=== PATIENT | female | born 1950 | race Caucasian/White ===

== ENCOUNTER → 2018-07-05 | Outpatient (CLI) | payer MEDICARE, OTHER, SELFPAY ==
[2018-07-05 12:51] LABS: ALB/GLOB Ratio 1.5 RATIO (0.9-2.4); AST(SGOT) 29 U/L (15-37); Alanine Aminotransfer ALT/SGPT 60 U/L (13-56); Albumin, Serum 4.1 g/dL (3.2-5.0); Alkaline Phosphatase 104 U/L (45-117); Anion Gap 5 (5-15); BUN 9 mg/dL (7-18); BUN/Creat Ratio 10.8 RATIO (10-20); Chloride 108 mmol/L (98-107); Cholesterol 215 mg/dL (200); Creatinine, Serum 0.83 mg/dL (0.55-1.02); EST Glomerular Filtration Rate 72 mL/min (>60); Est Glom Filt Rate - Afr Amer 87 mL/min (>60); Globulin 2.8 g/dL (2.2-4.2); Glucose 96 mg/dL (74-106); High Density Lipoprotein 73 mg/dL; Iron 98 ug/dL (50-170); Potassium 3.7 mmol/L (3.5-5.1); Protein, Total 6.9 g/dL (6.4-8.2); Sodium Level 139 mmol/L (136-145); T4 Free Direct 0.87 ng/dL (0.76-1.46); Thyroid Stim Hormone (TSH) 1.61 uIU/mL (0.358-3.74); Triglycerides 52 mg/dL; Very Low Density Lipoprotein 10 mg/dL (5-40)
[2018-07-05 12:54] LABS: Absolute Lymphocyte Count 1.02 X10^3/ul (0.83-4.51); Absolute Neutrophil Count 0.9 X10^3/uL (2.0-7.7); Basophil# 0.01 X10^3/uL; Basophil% 0.5 % (0-1); Eosinophil# 0.08 X10^3/uL; Eosinophils% 3.6 % (0-5); Hematocrit 40.2 % (37-47); Hemoglobin 13.5 g/dl (12.0-15.0); Lymphocyte # 1.02 X10^3/ul (4.0); Lymphocyte % 45.9 % (19-41); Mean Corp Hgb Conc 33.6 g/gl (32-36); Mean Corpuscular Hgb 30.3 pg (27.0-32.0); Mean Corpuscular Volume 90.3 fL (81-99); Mean Platelet Vol. 9.5 fl (6.2-12.0); Monocyte# 0.19 X10^3/uL; Monocyte% 8.6 % (0-10); Neutrophil # 0.92 X10^3/uL (2.7-7.7); Neutrophil % 41.4 % (47-70); Platelet Count 189 K/mm3 (150-450); RBC Distribution Width CV 13.1 % (11.6-14.6); RBC Distribution Width SD 43.1 fl (35.1-43.9); Red Blood Count 4.45 M/mm3 (4.2-5.4); White Blood Count 2.2 K/mm3 (4.4-11.0)
[2018-07-05 12:57] LABS: Vitamin B12 310 pg/mL (211-911)
[2018-07-05 13:04] LABS: Differential Indicated SCAN CRITERIA MET; POSITIVE COUNT NO; POSITIVE DIFFERENTIAL YES; POSITIVE MORPHOLOGY NO
[2018-07-05 13:20] LABS: Differential Comment SCANNED
== END | disposition home or self-care (01) ==
PROVIDERS: Family Provider Family Medicine; PCP Family Medicine; Visit Provider Family Medicine
DX: Z00.01 Encounter for general adult medical examination with abnormal findings (principal); R53.83 Other fatigue; I10 Essential (primary) hypertension; E55.9 Vitamin D deficiency, unspecified; D50.9 Iron deficiency anemia, unspecified
CPT/HCPCS: 36415; 80053; 80061; 82306; 82607; 83540; 84439; 84443; 84480; 85025

== ENCOUNTER 2019-04-20 10:22 | Emergency (ER) | payer MEDICARE, OTHER, SELFPAY ==
[2019-04-20 10:24] VITALS: BP 125/74; PULSE 64; RESP 16; TEMP 36.2; O2SAT 96; BMI 26.2
--- NOTE | 2019-04-20 10:33 | CT_ITS ---
STUDY: CT ABDOMEN AND PELVIS WITHOUT CONTRAST REASON FOR EXAM: Female, 68 years old. Left flank pain x 2 days, nausea/vomiting, hx stones, lymphoma, hysterectomy. RADIATION DOSAGE (If Supplied By Facility): CTDIvol = ( 6.73 ) mGy, DLP = ( 327.64 ) mGycm TECHNIQUE: Transaxial images were obtained from the dome of the diaphragm to the symphysis pubis without oral contrast, and without intravenous contrast. Sagittal and coronal images were reconstructed. Individualized dose optimization techniques were used for this CT. COMPARISON: None. FINDINGS: The visualized lung bases are unremarkable. The visualized portions of the heart are within normal limits. Normal liver. Normal gallbladder and extrahepatic biliary system. Normal spleen. Normal pancreas. Normal bilateral adrenal glands. Normal right kidney. There are multiple calcifications of the left kidney measuring up to 5 mm There is a small hiatal hernia. Normal small intestine. Normal colon. There is non-visualization of the appendix. There is diffuse atherosclerotic calcification of the abdominal aorta, without a demonstrated aneurysm. Normal inferior vena cava. Normal retroperitoneum. Normal urinary bladder. Normal abdominal wall. There is scoliosis and degenerative changes of the visualized lumbar spine. CT/Abdomen/Pelvis without Cont IMPRESSION: Small left renal calculi. Electronically Signed: Adri Reed MD at 11:31 EST Tel , Service support ,
--- NOTE | 2019-04-20 10:34 | ED.DCSUM_ITS ---
History of Present Illness Informant: Patient, Significant Other - Abdominal Pain/Flank Pain Onset: Yesterday Context: Sudden Onset Timing: Intermittent Quality: Sharp, Stabbing Location: Left Flank Current Severity: Severe Maximum Severity: Severe Worsened by: Nothing Relieved by: Remaining Still - Nausea/Vomiting/Emesis GI Symptom: Nausea, Vomiting Onset: Today Quality: Nonbilious Severity: Mild Episodes: 1 - Diarrhea/Melena/Hematochezia GI Symptom: Negative for: Diarrhea, Melena, Hematochezia Associated Symptoms: Negative for: Dysuria, Frequency, Hematuria, Urgency Narrative: 68-year-old female history of lymphoma currently in remission and a history of kidney stones presents to the emergency department with left-sided flank pain. She has had progressively worsening sharp and stabbing left-sided flank pain over the last 2 days. It significantly worsened over the last several hours. She has had one episode of nonbloody emesis this morning. Nothing really makes the pain better or worse. She attempted to take an oxycodone but vomited this up. She denies any difficulty urinating, hematuria, dysuria, urinary frequency or urgency. She has not had a fever. She has not had chest pain or shortness of breath. The pain does not radiate into her legs. She does have a history of kidney stones. She has had lithotripsy in the past. Most recently about a year ago. Rest review of systems negative Prior similar symptoms: Yes Recent Illness/Hospitalization: No <Tong Haq - Last Filed: 04/20/19 14:02> <Jaren Carty - Last Filed: 04/20/19 17:13> Chief Complaint: Flank Pain Past Medical History Prior records reviewed: Yes Past Medical History: - - Lymphoma currently in remission Surgical History: - - Lithotripsy Lives: With Family Smoking Status: Never smoker Alcohol: Occasional Drugs: None - Family History Maternal Family History: Reports: No pertinent history <Tong Haq - Last Filed: 04/20/19 14:02> <Jaren Carty - Last Filed: 04/20/19 17:13> - Allergies and Home Meds Allergies/Adverse Reactions: Allergies cefaclor [From Ceclor] Allergy (Verified 04/20/19 10:24) Hives Cephalosporins Allergy (Verified 04/20/19 10:45) Hives erythromycin base Allergy (Verified 04/20/19 10:45) Hives levofloxacin [From Levaquin] Allergy (Verified 04/20/19 10:24) Other lorazepam [From Ativan] Adverse Reaction (Verified 04/20/19 10:45) Other Sulfa (Sulfonamide Antibiotics) Adverse Reaction (Verified 04/20/19 10:24) Nausea PAIN MEDS Adverse Reaction (Uncoded 04/20/19 10:24) Nausea Primary Care Physician: Nicolasa Harkins DO [Primary Care Provider] - Review of Systems All systems negative except as indicated General: Denies: Chills, Fever, Malaise Eyes: Denies: Visual changes - bilaterally, Blurred Vision - bilaterally, Dip lopia ENT: Denies: Rhinorrhea, Sore throat Cardiovascular: Denies: Chest pain, Palpitations, Heart racing Respiratory: Denies: Dyspnea, Cough, Sputum Gastrointestinal: Reports: Abdominal pain, Nausea, Vomiting. Denies: Diarrhea, Constipation, Melena, Hematochezia Genitourinary: Denies: Dysuria, Hematuria, Frequency Musculoskeletal: Denies: Myalgias, Arthralgias, Neck pain, Back pain, Swelling, Extremity Pain Skin: Denies: Rash, Abscess, Abrasions, Wounds Neurological: Denies: Headache, Weakness Psych: Denies: Depression, Anxiety <Tong Haq - Last Filed: 04/20/19 14:02> Physical Exam Vital Signs/Narrative: Vital Signs Temp Pulse Resp BP Pulse Ox 04/20/19 10:24 97.2 F L 64 16 125/74 H 96 Inital Vital Signs reviewed: Yes General: Well nourished, Well developed, No Acute Distress Head: Normocephalic, Atraumatic Eyes: Perrl, EOMI ENT: Moist mucous membranes Neck: Supple, Nontender Cardiovascular: Regular rate, Regular rhythm, No murmurs Respiratory: No distress, CTA bilaterally, Chest nontender Abdomen: Soft, Nontender, Nondistended, Normal bowel sounds, No masses Back: Nontender, Normal Inspection Extremities: Nontender, No edema Skin: Normal color, No rash Neurological: Alert, Oriented x3 Psychological: Normal affect, Normal Mood <Tong Haq - Last Filed: 04/20/19 14:02> Vital Signs/Narrative: Vital Signs Pulse Resp BP Pulse Ox 04/20/19 13:18 60 16 136/77 H 100 <Jaren Carty - Last Filed: 04/20/19 17:13> Diagnostic/Tx/Re-eval CT: Abdomen and Pelvis - Medical Decision Making Patient was treated with IV fluids, morphine and Zofran. CBC BMP both are unremarkable. CT scan abdomen and pelvis without contrast shows stones in both kidneys but no ureteral stone or any other acute abnormality. Repeat exam patient was continuing to have pain. She was given a dose of T oradol. She was given IV fluids as she was having difficulty obtaining a urine sample. We did obtain a urine sample which was unremarkable. She had improved pain with the Toradol. Repeat abdominal exam is soft and nontender and the patient is tolerating by mouth. She will be discharged home. She is oxycodone to use at home for pain as well as ibuprofen and she will follow-up with her primary care <Tong Haq - Last Filed: 04/20/19 14:02> - Medical Decision Making I supervised the PA and have performed my own pertinent history and physical. Results and treatment plan were discussed. HPI: Patient complains of left flank pain that began 2 days ago. Is gotten much worse over the past 2 hours. States this is similar to when she had kidney stones in the past. She reports pain is 10 on 10 severity. Is increased with movement. She tried to take Percocet for this, but vomited out. Nothing takes the pain better. There is no radiation to her legs. No problems with her bowels or her bladder. No groin numbness. PE: Abdomen: Soft, nontender, nondistended. Normal bowel sounds. Back: No vertebral tenderness. She does have moderate tenderness palpation in the paraspinous musculature in the lumbar region on the left. No true CVA tenderness. Negative straight leg raise bilaterally. 5 out of 5 dorsiflexion, plantarflexion, extension looses longus bilaterally. Normal sensation light touch throughout. Normal gait. Emergency Department course: Patient was given morphine and zofran with minimal relief. She was given toradol and is resting more comfortably. I discussed with the patient that at this time we don't have an explanation for her pain. The CT didn't show a ureteral stone and she doesn't have hematuria. Treatment Plan: The patient would like to go home. She'll be discharged with zofran and percocet. Instructed to follow up with her PCP in 2 days if not impoving. Return to the ED for any worsening symptoms. This note was generated with [facility] [employer] dictation software. It may contain incorrect words, spelling, and punctuation that were not noted in review of the chart prior to signing. <Jaren Carty - Last Filed: 04/20/19 17:13> ED Disposition <Tong Haq - Last Filed: 04/20/19 14:02> <Jaren Carty - Last Filed: 04/20/19 17:13> - Plan for ED Patient: Disposition: Home or Assisted Living Diagnosis: Left flank pain, History of kidney stones, History of lymphoma Instructions: FLANK PAIN, Uncertain Cause Prescriptions: Ondansetron [Zofran Odt] 4 mg PO Q8H PRN PRN #10 tab PRN Reason: Nausea Prescription Printed Referrals: Nicloasa Harikns DO [Primary Care Provider] -
[2019-04-20] MEDS: Ondansetron 4 MG/2 ML Vial IV ×2 (10:38→14:04)
[2019-04-20] MEDS: Morphine 4 MG/ML Syringe IV (10:39)
[2019-04-20] MEDS: 0.9% Normal Saline 1,000 ML 250 ML IV (10:53)
[2019-04-20 11:02] LABS: Absolute Lymphocyte Count 0.96 X10^3/uL (0.83-4.51); Absolute Neutrophil Count 3.1 X10^3/uL (2.0-7.7); Basophil# 0.01 X10^3/uL; Basophil% 0.2 % (0-1); Eosinophil# 0.05 X10^3/uL; Eosinophils% 1.1 % (0-5); Hematocrit 41.8 % (37-47); Hemoglobin 13.6 g/dL (12.0-15.0); Lymphocyte # 0.96 X10^3/ul (4.0); Lymphocyte % 21.4 % (19-41); Mean Corp Hgb Conc 32.5 g/dL (32-36); Mean Corpuscular Hgb 29.9 pg (27.0-32.0); Mean Corpuscular Volume 91.9 fL (81-99); Mean Platelet Vol. 9.5 fl (6.2-12.0); Monocyte# 0.31 X10^3/uL; Monocyte% 6.9 % (0-10); NRBC Flagged by Analyzer 0 % (0-5); Neutrophil # 3.14 X10^3/uL (2.7-7.7); Platelet Count 173 K/mm3 (150-450); RBC Distribution Width CV 12.7 % (11.6-14.6); RBC Distribution Width SD 42.3 fl (35.1-43.9); Red Blood Count 4.55 M/mm3 (4.2-5.4); White Blood Count 4.5 K/mm3 (4.4-11.0)
[2019-04-20 11:25] LABS: Anion Gap 4 (5-15); BUN 10 mg/dL (7-18); BUN/Creat Ratio 14.8 RATIO (10-20); Calcium,Total 8.7 mg/dL (8.5-10.1); Chloride 109 mmol/L (98-107); Creatinine, Serum 0.68 mg/dL (0.55-1.02); EST Glomerular Filtration Rate 91 mL/min (>60); Est Glom Filt Rate - Afr Amer 111 mL/min (>60); Glucose 138 mg/dL (74-106); Potassium 3.8 mmol/L (3.5-5.1); Sodium Level 140 mmol/L (136-145)
[2019-04-20] MEDS: Ketorolac 15 MG/ML Vial IV ×2 (11:57→14:03)
[2019-04-20 12:49] LABS: Bacteria 0 SEEN /hpf (None Seen); Mucous, Urine 0 SEEN /hpf (<or=2+); Red Blood Cells-Urine 0 SEEN /hpf (0-5); White Blood Cells 0 SEEN /hpf (0-5)
[2019-04-20 13:00] LABS: Color, Urine Yellow (Yellow); Glucose, Dipstick Normal (Normal); Ketone-Dipstick 50 mg/dl (Negative); Leukocyte Esterase-Dipstick 25 /ul (Negative); Nitrite-Dipstick Negative (Negative); Occult Blood-Urine Negative /ul (Negative); Protein-Dipstick Negative (Negative); Urine Bilirubin Dipstick Negative (Negative); Urine Clarity Clear (Clear); Urine Urobilinogen Normal (Normal)
[2019-04-20 13:18] VITALS: BP 136/77; PULSE 60; RESP 16; O2SAT 100
[2019-04-20 13:44] LABS: Squamous Epithelial Cells - UA 0-5 SEEN /hpf (5-10)
[2019-04-20] MEDS: Ondansetron ODT 4 MG Tablet PO (14:35)
== END 2019-04-20 15:22 | disposition home or self-care (01) ==
PROVIDERS: Emergency Provider Physician Assistant Medical; PCP Family Medicine
DX: R10.9 Unspecified abdominal pain (principal); Z87.442 Personal history of urinary calculi; Z85.72 Personal history of non-Hodgkin lymphomas; N20.0 Calculus of kidney
CPT/HCPCS: 74176; 80048; 81001; 85025; 96361; 96374; 96375; 96376; 99284; J7030; A4216; J2405

== ENCOUNTER → 2022-06-03 | Outpatient (CLI) | payer MEDICARE, OTHER, SELFPAY ==
--- NOTE | 2022-06-03 08:00 | RAD_ITS ---
STUDY: X-RAY - ESOPHAGUS (BARIUM SWALLOW) WITH FLUOROSCOPY REASON FOR EXAM: Female, 71 years old. DYSPHAGIA TECHNIQUE: 22 view(s) of the esophagus were obtained following swallowing of barium. FLUOROSCOPY TIME (if supplied): (35 seconds) minutes/seconds. COMPARISON: None. FINDINGS: There is no demonstrated esophageal foreign body. There is no demonstrated stricture or mucosal abnormality. Small hiatal hernia without gastroesophageal reflux. There is narrowing of the distal esophagus at the level of the gastroesophageal junction. The opening measures 22 mm. The patient ingested a 12 mm tablet of barium without any difficulty. There is atherosclerotic tortuosity of the aortic arch and descending thoracic aorta. Normal visualized pulmonary parenchyma. Normal visualized osseous structures of the thorax. RAD/Esophagus Single Contrast IMPRESSION: Small sliding hiatal hernia with gastric esophageal reflux. Narrowing at the gastric esophageal reflux measuring 22 mm. The patient ingested a 12 mm tablet of barium without any difficulty. Electronically Signed: Yonathan Verma MD at 14:07 EDT ,
== END | disposition home or self-care (01) ==
LOC: RAD 07:54
PROVIDERS: PCP Family Medicine; Referring Provider Internal Medicine Gastroenterology; Visit Provider Internal Medicine Gastroenterology
DX: R13.10 Dysphagia, unspecified (principal)
CPT/HCPCS: 74220

== ENCOUNTER → 2022-07-12 | Outpatient (CLI) | payer MEDICARE, OTHER, SELFPAY ==
[2022-07-12 09:58] LABS: Absolute Lymphocyte Count 1.21 X10^3/uL (0.83-4.51); Basophil# 0.01 X10^3/uL; Basophil% 0.3 % (0-1); Eosinophils% 2.8 % (0-5); Lymphocyte # 1.21 X10^3/ul (0.83-4.51); Lymphocyte % 33.9 % (19-41); Mean Corp Hgb Conc 32.5 g/dL (32-36); Mean Corpuscular Volume 92.2 fL (81-99); Mean Platelet Vol. 9.7 fl (6.2-12.0); Monocyte# 0.26 X10^3/uL; Monocyte% 7.3 % (0-10); NRBC Flagged by Analyzer 0 % (0-5); Neutrophil # 1.97 X10^3/uL (2.7-7.7); Neutrophil % 55.1 % (47-70); Platelet Count 201 K/mm3 (150-450); RBC Distribution Width CV 12.6 % (11.6-14.6); RBC Distribution Width SD 42.5 fl (35.1-43.9); Red Blood Count 4.34 M/mm3 (4.2-5.4); White Blood Count 3.6 K/mm3 (4.4-11.0)
[2022-07-12 10:33] LABS: ALB/GLOB Ratio 1.3 RATIO (0.9-2.4); AST(SGOT) 21 U/L (15-37); Alanine Aminotransfer ALT/SGPT 31 U/L (13-56); Albumin, Serum 3.6 g/dL (3.2-5.0); Alkaline Phosphatase 183 U/L (45-117); Anion Gap 7 (5-15); BUN 14 mg/dL (7-18); BUN/Creat Ratio 20.6 RATIO (10-20); Calcium,Total 8.9 mg/dL (8.5-10.1); Chloride 109 mmol/L (98-107); Cholesterol 188 mg/dL (200); Creatinine, Serum 0.68 mg/dL (0.55-1.02); EST Glomerular Filtration Rate 90 mL/min (>60); Est Glom Filt Rate - Afr Amer 109 mL/min (>60); Globulin 2.8 g/dL (2.2-4.2); Glucose 93 mg/dL (74-106); High Density Lipoprotein 53 mg/dL; Potassium 3.7 mmol/L (3.5-5.1); Protein, Total 6.4 g/dL (6.4-8.2); Sodium Level 143 mmol/L (136-145); Triglycerides 87 mg/dL; Very Low Density Lipoprotein 17 mg/dL (5-40)
[2022-07-12 10:45] LABS: Vitamin B12 1255 pg/mL (211-911); Vitamin D,25 Hydroxy 106.3 ng/mL
== END | disposition home or self-care (01) ==
LOC: LAB 09:09
PROVIDERS: PCP Family Medicine; Referring Provider Family Medicine; Visit Provider Family Medicine
DX: D50.9 Iron deficiency anemia, unspecified (principal); E55.9 Vitamin D deficiency, unspecified; E53.8 Deficiency of other specified B group vitamins; E78.5 Hyperlipidemia, unspecified; Z51.81 Encounter for therapeutic drug level monitoring
CPT/HCPCS: 36415; 80053; 80061; 82306; 82607; 85025

== ENCOUNTER → 2022-07-13 | Outpatient (CLI) | payer MEDICARE, OTHER, SELFPAY ==
--- NOTE | 2022-07-13 09:30 | BI_ITS ---
MAMMOGRAPHY - BILATERAL SCREENING REASON FOR EXAM: Female, 72 years old. Routine annual screening examination. PERTINENT HISTORY: Non-contributory. TECHNIQUE: Digital bilateral breast manas (3D mammographic acquisition) in the CC and MLO projections. 2-D mediolateral oblique (MLO) and craniocaudad (CC) views of both breasts were obtained. CAD: Full Field Digital Mammography with Computer Added Detection was performed. COMPARISON: Comparison is made with prior outside examination dated July 17, 2015. FINDINGS: Breast Composition: The breasts are heterogeneously dense, which may obscure small masses. There are no dominant masses or suspicious calcifications. Stable small benign appearing bilateral axillary lymph nodes. No other significant abnormalities are identified. There has been no significant change since the prior study. BI/SCRN MAMM (CAD)W/MANAS BILAT IMPRESSION: Stable bilateral screening mammogram. Yearly follow-up mammogram recommended. (A) ASSESSMENT CATEGORY: BIRADS Category 2: Benign. A letter regarding these results will be sent to the patient by the facility within 30 days. Approximately 10% of breast cancers are not detected by mammography. A normal mammogram should not delay biopsy of a clinically suspicious abnormality. [id number] Electronically Signed: Yonathan Verma MD at 10:37 EDT ,
--- NOTE | 2022-07-13 09:36 | BD_ITS ---
STUDY: DUAL ENERGY X-RAY ABSORPTIOMETRY / DXA REASON FOR EXAM: Female, 72 years old. M810 TECHNIQUE: Bone Mineral Density (BMD) measurements of lumbar spine and bilateral hips were obtained. COMPARISON: None. FINDINGS: Lumbar Spine (L1-L4): g/cm2 (0.768) / T-score (-3.0) / Z-score (-0.5) Findings are suggestive of osteoporosis with a high fracture risk. Left Femur Total: g/cm2 (0.697) / T-score (-2.0) / Z-score (-0.3) Left Femoral Neck: g/cm2 (0.611) / T-score (-2.1) / Z-score (-0.1) Right Femur Total: g/cm2 (0.712) / T-score (-1.9) / Z-score (-0.2) Right Femoral Neck: g/cm2 (0.599) / T-score (-2.3) / Z-score (-0.2) BD/Dexa Bone Density Study IMPRESSION: The patient is considered osteoporotic as outlined below according to World Brian Organization (WHO) criteria with a high fracture risk. Reference Information: The T-score is the number of standard deviations above or below the standard which is normal for young adults at their peak bone mineral density. The World Health Organization (WHO) interprets the T-scores as follows: Above -1 Normal bone density Between -1 and -2.5 Osteopenia Equal to / or below -2.5 Osteoporosis As a practical clinical guideline, osteopenia may be graded as follows: Mild -1 through -1.5 Moderate -1.6 through -2.0 Severe -2.1 through -2.4 The Z-score is the number of standard deviations above or below age-matched controls. A Z-score of less than -1.5 would be considered abnormal. References: 1. NIH Osteoporosis and Related Bone Diseases www osteo.org 2. International Society for Clinical Densitometry www iscd.org 3. National Osteoporosis Foundation www nof.org Electronically Signed: Yonathan Verma MD at 9:38 EDT ,
== END | disposition home or self-care (01) ==
LOC: OPBD 09:28
PROVIDERS: PCP Family Medicine; Referring Provider Family Medicine; Visit Provider Family Medicine
DX: Z12.31 Encounter for screening mammogram for malignant neoplasm of breast (principal); M81.0 Age-related osteoporosis without current pathological fracture
CPT/HCPCS: 77063; 77067; 77080

== ENCOUNTER 2022-10-13 08:00 | Outpatient (RCR) | payer MEDICARE, OTHER, SELFPAY ==
--- NOTE | 2022-09-30 09:23 | HP.PTEVAL ---
Patient's Visit Information Visit Information Visit Information: GUILLE LOU is a 72 year old F referred to Physical Therapy by DARRIUS Taylor with a diagnosis of RADICULOPATHY ,CERVICAL REGION , PAIN RIGHT SHOULDER ,OTHER CERVICAL DISC. Date of Evaluation: 09/30/22 Physical Therapist: Zeke Ramirez, PT, Cert MDT, OCS Visit Plan Frequency: 2x /Week Duration: 4 Weeks Plan: PRECAUTION: OSTEOPOROSIS PT INTERVETIONS CERVOCAL ROM ,POSTURAL STRENGTHNEING AND MANUAL THERAPY STM/GENTLE CERVICAL TRACTION Subjective Subjective: This 72 y/o female presents to physical therapy with cervical radiculopathy. Patient has cervical pain right radiculopathy for several years. Patient has osteoporosis as well but not medicated. Patient had x-rays cervical DDD . Location C7 shoulder radiates bicep to forearm . Patient aggravating sitting ,standing ,rotation to right. Alleviating better with movement. Pain affects sleeping . Patient denies paresthesia/tingling. Patient h/o CA 5 years lymphoma. C/O NAGY ,denies nausea/tinnitus. Patient symptoms affects QOL and function . Patient does some stretches on own. 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 Pain Bilateral Neck: Pain Intensity (Out of 10): 4 Pain Intensity Range: 10 Right Shoulder: Pain Intensity (Out of 10): 2 Pain Intensity Range: 10 Objective Objective: POSTURE: rounded shoulders thoracic mod kyphosis with scoliosis PALAPATION: tender UT /levator NEURO: denies paresthesia/tingling ,reflexes C5-6-7 1/2 CERVICAL ROM: flexion mod loss ,lateral flexion mod loss pain towards right side ,extension mod loss ,flexion min loss AROM: BUE WFL MMT: grossly 4/5 ,except 4-/5 Special Tests C/S Radiculapathy - Left Upper limb tension test: Negative C/S Radiculapathy - Right Upper limb tension test: Negative C/S Radiculapathy - Left Spurlings: Negative C/S Radiculapathy - Right Spurlings: Positive C/S Radiculapathy - Left Cervical distraction: Negative C/S Radiculapathy - Right Cervical distraction: Negative C/S Radiculapathy - Left Relief test: Negative C/S Radiculapathy - Right Relief test: Negative Sharp Allyson: Negative Vertebral Artery Test: Negative Alar Ligament Test: Negative Balance/Special Test Scores Oswestry Neck Score: 21 Goals Goal 1:: Patient to be I with HEP for cervical Goal Time Frame: 4-6 Weeks Goal 2:: Patient to improve posture for ADL 80% of the time Goal Time Frame: 4-6 Weeks Goal 3:: Patient to improve cervical AROM for function of recovery to rotate neck for driving Goal Time Frame: 4-6 Weeks Goal 4:: Patient to improve neck oswestry score by 5 points or > to improve function Goal Time Frame: 4-6 Weeks Goal 5:: Patient to demonstrate 50% improvement with increase cervical ROM and improved function Goal Time Frame: 4-6 Weeks Rehabilitation Potential Physical Therapy Diagnosis: This patient has right cervical spine lateral stenosis with pain with rotation to right along with positioning and motion testing thus will benefit from skilled PT Rehabilitation Potential: Good Anticipated Interventions Patient/Client Instruction: Educate patient on: Condition and Plan of Care For the Purpose of:: To decrease pain, To increase ROM, To improve muscle performance and motor function, To improve ability to perform ADL's, To increase tolerance to activity/condition/position, To improve ability of physical actions for home/community/work/leisure, To improve health of tissue, To decrease soft tissue restriction, To increase flexibility/ROM and To improve tolerance to ADL's Therapeutic Exercise to Include: Strength training, Postural training, Flexibilty training and Passive ROM For the Purpose of:: To decrease pain, To increase ROM, To improve muscle performance and motor function, To increase tolerance to activity/condition/position, To improve ability of physical actions for home/community/work/leisure, To improve health of tissue, To decrease soft tissue restriction, To increase flexibility/ROM and To improve safety For the Purpose of:: To decrease pain, To increase ROM, To improve nutrient delivery to tissue, To increase oxygenation perfusion, To improve health of tissue and To decrease soft tissue restriction Text: Thank you for the opportunity to evaluate your patient. For Medicare and Medicare HMO plans, please review the plan of care and approve it. It will need to be FAXED BACK to us at [phone] for Medicare purposes. For Medicare only, by signing this I certify the plan of care. Please let me know if there are questions or concerns regarding this plan of care. Physician Signature: Date:
== END 2022-10-13 19:00 | disposition home or self-care (01) ==
LOC: PT 08:00
PROVIDERS: PCP Family Medicine; Referring Provider Physician Assistant Surgical; Visit Provider Physician Assistant Surgical
DX: M50.322 Other cervical disc degeneration at C5-C6 level (principal); M54.12 Radiculopathy, cervical region; M25.511 Pain in right shoulder
CPT/HCPCS: 97110; 97140; 97162

== ENCOUNTER → 2023-06-06 | Outpatient (CLI) | payer MEDICARE, OTHER, SELFPAY ==
[2023-06-06 18:05] LABS: Vitamin D,25 Hydroxy 72.7 ng/mL
== END | disposition home or self-care (01) ==
LOC: BFHLAB 14:29
PROVIDERS: PCP Family Medicine; Visit Provider Family Medicine
DX: E55.9 Vitamin D deficiency, unspecified (principal)
CPT/HCPCS: 36415; 82306

== ENCOUNTER 2023-07-09 00:06 | Inpatient (IN) | payer MEDICARE, OTHER, SELFPAY ==
[2023-07-09] VITALS (12 sets, daily range): BP systolic 117–162; BP diastolic 50–85; PULSE 71–91; RESP 16–20; TEMP 36.1–37.2; O2SAT 94–98; BMI 28.3; BMI 28.0
[2023-07-09 00:55] LABS: Absolute Lymphocyte Count 1.58 X10^3/uL (0.83-4.51); Absolute Neutrophil Count 10.5 X10^3/uL (2.0-7.7); Basophil# 0.04 X10^3/uL; Basophil% 0.3 % (0-1); Eosinophil# 0.08 X10^3/uL; Eosinophils% 0.6 % (0-5); Hematocrit 41.7 % (37-47); Hemoglobin 13.8 g/dL (12.0-15.0); Lymphocyte # 1.58 X10^3/ul (0.83-4.51); Lymphocyte % 12.5 % (19-41); Mean Corp Hgb Conc 33.1 g/dL (32-36); Mean Corpuscular Hgb 30.1 pg (27.0-32.0); Mean Corpuscular Volume 90.8 fL (81-99); Mean Platelet Vol. 10.2 fl (6.2-12.0); Monocyte# 0.47 X10^3/uL; Monocyte% 3.7 % (0-10); NRBC Flagged by Analyzer 0 % (0-5); Neutrophil # 10.46 X10^3/uL (2.7-7.7); Neutrophil % 82.5 % (47-70); Platelet Count 206 K/mm3 (150-450); RBC Distribution Width CV 12.7 % (11.6-14.6); RBC Distribution Width SD 41.7 fl (35.1-43.9); Red Blood Count 4.59 M/mm3 (4.2-5.4); White Blood Count 12.7 K/mm3 (4.4-11.0)
[2023-07-09 01:16] LABS: AST(SGOT) 51 U/L (15-37); Alanine Aminotransfer ALT/SGPT 39 U/L (13-56); Albumin, Serum 3.9 g/dL (3.2-5.0); Alkaline Phosphatase 138 U/L (45-117); Anion Gap 7 (5-15); BUN 16 mg/dL (7-18); BUN/Creat Ratio 19.2 RATIO (10-20); Bilirubin, Direct 0.22 mg/dL (0.00-0.30); Calcium,Total 8.9 mg/dL (8.5-10.1); Chloride 108 mmol/L (98-107); Creatinine, Serum 0.83 mg/dL (0.55-1.02); EST Glomerular Filtration Rate 71 mL/min (>60); Est Glom Filt Rate - Afr Amer 86 mL/min (>60); Estimated Creatinine Clearance 53.79 ml/min; Globulin 2.8 g/dL (2.2-4.2); Glucose 151 mg/dL (74-106); Lipase 3675 U/L (13-75); Potassium 3.1 mmol/L (3.5-5.1); Protein, Total 6.7 g/dL (6.4-8.2); Sodium Level 141 mmol/L (136-145)
[2023-07-09] MEDS: 0.9% Normal Saline (1000mL) 1,000 ML 999 ML IV (01:17)
[2023-07-09] MEDS: Ondansetron 4 MG/2 ML Vial IV ×2 (01:17→06:36)
[2023-07-09] MEDS: Morphine 4 MG/ML Syringe IV (01:18)
--- NOTE | 2023-07-09 01:35 | CT_ITS ---
EXAM: CT ABDOMEN AND PELVIS WITH INTRAVENOUS CONTRAST CLINICAL INDICATION: abd pain / ? SBO abd pain / ? SBO TECHNIQUE: Helically acquired images were obtained of the abdomen and pelvis with intravenous contrast. This CT exam was performed using one or more of the following dose reduction techniques: automated exposure control, adjustment of the mA and/or kV according to patient size, and/or use of iterative reconstruction technique. CONTRAST: IV 100mL [id number]-[id number] RADIATION DOSE: CTDIvol = 12.65 mGy, DLP = 657.91 mGy-cm COMPARISON: No relevant prior studies available. FINDINGS: LOWER THORAX: There is a small right pleural effusion. There is a moderately large hiatal hernia. No cardiomegaly. ABDOMEN: LIVER: Unremarkable. Homogeneous. No focal mass. GALLBLADDER AND BILE DUCTS: The common bile duct is dilated, measuring 1.4 cm and there is mild central intrahepatic bile duct dilatation. The gallbladder is distended with short axis diameter of 4.4 cm. No calcified gallstones. PANCREAS: The head and the tail the pancreas are enlarged. There is phlegmonous infiltration of fat surrounding the pancreas as well as some peripancreatic fluid. Fat infiltration and fluid extends into the central mesentery and also extends inferiorly within the anterior paranephric retroperitoneal spaces. Findings are consistent with acute pancreatitis. There is no evidence for discrete pseudocyst or pancreatic duct dilatation. SPLEEN: Unremarkable. Normal size without focal cystic or solid mass. ADRENALS: Unremarkable. No nodules. KIDNEYS AND URETERS: There are 4 nonobstructive left renal calculi, ranging up to 6.5 cm. There are bilateral renal cysts which are simple in appearance or too small to reliably characterize. No follow-up imaging is necessary for simple renal cysts or cysts that are too small to characterize. Normal renal size and position. STOMACH AND BOWEL: There is mild mural thickening of the duodenal sweep which is probably secondary to pancreatic inflammation. A small diverticulum of the duodenal sweep. Acute duodenal diverticulitis is thought to be unlikely. No stomach or bowel distention. PELVIS: APPENDIX: No evidence of acute appendicitis. BLADDER: There is prolapse of the urinary bladder. REPRODUCTIVE: The uterus is absent consistent with prior hysterectomy. ABDOMEN and PELVIS: INTRAPERITONEAL SPACE: Unremarkable. No ascites or other fluid collection. No free air. BONES/JOINTS: There are multilevel degenerative changes in the visualized spine. There is S-shaped thoracolumbar scoliosis. SOFT TISSUES: There is an umbilical hernia which contains fat. VASCULATURE: Unremarkable. Abdominal aorta is non-dilated. LYMPH NODES: Unremarkable. No enlarged lymph nodes. CT/Abdomen/Pelvis W IV Cont ONLY IMPRESSION: 1. Findings suggest acute pancreatitis. Suggest laboratory correlation. 2. Mild dilatation and distention of the gallbladder, possibly secondary to pancreatitis. Other obstructive etiologies cannot be entirely excluded. 3. Small right pleural effusion. 4. Moderately large hiatal hernia. 5. Previous hysterectomy. 6. Nonobstructive left renal calculi. No demonstrated ureteral catheter hydronephrosis. 7. Prolapse of the urinary bladder. 8. Diverticulum of the duodenal sweep. Mural thickening of the duodenum is most likely secondary to pancreatitis. While diverticulitis is thought to be unlikely. Electronically Signed: Renato Sherwood MD at 2:16 EDT ,
[2023-07-09] MEDS: HYDROmorphone 0.5 MG/0.5 ML SYRINGE IV ×5 (02:08→21:08)
[2023-07-09 02:20] LABS: Lactic Acid 1.7 mmol/L (0.4-1.9)
--- NOTE | 2023-07-09 02:29 | HP.PCM.HOS_ITS ---
[facility] - General General Date of Admission: 07/09/23 Date of Service: 07/09/23 Chief Complaint: Abdominal Pain. [facility] Narrative GUILLE LEON, is a 73 F with a past medical history of essential hypertension, overweight; BMI 28.3 this admission, narcolepsy; armodafinil, history of non- Hodgkin's lymphoma (2014); s/p chemotherapy and subsequent stem cell transplant, asthma, history of migraines, history of renal calculi, history of hiatal hernia, history of hysterectomy, overactive bladder, GERD, osteoporosis and osteoarthritis who presents to [facility] ER complaining of abdominal pain. Mrs. Leon reports her symptoms began approximately a few hours prior to admission with the abrupt-onset of progressively worsening abdominal pain that was primarily focused in the epigastrium, burning, cramping, severe and unrelenting. She also admits to nausea and malaise but she denies vomiting. She denies a personal or family history of pancreatitis or other pancreatic diseases. She denies a history of gallstones, alcohol use or recent abdominal trauma. She also denies related fever, chills, diarrhea, constipation, chest pain or shortness of breath. In the ER she was noted to have CT evidence of acute pancreatitis with confirmatory highly elevated serum lipase of 3,675 U/L complicated by mild dilatation and distention of the gallbladder with mural thickening of the duodenum also evident on CT this admission with laboratory evidence of hypokalemia of 3.3 mmol/L present on admission and she was then admitted to the general medical floor for ongoing care for stay that is expected to be greater than 2 midnights. [facility] Medical History Hiatal hernia Kidney stone Asthma Narcolepsy Hypertension Migraines Osteoporosis Scoliosis Non-Hodgkin lymphoma Home Medications ?Medication ?Instructions ?Recorded ?Last Taken ?Type modafinil 200 mg tablet 100 mg PO DAILY narcolepsy 09/25/16 Unknown History oxybutynin chloride 5 mg tablet 5 mg PO QHS bladd 09/25/16 07/08/23 History flaxseed oil 1,000 mg capsule 1,000 mg PO DAILY supplem 09/30/16 07/08/23 History ascorbic acid (vitamin C) 1,000 mg 1,000 mg PO DAILY vitamin 04/20/19 07/08/23 History tablet omeprazole 40 mg capsule,delayed 40 mg PO DAILY nausea 04/20/19 07/08/23 History release vitamin B complex 1 ea PO DAILY suppl 04/20/19 07/08/23 History metoprolol tartrate 50 mg tablet 50 mg PO BID bp 07/09/23 07/08/23 History (Lopressor) Allergy/AdvReac Type Severity Reaction Status Date / Time cefaclor (From Ceclor) Allergy Hives Verified 04/20/19 10:24 Cephalosporins Allergy Hives Verified 04/20/19 10:45 erythromycin base Allergy Hives Verified 04/20/19 10:45 levofloxacin (From Levaquin) Allergy Other Verified 04/20/19 10:24 lorazepam (From Ativan) AdvReac Other Verified 04/20/19 10:45 Sulfa (Sulfonamide AdvReac Nausea Verified 04/20/19 10:24 Antibiotics) Surgical History H/O: hysterectomy Social History Smoking Status: Never smoker ROS ROS Narrative Review of systems: General: Patient denies fever or chills. HENT: Denies headache, denies stuffy nose, denies sore throat EYES: Denies changes in vision or discharge from eyes. Resp: Denies cough, denies shortness of breath Cardiac: Denies chest pain, palpitations or heart racing. GI: Patient admits to severe cramping burning abdominal pain with nausea as per HPI. : Denies changes in urination Extremity: Denies swelling Musculoskeletal: Feels somewhat generally weak and unwell but she denies arthralgias or myalgias. Neuro: Patient denies headache, paresthesias or focal neurologic weakness. Heme: Denies any bleeding or bruising Skin: Denies rashes Psychiatric: No complaints voiced related to uncontrolled depression or anxiety. Endocrine: No polyuria, polydipsia or polyphagia. The rest of the 14 point ROS was negative except for positives in HPI. Vital Signs Vital Signs Vital Signs: 07/09/23 00:07 07/09/23 02:06 Temperature 96.9 F L 97.7 F L Temperature Source Temporal Oral Pulse Rate 71 91 Respiratory Rate 19 H 19 H Blood Pressure 162/77 H 117/70 Blood Pressure Mean 105 85 Pulse Ox 97 97 Oxygen Delivery Method Room Air Room Air Weight Weight: 154 lb 15.759 oz Body Mass Index (BMI) 28.3 Physical Exam Const alert, oriented x3 and average body habitus Constitutional Narrative: Mild distress noted with patient appearing ill. General Appearance: cooperative HEENT normocephalic, head/scalp atraumatic and hearing grossly normal bilaterally HEENT Narrative: Mucous membranes dry. Eyes PERRL and EOMs intact bilaterally Neck no lymphadenopathy and supple Resp normal respiratory effort, no retractions, no use of accessory muscles and clear to auscultation bilaterally Cardio regular rate and regular rhythm GI normal to inspection, nondistended, normoactive bowel sounds and soft to palpation GI Narrative: TTP in the epigastrium with mild distention noted. Extremity normal to inspection, full ROM and no clubbing, cyanosis or edema Skin Skin Narrative: Patient has no evidence of rash or jaundice. Neuro oriented x3, CN's II-XII intact bilaterally, moves all extremities and no focal motor deficits Sensorium / Orientation: awake, alert, oriented to person, oriented to place and oriented to time Speech: speech normal Psych affect normal Results Medical Records Data Attestation: I reviewed the patient's medical records Lab / Micro Data Attestation: I reviewed the patient's lab results. 07/09/23 03:40 07/09/23 03:40 Labs: Laboratory Results - last 24 hr 07/09/23 00:11: WBC 12.7 H, RBC 4.59, Hgb 13.8, Hct 41.7, MCV 90.8, MCH 30.1, MCHC 33.1, RDW Std Deviation 41.7, RDW Coeff of Ghassan 12.7, Plt Count 206, MPV 10.2, Immature Gran % (Auto) 0.400, Neut % (Auto) 82.5 H, Lymph % (Auto) 12.5 L, [place] % (Auto) 3.7, Eos % (Auto) 0.6, Baso % (Auto) 0.3, Absolute Neuts (auto) 10.5 H, Absolute Lymphs (auto) 1.58, Nucleated RBC % 0, Sodium 141, Potassium 3.1 L, Chloride 108 H, Carbon Dioxide 26.0, Anion Gap 7, BUN 16, Creatinine 0.83, Estim Creat Clear Calc 53.79, Est GFR (MDRD) Af Amer 86, Est GFR (MDRD) Non-Af 71, BUN/Creatinine Ratio 19.2, Glucose 151 H, Calcium 8.9, Total Bilirubin 0.50, Direct Bilirubin 0.22, AST 51 H, ALT 39, Alkaline Phosphatase 138 H, Total Protein 6.7, Albumin 3.9, Globulin 2.8, Lipase 3675 H 07/09/23 01:50: Lactic Acid 1.7 Imaging Radiology Impression Abdomen/Pelvis CT 07/09/23 01:35 IMPRESSION: 1. Findings suggest acute pancreatitis. Suggest laboratory correlation. 2. Mild dilatation and distention of the gallbladder, possibly secondary to pancreatitis. Other obstructive etiologies cannot be entirely excluded. 3. Small right pleural effusion. 4. Moderately large hiatal hernia. 5. Previous hysterectomy. 6. Nonobstructive left renal calculi. No demonstrated ureteral catheter hydronephrosis. 7. Prolapse of the urinary bladder. 8. Diverticulum of the duodenal sweep. Mural thickening of the duodenum is most likely secondary to pancreatitis. While diverticulitis is thought to be unlikely. Electronically Signed: Renato Sherwood MD at 2:16 EDT , Assessment & Plan Assessment/Plan (1) Acute pancreatitis: QUALIFIERS: Acute pancreatitis complication: unspecified P ancreatitis type: unspecified pancreatitis type Qualified Code(s): K85.90 - Acute pancreatitis without necrosis or infection, unspecified (2) Hypokalemia: (3) Essential hypertension: (4) History of non-Hodgkin's lymphoma: (5) History of stem cell transplant: (6) Narcolepsy: QUALIFIERS: Narcolepsy type: primary without cataplexy Qualified Code(s): G47.419 - Narcolepsy without cataplexy (7) Kidney stone: PLAN: Plan 1. Acute pancreatitis evident on CT this admission with confirmatory highly elevated lipase of 3,675 U/L and leukocytosis of 12.7 K present on admission likely due to acute stress response - Admit to general medical floor. Keep strict n.p.o. and vigorously volume resuscitate. Protonix 40 mg IV daily plus Zofran IV every 4 hours as needed. Check MRCP with abnormal appearance of surrounding structures as there is no history of alcohol use, gallstones or similar previous episodes. Check lipid profile to evaluate for possible underlying hypertriglyceridemia as a potential etiology. Check CA 19?9 in light of the fact there is no obvious cause to evaluate for possible malignancy. Finally, we will consult gastroenterology to see this patient on rounds in the a.m. further recommendations without appreciated in advance. 2. Mild dilatation and distention of the gallbladder with mural thickening of the duodenum also evident on CT this admission; possibly secondary to #1 - Noted. If MRCP is suggestive of acute gallbladder pathology consider general surgery consultation. 3. Hypokalemia of 3.3 mmol/L present on admission - Give supplemental IV KCl and then recheck CMP in the a.m. to ensure improvement. 4. Essential hypertension - Hold scheduled antihypertensives and give IV hydralazine as needed for systolic blood pressure greater than 160 mmHg. Restart home medications when patient is able to tolerate p.o. intake. 5. Overweight; BMI 28.3 this admission - Weight loss will be recommended. Check TSH. 6. Narcolepsy; on Modafinil - Resume Modafinil as previous when patient is able to tolerate p.o. intake.. 7. History of non-Hodgkin's lymphoma (2014); s/p chemotherapy and subsequent stem cell transplant - Noted with no issues since that time. 8. Asthma - Stable with no evidence of acute flare. Continue as needed nebulizers. 9. History of migraines - Noted with no complaints of headache at this time. 10. History of renal calculi - Patient was noted to have nonobstructive Left renal calculi this admission on CT. 11. History of hiatal hernia; with chronic GERD - Patient on IV Protonix for #1. 12. Overactive bladder - Restart oxybutynin when patient is able to tolerate p.o. intake. 13. Osteoporosis - Stable. 14. Osteoarthritis - Stable. 15. History of hysterectomy - Noted. 16. DVT prophylaxis - Lovenox 40 mg subcu daily. Total time: Approximately 55 minutes. Charges/Coding Visit Charges Inpatient E&M: 35401 Init Hosp L2
--- NOTE | 2023-07-09 02:32 | EX.ED.DYSGE1 ---
HPI History of Present Illness Chief Complaint: Abd Pain Informant: patient and spouse/S.O. Narrative Narrative: Patient is a 73-year-old female with past medical history of hypertension as well as previous non-Hodgkin's lymphoma and kidney stone and migraines. She has a past surgical history of complete hysterectomy with ophrectomy. Patient states that she was sitting at rest around 7 or 8 PM when she developed generalized abdominal discomfort and bouts of nausea and vomiting. She states that there has been no known sick contacts and she denies any fevers or chills or history of abdominal disease such as pancreatitis gallbladder disease or colitis. She states she tried [id number] medications and time without any symptom improvement and therefore comes to the hospital for evaluation [facility] Medical History Hiatal hernia Kidney stone Asthma Narcolepsy Hypertension Migraines Osteoporosis Scoliosis Non-Hodgkin lymphoma Home Medications ?Medication ?Instructions ?Recorded ?Last Taken ?Type modafinil 200 mg tablet 100 mg PO DAILY narcolepsy 09/25/16 Unknown History oxybutynin chloride 5 mg tablet 5 mg PO QHS bladd 09/25/16 07/08/23 History flaxseed oil 1,000 mg capsule 1,000 mg PO DAILY supplem 09/30/16 07/08/23 History ascorbic acid (vitamin C) 1,000 mg 1,000 mg PO DAILY vitamin 04/20/19 07/08/23 History tablet omeprazole 40 mg capsule,delayed 40 mg PO DAILY nausea 04/20/19 07/08/23 History release vitamin B complex 1 ea PO DAILY suppl 04/20/19 07/08/23 History metoprolol tartrate 50 mg tablet 50 mg PO BID bp 07/09/23 07/08/23 History (Lopressor) Allergy/AdvReac Type Severity Reaction Status Date / Time cefaclor (From Ceclor) Allergy Hives Verified 04/20/19 10:24 Cephalosporins Allergy Hives Verified 04/20/19 10:45 erythromycin base Allergy Hives Verified 04/20/19 10:45 levofloxacin (From Levaquin) Allergy Other Verified 04/20/19 10:24 lorazepam (From Ativan) AdvReac Other Verified 04/20/19 10:45 Sulfa (Sulfonamide AdvReac Nausea Verified 03/07/20 10:24 Antibiotics) Surgical History H/O: hysterectomy Social History Smoking Status: Never smoker ROS ROS ED Constitutional Constitutional ED: Denies chills or fever(s) Eyes Eyes: Denies change in vision ENT ENT ED: Denies sore throat Cardiovascular Cardiovascular: Denies chest pain Respiratory/Chest Respiratory/Chest: Denies cough or dyspnea Gastrointestinal Gastrointestinal: Reports abdominal pain, nausea and vomiting; Denies constipation or diarrhea Genitourinary Genitourinary ED: Denies dysuria, hematuria or urinary frequency Musculoskeletal Musculoskeletal: Reports back pain; Denies myalgias Integumentary Denies rash Neurologic Neurologic: Denies headache(s) Hematologic/Lymphatic Hematologic/Lymphatic: Denies easy bleeding or easy bruising EXAM Physical Exam Const Vital Signs: 07/09/23 00:07 07/09/23 02:06 07/09/23 02:40 Temperature 96.9 F L 97.7 F L 98.9 F Temperature Source Temporal Oral Pulse Rate 71 91 79 Respiratory Rate 19 H 19 H 20 H Blood Pressure 162/77 H 117/70 117/85 H Blood Pressure Mean 105 85 95 Pulse Ox 97 97 97 Oxygen Delivery Method Room Air Room Air 07/09/23 02:42 Temperature 98.8 F Temperature Source Oral Pulse Rate 79 Respiratory Rate 20 H Blood Pressure 117/85 H Blood Pressure Mean 95 Pulse Ox 97 Oxygen Delivery Method Room Air Positive well nourished and well developed General Appearance ED: well developed; Negative for pallor HEENT Reports moist mucous membranes HEENT Narrative: Normocephalic atraumatic Eyes PERRL and EOMs intact bilaterally General Eye ED: Negative for pale conjunctiva or scleral icterus Neck supple Neck Narrative: No nuchal rigidity or meningeal signs Resp clear to auscultation bilaterally Resp Narrative: Breath sounds are diminished throughout but overall clear to auscultation There is mild tachypnea noted without nasal flaring or retractions or accessory muscle use Cardio regular rate and regular rhythm Rate: other Other Details: Radial and carotid pulses are equal and symmetric GI non-distended GI Narrative: Abdomen is soft and nondistended with hyperactive bowel sounds. There is mild diffuse pain on palpation without voluntary guarding or rigidity. No pulsatile mass or fluid wave. No increased tympany Auscultation: hyperactive bowel sounds Palpation: soft Back/Spine no CVA tenderness Extremity normal to inspection Extremity Narrative: No asymmetric edema no pitting edema negative Homans' sign bilaterally Neuro oriented x3, CN's II-XII intact bilaterally and no sensory deficits noted Sensorium / Orientation: alert Motor Exam: strength 5/5 throughout Psych mental status grossly normal Skin no rashes or lesions noted, no wounds and skin turgor normal General Skin Exam: Negative for jaundice or pallor MDM MDM MDM Narrative Medical decision making narrative: Patient arrived to the ER hypertensive but overall with stable vitals. She reported generalized abdominal discomfort with bouts of nausea and vomiting that came on unprovoked. Differential diagnosis is for viral stomach infection such as [place] virus versus rotavirus. There is concern for biliary colic versus acute cholecystitis versus pancreatitis versus colitis/diverticulitis or small bowel obstruction. Secondary to his basic labs and a CT scan were obtained. Patient's lipase is drastically elevated at approximately 3700. CT scan with IV contrast also shows inflammation of the pancreas consistent with this. There is questionable irritation to the duodenum and gallbladder although this could be related to the inflammation surrounding the pancreas. As the patient's liver enzymes are normal I have low concern about acute cholecystitis and do not feel need for emergent ultrasound. The patient was given IV hydration and pain control and reported improvement of symptoms. At this time she will need admitted to the hospital secondary to the acute pancreatitis and medicine was contacted. They agree to accept the patient at this time and also agree that they can order further testing such as gallbladder ultrasound once patient has been admitted during normal business hours but at this time there is no need for emergent surgical consultation or ultrasound History & Record Review Discussion w/independent historian: Patient and Significant other Lab Data Attestation: I reviewed the patient's lab results. Labs: Laboratory Results - last 24 hr 07/09/23 07/09/23 00:11 01:50 WBC 12.7 H RBC 4.59 Hgb 13.8 Hct 41.7 MCV 90.8 MCH 30.1 MCHC 33.1 RDW Std Deviation 41.7 RDW Coeff of Ghassan 12.7 Plt Count 206 MPV 10.2 Immature Gran % (Auto) 0.400 Neut % (Auto) 82.5 H Lymph % (Auto) 12.5 L [place] % (Auto) 3.7 Eos % (Auto) 0.6 Baso % (Auto) 0.3 Absolute Neuts (auto) 10.5 H Absolute Lymphs (auto) 1.58 Nucleated RBC % 0 Sodium 141 Potassium 3.1 L Chloride 108 H Carbon Dioxide 26.0 Anion Gap 7 BUN 16 Creatinine 0.83 Estim Creat Clear Calc 53.79 Est GFR (MDRD) Af Amer 86 Est GFR (MDRD) Non-Af 71 BUN/Creatinine Ratio 19.2 Glucose 151 H Lactic Acid 1.7 Calcium 8.9 Total Bilirubin 0.50 Direct Bilirubin 0.22 AST 51 H ALT 39 Alkaline Phosphatase 138 H Total Protein 6.7 Albumin 3.9 Globulin 2.8 Lipase 3675 H Radiography Diagnostic Testing: Clinical Impression(s) from Imaging Studies Abdomen/Pelvis CT 07/09/23 01:35 IMPRESSION: 1. Findings suggest acute pancreatitis. Suggest laboratory correlation. 2. Mild dilatation and distention of the gallbladder, possibly secondary to pancreatitis. Other obstructive etiologies cannot be entirely excluded. 3. Small right pleural effusion. 4. Moderately large hiatal hernia. 5. Previous hysterectomy. 6. Nonobstructive left renal calculi. No demonstrated ureteral catheter hydronephrosis. 7. Prolapse of the urinary bladder. 8. Diverticulum of the duodenal sweep. Mural thickening of the duodenum is most likely secondary to pancreatitis. While diverticulitis is thought to be unlikely. Electronically Signed: Renato Sherwood MD at 2:16 EDT Reading Location ID and State: [facility] / [place] , Service support , Discharge Plan Dx/Rx/DC Orders Clinical Impression: Acute pancreatitis, Essential hypertension, History of non-Hodgkin's lymphoma Disposition Disposition: [facility] Discharge Date/Time: 07/09/23 03:09
[2023-07-09] MEDS: KCL 20MEQ in 0.9% NS 20 MEQ/1,000 ML IV.SOLN. 125 MEQ IV (03:45)
[2023-07-09 04:31] LABS: Absolute Lymphocyte Count 0.48 X10^3/uL (0.83-4.51); Absolute Neutrophil Count 10.7 X10^3/uL (2.0-7.7); Basophil# 0.04 X10^3/uL; Basophil% 0.3 % (0-1); Hematocrit 40.9 % (37-47); Hemoglobin 13.5 g/dL (12.0-15.0); Lymphocyte # 0.48 X10^3/ul (0.83-4.51); Lymphocyte % 4.1 % (19-41); Mean Corpuscular Hgb 29.9 pg (27.0-32.0); Mean Corpuscular Volume 90.5 fL (81-99); Mean Platelet Vol. 10.3 fl (6.2-12.0); Monocyte# 0.61 X10^3/uL; Monocyte% 5.2 % (0-10); NRBC Flagged by Analyzer 0 % (0-5); Neutrophil # 10.67 X10^3/uL (2.7-7.7); Neutrophil % 90.1 % (47-70); POSITIVE DIFFERENTIAL YES; Platelet Count 201 K/mm3 (150-450); RBC Distribution Width CV 12.7 % (11.6-14.6); RBC Distribution Width SD 41.6 fl (35.1-43.9); Red Blood Count 4.52 M/mm3 (4.2-5.4); White Blood Count 11.8 K/mm3 (4.4-11.0)
[2023-07-09 04:57] LABS: Lipase 2188 U/L (13-75)
[2023-07-09 05:00] LABS: ALB/GLOB Ratio 1.4 RATIO (0.9-2.4); AST(SGOT) 75 U/L (15-37); Alanine Aminotransfer ALT/SGPT 63 U/L (13-56); Albumin, Serum 3.7 g/dL (3.2-5.0); Alkaline Phosphatase 140 U/L (45-117); Anion Gap 9 (5-15); BUN 14 mg/dL (7-18); BUN/Creat Ratio 20.4 RATIO (10-20); Calcium,Total 8.5 mg/dL (8.5-10.1); Chloride 110 mmol/L (98-107); Creatinine, Serum 0.69 mg/dL (0.55-1.02); EST Glomerular Filtration Rate 89 mL/min (>60); Est Glom Filt Rate - Afr Amer 107 mL/min (>60); Estimated Creatinine Clearance 55.58 ml/min; Globulin 2.6 g/dL (2.2-4.2); Glucose 145 mg/dL (74-106); Phosphorus 2.7 mg/dL (2.5-4.9); Potassium 3.3 mmol/L (3.5-5.1); Protein, Total 6.3 g/dL (6.4-8.2); Sodium Level 142 mmol/L (136-145)
[2023-07-09 05:10] LABS: Cholesterol 176 mg/dL (200); High Density Lipoprotein 52 mg/dL; Triglycerides 63 mg/dL; Very Low Density Lipoprotein 13 mg/dL (5-40)
--- NOTE | 2023-07-09 10:07 | PCM.HOSP.N ---
Hospitalist Note Patient was seen and examined today, she still is complaining of mid abdominal pain and some nausea. I talked with gastroenterology about her care, it appears that an MRCP cannot be performed until this Monday due to the holiday schedule. Initially I had written for the patient to be on a clear liquid diet but gastroenterology requested n.p.o. status and I increased the patient's IV fluids. Labs will be repeated tomorrow.
[2023-07-09] MEDS: 0.9% Saline Lock 10 ML Syringe IV ×3 (10:13→16:50)
[2023-07-09] MEDS: Enoxaparin 40 MG/0.4 ML Syringe SC (10:13)
[2023-07-09] MEDS: proCHLORPERazine 10 MG/2 ML Vial IV ×3 (10:13→19:59)
[2023-07-09] MEDS: Pantoprazole Sodium 40 MG in 0.9% Normal Saline (100mL MB+) 100 ML 330 MG IV (10:16)
[2023-07-09] MEDS: Lactated Ringers 1,000 ML 200 ML IV ×3 (11:53→22:15)
[2023-07-09 12:27] LABS: Erythrocyte Sedimentation Rate 3 mm/hr (0-30)
--- NOTE | 2023-07-09 12:52 | NURSING ---
lactic acid 3.[address] Alves aware and no futher orders at this time
--- NOTE | 2023-07-09 13:06 | CON.PCM.GI_ITS ---
HPI Consult Data Date of Consult: 07/09/23 HPI Narrative Reason for Consultation: Pancreatitis HPI Narrative: GUILLE LEON, is a 73 F with a past medical history of essential hypertension, overweight; BMI 28.3 this admission, narcolepsy; armodafinil, history of non- Hodgkin's lymphoma (2014); s/p chemotherapy and subsequent stem cell transplant, asthma, history of migraines, history of renal calculi, history of hiatal hernia, history of hysterectomy, overactive bladder, GERD, osteoporosis and osteoarthritis. She presented to [facility] ER complaining of abdominal pain. Mrs. Leon reports her symptoms began approximately a few hours prior to admission with the abrupt-onset of progressively worsening abdominal pain that was primarily focused in the epigastrium, burning, cramping, severe and unrelenting. She also admits to nausea and malaise but she denies vomiting. She denies a personal or family history of pancreatitis or other pancreatic diseases. She denies a history of gallstones, alcohol use or recent abdominal trauma. She also denies related fever, chills, diarrhea, constipation, chest pain or shortness of breath. In the ER she was noted to have CT evidence of acute pancreatitis with confirmatory highly elevated serum lipase of 3,675 U/L complicated by mild dilatation and distention of the gallbladder with mural thickening of the duodenum also evident on CT. Currently her lipase is down to 2300 but her AST and ALT has increased to 81 and 75 with a bilirubin of 0.2. Her CT shows a lot of amanda pancreatic fluid along the colonic gutters with some perihepatic fluid and inflammatory or infectious phlegmon. Her bile ducts are significantly more dilated than her previous imaging back in 2019. She is requiring Dilaudid for pain and Compazine for nausea. She has not had a bowel movement. Also on her imaging was noted to be a large hiatal hernia. [facility] Medical History Hiatal hernia Kidney stone Asthma Narcolepsy Hypertension Migraines Osteoporosis Scoliosis Non-Hodgkin lymphoma Home Medications ?Medication ?Instructions ?Recorded ?Last Taken ?Type modafinil 200 mg tablet 100 mg PO DAILY narcolepsy 09/25/16 Unknown History oxybutynin chloride 5 mg tablet 5 mg PO QHS bladd 09/25/16 07/08/23 History flaxseed oil 1,000 mg capsule 1,000 mg PO DAILY supplem 09/30/16 07/08/23 History ascorbic acid (vitamin C) 1,000 mg 1,000 mg PO DAILY vitamin 04/20/19 07/08/23 History tablet omeprazole 40 mg capsule,delayed 40 mg PO DAILY nausea 04/20/19 07/08/23 History release vitamin B complex 1 ea PO DAILY suppl 04/20/19 07/08/23 History metoprolol tartrate 50 mg tablet 50 mg PO BID bp 07/09/23 07/08/23 History (Lopressor) Allergy/AdvReac Type Severity Reaction Status Date / Time cefaclor (From Ceclor) Allergy Hives Verified 04/20/19 10:24 Cephalosporins Allergy Hives Verified 04/20/19 10:45 erythromycin base Allergy Hives Verified 04/20/19 10:45 levofloxacin (From Levaquin) Allergy Other Verified 04/20/19 10:24 lorazepam (From Ativan) AdvReac Other Verified 04/20/19 10:45 Sulfa (Sulfonamide AdvReac Nausea Verified 04/20/19 10:24 Antibiotics) Surgical History H/O: hysterectomy Social History Smoking Status: Never smoker ROS ROS Narrative Review of systems: General: Patient denies fever or chills. HENT: Denies headache, denies stuffy nose, denies sore throat EYES: Denies changes in vision or discharge from eyes. Resp: Denies cough, denies shortness of breath Cardiac: Denies chest pain, palpitations or heart racing. GI: Patient admits to severe cramping burning abdominal pain with nausea as per HPI. : Denies changes in urination Extremity: Denies swelling Musculoskeletal: Feels somewhat generally weak and unwell but she denies arthralgias or myalgias. Neuro: Patient denies headache, paresthesias or focal neurologic weakness. Heme: Denies any bleeding or bruising Skin: Denies rashes Psychiatric: No complaints voiced related to uncontrolled depression or anxiety. Endocrine: No polyuria, polydipsia or polyphagia. The rest of the 14 point ROS was negative except for positives in HPI. Physical Exam Const alert, oriented x3 and average body habitus Constitutional Narrative: Mild distress noted with patient appearing ill. General Appearance: cooperative HEENT normocephalic, head/scalp atraumatic and hearing grossly normal bilaterally HEENT Narrative: Mucous membranes dry. Eyes PERRL and EOMs intact bilaterally Neck no lymphadenopathy and supple Resp normal respiratory effort, no retractions, no use of accessory muscles and clear to auscultation bilaterally Cardio regular rate and regular rhythm GI normal to inspection, nondistended, normoactive bowel sounds and soft to palpation GI Narrative: TTP in the epigastrium with mild distention noted. Extremity normal to inspection, full ROM and no clubbing, cyanosis or edema Skin Skin Narrative: Patient has no evidence of rash or jaundice. Neuro oriented x3, CN's II-XII intact bilaterally, moves all extremities and no focal motor deficits Sensorium / Orientation: awake, alert, oriented to person, oriented to place and oriented to time Speech: speech normal Psych affect normal Lab / Micro Data 07/09/23 03:40 07/09/23 03:40 Labs: Laboratory Results - last 24 hr 07/09/23 00:11: WBC 12.7 H, RBC 4.59, Hgb 13.8, Hct 41.7, MCV 90.8, MCH 30.1, MCHC 33.1, RDW Std Deviation 41.7, RDW Coeff of Ghassan 12.7, Plt Count 206, MPV 10.2, Immature Gran % (Auto) 0.400, Neut % (Auto) 82.5 H, Lymph % (Auto) 12.5 L, [place] % (Auto) 3.7, Eos % (Auto) 0.6, Baso % (Auto) 0.3, Absolute Neuts (auto) 10.5 H, Absolute Lymphs (auto) 1.58, Nucleated RBC % 0, Sodium 141, Potassium 3.1 L, Chloride 108 H, Carbon Dioxide 26.0, Anion Gap 7, BUN 16, Creatinine 0.83, Estim Creat Clear Calc 53.79, Est GFR (MDRD) Af Amer 86, Est GFR (MDRD) Non-Af 71, BUN/Creatinine Ratio 19.2, Glucose 151 H, Calcium 8.9, Total Bilirubin 0.50, Direct Bilirubin 0.22, AST 51 H, ALT 39, Alkaline Phosphatase 138 H, Total Protein 6.7, Albumin 3.9, Globulin 2.8, Lipase 3675 H 07/09/23 01:50: Lactic Acid 1.7 07/09/23 03:40: WBC 11.8 H, RBC 4.52, Hgb 13.5, Hct 40.9, MCV 90.5, MCH 29.9, MCHC 33.0, RDW Std Deviation 41.6, RDW Coeff of Ghassan 12.7, Plt Count 201, MPV 10.3, Immature Gran % (Auto) 0.300, Neut % (Auto) 90.1 H, Lymph % (Auto) 4.1 L, [place] % (Auto) 5.2, Eos % (Auto) 0.0, Baso % (Auto) 0.3, Absolute Neuts (auto) 10.7 H, Absolute Lymphs (auto) 0.48 L, Nucleated RBC % 0, Sodium 142, Potassium 3.3 L, Chloride 110 H, Carbon Dioxide 23.0, Anion Gap 9, BUN 14, Creatinine 0.69, Estim Creat Clear Calc 55.58, Est GFR (MDRD) Af Amer 107, Est GFR (MDRD) Non-Af 89, BUN/Creatinine Ratio 20.4 H, Glucose 145 H, Calcium 8.5, Phosphorus 2.7, Magnesium 2.0, Total Bilirubin 0.80, AST 75 H, ALT 63 H, Alkaline Phosphatase 140 H, Total Protein 6.3 L, Albumin 3.7, Globulin 2.6, Albumin/Globulin Ratio 1.4, Triglycerides 63, Cholesterol 176, LDL Cholesterol 111, VLDL Cholesterol 13, HDL Cholesterol 52, Lipase 2188 H, TSH 1.40 07/09/23 12:10: ESR 3, Lactic Acid 3.0 H*, C-React Prot Ext Range 53.20 H Imaging Radiology Impression Abdomen/Pelvis CT 07/09/23 01:35 IMPRESSION: 1. Findings suggest acute pancreatitis. Suggest laboratory correlation. 2. Mild dilatation and distention of the gallbladder, possibly secondary to pancreatitis. Other obstructive etiologies cannot be entirely excluded. 3. Small right pleural effusion. 4. Moderately large hiatal hernia. 5. Previous hysterectomy. 6. Nonobstructive left renal calculi. No demonstrated ureteral catheter hydronephrosis. 7. Prolapse of the urinary bladder. 8. Diverticulum of the duodenal sweep. Mural thickening of the duodenum is most likely secondary to pancreatitis. While diverticulitis is thought to be unlikely. Electronically Signed: Renato Sherwood MD at 2:16 EDT , Assessment & Plan Assessment/Plan (1) Acute pancreatitis: QUALIFIERS: Pancreatitis type: unspecified pancreatitis type A cute pancreatitis complication: unspecified Qualified Code(s): K85.90 - Acute pancreatitis without necrosis or infection, unspecified (2) Hypokalemia: (3) Essential hypertension: (4) History of non-Hodgkin's lymphoma: (5) History of stem cell transplant: (6) Narcolepsy: QUALIFIERS: Narcolepsy type: primary without cataplexy Qualified Code(s): G47.419 - Narcolepsy without cataplexy (7) Kidney stone: PLAN: Plan 73-year-old with past medical history of Non-Hodgkin lymphoma in remission presents with acute onset abdominal pain and discovered to have acute pancreatitis with mild cholestatic hepatitis. Acute pancreatitis evident on CT this admission with confirmatory highly elevated lipase of 3,675 U/L and leukocytosis of 12.7 K present on admission likely due to acute stress response, I will switch her fluids to lactated Ringer's at 200 cc an hour. I will order ESR and CRP along with lactate. Since she does have inflammatory versus infectious phlegmon recommend meropenem. She would likely benefit from ERCP. Eventually she will likely need a cholecystectomy. I do not suspect this is an autoimmune phenomenon such as autoimmune pancreatitis because of her age although it still is on the differential diagnosis I will order IgG4, CESIA, ANCA. There is also association with celiac disease. So we will order tissue transglutaminase. I will order protein electrophoresis due to her history of lymphoma to make sure this is not infiltrative. I suspect that this is all secondary to choledocholithiasis, biliary stricture and less likely ampullary lesion or pancreatic divisum. Ductal abnormalities such as pancreatic divisum would not be able to be seen on CT imaging she would need MRCP or ERCP. All this was explained to patient's daughter. I do agree with a CA 19-9 but not in the setting because it is going to be falsely elevated due to inflammation. She should get a CA 19-9 plus a CEA and if that ratio is greater than 90 that would be a higher incidence of pancreatic malignancy and then that will require endoscopic ultrasound. For now we will continue medical therapy and if she gets worse then we may need to change course sooner than later.- Admit to general medical floor. Current recommendations are early feeding with pancreatitis so I will put her on a full liquid diet and advance as tolerated.. Protonix 40 mg IV daily plus Zofran IV every 4 hours as needed. Charges/Coding Visit Charges Inpatient E&M: 86518 Init Hosp L3
[2023-07-09] MEDS: Meropenem 1 GM in 0.9% Normal Saline (100mL MB+) 100 ML IV ×2 (13:34→21:08)
[2023-07-09 16:20] LABS: Reflex Lactate? Y
[2023-07-09 17:54] LABS: Lactic Acid 1.2 mmol/L (0.4-1.9)
[2023-07-09] MEDS: Ketorolac 15 MG/ML Vial IV (19:59)
[2023-07-10] VITALS (8 sets, daily range): BP systolic 125–150; BP diastolic 51–77; PULSE 61–80; RESP 16–18; TEMP 36.6–37.1; O2SAT 94–98; BMI 28.2
[2023-07-10] MEDS: Lactated Ringers 1,000 ML 200 ML IV ×2 (03:09→08:16)
[2023-07-10] MEDS: HYDROmorphone 0.5 MG/0.5 ML SYRINGE IV ×3 (03:15→14:17)
[2023-07-10] MEDS: proCHLORPERazine 10 MG/2 ML Vial IV ×3 (03:15→14:17)
[2023-07-10] MEDS: Oxymetazoline 0.05% 1 SPRAY SPRAY.BTL 2 SPRAY NASAL ×2 (04:02→21:02)
[2023-07-10] MEDS: Meropenem 1 GM in 0.9% Normal Saline (100mL MB+) 100 ML IV ×2 (06:14→14:17)
[2023-07-10 07:34] LABS: Absolute Neutrophil Count 5.4 X10^3/uL (2.0-7.7); Basophil# 0.02 X10^3/uL; Basophil% 0.3 % (0-1); Eosinophil# 0.01 X10^3/uL; Eosinophils% 0.1 % (0-5); Hematocrit 31.7 % (37-47); Hemoglobin 10.5 g/dL (12.0-15.0); Lymphocyte % 19.4 % (19-41); Mean Corp Hgb Conc 33.1 g/dL (32-36); Mean Corpuscular Hgb 30.3 pg (27.0-32.0); Mean Corpuscular Volume 91.4 fL (81-99); Mean Platelet Vol. 10.5 fl (6.2-12.0); Monocyte# 0.35 X10^3/uL; Monocyte% 4.9 % (0-10); NRBC Flagged by Analyzer 0 % (0-5); Neutrophil # 5.38 X10^3/uL (2.7-7.7); Neutrophil % 74.7 % (47-70); Platelet Count 152 K/mm3 (150-450); RBC Distribution Width CV 13.3 % (11.6-14.6); RBC Distribution Width SD 44.3 fl (35.1-43.9); Red Blood Count 3.47 M/mm3 (4.2-5.4); White Blood Count 7.2 K/mm3 (4.4-11.0)
[2023-07-10 07:59] LABS: ALB/GLOB Ratio 1.2 RATIO (0.9-2.4); AST(SGOT) 24 U/L (15-37); Alanine Aminotransfer ALT/SGPT 40 U/L (13-56); Alkaline Phosphatase 103 U/L (45-117); Anion Gap 7 (5-15); BUN 12 mg/dL (7-18); BUN/Creat Ratio 24.7 RATIO (10-20); Calcium,Total 8.6 mg/dL (8.5-10.1); Chloride 114 mmol/L (98-107); Creatinine, Serum 0.49 mg/dL (0.55-1.02); EST Glomerular Filtration Rate 132 mL/min (>60); Est Glom Filt Rate - Afr Amer 160 mL/min (>60); Estimated Creatinine Clearance 55.54 ml/min; Globulin 2.4 g/dL (2.2-4.2); Glucose 100 mg/dL (74-106); Potassium 3.3 mmol/L (3.5-5.1); Protein, Total 5.4 g/dL (6.4-8.2); Sodium Level 141 mmol/L (136-145)
[2023-07-10] MEDS: 0.9% Saline Lock 10 ML Syringe IV ×4 (08:15→17:48)
--- NOTE | 2023-07-10 10:00 | MRI_ITS ---
HISTORY: Acute pancreatitis. TECHNIQUE: Multiplanar and multisequence MR images of the abdomen were obtained with MRCP sequence. Three-dimensional post-processing reconstructions were performed. IV Contrast Dosage and Agent: None.. 267 images. COMPARISON: CT prior day. FINDINGS: LOWER CHEST: Mild right and trace left pleural effusions. LIVER: Homogeneous. GALLBLADDER AND BILIARY TREE: Mild dependent hypointense signal in the gallbladder. Mild pericholecystic fluid. Mild intrahepatic biliary ductal dilatation. 11 mm common bile duct without filling defect. PANCREAS: Mild peripancreatic edema without fluid collection. No pancreatic duct dilation. SPLEEN: Homogeneous and upper limits of normal in size. KIDNEYS: Small bilateral cysts. ADRENAL GLANDS: No nodules. PERITONEUM: Mild free fluid in the right upper quadrant. OTHER: Mild hiatal hernia. Tortuous and nondilated abdominal aorta. Scoliosis noted. Sacral Tarlov cysts. MRI/MRCP Abdomen without Contrast IMPRESSION: Mild intrahepatic and extrahepatic biliary ductal dilatation without evidence of choledocholithiasis. Possible mild sludge in the gallbladder. Acute pancreatitis with mild free fluid in the right upper quadrant. Mild pleural effusions. Electronically Signed: Jane Hensley MD at 14:25 EDT ,
--- NOTE | 2023-07-10 10:16 | PN.HOSP_ITS ---
Reason for Visit Reason for Visit: Diagnoses Hypokalemia (07/09/23) Narcolepsy without cataplexy (07/09/23) Essential (primary) hypertension (07/09/23) Acute pancreatitis without necrosis or infection, unspecified (07/09/23) Calculus of kidney (07/09/23) Personal history of non-Hodgkin lymphomas (07/09/23) Stem cells transplant status (07/09/23) Subjective Subjective Patient was seen and examined today, she states she feels better today with less abdominal pain. Patient's liver enzymes were all normal. White count is also normal. Objective Data Objective Data Vital Signs: Vital Signs Temp Pulse Resp BP Pulse Ox O2 Del Method 98.5 F 80 18 148/77 H 98 Room Air 07/10/23 08:05 07/10/23 08:05 07/10/23 08:05 07/10/23 08:05 07/10/23 08:05 07/10/23 08:05 Oxygen Delivery Method Room Air Weight: 69.6 kg Body Mass Index (BMI) 28.2 Intake & Output: Intake and Output for Last 24 Hours 07/08/23 07/09/23 07/10/23 23:59 23:59 23:59 Intake Total 4280 / 4380 2300 / 2300 Output Total 450 / 450 Balance 3830 / 3930 2300 / 2300 Lab / Micro Data 07/10/23 06:42 07/10/23 06:42 Labs: Laboratory Results - last 24 hr 07/09/23 12:10: ESR 3, Lactic Acid 3.0 H*, C-React Prot Ext Range 53.20 H 07/09/23 17:10: Lactic Acid 1.2 07/10/23 06:42: WBC 7.2, RBC 3.47 L, Hgb 10.5 L, Hct 31.7 L, MCV 91.4, MCH 30.3, MCHC 33.1, RDW Std Deviation 44.3 H, RDW Coeff of Ghassan 13.3, Plt Count 152, MPV 10.5, Immature Gran % (Auto) 0.600, Neut % (Auto) 74.7 H, Lymph % (Auto) 19.4, [place] % (Auto) 4.9, Eos % (Auto) 0.1, Baso % (Auto) 0.3, Absolute Neuts (auto) 5.4, Absolute Lymphs (auto) 1.40, Nucleated RBC % 0, Sodium 141, Potassium 3.3 L , Chloride 114 H, Carbon Dioxide 20.0 L, Anion Gap 7, BUN 12, Creatinine 0.49 L, Estim Creat Clear Calc 55.54, Est GFR (MDRD) Af Amer 160, Est GFR (MDRD) Non-Af 132, BUN/Creatinine Ratio 24.7 H, Glucose 100, Calcium 8.6, Total Bilirubin 0.60, AST 24, ALT 40, Alkaline Phosphatase 103, Total Protein 5.4 L, Albumin 3.0 L, Globulin 2.4, Albumin/Globulin Ratio 1.2 Physical Exam Const alert, oriented x3, no apparent distress, average body habitus and healthy appearing General Appearance: cooperative, well kempt and well developed Orientation / Consciousness: awake, oriented to person, oriented to place and oriented to time HEENT normocephalic and moist oral mucous membranes Eyes PERRL, EOMs intact bilaterally and conjunctivae normal Neck supple, no JVD, thyroid normal and no carotid bruits General: trachea midline Resp normal respiratory effort and clear to auscultation bilaterally Auscultation: Negative for rales, rhonchi or wheezes Cardio regular rate, regular rhythm, no murmurs, no rub and no gallops GI normal to inspection, nondistended, normoactive bowel sounds, soft to palpation, non-tender and non-distended Extremity no clubbing, cyanosis or edema Skin no rashes or lesions noted General Skin Exam: no breakdown Neuro oriented x3, CN's II-XII intact bilaterally, no focal motor deficits and no sensory deficits noted Sensorium / Orientation: awake and alert Speech: speech normal Psych affect normal Assessment & Plan Assessment/Plan (1) Acute pancreatitis: QUALIFIERS: Pancreatitis type: unspecified pancreatitis type A cute pancreatitis complication: unspecified Qualified Code(s): K85.90 - Acute pancreatitis without necrosis or infection, unspecified PLAN: Plan 1. Acute pancreatitis-etiology unclear, it is possible the patient could have passed a gallstone, patient's liver enzymes today are normal. Continue IV antibiotics and fluids per gastroenterology #2 cholestatic hepatitis-liver enzymes are normal today #3 essential hypertension-patient is on metoprolol #4 narcolepsy-patient is on modafinil Total clinical time spent by myself addressing the patient's medical issues, reviewing all of her data, and collaborating with patient's care team: 35 minutes Charges/Coding Visit Charges Inpatient E&M: 73025 Subs Hosp L2
[2023-07-10] MEDS: Pantoprazole Sodium 40 MG in 0.9% Normal Saline (100mL MB+) 100 ML 330 MG IV (11:55)
[2023-07-10] MEDS: Enoxaparin 40 MG/0.4 ML Syringe SC (17:48)
[2023-07-10] MEDS: Metoprolol Tartrate 50 MG Tablet PO (17:53)
[2023-07-10] MEDS: Lactated Ringers 1,000 ML 75 ML IV (21:02)
--- NOTE | 2023-07-10 21:13 | EX.PCM.PN.GI ---
Subjective Subjective Patient is feeling a lot better today. She still is requiring pain medicine. Urine output still remains good on IV fluids. Objective Data Objective Data Vital Signs: Vital Signs Temp Pulse Resp BP Pulse Ox O2 Del Method 97.9 F 61 16 142/72 H 95 Room Air 07/10/23 20:58 07/10/23 20:58 07/10/23 20:58 07/10/23 20:58 07/10/23 20:58 07/10/23 20:58 Oxygen Delivery Method Room Air Weight: 153 lb 7.068 oz Body Mass Index (BMI) 28.2 Intake & Output: Intake and Output for Last 24 Hours 07/08/23 07/09/23 07/10/23 23:59 23:59 23:59 Intake Total 4280 / 4380 3809.15 / 3809.15 Output Total 450 / 450 1500 / 1500 Balance 3830 / 3930 2309.15 / 2309.15 Lab / Micro Data 07/10/23 06:42 07/10/23 06:42 Labs: Laboratory Results - last 24 hr 07/10/23 06:42: WBC 7.2, RBC 3.47 L, Hgb 10.5 L, Hct 31.7 L, MCV 91.4, MCH 30.3, MCHC 33.1, RDW Std Deviation 44.3 H, RDW Coeff of Ghassan 13.3, Plt Count 152, MPV 10.5, Immature Gran % (Auto) 0.600, Neut % (Auto) 74.7 H, Lymph % (Auto) 19.4, [place] % (Auto) 4.9, Eos % (Auto) 0.1, Baso % (Auto) 0.3, Absolute Neuts (auto) 5.4, Absolute Lymphs (auto) 1.40, Nucleated RBC % 0, Sodium 141, Potassium 3.3 L, Chloride 114 H, Carbon Dioxide 20.0 L, Anion Gap 7, BUN 12, Creatinine 0.49 L, Estim Creat Clear Calc 55.54, Est GFR (MDRD) Af Amer 160, Est GFR (MDRD) Non-Af 132, BUN/Creatinine Ratio 24.7 H, Glucose 100, Calcium 8.6, Total Bilirubin 0.60, AST 24, ALT 40, Alkaline Phosphatase 103, Total Protein 5.4 L, Albumin 3.0 L, Globulin 2.4, Albumin/Globulin Ratio 1.2 Radiography Diagnostic Testing: Radiology Impression MRCP 07/10/23 10:00 IMPRESSION: Mild intrahepatic and extrahepatic biliary ductal dilatation without evidence of choledocholithiasis. Possible mild sludge in the gallbladder. Acute pancreatitis with mild free fluid in the right upper quadrant. Mild pleural effusions. Electronically Signed: Jane Hensley MD at 14:25 EDT Reading Location ID and State: [facility] / [place] Tel , Service support , Physical Exam Const alert, oriented x3, no apparent distress, average body habitus and healthy appearing General Appearance: cooperative, well kempt and well developed Orientation / Consciousness: awake, oriented to person, oriented to place and oriented to time HEENT normocephalic and moist oral mucous membranes Eyes PERRL, EOMs intact bilaterally and conjunctivae normal Neck supple, no JVD, thyroid normal and no carotid bruits General: trachea midline Resp normal respiratory effort and clear to auscultation bilaterally Auscultation: Negative for rales, rhonchi or wheezes Cardio regular rate, regular rhythm, no murmurs, no rub and no gallops GI normal to inspection, nondistended, normoactive bowel sounds, soft to palpation, non-tender and non-distended Extremity no clubbing, cyanosis or edema Skin no rashes or lesions noted General Skin Exam: no breakdown Neuro oriented x3, CN's II-XII intact bilaterally, no focal motor deficits and no sensory deficits noted Sensorium / Orientation: awake and alert Speech: speech normal Psych affect normal Assessment & Plan Assessment/Plan (1) Acute pancreatitis: QUALIFIERS: Pancreatitis type: unspecified pancreatitis type Acute pancreatitis complication: unspecified Qualified Code(s): K85.90 - Acute pancreatitis without necrosis or infection, unspecified (2) Hypokalemia: (3) Essential hypertension: (4) History of non-Hodgkin's lymphoma: (5) History of stem cell transplant: (6) Narcolepsy: QUALIFIERS: Narcolepsy type: primary without cataplexy Qualified Code(s): G47.419 - Narcolepsy without cataplexy (7) Kidney stone: PLAN: Plan 73-year-old with past medical history of Non-Hodgkin lymphoma in remission presents with acute onset abdominal pain and discovered to have acute pancreatitis with mild cholestatic hepatitis. Acute pancreatitis evident on CT this admission with confirmatory highly elevated lipase of 3,675 U/L and leukocytosis of 12.7 K present on admission likely due to acute stress response, I will switch her fluids to lactated Ringer's at 200 cc an hour. I will order ESR and CRP along with lactate. Since she does have inflammatory versus infectious phlegmon recommend meropenem. She would likely benefit from ERCP. Eventually she will likely need a cholecystectomy. I do not suspect this is an autoimmune phenomenon such as autoimmune pancreatitis because of her age although it still is on the differential diagnosis I will order IgG4, CESIA, ANCA. There is also association with celiac disease. So we will order tissue transglutaminase. I will order protein electrophoresis due to her history of lymphoma to make sure this is not infiltrative. I suspect that this is all secondary to choledocholithiasis, biliary stricture and less likely ampullary lesion or pancreatic divisum. Ductal abnormalities such as pancreatic divisum would not be able to be seen on CT imaging she would need MRCP or ERCP. All this was explained to patient's daughter. I do agree with a CA 19-9 but not in the setting because it is going to be falsely elevated due to inflammation. She should get a CA 19-9 plus a CEA and if that ratio is greater than 90 that would be a higher incidence of pancreatic malignancy and then that will require endoscopic ultrasound. For now we will continue medical therapy and if she gets worse then we may need to change course sooner than later.- Admit to general medical floor. Current recommendations are early feeding with pancreatitis so I will put her on a full liquid diet and advance as tolerated.. Protonix 40 mg IV daily plus Zofran IV every 4 hours as needed. -07/10/23- Patients diet diet can be advanced to regular diet. Recheck CRP and ESR and it's OK to stop antibiotics. Continue IV fluids. Await MRCP. Charges/Coding Visit Charges Inpatient E&M: 98520 Subs Hosp L3
[2023-07-11 03:00] VITALS: BP 155/77; PULSE 75; RESP 16; TEMP 37.1; O2SAT 99
[2023-07-11 05:45] VITALS: BMI 28.0
[2023-07-11 08:38] VITALS: BP 131/51; PULSE 75; RESP 18; TEMP 36.6; O2SAT 96
[2023-07-11] MEDS: Enoxaparin 40 MG/0.4 ML Syringe SC (08:44)
[2023-07-11] MEDS: Pantoprazole Sodium 40 MG in 0.9% Normal Saline (100mL MB+) 100 ML 330 MG IV (08:58)
--- NOTE | 2023-07-11 09:07 | DCINST_ITS ---
Discharge Instructions Diet Discharge Diet: No restrictions and - (avoid excessive fat consumption) Activity Discharge Activity: Return to Normal Activity Weight Bearing Status: Full weight bearing Follow Up Care Test Results: Test results from this visit will be discussed in further detail at your follow- up appointment, if applicable. Discharge Plan Admission Admit Date/Time: 07/09/23 02:51 Primary Reason for Your Visit: gallstone pancreatitis Attending Provider: Miguel Broussard Primary Care Provider: Nicolasa Harkins Consulting Providers: Rolando Sheppard Discharge Orders/Prescriptions Prescriptions: Continued modafinil 200 MG tablet 100 mg PO DAILY oxybutynin chloride 5 MG tablet 5 mg PO QHS flaxseed oil 1,000 MG capsule 1,000 mg PO DAILY ascorbic acid (vitamin C) 1,000 MG tablet 1,000 mg PO DAILY omeprazole 40 MG capsule,delayed release(DR/EC) 40 mg PO DAILY vitamin B complex 1 EACH capsule 1 ea PO DAILY metoprolol tartrate [Lopressor] 50 mg tablet 50 mg PO BID Referrals / Follow Up: Nicolasa Harkins DO [Primary Care Provider] - Within 2 Weeks Disposition Disposition (needs filled in before D/C Order can be placed): Home, Self Care
--- NOTE | 2023-07-11 09:10 | DS.PCM_ITS ---
Providers Date of Admission: 07/09/23 Date of Discharge: 07/11/23 Primary Care Physician: Dr. Nicolasa Harkins, Consultations 07/09/23 03:17 Consult: Gastroenterology Routine Consulting Provider: [facility] Reason for Consult: Acute pancreatitis EMERGENT Consult: No MD Notified: Yes Date Notified: 07/09/23 Time Notified: 06:50 Method of Notification: Text Reason For Visit: ACUTE PANCREATITIS Diagnosis Discharge Diagnosis (1) Acute pancreatitis: Status: Acute Code(s): K85.90 - Acute pancreatitis without necrosis or infection, unspecified Qualifiers: Acute pancreatitis complication: unspecified Pancreatitis type: u nspecified pancreatitis type Qualified Code(s): K85.90 - Acute pancreatitis without necrosis or infection, unspecified (2) Hypokalemia: Status: Acute Code(s): E87.6 - Hypokalemia (3) Essential hypertension: Status: Acute Code(s): I10 - Essential (primary) hypertension (4) History of non-Hodgkin's lymphoma: Status: Acute Code(s): Z85.72 - Personal history of non-Hodgkin lymphomas (5) History of stem cell transplant: Status: Acute Code(s): Z94.84 - Stem cells transplant status (6) Narcolepsy: Status: Acute Code(s): G47.419 - Narcolepsy without cataplexy Qualifiers: Narcolepsy type: primary without cataplexy Qualified Code(s): G47.419 - Narcolepsy without cataplexy (7) Kidney stone: Status: Acute Code(s): N20.0 - Calculus of kidney Plan 1. Acute gallstone pancreatitis secondary to passage of gallstone #2 cholestatic hepatitis-liver enzymes are normal today #3 essential hypertension-patient is on metoprolol #4 narcolepsy-patient is on modafinil Total clinical time spent by myself addressing the patient's medical issues, reviewing all of her data, and collaborating with patient's care team: 35 minutes Medications at Discharge Home Medications modafinil 200 mg tablet 100 mg PO DAILY narcolepsy 09/25/16 oxybutynin chloride 5 mg tablet 5 mg PO QHS bladd 09/25/16 flaxseed oil 1,000 mg capsule 1,000 mg PO DAILY supplem 09/30/16 ascorbic acid (vitamin C) 1,000 mg tablet 1,000 mg PO DAILY vitamin 04/20/19 omeprazole 40 mg capsule,delayed release 40 mg PO DAILY nausea 04/20/19 vitamin B complex 1 ea PO DAILY suppl 04/20/19 metoprolol tartrate 50 mg tablet (Lopressor) 50 mg PO BID bp 07/09/23 Hospital Course Operations None Procedures None Summary of Care Provided Minutes Spent on Discharge: 31 Hospital Course: This 73-year-old white female was seen in the emergency room at [facility] with complaints of generalized abdominal pain and nausea and vomiting. This occurred several hours before she came to the emergency room. Labs obtained in the emergency room showed an elevated white blood cell count at 12.7, patient's chemistry profile was remarkable for a glucose of 151, alkaline phosphatase was 138, AST was 51. Patient's lipase was elevated [place] 3675. CT of the abdomen and pelvis was obtained which showed findings suggestive of acute pancreatitis, there is mild dilatation and distention of the gallbladder. Patient was admitted to [facility] 3 she was given IV fluids and IV analgesics as well as IV antiemetics. She was seen in consultation by gastroenterology and placed on IV antibiotics, there was a concern that the patient had choledocholithiasis, however patient underwent an MRCP which showed no evidence of choledocholithiasis. There was gallbladder sludge noted on the exam along with pancreatitis. Patient's liver enzymes improved, her abdominal pain resolved. On 07/11/2023, patient was seen and examined: On examination she appeared in good health and spirits, she does not appear to be in any distress. Vital signs as documented. Skin warm and dry and without overt rashes. Neck without JVD, thyroid appears normal, trachea is midline, neck is supple. Lungs clear, normal air movement was noted. Heart exam notable for regular rhythm, normal sounds and absence of murmurs, rubs or gallops. Abdomen unremarkable and without evidence of organomegaly, masses, or abdominal aortic enlargement, bowel sounds are present in all 4 quadrants, no abdominal tenderness was noted. Extremities nonedematous, no cyanosis was noted, no clubbing was noted. Neuro: Cranial nerves II through XII are grossly intact, no focal motor deficits were noted, sensation to light touch and pinprick is intact, motor exam 5/5 throughout. Psych: Patient is alert and oriented x3, she does not appear anxious or depressed, she does not appear agitated. Patient appears stable for discharge home on 07/11/2023 in stable condition. Weight / BMI Weight Weight: 69.3 kg Body Mass Index (BMI) 28.0 ABG / Lab / Microbiology Data 07/10/23 06:42 07/10/23 06:42 Radiography Diagnostic Testing: Radiology Impression MRCP 07/10/23 10:00 IMPRESSION: Mild intrahepatic and extrahepatic biliary ductal dilatation without evidence of choledocholithiasis. Possible mild sludge in the gallbladder. Acute pancreatitis with mild free fluid in the right upper quadrant. Mild pleural effusions. Electronically Signed: Jane Hesnley MD at 14:25 EDT , D/C Instructions Discharge Diet: No restrictions and - (avoid excessive fat consumption) Weight Bearing Status: Full weight bearing Meaningful Use Info Meaningful Use Meaningful Use Diagnoses (Choose all that apply): None applicable Ischemic Stroke Statin Dosing Therapy Reference: STATIN DOSE THERAPY REFERENCE: * Patients > 75 years receive moderate or high dose statin therapy. * Patients 75 years or YOUNGER should receive HIGH intensity statin dose unless contraindicated. You will be required to document reason for non-treatment if statin daily dose does not meet guidelines. HIGH DOSE STATIN THERAPY DAILY Atorvastatin > than or = to 40 mg Rosuvastatin > than or = to 20 mg Amlodipine + Atorvastatin > than or = to 2.5/40 mg Ezetimibe + Simvastatin 10/80 mg Simvastatin 80mg Discharge Plan Admission Admit Date/Time: 07/09/23 02:51 Primary Reason for Your Visit: gallstone pancreatitis Attending Provider: Miguel Broussard Primary Care Provider: Nicolasa Harkins Consulting Providers: Rolando Sheppard Discharge Orders/Prescriptions Prescriptions: Continued modafinil 200 MG tablet 100 mg PO DAILY oxybutynin chloride 5 MG tablet 5 mg PO QHS flaxseed oil 1,000 MG capsule 1,000 mg PO DAILY ascorbic acid (vitamin C) 1,000 MG tablet 1,000 mg PO DAILY omeprazole 40 MG capsule,delayed release(DR/EC) 40 mg PO DAILY vitamin B complex 1 EACH capsule 1 ea PO DAILY metoprolol tartrate [Lopressor] 50 mg tablet 50 mg PO BID Referrals / Follow Up: Nicolasa Harkins DO [Primary Care Provider] - Within 2 Weeks Disposition Disposition (needs filled in before D/C Order can be placed): Home, Self Care Charges/Coding Visit Charges Inpatient E&M: 24349 Disch Hosp >30min
--- NOTE | 2023-07-11 10:05 | CASEMGMT ---
RN?CM?PERSONNEL INTERVIEWER?CM?to room to meet with patient for initial transition planning/care coordination?assessment.?RN?CM?introduced self and role at [facility].? Pt voices understanding and consents to?assessment?at this time.? Pt resting in bed in no distress at this time.? Pt is A/O at this time and answers all questions appropriately.?? Care providers, pharmacy, and demographics verified/updated at this time. PCP: Dr Harkins Specialists: Dr Merino Preferred Pharmacy: [facility] Prescription Benefit:?yes Living Will/HPOA:?Pt does not currently have LW/HCPOA and declines info at this time.? Pt made aware that she can contact as an out-pt and make appt in the future if she decides she would like to talk with someone about this or would like to utilize [facility] social work for advanced directive completion.? LNOK: , Gustavo. 2 daughters. Living Arrangements: Lives w/her in 2-story home w/basement and 3-6 steps to enter. Denies difficulty w/stairs. Independent w/ADL's. and pt share home mgnt tasks. Transportation:?Pt states drives self and states no transportation concerns at this time.? also drives. DME: Pt has a nebulizer, but states typically just uses an inhaler. HHC/SNF: No hx of either. No needs identified. Pt wishes to return home and states has no concerns with going home. PLAN:??Home Nancy BSN?RN?CM
--- NOTE | 2023-07-11 10:08 | PHA.DC.MR.R ---
Pharmacy [place] Med Reconciliation Pharmacy Service has performed discharge medication reconciliation for this patient. The patient's discharge medication list was reviewed for discrepancies and discrepancies were resolved. Medications at Discharge Home Medications modafinil 200 mg tablet 100 mg PO DAILY narcolepsy 09/25/16 oxybutynin chloride 5 mg tablet 5 mg PO QHS bladd 09/25/16 flaxseed oil 1,000 mg capsule 1,000 mg PO DAILY supplem 09/30/16 ascorbic acid (vitamin C) 1,000 mg tablet 1,000 mg PO DAILY vitamin 04/20/19 omeprazole 40 mg capsule,delayed release 40 mg PO DAILY nausea 04/20/19 vitamin B complex 1 ea PO DAILY suppl 04/20/19 metoprolol tartrate 50 mg tablet (Lopressor) 50 mg PO BID bp 07/09/23
[2023-07-12 14:10] LABS: Carbohydrate Ag 19-9 2261 3 U/mL (0-35)
== END 2023-07-11 11:23 | disposition home or self-care (01) | DRG 439 ==
LOC: ED 02:32 → MS3 03:02
PROVIDERS: Internal Medicine Gastroenterology; Admitting Provider Internal Medicine; Emergency Provider Emergency Medicine; PCP Family Medicine; Visit Provider Internal Medicine
DX: K85.10 Biliary acute pancreatitis without necrosis or infection (principal); Z94.84 Stem cells transplant status; K75.89 Other specified inflammatory liver diseases; I10 Essential (primary) hypertension; K21.9 Gastro-esophageal reflux disease without esophagitis; E87.6 Hypokalemia; M19.90 Unspecified osteoarthritis, unspecified site; G47.419 Narcolepsy without cataplexy; E66.3 Overweight; M81.0 Age-related osteoporosis without current pathological fracture; N32.81 Overactive bladder; Z68.28 Body mass index [BMI] 28.0-28.9, adult; Z79.899 Other long term (current) drug therapy; Z85.72 Personal history of non-Hodgkin lymphomas; Z87.442 Personal history of urinary calculi; Z92.21 Personal history of antineoplastic chemotherapy
CPT/HCPCS: 36415; 74177; 74181; 80048; 80053; 80061; 80076; 83605; 83690; 83735; 84100; 84443; 85025; 85652; 86140; 86301; 94668; 97802; 99284; J2185; J7030; J7040; J7120; Q9967; A4216; J2405

== ENCOUNTER → 2023-10-04 | Outpatient (CLI) | payer MEDICARE, OTHER, SELFPAY | END | disposition home or self-care (01) | LOC: LABSPEC 12:26 | PROVIDERS: PCP Family Medicine; Referring Provider Nurse Practitioner Family; Visit Provider Nurse Practitioner Family | DX: N39.0 Urinary tract infection, site not specified (principal) | CPT/HCPCS: 87086; 87088 ==

== ENCOUNTER → 2023-10-17 | Outpatient (CLI) | payer MEDICARE, OTHER, SELFPAY | END | disposition home or self-care (01) | LOC: BFHLAB 15:04 | PROVIDERS: PCP Nurse Practitioner Family; Referring Provider Nurse Practitioner Family; Visit Provider Nurse Practitioner Family | DX: N39.0 Urinary tract infection, site not specified (principal) | CPT/HCPCS: 87077; 87086; 87088; 87186 ==

== ENCOUNTER → 2023-11-07 | Outpatient (CLI) | payer MEDICARE, OTHER, SELFPAY ==
--- NOTE | 2023-11-07 14:17 | RAD_ITS ---
STUDY: X-RAY - ABDOMEN/PELVIS REASON FOR EXAM: Female, 73 years old. Left renal stones. TECHNIQUE: Single AP view of the abdomen / pelvis. COMPARISON: CT of the abdomen and pelvis dated July 09, 2023 FINDINGS: Normal bowel gas pattern with air seen to the rectum. Moderate to marked amount of feces in the colon. Multiple calcifications projected over the left renal outline. Intra-abdominal contours obscured by overlying gas and feces. Normal soft tissue structures. Osteopenia with moderate rotatory levoscoliosis of the lumbar spine. RAD/Abdomen Single View IMPRESSION: Left renal calcifications. No acute finding. Electronically Signed: Nitin Chung MD at 15:00 EDT ,
== END | disposition home or self-care (01) ==
LOC: MTRAD 14:16
PROVIDERS: PCP Nurse Practitioner Family; Referring Provider Urology; Visit Provider Urology
DX: N20.0 Calculus of kidney (principal)
CPT/HCPCS: 74018

== ENCOUNTER 2023-11-30 09:57 | Day surgery (SDC) | payer MEDICARE, OTHER, SELFPAY ==
[2023-11-23 18:07] LABS: Hematocrit 43.5 % (37-47); Hemoglobin 14.2 g/dL (12.0-15.0); Mean Corp Hgb Conc 32.6 g/dL (32-36); Mean Platelet Vol. 10.4 fl (6.2-12.0); Platelet Count 195 K/mm3 (150-450); RBC Distribution Width CV 12.8 % (11.6-14.6); RBC Distribution Width SD 43.7 fl (35.1-43.9); Red Blood Count 4.73 M/mm3 (4.2-5.4); White Blood Count 5.2 K/mm3 (4.4-11.0)
[2023-11-23 18:24] LABS: Anion Gap 7 (5-15); BUN 9 mg/dL (7-18); BUN/Creat Ratio 12.4 RATIO (10-20); Calcium,Total 9.9 mg/dL (8.5-10.1); Chloride 105 mmol/L (98-107); Creatinine, Serum 0.72 mg/dL (0.55-1.02); EST Glomerular Filtration Rate 83 mL/min (>60); Est Glom Filt Rate - Afr Amer 101 mL/min (>60); Glucose 120 mg/dL (74-106); Potassium 3.5 mmol/L (3.5-5.1); Sodium Level 138 mmol/L (136-145)
[2023-11-30] VITALS (11 sets, daily range): BP systolic 125–158; BP diastolic 69–96; PULSE 69–81; RESP 16; TEMP 36.3–36.5; O2SAT 93–99; BMI 27.1
[2023-11-30] MEDS: Lactated Ringers 1,000 ML 15 ML IV (10:28)
--- NOTE | 2023-11-30 10:42 | PRE.ANES_ITS ---
ASA Classification* ASA Classification ASA Classification: 2 Assessment & Plan Anesthesia* Anesthesia Assessment Anesthesia Assessment: Discussed sedation and/or anesthesia options, risks, benefits, and alternatives with patient/parents/legal guardian/POA. Questions invited. The patient/parents/legal guardian/POA seems to understand and agrees to proceed with anesthesia plan. Reviewed the physical assessment, medical history, allergy history and patient home medications list prior to surgery/procedure/anesthetic and documented any changes. Performed airway and anesthesia risk assessments. Anesthesia Type Anesthesia Type: General (see written pre anesthesia record for full assessment) Anesthesia Focused Assessment* Temperature: 97.5 F Pulse Rate: 80 Blood Pressure: 125/96 Respiratory Rate: 16 Pulse Ox: 99 Airway Assessment Mouth opens: >3 cm Mallampati Score: II Focused Labs Anesthesia Preop lab: CBC WBC 5.2 K/mm3 (4.4-11.0) 11/23/23 15:57 RBC 4.73 M/mm3 (4.2-5.4) 11/23/23 15:57 Hgb 14.2 g/dL (12.0-15.0) 11/23/23 15:57 Hct 43.5 % (37-47) 11/23/23 15:57 Plt Count 195 K/mm3 (150-450) 11/23/23 15:57 CHEMISTRY Potassium 3.5 mmol/L (3.5-5.1) 11/23/23 15:57 Sodium 138 mmol/L (136-145) 11/23/23 15:57 Magnesium 2.0 mg/dL (1.6-2.6) 07/09/23 03:40 Phosphorus 2.7 mg/dL (2.5-4.9) 07/09/23 03:40 BUN 9 mg/dL (7-18) 11/23/23 15:57 Creatinine 0.72 mg/dL (0.55-1.02) 11/23/23 15:57 Glucose 120 mg/dL (74-106) H 11/23/23 15:57 TSH 1.40 uIU/mL (0.358-3.74) 07/09/23 03:40 COAG PT 12.4 SECONDS (11.7-14.9) 10/03/16 11:30 Pre-Assessment Diagnosis/Proposed Procedure Planned Operative Procedure(s): CYSTO ESWL LEFT Anesthesia History Anesthesia History - window shade cloth sewer: Anesthesia History - window shade cloth sewer Hx Hospitalization Yes: 06/2023 PANCREATITIS 11/23/23 08:31 Any Problems With Anesthesia Yes: N,V 11/23/23 08:31 Cholinesterase deficiency No 11/23/23 08:31 You/Your Family Experience No 11/23/23 08:31 fever (hyperthermia) with Relationship Recent Exposure to Contagious No 11/30/23 10:17 Disease Does patient have nerve No 11/23/23 08:31 stimulator Patient instructed to have device shut off --Does patient have Pacemaker No 11/30/23 10:17 or ICD? When Was Last Pacemaker Check QUESTION #4 FULL TEXT: You/Your Family Experience fever (hyperthermia) with Anesthesia Last Oral Intake Last Oral intake: Last Oral Intake NPO since 09:30 11/30/23 10:17 Meds taken in AM with sips of Yes 11/30/23 10:17 water? Meds patient instructed to SEE MAR 11/30/23 10:17 take am of surgery PONV PONV - window shade cloth sewer: PONV - window shade cloth sewer Female Yes 11/23/23 08:31 HX of Motion Sickness Yes 11/23/23 08:31 HX of N/V After Surgery Yes 11/23/23 08:31 Non-Smoker Yes 11/23/23 08:31 Duration of Surgery greater Yes 11/23/23 08:31 than 60 minutes Number of Risk Factors 5 11/23/23 08:31 PONV Score Severe Risk 11/23/23 08:31 Height & Weight Height & Weight: Anesthesia: Height & Weight Height 5 ft 2 in 11/30/23 10:17 Weight: 67.132 kg 11/30/23 10:17 Body Mass Index (BMI) 27.1 11/30/23 10:17 Respiratory Assessment Respiratory Assessment - window shade cloth sewer: Respiratory Tract Infection Hx - window shade cloth sewer Hx Respiratory Tract Infection No 11/23/23 08:31 STOP Sleep Apnea STOP Sleep Apnea - window shade cloth sewer: STOP Sleep Apnea - window shade cloth sewer Hx Hypertension Yes: CONTROLLED WITH MED 11/23/23 08:31 Hx Sleep Apnea No 11/23/23 08:31 CPAP BIPAP Do you snore loudly (louder No 10/10/24 08:31 than talking or can be heard Do you often feel tired/ Yes 11/23/23 08:31 fatigued/ sleepy during daytime? Has anyone observed you stop No 11/23/23 08:31 breathing during sleep? STOP Results Positive 11/23/23 08:31 QUESTION #5 FULL TEXT : Do you snore loudly (louder than talking or can be heard through closed doors)? Tobacco Use History Tobacco Use History - window shade cloth sewer: Tobacco Use History - window shade cloth sewer Tobacco Use Smoking Status Never smoker 11/23/23 08:31 Hx Tobacco Use No 11/23/23 08:31 Years Smoking Packs Smoked per Day Smoking Cessation Date was within the last 15 years Hx Smoking Cessation Date Hx Smoking Cessation Counseling Hematologic Medial History Hematologic Hx - window shade cloth sewer: Hematologic Medical Hx - lens blank gauger Hx of Blood Transfusion Yes 11/23/23 08:31 Hx of Transfusion in last 3 No 11/23/23 08:31 Months Date of Last Transfusion (if within last 3 months) Ever experience any problems No 11/23/23 08:31 with transfusion(s)? Specify any problems Hx of Preganancy in last 3 No 11/23/23 08:31 Months Nurse Filling Out Transfusion DSCHRIBER 11/23/23 08:31 & Questions: Date: 11/23/23 11/23/23 08:31 Time: 08:33 11/23/23 08:31 Patient unable to answer at this time (ie. confused, unrespo /Reproduction History /Reproductive History - window shade cloth sewer: /Reproductive Hx- window shade cloth sewer Hx Now No 11/23/23 08:31 Gestational Age (in weeks): EDC: Hx Hx Para Hx Section SAB No 11/23/23 08:31 Active Medications Active Medications: Current Medications Generic Name Dose Route Start Last Admin Trade Name Freq PRN Reason Stop Dose Admin Gentamicin Sulfate 250 mg/ 56.25 mls @ 100 mls/hr 11/30/23 11:45 Dextrose IVPB 11/30/23 12:18 PREOP ONE Lactated Ringer's 1,000 mls @ 15 mls/hr 11/30/23 10:15 11/30/23 10:28 IV 12/03/23 04:54 15 mls/hr .Q48H MEDINA Administration Protocol PFSH Medical History Wears dentures Anemia Back pain Difficulty swallowing History of IBS History of diverticulitis Non-smoker Leg cramps History of pain when walking History of stress test History of echocardiogram History of irregular heartbeat Chest pain Gastric reflux Gastroparesis Hx of fracture of arm History of non-Hodgkin's lymphoma Acute pancreatitis Hiatal hernia Kidney stone Asthma Narcolepsy Hypertension Migraines Osteoporosis Scoliosis Non-Hodgkin lymphoma Home Medications ?Medication ?Instructions ?Recorded ?Last Taken ?Type modafinil 200 mg tablet 100 mg PO DAILY narcolepsy 09/25/16 Unknown History oxybutynin chloride 5 mg tablet 5 mg PO QHS bladd 09/25/16 07/08/23 History flaxseed oil 1,000 mg capsule 1,000 mg PO DAILY supplem 09/30/16 07/08/23 History ascorbic acid (vitamin C) 1,000 mg 1,000 mg PO DAILY vitamin 04/20/19 07/08/23 History tablet omeprazole 40 mg capsule,delayed 40 mg PO BID GERD 04/20/19 07/08/23 History release metoprolol tartrate 50 mg tablet 25 mg PO BID bp 07/09/23 11/30/23 History (Lopressor) BEET POWDER 1 dose PO DAILY 11/23/23 Unknown History Lactobacillus acidophilus 100 mmu cells PO DAILY 11/23/23 Unknown History (Acidophilus capsule) SUPER GREENS 1 dose PO DAILY 11/23/23 Unknown History albuterol sulfate 90 mcg/actuation 2 inh inhalation Q6H PRN PRN 11/23/23 Unknown History breath activated powder inhaler shortness of breath or wheezing cephalexin 250 mg capsule 250 mg PO QHS 11/23/23 Unknown History cranberry 1,000 mg capsule 1,000 mg PO DAILY 11/23/23 Unknown History cyanocobalamin (vitamin B-12) 1,000 mcg PO DAILY 11/23/23 Unknown History 1,000 mcg tablet (Vitamin B-12) estradiol 0.01% (0.1 mg/gram) 1 appful vaginal MOWEFR 11/23/23 Unknown History vaginal cream lysine 500 mg tablet (L-Lysine) 500 mg PO DAILY 11/23/23 Unknown History magnesium 100 mg tablet 400 mg PO DAILY 11/23/23 Unknown History potassium 99 mg tablet 99 mg PO DAILY 11/23/23 Unknown History rizatriptan 10 mg disintegrating 10 mg PO Q2H PRN PRN migraine 11/23/23 Unknown History tablet headache zinc gluconate 50 mg tablet 50 mg PO DAILY 11/23/23 Unknown History Allergy/AdvReac Type Severity Reaction Status Date / Time acetaminophen (From Vicodin) Allergy Intermediate Other Verified 11/30/23 10:15 codeine Allergy Intermediate Other Verified 11/30/23 10:15 hydrocodone (From Vicodin) Allergy Intermediate Other Verified 11/30/23 10:15 cefaclor (From Ceclor) Allergy Hives Verified 11/30/23 10:15 Cephalosporins Allergy Hives Verified 11/30/23 10:15 erythromycin base Allergy Hives Verified 11/30/23 10:15 levofloxacin (From Levaquin) Allergy Other Verified 11/30/23 10:15 lorazepam (From Ativan) AdvReac Other Verified 11/30/23 10:15 Opioids - Morphine Analogues AdvReac Nausea Verified 11/30/23 10:16 Sulfa (Sulfonamide AdvReac Nausea Verified 11/30/23 10:15 Antibiotics) Family History Mother Arthritis Hypertension Osteoporosis Autoimmune disease Father Hypertension Heart disease Surgical History Hx of eye surgery Hx of right cataract extraction Hx of left cataract extraction Hx of varicose vein ligation Hx of colonoscopy History of esophagogastroduodenoscopy (EGD) Hx of tonsillectomy History of stem cell transplant H/O: hysterectomy Social History Smoking Status: Never smoker alcohol intake: never Review of Systems (Anesthesia) ROS Narrative System reviewed and no additional complaints, except as documented.
[2023-11-30] MEDS: Gentamicin IV 250 MG in Dextrose 5%-Water (50mL Bag) 50 ML 100 MG IVPB (11:00)
--- NOTE | 2023-11-30 12:16 | DCINST_ITS ---
Discharge Instructions Diet Discharge Diet: No restrictions Activity Discharge Activity: Return to Normal Activity Dressing / Incision Call your doctor if you observe: Fever of 101 or Higher, Inability to urinate and Inability to have a bowel movement Follow Up Care Please Follow Up With: Flower Contreras MD When: The office will call to make arrangements. Test Results: Test results from this visit will be discussed in further detail at your follow- up appointment, if applicable. Discharge Plan Admission Attending Provider: Flower Contreras Primary Care Provider: Nicolasa Harkins Instructions Print Language: Cook Islander Discharge Orders/Prescriptions Prescriptions: New cephalexin 500 mg capsule 500 mg PO BID Qty: 6 0RF phenazopyridine [Pyridium] 200 mg tablet 200 mg PO TID PRN PRN (Reason: Bladder Spasms) 7 Days Qty: 30 0RF ibuprofen 600 mg tablet 600 mg PO Q8H PRN (Reason: pain) Qty: 20 0RF Continued modafinil 200 MG tablet 100 mg PO DAILY oxybutynin chloride 5 MG tablet 5 mg PO QHS flaxseed oil 1,000 MG capsule 1,000 mg PO DAILY ascorbic acid (vitamin C) 1,000 MG tablet 1,000 mg PO DAILY omeprazole 40 MG capsule,delayed release(DR/EC) 40 mg PO BID metoprolol tartrate [Lopressor] 50 mg tablet 25 mg PO BID cyanocobalamin (vitamin B-12) [Vitamin B-12] 1,000 mcg tablet 1,000 mcg PO DAILY BEET POWDER 1 dose PO DAILY SUPER GREENS 1 dose PO DAILY cranberry 1,000 mg capsule 1,000 mg PO DAILY Rx Instructions: administer with a meal Acidophilus Capsule 100 mmu cells PO DAILY cephalexin 250 mg capsule 250 mg PO QHS estradiol 0.01 % (0.1 mg/gram) cream 1 appful vaginal MOWEFR lysine [L-Lysine] 500 mg tablet 500 mg PO DAILY potassium 99 mg tablet 99 mg PO DAILY zinc gluconate 50 mg tablet 50 mg PO DAILY magnesium 100 mg tablet 400 mg PO DAILY rizatriptan 10 mg tablet,disintegrating 10 mg PO Q2H PRN PRN (Reason: migraine headache) albuterol sulfate 90 mcg/actuation aerosol powdr breath activated 2 inh inhalation Q6H PRN PRN (Reason: shortness of breath or wheezing) Referrals / Follow Up: Ishan,Eliz, NUCLEAR MEDICINE TECHNICIAN-C [Non-Staff] - Disposition Disposition (needs filled in before D/C Order can be placed): Home, Self Care
--- NOTE | 2023-11-30 12:21 | OP.PCM_ITS ---
Report of Operation Date of Procedure: 11/30/23 Pre-Operative Diagnosis: left renal stones Post-Operative Diagnosis: same, stage III cystocele with vaginal atrophy Surgery/Procedure Performed:: cystoscopy with left ureteral stent placement, left renal extracorporal shockwave lithotripsy Surgeon: Flower Contreras Type of Anesthesia: General Specimen's removed: None Description of Procedure: The patient is a 73-year-old female with a few left renal stones. She now presents for cystoscopy with left ureteral stent insertion with extracorporal shockwave lithotripsy. Informed consent was obtained. The patient was taken to the operating room and placed on the operating room table. Anesthesia monitored the head, neck, airway, IV access and vital signs throughout the case. Once anesthesia was appropriately administered, she was placed into dorsolithotomy position was prepped and draped in usual sterile fashion. On vaginal examination, she has a stage 3 cystocele present with significant rotation of the bladder neck. The prolapse was reduced with gauze and the vaginal lumen. The cystoscope was inserted through the urethra under direct visualization into the urinary bladder. Direct visualization revealed no evidence of mass, erythema or ulceration. The left ureteral orifice was identified and intubated with a 0.035 Glidewire. A 4.5 Honduran by 26 cm JJ stent was placed over the wire with good positioning in the renal pelvis as well as the urinary bladder. Initially a 24 cm stent was trialed and this was significantly short. The bladder was then emptied and the cystoscope was removed. The sponges were removed from the vagina. The patient was repositioned on the bed and the stones were visually identified. 3000 shocks were applied and the stones appeared to be well fragmented at the conclusion of the case. She was then awakened and taken to the recovery room in good condition. Grafts/Implants Used: 4.5Fr x 26cm JJ stent Complications none Admit VTE Documentation VTE Present on Admission: Yes VTE Mechan Device Prophylaxis: SCD's VTE Pharm Prophylaxis ordered?: No Reason prophylaxis not ordered:: Treatment Not Indicated
--- NOTE | 2023-11-30 12:38 | PCM.POST.ANE ---
Anesthesia: Postop Eval I Current Vital Signs Temperature: 97.3 F Pulse Rate: 76 Blood Pressure: 148/79 Respiratory Rate: 16 Pulse Ox: 99 Oxygen Delivery Method: Room Air Assessment Airway patent: Yes Spontaneous unlabored respirations: Yes Mental status: Asleep nausea: No Vomiting: No Anesthesia Complication: No Fluid Hydration Crystalloid volume administer (ml): 900 Total IV fluid infused: 900 Progress Note Anesthesia document: Postop Eval 1 completed: Yes
--- NOTE | 2023-11-30 13:34 | POSTOPAN2_ITS ---
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 Spontaneous unlabored Yes 11/30/23 12:39 ELECTROMECHANICAL ASSEMBLER.JULES respirations Mental status Asleep 11/30/23 12:39 ELECTROMECHANICAL ASSEMBLER.CALVINOBJose nausea No 11/30/23 12:39 ELECTROMECHANICAL ASSEMBLER.CALVINOBJose Vomiting No 11/30/23 12:39 ELECTROMECHANICAL ASSEMBLER.JULES Anesthesia Postop Eval I: Fluid Summary Crystalloid volume administer 900 11/30/23 12:39 ELECTROMECHANICAL ASSEMBLER.CALVINOBY (ml) Colloids volume administered ( ml) Blood Product volume administered (ml) Total IV fluid infused 900 11/30/23 12:39 ELECTROMECHANICAL ASSEMBLER.JULES Anesthesia Postop Eval I: Summary Notes Anesthesia Complication No 11/30/23 12:39 ELECTROMECHANICAL ASSEMBLER.JULES Anesthesia Complication Comment: Post-operative progress note Anesthesia: Postop Eval II Evaluation Mental status: Awake Pain Level: 0 nausea: No Vomiting: No
--- NOTE | 2023-11-30 13:34 | PCM.POSTANE2 ---
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.CALVINOBJose nausea No 11/30/23 12:39 CONTRACT DRIVER.CALVINOBJose Vomiting No 11/30/23 12:39 CONTRACT DRIVER.JULES Anesthesia Postop Eval I: Fluid Summary Crystalloid volume administer 900 11/30/23 12:39 CONTRACT DRIVER.CALVINOBY (ml) Colloids volume administered ( ml) Blood Product volume administered (ml) Total IV fluid infused 900 11/30/23 12:39 CONTRACT DRIVER.JULES Anesthesia Postop Eval I: Summary Notes Anesthesia Complication No 11/30/23 12:39 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
[2023-11-30] MEDS: Ondansetron 8 MG Tablet PO (14:05)
[2023-11-30] MEDS: Phenazopyridine 95 MG Tablet 190 MG PO (15:21)
== END 2023-11-30 16:53 | disposition home or self-care (01) ==
LOC: SDC 09:58 → AC 10:00
PROVIDERS: PCP Family Medicine; Referring Provider Urology; Visit Provider Urology
PROC: (CPT 50590; principal; 2023-11-30 11:35)
DX: N20.0 Calculus of kidney (principal); N81.3 Complete uterovaginal prolapse; N95.2 Postmenopausal atrophic vaginitis; I10 Essential (primary) hypertension; Z90.710 Acquired absence of both cervix and uterus; Z86.79 Personal history of other diseases of the circulatory system; Z87.19 Personal history of other diseases of the digestive system; J45.909 Unspecified asthma, uncomplicated; G47.419 Narcolepsy without cataplexy; N39.0 Urinary tract infection, site not specified; R35.1 Nocturia; N39.41 Urge incontinence; N32.81 Overactive bladder; Z87.442 Personal history of urinary calculi
CPT/HCPCS: 52332; 57200; 50590; 00873; J7120; 36415; 80048; 85027; J2405

== ENCOUNTER → 2023-12-20 | Outpatient (CLI) | payer MEDICARE, OTHER, SELFPAY | END | disposition home or self-care (01) | LOC: MTRAD 09:50 | PROVIDERS: PCP Family Medicine; Referring Provider Urology; Visit Provider Urology | DX: N20.0 Calculus of kidney (principal) | CPT/HCPCS: 74018 ==

== ENCOUNTER → 2024-01-26 | Outpatient (CLI) | payer MEDICARE, OTHER, SELFPAY ==
--- NOTE | 2024-01-26 08:43 | BI_ITS ---
MAMMOGRAPHY - BILATERAL SCREENING REASON FOR EXAM: Female, 73 years old. Routine annual screening examination. PERTINENT HISTORY: Non-contributory. History of prior lymphoma. TECHNIQUE: Digital bilateral breast manas (3D mammographic acquisition) in the CC and MLO projections. 2-D mediolateral oblique (MLO) and craniocaudad (CC) views of both breasts were obtained. CAD: Full Field Digital Mammography with Computer Added Detection was performed. COMPARISON: Comparison is made with prior study July 13, 2022. FINDINGS: Breast Composition: The breasts are heterogeneously dense, which may obscure small masses. There are no dominant masses or suspicious calcifications. Stable bilateral fat containing axillary lymph nodes. Stable small calcified nodule in the anterior upper lateral aspect of the left breast. No other significant abnormalities are identified. There has been no significant change since the prior study. BI/SCRN MAMM (CAD)W/MANAS BILAT IMPRESSION: Stable bilateral screening mammogram. Yearly follow-up mammogram recommended. (A) ASSESSMENT CATEGORY: BIRADS Category 2: Benign. A letter regarding these results will be sent to the patient by the facility within 30 days. Approximately 10% of breast cancers are not detected by mammography. A normal mammogram should not delay biopsy of a clinically suspicious abnormality. [id number] Electronically Signed: Yonathan Verma MD at 9:51 EST ,
== END | disposition home or self-care (01) ==
LOC: OPBI 08:42
PROVIDERS: PCP Family Medicine; Referring Provider Family Medicine; Visit Provider Family Medicine
DX: Z12.31 Encounter for screening mammogram for malignant neoplasm of breast (principal)
CPT/HCPCS: 77063; 77067

== ENCOUNTER → 2024-06-19 | Outpatient (CLI) | payer MEDICARE, OTHER, SELFPAY ==
--- NOTE | 2024-06-19 14:24 | RAD_ITS ---
PROCEDURE: ABDOMEN SINGLE VIEW 06/19/2024 REASON FOR EXAM: LEFT SIDED KIDNEY STONE TECHNIQUE: Single view abdomen. Two views to include the entire abdomen and pelvis COMPARISON: 12/20/2023 FINDINGS: The lung bases grossly appear clear. Hyimngar-gv-gismmi appearing leftward thoracolumbar curvature, scoliosis again seen. Previously noted calcific densities in the area of the left renal shadow not clearly identified on the current study. 2 calcific densities are seen over the medial aspect of the left iliac crest around the L5 level which may represent bowel material with possibility of ureteral stone not excluded, clinically correlate. Previously seen left ureteral stent is no longer identified. No pelvic calcifications concerning for stone identified. RAD/Abdomen Single View IMPRESSION: Previously noted calcific densities in the area of the left renal shadow not cl early identified on the current study. 2 calcific densities are seen over the medial aspect of the left iliac crest ar ound the L5 level which may represent bowel material with possibility of ureteral stone not excluded, clinically correlate. Previously seen left ureteral stent is no longer identified. Reading Location: [id number]
== END | disposition home or self-care (01) ==
LOC: MTRAD 14:22
PROVIDERS: PCP Family Medicine; Referring Provider Urology; Visit Provider Urology
DX: N20.0 Calculus of kidney (principal)
CPT/HCPCS: 74018

== ENCOUNTER → 2024-06-25 | Outpatient (CLI) | payer MEDICARE, OTHER, SELFPAY ==
--- NOTE | 2024-06-25 06:59 | MRI_ITS ---
EXAM: BRAIN W/WO CONTRAST CLINICAL HISTORY: HEADACHES COMPARISON: None. TECHNIQUE: Multiplanar, multisequence MR images of the brain were obtained without and with 13 cc Clariscan gadolinium contrast material. FINDINGS: No intracranial hemorrhage, mass, mass effect, midline shift or pathologic extra- axial fluid collection. No hydrocephalus. There is no significant white matter disease. No areas of restricted diffusion to suggest acute ischemia or infarction. No gradient signal blooming artifacts are identified. No cerebellar tonsillar ectopia. No sellar/suprasellar signal abnormalities. The ocular globes and intraorbital soft tissues are symmetrically unremarkable. Paranasal sinuses are essentially clear. There are no suspicious enhancing lesions. MRI/Brain W/WO Contrast IMPRESSION: Negative MRI of the brain. Reading Location: [facility]
== END | disposition home or self-care (01) ==
LOC: OPMRI 07:02
PROVIDERS: PCP Family Medicine; Referring Provider Family Medicine; Visit Provider Family Medicine
DX: H57.12 Ocular pain, left eye (principal); H53.2 Diplopia; R51.9 Headache, unspecified
CPT/HCPCS: 70553; A9575

== ENCOUNTER → 2024-07-23 | Outpatient (CLI) | payer MEDICARE, OTHER, SELFPAY ==
--- NOTE | 2024-07-23 07:09 | BD_ITS ---
PROCEDURE: DEXA BONE DENSITY STUDY 07/23/2024 REASON FOR EXAM: F, age 74 y/o . Postmenopausal. TECHNIQUE: DXA scan of sites with data reported below. [facility] COMPARISON: Prior mammogram dated July 13, 2022. FINDINGS: BMD and T-SCORES Lumbar spine: 0.770 g/cm2, T-score -3.0 Levels: L1 through L4 Change from prior: Improvement by 0.3%. Left femoral neck: 0.638 g/cm2, T-score -1.9 Femoral neck comparison data not recommended for monitoring change. Left total hip: 0.704 g/cm2, T-score -1.9 Change from prior: Improvement by 1%. Right femoral neck: 0.625 g/cm2, T-score -2.0 Femoral neck comparison data not recommended for monitoring change. Right total hip: 0.688 g/cm2, T-score -2.1 Change from prior: Loss of 3.3%. The World Health Organization has defined the following categories based on bone density: Normal bone density: T-score equal to or greater than -1.0 Osteopenia: T-score between -1.0 and -2.5 Osteoporosis: T-score equal to or less than -2.5 The patient does meet the pharmacological treatment recommendations for prevention of osteoporosis. BD/Dexa Bone Density Study IMPRESSION: OSTEOPOROSIS. Recommend follow-up as clinically warranted. Reading Location: [place] [id number]
--- OUTSIDE RECORDS SUMMARY | 2024-07-23 07:09 | XMS RPT_ITS | CCD ---
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 Shen Dwyer DO Attending Provider Dr. Nicolasa Harkins DO Primary Care Provider [phone] Diane VELÁSQUEZ, Dr. Crenshaw Attending Provider Diane VELÁSQUEZ, Dr. Crenshaw Referring Provider [phone] Dr. Nicolasa Harkins DO Attending Provider [phone] Dr. Nicolasa Harkins DO Referring Provider Ishan, Eliz Referring Unavailable Ishan, Eliz Attending Unavailable Ishan, Eliz Primary Care Unavailable Ishan, Eliz Referring Unavailable Ishan, Eliz Attending Unavailable Malys, Nicolasa Primary Care Unavailable Malys, Nicolasa Referring Unavailable Malys, Nicolasa Attending Unavailable Malys, Nicolasa Primary Care Unavailable Flower Contreras Attending Unavailable Malys, Nicolasa Primary Care Unavailable Flower Contreras Referring Unavailable Malys, Nicolasa Primary Care Unavailable Flower Contreras Attending Unavailable Flower Contreras Referring Unavailable Malys, Nicolasa Attending Unavailable Malys, Nicolasa Primary Care Unavailable Malys, Nicolasa Referring Unavailable Flower Contreras Attending Unavailable Malys, Nicolasa Primary Care Unavailable Wyneski, Flower Referring Unavailable Friend, Shen Attending Unavailable Ishan, Eliz Referring Unavailable Malys, Nicolasa Primary Care Unavailable Friend, Shen Attending Unavailable Ishan, Eliz Primary Care Unavailable Malys, Nicolasa Referring Unavailable Malys, Nicolasa Referring Unavailable Malys, Nicolasa Attending Unavailable Malys, Nicolasa Primary Care Unavailable Ishan, Eliz Primary Care Unavailable Flower Contreras Attending Unavailable Flower Contreras Referring Unavailable Allergies Allergy Classification Reported Allergen(s) Allergy Type Date of Onset Reaction(s) Facility (2 sources) Cephalosporins (Antibiotic); Translations: [CEPHALOSPORINS] Drug Allergy 07-01-19 04 [facility] (9 sources) Erythromycin; Translations: [ERYTHROMYCIN] Drug Allergy 05-28-19 15 [facility] (2 sources) Latex; Translations: [LATEX] Drug Intolerance 08-11-19 06 Intolerance [facility] (9 sources) levoFLOXacin; Translations: [LEVOFLOXACIN] Drug Allergy 01-22-20 14 Other: See Comments [facility] Comment on above: RANJIT CONTRERAS'S OFFICE NURSE WHO ASKED PATIENT (9 sources) LORazepam; Translations: [LORAZEPAM] Drug Allergy 03-18-19 15 Other: See Comments [facility] (2 sources) Morphinan opioid; Translations: [OPIOIDS - MORPHINE ANALOGUES] Drug Intolerance 07-01-19 04 Vomiting [facility] (2 sources) Sulfonamides (Antibiotic); Translations: [SULFA (SULFONAMIDE ANTIBIOTICS)] Drug Allergy 07-01-19 04 [facility] (7 sources) Cefaclor Drug Allergy 04-20-19 20 [facility] (7 sources) Cephalosporins (Antibiotic) Allergy to substance 04-20-19 [facility] (7 sources) Sulfonamides (Antibiotic) Propensity to adverse reactions 04-20-19 Nausea [facility] (3 sources) PAIN MEDS Propensity to adverse reactions 04-20-19 Nausea [facility] (2 sources) Acetaminophen Drug Allergy 11-30-19 Other [facility] (2 sources) Codeine Drug Allergy 11-30-19 Other [facility] (2 sources) HYDROcodone Drug Allergy 11-30-19 Other [facility] (2 sources) Opioids - Morphine Analogues Propensity to adverse reactions 11-30-19 Nausea [facility] (1 source) Acetaminophen Drug Allergy 11-30-19 [facility] (1 source) Cefaclor Drug Allergy 11-30-19 [facility] (1 source) Cephalosporins (Antibiotic) Drug allergy (disorder) 11-30-19 [facility] (1 source) Codeine Drug Allergy 11-30-19 [facility] (1 source) Erythromycin Drug Allergy 11-30-19 [facility] (1 source) HYDROcodone Drug Allergy 11-30-19 [facility] (1 source) levoFLOXacin Drug Allergy 11-30-19 [facility] (1 source) LORazepam Drug Allergy 11-30-19 [facility] (1 source) Sulfonamides (Antibiotic) Drug allergy (disorder) 11-30-19 [facility] (1 source) Opioids - Morphine Analogues Drug allergy (disorder) 11-30-19 [facility] Medications Current Medications Medication Drug Class(es) Dates Sig (Normalized) Sig (Original) 200 actuat albuterol 0.09 mg/actuat dry powder inhaler (2 sources) beta2-Adrenergic Agonist Start: 11-23-2023 Albuterol Sulfate 90 mcg/actuation aerosol powdr breath activated Active 2 NMA INHALATION EVERY 6 HOURS NEEDED as needed for shortness of breath or wheezing November 23, 2023 12:00am ascorbic acid 1000 mg oral tablet (8 sources) Vitamin C Start: 04-20-2019 take 1 tablet by mouth once daily Ascorbic Acid (Vitamin C) 1,000 MG tablet Active 1000 mg PO DAILY April 20, 2019 1:00am ascorbic acid (V ITAMIN C ORAL) Take by mouth once daily. 0 Active Comment on above: Take by mouth once d aily. Beets preparation (2 sources) Start: 4 BEET POWDER Active 1 NMA PO DAILY November 23, 2023 12:00am Cranberry Fruit 1,000 mg capsule (2 sources) Start: 4 take 1 capsule by mouth once daily Cranberry Fruit 1,000 mg capsule Active 1000 mg PO DAILY November 23, 2023 12:00am administer with a meal estradiol 0.1 mg/ml vaginal cream (2 sources) Estrogen Start: 4 Estradiol 0.01 % (0.1 mg/gram) cream Active 1 NMA VAGINAL MOWEFR November 23, 2023 12:00am ibuprofen 600 mg oral tablet (2 sources) Nonsteroidal Anti-inflammatory Drug Start: 4 take 1 tablet by mouth every eight hours as needed for pain Ibuprofen 600 mg tablet Active 600 mg PO Q8H as needed for pain November 30, 2023 12:00am L.Acidoph, Paracasei,B. Lactis (5 sources) Start: L.Acidoph, Paracasei,B. Lactis Active 1 EACH PO TWICE A DAY September 29, 2016 11:00pm Start: 09-30-2016 L.Acidoph, Par acasei,B. Lactis Active 1 EACH PO TWICE A DAY September 30, 2016 12:00am Lactobacillus acidophilus (2 sources) Start: 11-23-2023 Lactobacillus Acidophilus (Acidophilus) capsule Active 100 NMA PO DAILY November 23, 2023 12:00am linseed oil 1000 mg oral capsule (7 sources) Start: 09-30-2016 take 1 capsule by mouth once daily Flaxseed Oil 1,000 MG capsule Active 1000 mg PO DAILY September 30, 2016 12:00am lysine 500 mg oral tablet (2 sources) Start: 11-23-2023 take 1 tablet by mouth once daily Lysine (L-Lysine) 500 mg tablet Active 500 mg PO DAILY November 23, 2023 12:00am Magnesium (2 sources) Start: 11-23-2023 take 4 tablets by mouth once daily Magnesium 100 mg tablet Active 400 mg PO DAILY November 23, 2023 12:00am metoprolol tartrate 50 mg oral tablet (3 sources) beta-Adrenergi c Kale Start: 07-09-2023 Metoprolol Tartrate (Lopressor) 50 mg tablet Active 25 mg PO TWICE A DAY July 09, 2023 12:00am Start: 05-07-2021 take 1 tablet by tish th every twelve hours metoprolol tartrate, short acting, (LOPRESSOR) 25 mg tablet Take 1 tablet by mouth every 12 hours. 0 05/07/2021 Active Comment on above: Take 1 tablet by tish th every 12 hours. omeprazole 40 mg delayed release oral capsule (7 sources) Proton Pump Inhibitor Start: 04-20-2019 take 1 capsule by mouth twice daily Omeprazole 40 MG capsule,delayed release(DR/EC) Active 40 mg PO TWICE A DAY April 20, 2019 1:00am Start: 04-20-2019 take 40 mg by mouth once daily Omeprazole Active 40 MG PO DAILY April 20, 2019 1:00am oxybutynin chloride 5 mg oral tablet (7 sources) Cholinergic Muscarinic Antagonist Start: 09-25-2016 take 1 tablet by mouth at bedtime Oxybutynin Chloride 5 MG tablet Active 5 mg PO AT BEDTIME September 25, 2016 12:00am phenazopyridine hydrochloride 200 mg oral tablet (2 sources) Start: 11-30-2023 take 1 tablet by mouth three times daily as needed for muscle spasms Phenazopyridine (Pyridium) 200 mg tablet Active 200 mg PO 3 TIMES DAILY NEEDED as needed for Bladder Spasms 7 November 30, 2023 12:00am potassium 99 mg extended release oral tablet (3 sources) Start: 11-23-2023 take 1 tablet by mouth once daily Potassium 99 mg tablet Active 99 mg PO DAILY November 23, 2023 12:00am potassium (POTAS JERRICA ORAL) Take by mouth once daily. 0 Active Comment on above: Take by mouth once d aily. rizatriptan 10 mg disintegrating oral tablet (3 sources) Serotonin-1b and Serotonin-1d Receptor Agonist Start: take 1 tablet by mouth every two hours as needed for headache Rizatriptan 10 mg tablet,disintegrati ng Active 10 mg PO EVERY 2 HOURS NEEDED as needed for migraine headache November 23, 2023 12:00am Start: 03-08-2016 take 1 tablet by tish th every two hours as needed rizatriptan (MAXALT ALLOPATHIC DOCTOR) 10 mg disintegrating tablet Take 1 tablet by mouth as needed. May repeat in 2 hours if needed 30 tablet 2 03/08/2016 Active Comment on above: Take 1 tablet by tish th as needed. May repeat in 2 hours if needed SUPER GREENS (2 sources) Start: 11-23-2023 SUPER GREENS Active 1 NMA PO DAILY November 23, 2023 12:00am ursodiol 300 mg oral capsule (2 sources) Bile Acid Start: 02-29-2024 take 1 capsule by mouth twice daily Ursodiol 300 mg capsule Active 300 mg PO TWICE A DAY February 29, 2024 1:00am Vitamin B Complex (5 sources) Start: 04-20-2019 Vitamin B Complex Active 1 EACH PO DAILY April 20, 2019 12:00am Start: 04-20-2019 Vitamin B Comp keven Active 1 EACH PO DAILY April 20, 2019 1:00am vitamin b12 1 mg oral tablet (2 sources) Vitamin B12 Start: 11-23-2023 take 1 tablet by mouth once daily Cyanocobalamin (Vitamin B-12) (Vitamin B-12) 1,000 mcg tablet Active 1000 ug PO DAILY November 23, 2023 12:00am zinc gluconate 50 mg oral tablet (2 sources) Start: 11-23-2023 take 1 tablet by mouth once daily Zinc Gluconate 50 mg tablet Active 50 mg PO DAILY November 23, 2023 12:00am Completed/Discontinued Medications Medication Drug Class(es) Dates Sig (Normalized) Sig (Original) acetaminophen 325 mg oral tablet (1 source) Start: 05-07-2021 take 2 tablets by mouth every six hours as needed acetaminophen (TYLENOL) 325 mg tablet Take 2 tablets by mouth every 6 hours as needed for pain. 0 05/07/2021 Active Comment on above: Take 2 tablets by mo [facility] every 6 hours as needed for pain. cephalexin 500 mg oral capsule (4 sources) Cephalosporin Antibacterial Start: 11-30-2023 End: 02-29-2024 take 1 capsule by mouth twice daily Cephalexin 500 mg capsule Discontinued 500 mg PO TWICE A DAY November 30, 2023 12:00am February 29, 2024 2:53pm Start: 11-23-2023 End: 02-29-2024 take 1 capsule by mouth at bedtime Cephalexin 250 mg capsule Discontinued 250 mg PO AT BEDTIME November 23, 2023 12:00am February 29, 2024 2:53pm cholecalciferol 0.025 mg oral capsule (1 source) Vitamin D take 1 capsule by mouth twice daily Cholecalciferol, Vitamin D3, 1,000 unit cap Take 1,000 Units by mouth twice daily. 0 Active Comment on above: Take 1,000 Units by mouth twice daily. esomeprazole 40 mg delayed release oral capsule (1 source) Proton Pump Inhibitor Start: 015 take 1 capsule by mouth twice daily before mealtime esomeprazole (NEXIUM) 40 mg capsule Take 1 capsule by mouth twice daily before meals. 180 capsule 1 10/13/2014 Active Comment on above: Take 1 capsule by mo [facility] twice daily before meals. fexofenadine hydrochloride 180 mg oral tablet (8 sources) Histamine-1 Receptor Antagonist Start: 020 End: 024 take 1 tablet by mouth once daily Fexofenadine 180 MG tablet Discontinued 180 mg PO DAILY April 20, 2019 1:00am July 09, 2023 12:16am take 1 tablet by mouth once edmar y fexofenadine (ROLAND) 60 mg tablet Take 60 mg by mouth once daily. 0 Active Comment on above: Take 60 mg by mouth once daily. L.Acidoph,Paracasei,B. Animalis 1 EACH capsule (2 sources) Start: 10-01-19 17 End: 07-09-19 24 take 1 capsule by mouth twice daily L.Acidoph,Paracasei,B .Animalis 1 EACH capsule Discontinued 1 NMA PO TWICE A DAY September 30, 2016 12:00am July 09, 2023 12:16am magnesium carbonate (1 source) MAGNESIUM CARBON ATE ORAL Take by mouth once daily. 0 Active Comment on above: Take by mouth once d aily. metoclopramide 10 mg oral tablet (1 source) Dopamine-2 Receptor Antagonist Start: 01-11-20 17 take 0.5 tablet by mouth three times daily before mealtime metoclopramide HCl (REGLAN) 10 mg tablet TAKE 1/2 (ONE-HALF) OF A TABLET BY MOUTH THREE TIMES DAILY BEFORE MEALS 45 tablet 5 01/10/2017 Active Comment on above: TAKE 1/2 (ONE-HALF) OF A TABLET BY MOUTH THREE TIMES DAILY BEFORE MEALS modafinil 200 mg oral tablet (8 sources) Sympathomimetic-li ke Agent Start: 05-08-19 22 take 0.5 tablet by mouth once daily at lunch PROVIGIL 200 mg tablet Take 0.5 tablets by mouth daily with lunch for 10 days. 0 05/07/2021 Active Start: 09-25-2016 take 1 tablet by [facility] once daily Modafinil 200 MG tablet Active 100 mg PO DAILY September 25, 2016 12:00am Comment on above: Take 0.5 tablets by mouth daily with lunch for 10 days. multivitamin tablet (1 source) take 1 tablet by mouth once daily multivitamin tablet Take 1 tablet by mouth once daily. 0 Active Comment on above: Take 1 tablet by [facility] once daily. ondansetron 8 mg oral tablet (15 sources) Serotonin-3 Receptor Antagonist Start: 2 take 1 tablet by mouth every six hours as needed ondansetron (ZOFRAN) 8 mg tablet Take 1 tablet by mouth every 6 hours as needed for nausea/vomiting. 12 tablet 0 05/07/2021 Active Start: 04-20-2019 End: 07-09-2023 take 1 tablet by mouth every eight hours as needed for nausea Ondansetron 4 MG tablet Discontinued 4 mg PO EVERY 8 HOURS NEEDED as needed for Nausea April 20, 2019 1:00am July 09, 2023 12:16am Start: 10-04-2016 End: 07-09-2023 take 4-8 mg by mouth every eight hours as needed for nausea Ondansetron Hcl (Zofran) 4 MG tablet Discontinued 4 - 8 mg PO EVERY 8 HOURS NEEDED as needed for Nausea October 04, 2016 6:47am July 09, 2023 12:16am Comment on above: Take 1 tablet by [facility] every 6 hours as needed for nausea/vomiting. 72 hr scopolamine 0.0139 mg/hr transdermal system (1 source) Anticholinergic Start: 05-10-19 22 scopolamine (TRANSDERM-SCOP) patch 1.5 mg/72 hr (1 mg over 3 days) Apply 1 Patch as directed every 72 hours. 1 Patch 0 05/09/2021 Active Comment on above: Apply 1 Patch as dir ected every 72 hours. 24 hr tolterodine tartrate 4 mg extended release oral capsule (1 source) Cholinergic Muscarinic Antagonist Start: 07-03-19 15 take 1 capsule by mouth once daily tolterodine ER (DETROL LA) 4 mg 24 hr capsule Take 1 capsule by mouth once daily. 30 capsule 0 07/02/2014 Active Comment on above: Take 1 capsule by mo [facility] once daily. Vitamin B Complex 1 EACH capsule (2 sources) Start: 04-20-19 End: 11-23-19 24 Vitamin B Complex 1 EACH capsule Discontinued 1 NMA PO DAILY April 20, 2019 1:00am November 23, 2023 8:24am Zinc (1 source) Zinc 50 mg tab T tam 50 mg by mouth. 0 Active Comment on above: Take 50 mg by mouth. Problems Active Problems Problem Classification Problem Date Documented Date Episodic/Chronic Abdominal pain (7 sources) Left flank pain; Translations: [Unspecified abdominal pain] 04-21-2019 Episodic Calculus of urinary tract (10 sources) History of calculus of kidney; Translations: [Personal history of urinary calculi] Onset: 06-26-2024 04-21-2019 Episodic Disorders of lipid metabolism (2 sources) Hyperlipidemia, unspecified; Translations: [Hyperlipoproteinemia] Onset: 07-24-2023 Chronic Esophageal disorders (1 source) Gastroesophageal reflux disease; Translations: [Gastro-esophageal reflux disease without esophagitis] Onset: 06-20-2014 05-07-2021 Chronic Essential hypertension (4 sources) Hypertensive disorder; Translations: [Essential (primary) hypertension] Onset: 05-06-2021 02-08-2021 Chronic Fluid and electrolyte disorders (3 sources) Hypokalemia; Translations: [Hypokalemia] Onset: 07-23-2014 05-07-2021 Episodic Genitourinary symptoms and ill-defined conditions (1 source) Urge incontinence of urine; Translations: [Urge incontinence] Onset: 05-06-2021 05-07-2021 Chronic Headache; including migraine (3 sources) Migraine without aura; Translations: [Migraine without aura, not intractable, without status migrainosus] Onset: 04-19-2005 04-19-2005 Chronic Headache; including migraine (1 source) Chronic headache disorder; Translations: [Chronic headaches] 05-07-2021 Episodic Immunity disorders (1 source) Immunodeficiency disorder; Translations: [Immunodeficiency, unspecified] 02-08-2021 Chronic Menopausal disorders (2 sources) Atrophic vaginitis; Translations: [Postmenopausal atrophic vaginitis] Onset: 10-23-2006 10-23-2006 Chronic Non-Hodgkin`s lymphoma (10 sources) History of non-Hodgkins lymphoma; Translations: [Personal history of non-Hodgkin lymphomas] Onset: 04-30-2013 08-12-2020 Episodic Nutritional deficiencies (1 source) Vitamin D deficiency, unspecified; Translations: [Avitaminosis D] Onset: 06-04-2024 Chronic Other aftercare (1 source) Encounter for therapeutic drug level monitoring; Translations: [Encounter for therapeutic drug monitoring] Onset: 06-04-2024 Episodic Other disorders of stomach and duodenum (1 source) Gastroparesis syndrome; Translations: [Gastroparesis] Onset: 05-06-2021 05-07-2021 Episodic Other eye disorders (1 source) Ocular pain, left eye; Translations: [Ocular pain, left eye] Onset: 06-28-2024 Episodic Other nervous system disorders (1 source) Narcolepsy without cataplexy; Translations: [Narcolepsy, without cataplexy] Chronic Other nervous system disorders (3 sources) Narcolepsy; Translations: [Narcolepsy without cataplexy] 05-07-2021 Chronic Comment on above: ON MED Pancreatic disorders (not diabetes) (6 sources) Pancreatitis; Translations: [Idiopathic acute pancreatitis without necrosis or infection] 11-27-2023 Episodic Comment on above: 06/2023 Pneumonia (except that caused by tuberculosis or sexually transmitted disease) (2 sources) Infective pneumonia; Translations: [Pneumonia, unspecified organism] Onset: 05-05-2021 05-07-2021 Episodic Residual codes; unclassified (2 sources) H/O: tissue/organ recipient; 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] 07-19-2023 Chronic Past or Other Problems Problem Classification Problem Date Documented Da te Episodic/Chronic Deficiency and other anemia (1 source) Iron deficiency anemia, unspecified; Translations: [Iron deficiency anemia, unspecified iron deficiency anemia type] Onset: 07-24-2023 Episodic Other bone disease and musculoskeletal deformities (1 source) Osteopenia; Translations: [Other specified disorders of bone density and structure, unspecified site] Onset: 09-18-2012 09-18-2012 Episodic Other connective tissue disease (1 source) Pain in limb; Translations: [Pain in unspecified limb] Onset: 07-03-2003 07-03-2003 Episodic Other diseases of veins and lymphatics (1 source) Peripheral venous insufficiency; Translations: [Venous insufficiency (chronic) (peripheral)] Onset: 07-03-2003 07-03-2003 Episodic Other infections; including parasitic (1 source) History of human papilloma virus infection; Translations: [Personal history of other infectious and parasitic diseases] Onset: 09-18-2012 09-18-2012 Episodic Other screening for suspected conditions (not mental disorders or infectious disease) (1 source) Encounter for screening mammogram for malignant neoplasm of breast; Translations: [Encounter for screening mammogram for malignant neoplasm of breast] Onset: 02-29-2024 Episodic Urinary tract infections (1 source) Urinary tract infection, site not specified; Translations: [Urinary tract infection, site not specified] Onset: 11-07-2023 Episodic Varicose veins of lower extremity (1 source) Varicose vein of leg with phlebitis; Translations: [Varicose veins of unspecified lower extremity with inflammation] Onset: 07-03-2003 07-03-2003 Episodic Results Test Name Value Interpretation Reference Range Facility Magnetic resonance imaging r eportOrdered By: Luis Rowe on 06-27-2024 Study report [facility] Imaging Services [address] [place] [address] Brain W/WO Contrast MR#: [id number] Acct: [id number] Name: PETTY LEON Rep #: [id number] : 1950 F 73 From: Luan Rowe MD PCP: Dr. Nicolasa Harkins DO Status: REG CLI Study:Brain W/WO Contrast Date of Exam: 06/25/24 Exam# [id number] Ordering Dr: Stacy Harkins sa, DO EXAM: BRAIN W/WO CONTRAST CLINICAL HISTORY: HEADACHES COMPARISON: None. TECHNIQUE: Multiplanar, multisequence MR images of the brain were obtained without and with13 cc Clariscan gadolinium contrast material. FINDINGS: No intracranial hemorrhage, mass, mass effect, midline shift or pathologic extra- axial fluid collection. No hydrocephalus. There is no significant white matter disease. No areas of restricted diffusion to suggest acute ischemia or infarction. No gradient signal blooming artifacts are identified. No cerebellar tonsillar ectopia. No sellar/suprasellar signal abnormalities. The ocular globes and intraorbital soft tissues are symmetrically unremarkable. Paranasal sinuses are essentially clear. There are no suspicious enhancing lesions. MRI/Brain W/WO Contrast IMPRESSION: Negative MRI of the brain. Reading Location: [facility] CC: Dr. Nicolasa Harkins DO ~ Bending Roll Hand: Signed [facility] Brain W/WO Contraston 2024 Brain W/WO Contrast [facility] Imaging Services [address] [place], [place] [address] Brain W/WO Contrast MR#: [id number] Acct: [id number] Name: PETTY LEON Rep #: [id number] : 1950 F 73 From: Luis Rowe MD PCP: Dr. Nicolasa Harkins DO Status: REG CLI Study: Brain W/WO Contrast Date of Exam: 06/25/24 Exam# [id number] Ordering Dr: Nicolasa Harkins DO EXAM: BRAIN W/WO CONTRAST CLINICAL HISTORY: HEADACHES COMPARISON: None. TECHNIQUE: Multiplanar, multisequence MR images of the brain were obtained without and with 13 cc Clariscan gadolinium contrast material. FINDINGS: No intracranial hemorrhage, mass, mass effect, midline shift or pathologic extra- axial fluid collection. No hydrocephalus. There is no significant white matter disease. No areas of restricted diffusion to suggest acute ischemia or infarction. No gradient signal blooming artifacts are identified. No cerebellar tonsillar ectopia. No sellar/suprasellar signal abnormalities. The ocular globes and intraorbital soft tissues are symmetrically unremarkable. Paranasal sinuses are essentially clear. There are no suspicious enhancing lesions. MRI/Brain W/WO Contrast IMPRESSION: Negative MRI of the brain. Reading Location: [facility] CC: Dr. Nicolasa Harkins DO Bending Roll Hand: Signed Normal [facility] Abdomen Single Viewon 2024 [facility] [address] [place] [address] Abdomen Single View MR#: [id number] Acct: [id number] Name: PETTY LEON Rep #: [id number] : 1950 F 73 From: Gustavo Rogel MD PCP: Dr. Nicolasa Harkins DO Status: REG CLI Study: Abdomen Single View Date of Exam: 06/19/24 Exam# [id number] Ordering Dr: Flower Contreras MD PROCEDURE: ABDOMEN SINGLE VIEW 06/19/2024 REASON FOR EXAM: LEFT SIDED KIDNEY STONE TECHNIQUE: Single view abdomen. Two views to include the entire abdomen and pelvis COMPARISON: 12/20/2023 FINDINGS: The lung bases grossly appear clear. [id number] appearing leftward thoracolumbar curvature, scoliosis again seen. Previously noted calcific densities in the area of the left renal shadow not clearly identified on the current study. 2 calcific densities are seen over the medial aspect of the left iliac crest around the L5 level which may represent bowel material with possibility of ureteral stone not excluded, clinically correlate. Previously seen left ureteral stent is no longer identified. No pelvic calcifications concerning for stone identified. RAD/Abdomen Single View IMPRESSION: Previously noted calcific densities in the area of the left renal shadow not clearly identified on the current study. 2 calcific densities are seen over the medial aspect of the left iliac crest around the L5 level which may represent bowel material with possibility of ureteral stone not excluded, clinically correlate. Previously seen left ureteral stent is no longer identified. Reading Location: [id number] CC: Dr. Flower Contreras MD; Dr. Nicolasa Harkins DO Bending Roll Hand: Signed Normal [facility] 25(OH)D3 [facility] 25-hydroxyvitamin D3 [Mass/Vol] 51.7 ng/mL Normal 31.0-80.0 [facility] Comment on above: Order Comment: Frances li Type: BLOOD SPECIMEN Ordering Facility: [facility] Address: [address] [place] [address] Result Comment: Clas sification of 25 [place] Vitamin D status: Deficiency/Insufficiency: < or = 30 ng/ml. Sufficiency/Optimal Levels: 31-80 ng/mL Toxicity: > 100 ng/mL. Test performed by chemiluminescent immunoassay. Performed By: #### 1 989-3 #### [facility] CLIA [id number] [address] [place] [address] [place] CBC W Auto Differential pane l (Bld)on 06-04-2024 Basophils (Bld) [#/Vol] 10*3/uL Normal <0.11 [facility] Comment on above: Order Comment: Frances li Type: BLOOD SPECIMEN Ordering Facility: [facility] Address: [address] [place] [address] [place] [address] Performed By: #### 5 7021-8 #### [facility] CLIA [id number] [address] [place] [address] [place] Basophils/100 WBC (Bld) 0.6 % Normal [facility] Comment on above: Order Comment: Speci men Type: BLOOD SPECIMEN Ordering Facility: [facility] Address: [address] [place], [place] [address] [address] Performed By: #### 5 7021-8 #### [facility] CLIA [id number] [address] [place] [address] [place] Differential cell count method Nom (Bld) Auto Normal [facility] Comment on above: Order Comment: Speci men Type: BLOOD SPECIMEN Ordering Facility: [facility] Address: [address] [place] [address] [place] [address] Performed By: #### 5 7021-8 #### [facility] CLIA [id number] [address] [place] [address] [place] Eosinophils (Bld) [#/Vol] 0.11 10*3/uL Normal <0.46 [facility] Comment on above: Order Comment: Speci men Type: BLOOD SPECIMEN Ordering Facility: [facility] Address: [address] [place] [address] [place] [address] Performed By: #### 5 7021-8 #### [facility] CLIA [id number] [address] [place] [address] [place] Eosinophils/100 WBC (Bld) 3.1 % Normal [facility] Comment on above: Order Comment: Speci men Type: BLOOD SPECIMEN Ordering Facility: [facility] Address: [address] [place] [address] [place] [address] Performed By: #### 5 7021-8 #### [facility] CLIA [id number] [address] [place] [address] [place] Erythrocyte distribution width (RBC) [Ratio] 12.7 % Normal 11.5-15.0 [facility] Comment on above: Order Comment: Speci men Type: BLOOD SPECIMEN Ordering Facility: [facility] Address: [address] [place] [address] Performed By: #### 5 7021-8 #### [facility] CLIA [id number] [address] [place] [address] [place] Hematocrit (Bld) [Volume fraction] 40.4 % Normal 36.0-46.0 [facility] Comment on above: Order Comment: Speci men Type: BLOOD SPECIMEN Ordering Facility: [facility] Address: [address] [place] [address] Performed By: #### 5 7021-8 #### [facility] CLIA [id number] [address] [place] [address] [place] Hemoglobin (Bld) [Mass/Vol] 13.8 g/dL Normal 11.5-15.5 [facility] Comment on above: Order Comment: Speci men Type: BLOOD SPECIMEN Ordering Facility: [facility] Address: [address] [place] [address] Performed By: #### 5 7021-8 #### [facility] CLIA [id number] [address] [place] [address] [place] Immature granulocytes (Bld) [#/Vol] 10*3/uL Normal <0.10 [facility] Comment on above: Order Comment: Speci men Type: BLOOD SPECIMEN Ordering Facility: [facility] Address: [address] [place] [address] Performed By: #### 5 7021-8 #### [facility] CLIA [id number] [address] [place] [address] [place] Immature granulocytes/100 WBC (Bld) 0.3 % Normal [facility] Comment on above: Order Comment: Speci men Type: BLOOD SPECIMEN Ordering Facility: [facility] Address: [address] [place] [address] [place] [address] Performed By: #### 5 7021-8 #### [facility] CLIA [id number] [address] [place] [address] [place] Lymphocytes (Bld) [#/Vol] 1.43 10*3/uL Normal 1.00-4.00 [facility] Comment on above: Order Comment: Speci men Type: BLOOD SPECIMEN Ordering Facility: [facility] Address: [address] [place] [address] [place] [address] Performed By: #### 5 7021-8 #### [facility] CLIA [id number] [address] [place] [address] [place] Lymphocytes/100 WBC (Bld) 40.6 % Normal [facility] Comment on above: Order Comment: Speci men Type: BLOOD SPECIMEN Ordering Facility: [facility] Address: [address] [place] [address] [place] [address] Performed By: #### 5 7021-8 #### [facility] CLIA [id number] [address] [place] [address] [place] MCH (RBC) [Entitic mass] 30.7 pg Normal 26.0-34.0 [facility] Comment on above: Order Comment: Speci men Type: BLOOD SPECIMEN Ordering Facility: [facility] Address: [address] [place] [address] [place] [address] Performed By: #### 5 7021-8 #### [facility] CLIA [id number] [address] [place] [address] [place] MCHC (RBC) [Mass/Vol] 34.2 g/dL Normal 30.5-36.0 [facility] Comment on above: Order Comment: Speci men Type: BLOOD SPECIMEN Ordering Facility: [facility] Address: [address] [place] [address] [place] [address] Performed By: #### 5 7021-8 #### [facility] CLIA [id number] [address] [place] [address] [place] MCV (RBC) [Entitic vol] 89.8 fL Normal 80.0-100.0 [facility] Comment on above: Order Comment: Speci men Type: BLOOD SPECIMEN Ordering Facility: [facility] Address: [address] [place] [address] [place] [address] Performed By: #### 5 7021-8 #### [facility] CLIA [id number] [address] [place] [address] [place] Monocytes (Bld) [#/Vol] 0.30 10*3/uL Normal <0.87 [facility] Comment on above: Order Comment: Speci men Type: BLOOD SPECIMEN Ordering Facility: [facility] Address: [address] [place] [address] [place] [address] Performed By: #### 5 7021-8 #### [facility] CLIA [id number] [address] [place] [address] [place] Monocytes/100 WBC (Bld) 8.5 % Normal [facility] Comment on above: Order Comment: Speci men Type: BLOOD SPECIMEN Ordering Facility: [facility] Address: [address] [place], [place] [address] [address] Performed By: #### 5 7021-8 #### [facility] CLIA [id number] [address] [place] [address] [place] Neutrophils (Bld) [#/Vol] 1.65 10*3/uL Normal 1.45-7.50 [facility] Comment on above: Order Comment: Speci men Type: BLOOD SPECIMEN Ordering Facility: [facility] Address: [address] [place] [address] [place] [address] Performed By: #### 5 7021-8 #### [facility] CLIA [id number] [address] [place] [address] [place] Neutrophils/100 WBC (Bld) 46.9 % Normal [facility] Comment on above: Order Comment: Speci men Type: BLOOD SPECIMEN Ordering Facility: [facility] Address: [address] [place] [address] [place] [address] Performed By: #### 5 7021-8 #### [facility] CLIA [id number] [address] [place] [address] [place] Nucleated RBC (Bld) [#/Vol] 10*3/uL Normal <0.01 [facility] Comment on above: Order Comment: Speci men Type: BLOOD SPECIMEN Ordering Facility: [facility] Address: [address] [place] [address] [place] [address] Performed By: #### 5 7021-8 #### [facility] CLIA [id number] [address] [place] [address] [place] Nucleated RBC/100 WBC (Bld) [Ratio] 0.0 /100 WBC Normal [facility] Comment on above: Order Comment: Speci men Type: BLOOD SPECIMEN Ordering Facility: [facility] Address: [address] [place] [address] [address] A, [place] [address] Performed By: #### 5 7021-8 #### [facility] CLIA [id number] [address] [place] [address] [place] Platelet mean volume (Bld) [Entitic vol] 9.6 fL Normal 9.0-12.7 [facility] Comment on above: Order Comment: Speci men Type: BLOOD SPECIMEN Ordering Facility: [facility] Address: [address] [place] [address] [place] [address] Performed By: #### 5 7021-8 #### [facility] CLIA [id number] [address] [place] [address] [place] Platelets (Bld) [#/Vol] 177 10*3/uL Normal 150-400 [facility] Comment on above: Order Comment: Speci men Type: BLOOD SPECIMEN Ordering Facility: [facility] Address: [address] [place] [address] Performed By: #### 5 7021-8 #### [facility] CLIA [id number] [address] [place] [address] [place] RBC (Bld) [#/Vol] 4.50 10*6/uL Normal 3.90-5.20 [facility] Comment on above: Order Comment: Speci men Type: BLOOD SPECIMEN Ordering Facility: [facility] Address: [address] [place] [address] Performed By: #### 5 7021-8 #### [facility] CLIA [id number] [address] [place] [address] [place] WBC (Bld) [#/Vol] 3.52 10*3/uL Low 3.70-11.00 [facility] Comment on above: Order Comment: Speci men Type: BLOOD SPECIMEN Ordering Facility: [facility] Address: [address] [place] [address] Performed By: #### 5 7021-8 #### [facility] CLIA [id number] [address] [place] [address] [place] Comprehensive metabolic 2000 panelon 06-04-2024 Albumin [Mass/Vol] 4.6 g/dL Normal 3.9-4.9 [facility] Comment on above: Order Comment: Speci men Type: BLOOD SPECIMEN Ordering Facility: [facility] Address: [address] [place] [address] Performed By: #### 2 4323-8 #### [facility] CLIA [id number] [address] [place], [place] [address] [place] ALP [Catalytic activity/Vol] 136 U/L High 34-123 [facility] Comment on above: Order Comment: Speci men Type: BLOOD SPECIMEN Ordering Facility: [facility] Address: [address] [place] [address] [place] [address] Performed By: #### 2 4323-8 #### [facility] CLIA [id number] [address] [place] [address] [place] ALT [Catalytic activity/Vol] 19 U/L Normal 7-38 [facility] Comment on above: Order Comment: Speci men Type: BLOOD SPECIMEN Ordering Facility: [facility] Address: [address] [place] [address] [place] [address] Performed By: #### 2 4323-8 #### [facility] CLIA [id number] [address] [place] [address] [place] Anion gap [Moles/Vol] 14 mmol/L Normal 8-15 [facility] Comment on above: Order Comment: Speci men Type: BLOOD SPECIMEN Ordering Facility: [facility] Address: [address] [place] [address] [place] [address] Performed By: #### 2 4323-8 #### [facility] CLIA [id number] [address] [place] [address] [place] AST [Catalytic activity/Vol] 18 U/L Normal 13-35 [facility] Comment on above: Order Comment: Speci men Type: BLOOD SPECIMEN Ordering Facility: [facility] Address: [address] [place] [address] [place] [address] Performed By: #### 2 4323-8 #### [facility] CLIA [id number] [address] [place] [address] [place] Bilirubin [Mass/Vol] 0.3 mg/dL Normal 0.2-1.3 [facility] Comment on above: Order Comment: Speci men Type: BLOOD SPECIMEN Ordering Facility: [facility] Address: [address] [place] [address] [address], [place] [address] Performed By: #### 2 4323-8 #### [facility] CLIA [id number] [address] [place] [address] [place] Calcium [Mass/Vol] 9.4 mg/dL Normal 8.5-10.2 [facility] Comment on above: Order Comment: Speci men Type: BLOOD SPECIMEN Ordering Facility: [facility] Address: [address] [place] [address] [address], [place] [address] Performed By: #### 2 4323-8 #### [facility] CLIA [id number] [address] [place] [address] [place] Chloride [Moles/Vol] 104 mmol/L Normal 98-107 [facility] Comment on above: Order Comment: Speci men Type: BLOOD SPECIMEN Ordering Facility: [facility] Address: [address] [place] [address] [address] A, [place] [address] Performed By: #### 2 4323-8 #### [facility] CLIA [id number] [address] [place] [address] [place] CO2 [Moles/Vol] 23 mmol/L Normal 22-30 [facility] Comment on above: Order Comment: Speci men Type: BLOOD SPECIMEN Ordering Facility: [facility] Address: [address] [place] [address] [address] A, [place] [address] Performed By: #### 2 4323-8 #### [facility] CLIA [id number] [address] [place], [place] [address] [place] Creatinine [Mass/Vol] 0.63 mg/dL Normal 0.58-0.96 [facility] Comment on above: Order Comment: Speci men Type: BLOOD SPECIMEN Ordering Facility: [facility] Address: [address] [place] [address] [address], [place] [address] Performed By: #### 2 4323-8 #### [facility] CLIA [id number] [address] [place] [id number] [place] Creatinine and Glomerular filtration rate.predicted panel (S/P/Bld) 93 mL/min/1.73m??? Normal >=60 [facility] Comment on above: Order Comment: Speci men Type: BLOOD SPECIMEN Ordering Facility: [facility] Address: [address] [place], [place] [id number] Result Comment: Nathaly mated Glomerular Filtration Rate (eGFR) is calculated using the 2020 CKD-EPI creatinine equation. This equation utilizes serum creatinine, sex, and age as parameters. The creatinine assay has traceable calibration to isotope dilution-mass spectrometry. Refer to KDIGO guidelines for clinical interpretation. In patients with unstable renal function, e.g. those with acute kidney injury, the eGFR may not accurately reflect actual GFR. Performed By: #### 2 4323-8 #### [facility] [place] [id number] [address] [place] [address] [place] Glucose [Mass/Vol] 93 mg/dL Normal 74-99 [facility] Comment on above: Order Comment: Speci guillermo Type: BLOOD SPECIMEN Ordering Facility: [facility] Address: [address] [place] [address] Result Comment: The [place] Diabetes Association (ADA) provides guidance for cutoff values for fasting glucose and random glucose. The ADA defines fasting as no caloric intake for at least 8 hours. Fasting plasma glucose results between 100 to 125 mg/dL indicate increased risk for diabetes (prediabetes). Fasting plasma glucose results greater than or equal to 126 mg/dL meet the criteria for diagnosis of diabetes. In the absence of unequivocal hyperglycemia, results should be confirmed by repeat testing. In a patient with classic symptoms of hyperglycemia or hyperglycemic crisis, random plasma glucose results greater than or equal to 200 mg/dL meet the criteria for diagnosis of diabetes. Reference: Standards of Medical Care in Diabetes 2016, [place] [employer] Association. Diabetes Care. 2016.39(Suppl 1). Performed By: #### 2 4323-8 #### [facility] CLIA [id number] [address] [address] [place] Potassium [Moles/Vol] 4.0 mmol/L Normal 3.7-5.1 [facility] Comment on above: Order Comment: Speci men Type: BLOOD SPECIMEN Ordering Facility: [facility] Address: [address] [place] [address] [address] [place] [id number] Performed By: #### 2 4323-8 #### [facility] CLIA [id number] [address] [place] [address] [place] Protein [Mass/Vol] 6.7 g/dL Normal 6.3-8.0 [facility] Comment on above: Order Comment: Speci men Type: BLOOD SPECIMEN Ordering Facility: [facility] Address: [address] [place], [place] [address] [address] Performed By: #### 2 4323-8 #### [facility] CLIA [id number] [address] [place] [address] [place] Sodium [Moles/Vol] 141 mmol/L Normal 136-144 [facility] Comment on above: Order Comment: Speci men Type: BLOOD SPECIMEN Ordering Facility: [facility] Address: [address] [place] [address] [place] [address] Performed By: #### 2 4323-8 #### [facility] CLIA [id number] [address] [place] [address] [place] Urea nitrogen [Mass/Vol] 13 mg/dL Normal 7-21 [facility] Comment on above: Order Comment: Speci men Type: BLOOD SPECIMEN Ordering Facility: [facility] Address: [address] [place] [address] [place] [address] Performed By: #### 2 4323-8 #### [facility] CLIA [id number] [address] [place], [place] [address] [place] Lipid 1996 panelon 5 Cholesterol [Mass/Vol] 235 mg/dL High <200 [facility] Comment on above: Order Comment: Speci men Type: BLOOD SPECIMEN Ordering Facility: [facility] Address: [address] [place] [address] [place] [address] Result Comment: <200 mg/dL, Desirable 200-239 mg/dL, Borderline high >239 mg/dL, High Performed By: #### 2 4331-1 #### [facility] CLIA [id number] [id number] [place] [address] Cholesterol in HDL [Mass/Vol] 59 mg/dL Normal >39 [facility] Comment on above: Order Comment: Frances men Type: BLOOD SPECIMEN Ordering Facility: [facility] Address: [address] [place], [place] [address] [address] Result Comment: 40-5 9 mg/dL, Acceptable >59 mg/dL, High: Negative risk factor for coronary heart disease <40 mg/dL, Low: Positive risk factor for coronary heart disease Performed By: #### 2 4331-1 #### [facility] CLIA [id number] [id number] [place] [address] Cholesterol in LDL [Mass/Vol] 153 mg/dL High <100 [facility] Comment on above: Order Comment: Speci men Type: BLOOD SPECIMEN Ordering Facility: [facility] Address: [address] [place], [place] [address] [address] A, [place] [address] Result Comment: <100 mg/dL, Optimal 100-129 mg/dL, Near optimal/above optimal 130-159 mg/dL, Borderline high 160-189 mg/dL, High >189 mg/dL, Very high Secondary prevention optimal LDL Cholesterol levels are recommended to be <70 mg/dL LDL cholesterol is calculated using the López-NIH equation. Performed By: #### 2 4331-1 #### [facility] CLIA [id number] [address] [place] [address] [place] [facility] CLIA [id number] [address] [place] [address] [place] Cholesterol in LDL/Cholesterol in HDL [Mass ratio] 2.59 {ratio} High <2.54 [facility] Comment on above: Order Comment: Speci men Type: BLOOD SPECIMEN Ordering Facility: [facility] Address: [address] [place] [address] Result Comment: Refe rence: 1. National Cholesterol Education Program ATP III Guideline At-A-Glance Quick Desk Reference: National Heart, Lung, and Blood [place]. National Institutes of Health. 2001: NIH Publication No. 01-3305. 2. An International Atherosclerosis Society position paper: global recommendations for the management of dyslipidemia: executive summary, Atherosclerosis. 2014: 232(2):410-413. Performed By: #### 2 4331-1 #### [facility] CLIA [id number] [address] [place] [address] [place] [facility] [id number] [address] [place] [address] [place] Cholesterol in VLDL [Mass/Vol] 24 mg/dL Normal <30 [facility] Comment on above: Order Comment: Speci men Type: BLOOD SPECIMEN Ordering Facility: [facility] Address: [address] [place] [address] Performed By: #### 2 4331-1 #### [facility] CLIA [id number] [address] [place] [address] [place] [facility] CLIA [id number] [address] [place] [address] [place] Cholesterol non HDL [Mass/Vol] 176 mg/dL High <130 [facility] Comment on above: Order Comment: Speci men Type: BLOOD SPECIMEN Ordering Facility: [facility] Address: [address] [place] [address] [place] [address] Result Comment: <130 mg/dL, Optimal 130-159 mg/dL, Near optimal/above optimal 160-189 mg/dL, Borderline high 190-219 mg/dL, High >219 mg/dL, Very high Secondary prevention optimal non HDL Cholesterol levels are recommended to be <100 mg/dL Performed By: #### 2 4331-1 #### [facility] CLIA [id number] [address] [place] [facility] CLIA [id number] [address] [place] [address] Cholesterol.total/Ch olesterol in HDL [Mass ratio] 3.98 {ratio} Normal <5.10 [facility] Comment on above: Order Comment: Speci men Type: BLOOD SPECIMEN Ordering Facility: [facility] Address: [address] [place] [address] [address], [place] [address] Performed By: #### 2 4331-1 #### [facility] CLIA [id number] [address] [place] [facility] CLIA [id number] [address] [place] [address] OF [facility] FASTING TIME 10 hrs Normal [facility] Comment on above: Order Comment: Speci men Type: BLOOD SPECIMEN Ordering Facility: [facility] Address: [address] [place] [address] [address], [place] [address] Performed By: #### 2 4331-1 #### [facility] CLIA [id number] [address] [place] [address] [place] [facility] CLIA [id number] [address] [place] [address] OF [facility] Triglyceride [Mass/Vol] 130 mg/dL Normal <150 [facility] Comment on above: Order Comment: Speci men Type: BLOOD SPECIMEN Ordering Facility: [facility] Address: [address] [place] [address] [address] [place], [place] [address] Result Comment: <150 mg/dL, Normal 150-199 mg/dL, Borderline high 200-499 mg/dL, High >499 mg/dL, Very high Performed By: #### 2 4331-1 #### [facility] CLIA [id number] [address] [facility] [address] [address] [address] [facility] CLIA [id number] [address] [place] [address] [facility] Gastroenterology Visit Repor ton 02-29-2024 Gastroenterology Visit Report [facility] Gastroenterology [address] [place] [address] OFFICE VISIT Date of Service: 02/29/24 MR#: [id number] Acct: [id number] Name: PETTY LEON Rep #: [id number] : 1950 Provider: Shen Dwyer DO Age/Sex: 73/F Location: [facility] Status: Signed Intake Vital Signs 07/09/23 16:48 11/30/23 14:11 Height 5 ft 2 in 5 ft 7 in Intake Visit Reasons: 3 M FU Chief Complaint: nausea Allergies acetaminophen (From Vicodin) Allergy (Intermediate, Verified 11/30/23 10:15) Other codeine Allergy (Intermediate, Verified 11/30/23 10:15) Other hydrocodone (From Vicodin) Allergy (Intermediate, Verified 11/30/23 10:15) Other cefaclor (From Ceclor) Allergy (Verified 11/30/23 10:15) Hives Cephalosporins Allergy (Verified 11/30/23 10:15) Hives erythromycin base Allergy (Verified 11/30/23 10:15) Hives levofloxacin (From Levaquin) Allergy (Verified 11/30/23 10:15) Other lorazepam (From Ativan) Adverse Reaction (Verified 11/30/23 10:15) Other Opioids - Morphine Analogues Adverse Reaction (Verified 11/30/23 10:16) Nausea Sulfa (Sulfonamide Antibiotics) Adverse Reaction (Verified 11/30/23 10:15) Nausea Medications ???Medication ???Instructions ???Recorded ???Confirmed ???Type modafinil 200 mg tablet 100 mg PO DAILY narcolepsy 09/25/16 02/29/24 History oxybutynin chloride 5 mg tablet 5 mg PO QHS bladd 09/25/16 02/29/24 History flaxseed oil 1,000 mg capsule 1,000 mg PO DAILY supplem 09/30/16 02/29/24 History ascorbic acid (vitamin C) 1,000 mg 1,000 mg PO DAILY vitamin 04/20/19 02/29/24 History tablet omeprazole 40 mg capsule,delayed 40 mg PO BID GERD 04/20/19 02/29/24 History release metoprolol tartrate 50 mg tablet 25 mg PO BID bp 07/09/23 02/29/24 History (Lopressor) BEET POWDER 1 dose PO DAILY 11/23/23 02/29/24 History Lactobacillus acidophilus 100 mmu cells PO DAILY 11/23/23 02/29/24 History (Acidophilus capsule) SUPER GREENS 1 dose PO DAILY 11/23/23 02/29/24 History albuterol sulfate 90 mcg/actuation 2 inh inhalation Q6H PRN PRN 11/23/23 02/29/24 History breath activated powder inhaler shortness of breath or wheezing cranberry 1,000 mg capsule 1,000 mg PO DAILY 11/23/23 02/29/24 History cyanocobalamin (vitamin B-12) 1,000 mcg PO DAILY 11/23/23 02/29/24 History 1,000 mcg tablet (Vitamin B-12) estradiol 0.01% (0.1 mg/gram) 1 appful vaginal MOWEFR 11/23/23 02/29/24 History vaginal cream lysine 500 mg tablet (L-Lysine) 500 mg PO DAILY 11/23/23 02/29/24 History magnesium 100 mg tablet 400 mg PO DAILY 11/23/23 02/29/24 History potassium 99 mg tablet 99 mg PO DAILY 11/23/23 02/29/24 History rizatriptan 10 mg disintegrating 10 mg PO Q2H PRN PRN migraine 11/23/23 02/29/24 History tablet headache zinc gluconate 50 mg tablet 50 mg PO DAILY 11/23/23 02/29/24 History ibuprofen 600 mg tablet 600 mg PO Q8H PRN pain #20 tabs 11/30/23 02/29/24 Rx phenazopyridine 200 mg tablet 200 mg PO TID PRN PRN Bladder 11/30/23 02/29/24 Rx (Pyridium) Spasms 7 days #30 tabs ursodiol 300 mg capsule 300 mg PO BID 02/29/24 02/29/24 History Have you fallen in the past year?: No PFSH Medical History Wears dentures Anemia Back pain Difficulty swallowing History of IBS History of diverticulitis Non-smoker Leg cramps History of pain when walking History of stress test History of echocardiogram History of irregular heartbeat Chest pain Gastric reflux Gastroparesis Hx of fracture of arm History of non-Hodgkin's lymphoma Acute pancreatitis Hiatal hernia Kidney stone Asthma Narcolepsy Hypertension Migraines Osteoporosis Scoliosis Non-Hodgkin lymphoma Surgical History Hx of eye surgery Hx of right cataract extraction Hx of left cataract extraction Hx of varicose vein ligation Hx of colonoscopy History of esophagogastroduodenoscopy (EGD) Hx of tonsillectomy History of stem cell transplant H/O: hysterectomy Family History Mother Arthritis Hypertension Osteoporosis Autoimmune disease Father Hypertension Heart disease Social History Smoking Status: Never smoker alcohol intake: never HPI HPI Chief Complaint: nausea Details: PETTY LEON, is a 73 F who presents to the office today for follow up. OV 1.16. pt reports that PCP started her on Ursodiol 300mg BID in early January and would like to discuss medication. Pt reports that she continues with Omeprazole 40mg BID; will occasionally still have breakthrough symptoms. Pt reports she has some difficulty swallowing, had a previous EGD with Dr Yeung and he did not find anything of co (more content not included)... Normal [facility] SCRN MAMM (CAD)W/MANAS Finn n 01-26-2024 SCRN MAMM (CAD)W/MANAS BILAT [facility] Imaging Services [address] [place] [address] SCRN MAMM (CAD)W/MANAS BILAT MR#: [id number] Acct: [id number] Name: PETTY LEON Rep #: [id number] : 1950 F 73 From: Yonathan camara MD PCP: Dr. Nicolasa Harkins DO Status: REG CL Study: SCRN MAMM (CAD)W/MANAS BILAT Date of Exam: 01/13 05/06 Exam# [id number] Ordering Dr: Nicolasa Harkins DO :[id number] MAMMOGRAPHY - BILATERAL SCREENING REASON FOR EXAM: Female, 73 years old. Routine annual screening examination. PERTINENT HISTORY: Non-contributory. History of prior lymphoma. TECHNIQUE: Digital bilateral breast manas (3D mammographic acquisition) in the CC and MLO projections. 2-D mediolateral oblique (MLO) and craniocaudad (CC) views of both breasts were obtained. CAD: Full Field Digital Mammography with Computer Added Detection was performed. COMPARISON: Comparison is made with prior study July 13, 2022. FINDINGS: Breast Composition: The breasts are heterogeneously dense, which may obscure small masses. There are no dominant masses or suspicious calcifications. Stable bilateral fat containing axillary lymph nodes. Stable small calcified nodule in the anterior upper lateral aspect of the left breast. No other significant abnormalities are identified. There has been no significant change since the prior study. BI/SCRN MAMM (CAD)W/MANAS BILAT IMPRESSION: Stable bilateral screening mammogram. Yearly follow-up mammogram recommended. (A) ASSESSMENT CATEGORY: BIRADS Category 2: Benign. A letter regarding these results will be sent to the patient by the facility within 30 days. Approximately 10% of breast cancers are not detected by mammography. A normal mammogram should not delay biopsy of a clinically suspicious abnormality. [id number] Electronically Signed: Yonathan Verma MD at 9:51 EST , CC: Dr. Nicolasa Harkins DO Bending Roll Hand: Signed Normal [facility] Abdomen Single Viewon 2023 Abdomen Single View [facility] Imaging Services [address] [place], [place] [address] Abdomen Single View MR#: [id number] Acct: [id number] Name: PETTY LEON Rep #: [id number] : 1950 F 73 From: Power Bowles MD PCP: Dr. Nicolasa Harkins DO Status: REG CLI Study: Abdomen Single View Date of Exam: 12/20/23 Exam# [id number] Ordering Dr: Flower Contreras MD :[id number] STUDY: X-RAY - ABDOMEN/PELVIS REASON FOR EXAM: Female, 73 years old. KUB- KIDNEY STONE TECHNIQUE: Single AP view of the abdomen / pelvis. COMPARISON: 11/07/2023 FINDINGS: Normal visualized lung bases. There is an unremarkable bowel gas pattern. The visualized liver, spleen and kidneys are grossly normal in size and morphology. Interval placement of left-sided ureteral stent. No definite ureteral stone. Normal visualized osseous structures. RAD/Abdomen Single View IMPRESSION: Interval placement of left ureteral stent. No obvious ureteral stone. Electronically Signed: Power Bowles MD at 10:39 EST , CC: Dr. Flower Contreras MD; Dr. Nicolasa Harkins DO Bending Roll Hand: Signed Normal [facility] Discharge Instructionon 11-13 Discharge Instruction [facility] Medical Records Department [address] [place] [address] Instructions for Home/Discharge Instructions 11/30/23 1216 MR#: [id number] Acct: [id number] Name: PETTY LEON Rep #: [id number] : 1950 73 From: Flower Contreras MD PCP: Dr. Nicolasa Harkins DO Status:REG SD Discharge Instructions Diet Discharge Diet: No restrictions Activity Discharge Activity: Return to Normal Activity Dressing / Incision Call your doctor if you observe: Fever of 101 or Higher, Inability to urinate and Inability to have a bowel movement Follow Up Care Please Follow Up With: Flower Contreras MD When: The office will call to make arrangements. Test Results: Test results from this visit will be discussed in further detail at your follow-up appointment, if applicable. Discharge Plan Admission Attending Provider: Flower Contreras Primary Care Provider: Nicolasa Harkins Print Language: Micronesian Discharge Orders/Prescriptions Prescriptions: New cephalexin 500 mg capsule 500 mg PO BID Qty: 6 0RF phenazopyridine [Pyridium] 200 mg tablet 200 mg PO TID PRN PRN (Reason: Bladder Spasms) 7 Days Qty: 30 0RF ibuprofen 600 mg tablet 600 mg PO Q8H PRN (Reason: pain) Qty: 20 0RF Continued modafinil 200 MG tablet 100 mg PO DAILY oxybutynin chloride 5 MG tablet 5 mg PO QHS flaxseed oil 1,000 MG capsule 1,000 mg PO DAILY ascorbic acid (vitamin C) 1,000 MG tablet 1,000 mg PO DAILY omeprazole 40 MG capsule,delayed release(DR/EC) 40 mg PO BID metoprolol tartrate [Lopressor] 50 mg tablet 25 mg PO BID cyanocobalamin (vitamin B-12) [Vitamin B-12] 1,000 mcg tablet 1,000 mcg PO DAILY BEET POWDER 1 dose PO DAILY SUPER GREENS 1 dose PO DAILY cranberry 1,000 mg capsule 1,000 mg PO DAILY Rx Instructions: administer with a meal Acidophilus Capsule 100 mmu cells PO DAILY cephalexin 250 mg capsule 250 mg PO QHS estradiol 0.01 % (0.1 mg/gram) cream 1 appful vaginal MOWEFR lysine [L-Lysine] 500 mg tablet 500 mg PO DAILY potassium 99 mg tablet 99 mg PO DAILY zinc gluconate 50 mg tablet 50 mg PO DAILY magnesium 100 mg tablet 400 mg PO DAILY rizatriptan 10 mg tablet,disintegrating 10 mg PO Q2H PRN PRN (Reason: migraine headache) albuterol sulfate 90 mcg/actuation aerosol powdr breath activated 2 inh inhalation Q6H PRN PRN (Reason: shortness of breath or wheezing) Referrals / Follow Up: Eliz Olmstead, [facility]C [Non-Staff] - Disposition Disposition (needs filled in before D/C Order can be placed): Home, Self Care 11/30/23 1221 Flower Contreras MD CC: Dr. Nicolasa Harkins DO Signed [facility] MR/POSTOP.[facility] 11-30-2023 MR/POSTOP.[facility] Medical Records Department [address] [place] [address] Anesthesia Postop Eval I 11/30/23 1238 MR#: [id number] Acct: [id number] Name: PETTY LEON Rep #: [id number] : 1950 73 From: Danyell Glynn CRNA PCP: Dr. Nicolasa Harkins DO Status:REG SDC Y Race: C Location: [place] [address] Anesthesia: Postop Eval I Current Vital Signs Temperature: 97.3 F Pulse Rate: 76 Blood Pressure: 148/79 Respiratory Rate: 16 Pulse Ox: 99 Oxygen Delivery Method: Room Air Assessment Airway patent: Yes Spontaneous unlabored respirations: Yes Mental status: Asleep nausea: No Vomiting: No Anesthesia Complication: No Fluid Hydration Crystalloid volume administer (ml): 900 Total IV fluid infused: 900 Progress Note Anesthesia document: Postop Eval 1 completed: Yes 11/30/23 1239 Date Danyell Glynn CRNA Cosigner Signature: Date CC: Signed Normal [facility] MR/[id number] 11-30-2023 MR/POSTOPAN2 [facility] Medical Records Department [address] [place] [address] Anesthesia Postop Eval II 11/30/23 1334 MR#: [id number] Acct: [id number] Name: PETTY ELON Rep #: [id number] : 1950 73 From: Ulices Liu MD PCP: Dr. Nicolasa Harkins, DO Status:REG SDC Y Race: C Location: [place] [address] 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/23 12:39 HEAD [email or web address].[email or web address] Spontaneous unlabored Yes 11/30/23 12:39 HEAD CHARRER.[email or web address] respirations Mental status Asleep 11/30/23 12:39 HEAD CHARRER.[email or web address] nausea No 11/30/23 12:39 HEAD CHARRER.SKOBY Vomiting No 11/30/23 12:39 HEAD CHARRER.SKOBY Anesthesia Postop Eval I: Fluid Summary Crystalloid volume administer 900 11/30/23 12:39 HEAD CHARRER.SKOBY (ml) Colloids volume administered ( ml) Blood Product volume administered (ml) Total IV fluid infused 900 11/30/23 12:39 HEAD CHARRER.SKOBY Anesthesia Postop Eval I: Summary Notes Anesthesia Complication No 11/30/23 12:39 HEAD CHARRER.SKOBY Anesthesia Complication Comment: Post-operative progress note Anesthesia: Postop Eval II Evaluation Mental status: Awake Pain Level: 0 nausea: No Vomiting: No 11/30/231333 Date Ulices Liu MD Cosigner Signature: Date CC: Signed Normal [facility] Operative Reporton 4 Operative Report [facility] Medical Records Department [address] [place] [address] Operative Report 11/30/23 1221 MR#: [id number] Acct: [id number] Name: PETTY LEON Rep #: [id number] : 1950 73 From: Flower Contreras MD PCP: Dr. Nicolasa Harkins, DO Status:[facility] Location: [place] [address] Report of Operation Date of Procedure: 11/30/23 Pre-Operative Diagnosis: left renal stones Post-Operative Diagnosis: same, stage III cystocele with vaginal atrophy Surgery/Procedure Performed:: cystoscopy with left ureteral stent placement, left renal extracorporal shockwave lithotripsy Surgeon: Flower Contreras Type of Anesthesia: General Specimen's removed: None Description of Procedure: The patient is a 73-year-old female with a few left renal stones. She now presents for cystoscopy with left ureteral stent insertion with extracorporal shockwave lithotripsy. Informed consent was obtained. The patient was taken to the operating room and placed on the operating room table. Anesthesia monitored the head, neck, airway, IV access and vital signs throughout the case. Once anesthesia was appropriately administered, she was placed into dorsolithotomy position was prepped and draped in usual sterile fashion. On vaginal examination, she has a stage 3 cystocele present with significant rotation of the bladder neck. The prolapse was reduced with gauze and the vaginal lumen. The cystoscope was inserted through the urethra under direct visualization into the urinary bladder. Direct visualization revealed no evidence of mass, erythema or ulceration. The left ureteral orifice was identified and intubated with a 0.035 Glidewire. A 4.5 Welsh by 26 cm JJ stent was placed over the wire with good positioning in the renal pelvis as well as the urinary bladder. Initially a 24 cm stent was trialed and this was significantly short. The bladder was then emptied and the cystoscope was removed. The sponges were removed from the vagina. The patient was repositioned on the bed and the stones were visually identified. 3000 shocks were applied and the stones appeared to be well fragmented at the conclusion of the case. She was then awakened and taken to the recovery room in good condition. Grafts/Implants Used: 4.5Fr x 26cm JJ stent Complications none Admit VTE Documentation VTE Present on Admission: Yes VTE Mechan Device Prophylaxis: SCD's VTE Pharm Prophylaxis ordered?: No Reason prophylaxis not ordered:: Treatment Not Indicated 11/30/23 1331 Cosigner Signature (if applicable): CC: Dr. Flower Contreras MD; Dr. Nicolasa Harkins DO Signed Normal [facility] Gastroenterology Visit Repor ton 11-27-2023 Gastroenterology Visit Report [facility] Gastroenterology [address] [place] [address] OFFICE VISIT Date of Service: 11/27/23 MR#: [id number] Acct: [id number] Name: PETTY LEON Rep #: [id number] : 1950 Provider: Shen Dwyer DO Age/Sex: 73/F [place] [facility] Status: Signed Intake Vital Signs 07/09/23 16:48 Height 5 ft 2 in Intake Visit Reasons: Hospital FU Allergies acetaminophen (From Vicodin) Allergy (Intermediate, Verified 11/27/23 15:16) Other codeine Allergy (Intermediate, Verified 11/27/23 15:16) Other hydrocodone (From Vicodin) Allergy (Intermediate, Verified 11/27/23 15:16) Other cefaclor (From Ceclor) Allergy (Verified 11/27/23 15:16) Hives Cephalosporins Allergy (Verified 11/27/23 15:16) Hives erythromycin base Allergy (Verified 11/27/23 15:16) Hives levofloxacin (From Levaquin) Allergy (Verified 11/27/23 15:16) Other lorazepam (From Ativan) Adverse Reaction (Verified 11/27/23 15:16) Other Sulfa (Sulfonamide Antibiotics) Adverse Reaction (Verified 11/27/23 15:16) Nausea Medications ???Medication ???Instructions ???Recorded ???Confirmed ???Type modafinil 200 mg tablet 100 mg PO DAILY narcolepsy 09/25/16 11/23/23 History oxybutynin chloride 5 mg tablet 5 mg PO QHS bladd 09/25/16 11/23/23 History flaxseed oil 1,000 mg capsule 1,000 mg PO DAILY supplem 09/30/16 11/23/23 History ascorbic acid (vitamin C) 1,000 mg 1,000 mg PO DAILY vitamin 04/20/19 11/23/23 History tablet omeprazole 40 mg capsule,delayed 40 mg PO BID GERD 04/20/19 11/23/23 History release metoprolol tartrate 50 mg tablet 25 mg PO BID bp 07/09/23 11/23/23 History (Lopressor) BEET POWDER 1 dose PO DAILY 11/23/23 11/23/23 History Lactobacillus acidophilus 100 mmu cells PO DAILY 11/23/23 11/23/23 History (Acidophilus capsule) SUPER GREENS 1 dose PO DAILY 11/23/23 11/23/23 History albuterol sulfate 90 mcg/actuation 2 inh inhalation Q6H PRN PRN 11/23/23 11/23/23 History breath activated powder inhaler shortness of breath or wheezing cephalexin 250 mg capsule 250 mg PO QHS 11/23/23 11/23/23 History cranberry 1,000 mg capsule 1,000 mg PO DAILY 11/23/23 11/23/23 History cyanocobalamin (vitamin B-12) 1,000 mcg PO DAILY 11/23/23 11/23/23 History 1,000 mcg tablet (Vitamin B-12) estradiol 0.01% (0.1 mg/gram) 1 appful vaginal MOWEFR 11/23/23 11/23/23 History vaginal cream lysine 500 mg tablet (L-Lysine) 500 mg PO DAILY 11/23/23 11/23/23 History magnesium 100 mg tablet 400 mg PO DAILY 11/23/23 11/23/23 History potassium 99 mg tablet 99 mg PO DAILY 11/23/23 11/23/23 History rizatriptan 10 mg disintegrating 10 mg PO Q2H PRN PRN migraine 11/23/23 11/23/23 History tablet headache zinc gluconate 50 mg tablet 50 mg PO DAILY 11/23/23 11/23/23 History Have you fallen in the past year?: No PFSH Medical History Wears dentures Anemia Back pain Difficulty swallowing History of IBS History of diverticulitis Non-smoker Leg cramps History of pain when walking History of stress test History of echocardiogram History of irregular heartbeat Chest pain Gastric reflux Gastroparesis Hx of fracture of arm History of non-Hodgkin's lymphoma Acute pancreatitis Hiatal hernia Kidney stone Asthma Narcolepsy Hypertension Migraines Osteoporosis Scoliosis Non-Hodgkin lymphoma Surgical History Hx of eye surgery Hx of right cataract extraction Hx of left cataract extraction Hx of varicose vein ligation Hx of colonoscopy History of esophagogastroduodenoscopy (EGD) Hx of tonsillectomy History of stem cell transplant H/O: hysterectomy Family History Mother Arthritis Hypertension Osteoporosis Autoimmune disease Father Hypertension Heart disease Social History Smoking Status: Never smoker alcohol intake: never HPI HPI Details: PETTY LEON, is a 73 F who presents to the office today for follow up. [facility] 5.26.24-5.28.24- Acute Pancreatitis. Patient states she has not had any episodes of pancreatitis since the hospitalization. States she was previously seeing Dr. Yeung for GERD and gastroparesis. GERD controlled with Currently Omeprazole 40mg BID. States she was on Reglan at one point but stopped it because she was concerned with possible side effects. Reports BM have been irregular in the past due to Chemo but are now one time a day and are soft. I saw her at [facility] with complaints of generalized abdominal pain and nausea and vomiting. This occurred several hours before she came to the emergency room. Labs obtained in the emergency room showed an elevated wh (more content not included)... Normal [facility] Basic Metabolic Profile (BMP )on 11-23-2023 BUN/CRE 12.4 RATIO Normal 12-02 [facility] Comment on above: Performed By: #### L 500.2500, L100.0500 #### [facility] [address] [place], [address] CA,Total 9.9 mg/dL Normal 8.5-10.1 [facility] Comment on above: Performed By: #### L 500.2500, L100.0500 #### [facility] [address] [place], [address] Chloride [Moles/Vol] 105 mmol/L Normal 98-107 [facility] Comment on above: Performed By: #### L 500.2500, L100.0500 #### [facility] [address] [place], [address] CO2 [Moles/Vol] 26.0 mmol/L Normal 21.0-32.0 [facility] Comment on above: Performed By: #### L 500.2500, L100.0500 #### [facility] [address] [place], [address] Creatinine [Mass/Vol] 0.72 mg/dL Normal 0.55-1.02 [facility] Comment on above: Result Comment: The validity of the calculated GFR GFRAA in patients over 70 years has not been determined. Clinical correlation is essential. Performed By: #### L 500.2500, L100.0500 #### [facility] [address] [place], [address] EST GFR - AA 101 mL/min Normal >60 [facility] Comment on above: Result Comment: Afri can Jordanian GFR Calc Performed By: #### L 500.2500, L100.0500 #### [facility] [address] [place], [address] GAP 7 Normal 5-15 [facility] Comment on above: Performed By: #### L 500.2500, L100.0500 #### [facility] [address] [place], [address] GFR/1.73 sq M.predicted among non-blacks MDRD (S/P/Bld) [Vol rate/Area] 83 mL/min/{1.73_m2} Normal >60 [facility] Comment on above: Result Comment: Non- GFR Calc Performed By: #### L 500.2500, L100.0500 #### [facility] [address] [place], [address] Glucose [Mass/Vol] 120 mg/dL High 74-106 [facility] Comment on above: Result Comment: Fast ing Glucose result from 100 to 125 mg/dL suggests IMPAIRED HOMEOSTASIS per A.D.A. criteria. Performed By: #### L 500.2500, L100.0500 #### [facility] [address] [place], [address] Potassium [Moles/Vol] 3.5 mmol/L Normal 3.5-5.1 [facility] Comment on above: Performed By: #### L 500.2500, L100.0500 #### [facility] [address] [place], [address] Sodium [Moles/Vol] 138 mmol/L Normal 136-145 [facility] Comment on above: Performed By: #### L 500.2500, L100.0500 #### [facility] [address] [place], [address] Urea nitrogen [Mass/Vol] 9 mg/dL Normal 7-18 [facility] Comment on above: Performed By: #### L 500.2500, L100.0500 #### [facility] [address] [place], [address] CBC-Complete Blood Cnt No Di ffon 11-23-2023 Erythrocyte distribution width (RBC) [Ratio] 12.8 % Normal 11.6-14.6 [facility] Comment on above: Performed By: #### L 500.2500, L100.0500 #### [facility] [address] [place], [address] Hematocrit (Bld) [Volume fraction] 43.5 % Normal 37-47 [facility] Comment on above: Performed By: #### L 500.2500, L100.0500 #### [facility] [address] [place], [address] Hemoglobin (Bld) [Mass/Vol] 14.2 g/dL Normal 12.0-15.0 [facility] Comment on above: Performed By: #### L 500.2500, L100.0500 #### [facility] [address] [place], [address] MCH (RBC) [Entitic mass] 30.0 pg Normal 27.0-32.0 [facility] Comment on above: Performed By: #### L 500.2500, L100.0500 #### [facility] [address] [place], [address] MCHC (RBC) [Mass/Vol] 32.6 g/dL Normal 32-36 [facility] Comment on above: Performed By: #### L 500.2500, L100.0500 #### [facility] [address] [place], [address] MCV (RBC) [Entitic vol] 92.0 fL Normal 81-99 [facility] Comment on above: Performed By: #### L 500.2500, L100.0500 #### [facility] [address] [place], [address] Platelet mean volume (Bld) [Entitic vol] 10.4 fL Normal 6.2-12.0 [facility] Comment on above: Performed By: #### L 500.2500, L100.0500 #### [facility] [address] [place], [address] Platelets (Bld) [#/Vol] 195 10*3/uL Normal 150-450 [facility] Comment on above: Performed By: #### L 500.2500, L100.0500 #### [facility] [address] [place], [address] RBC (Bld) [#/Vol] 4.73 10*6/uL Normal 4.2-5.4 [facility] Comment on above: Performed By: #### L 500.2500, L100.0500 #### [facility] [address] [place], [address] RDW SD 43.7 fl Normal 35.1-43.9 [facility] Comment on above: Performed By: #### L 500.2500, L100.0500 #### [facility] [address] [place], [address] WBC (Bld) [#/Vol] 5.2 10*3/uL Normal 4.4-11.0 [facility] Comment on above: Performed By: #### L 500.2500, L100.0500 #### [facility] [address] [place], [address] Abdomen Single Viewon 2023 Abdomen Single View [facility] [address] [place] [address] Abdomen Single View MR#: [id number] Acct: [id number] Name: PETTY LEON Rep #: [id number] : 1950 F 73 From: Nitin Chung MD PCP: Eliz Olmstead NP-Kaya Status: REG CLI Study: Abdomen Single View Date of Exam: 11/07/23 Exam# [id number] Ordering Dr: Flower Contreras MD :[id number] STUDY: X-RAY - ABDOMEN/PELVIS REASON FOR EXAM: Female, 73 years old. Left renal stones. TECHNIQUE: Single AP view of the abdomen / pelvis. COMPARISON: CT of the abdomen and pelvis dated July 09, 2023 FINDINGS: Normal bowel gas pattern with air seen to the rectum. Moderate to marked amount of feces in the colon. Multiple calcifications projected over the left renal outline. Intra-abdominal contours obscured by overlying gas and feces. Normal soft tissue structures. Osteopenia with moderate rotatory levoscoliosis of the lumbar spine. RAD/Abdomen Single View IMPRESSION: Left renal calcifications. No acute finding. Electronically Signed: Nitin Chung MD at 15:00 EDT Reading Location ID and State: [address] [place] [address] , Service support , CC: RICO Olmstead; Dr. Flower Contreras MD Bending Roll Hand: Signed Normal [facility] Urine Cultureon 10-20-2023 URC #2 Below infection l evel. Enterococcus faecalis [place] Count 80,000-100,000 Mixed Gram Pos Gram Neg Org [place] Count 1000-10,000 MIXC Mixed contaminants. Submit a new specimen if indicated. Enterococcus faecalis: REACTION Ampicillin Islt DEA <=2 S Ciprofloxacin Islt DEA <=0.5 S Gentamicin Synergy Susc Islt SYN-S S levoFLOXacin Islt DEA 1 S Linezolid Islt DEA 2 S Nitrofurantoin Islt DEA <=16 S Streptomycin High Pot Susc Islt SYN-S S Tetracycline Islt DEA >=16 R Vancomycin Islt DEA 1 S Normal [facility] Comment on above: Performed By: #### M 100.2200 #### [facility] [address] [place], [place], [address] Urine Cultureon 10-05-2023 URC #1, 2 Below infectio n level. Presumptive E. coli [place] Count 1000-10,000 Mixed Gram Positive Organisms [place] Count 1000-10,000 MIXC Mixed contaminants. Submit a new specimen if indicated. Normal [facility] Comment on above: Performed By: #### M 100.2200 #### [facility] [address] [facility] [place], [place], [address] 25(OH)D3 [facility] 2023 25-hydroxyvitamin D3 [Mass/Vol] 79.3 ng/mL Normal 31.0-80.0 [facility] Comment on above: Order Comment: Speci men Type: BLOOD SPECIMEN Ordering Facility: [facility] Address: [address] [place] [address] [place] [address] Performed By: #### 1 989-3 #### [facility] CLIA [id number] [address] [facility] [place] [address] [place] CBC W Auto Differential pane l (Bld)on 07-24-2023 Basophils (Bld) [#/Vol] 0.03 10*3/uL Normal <0.11 [facility] Comment on above: Order Comment: Speci men Type: BLOOD SPECIMEN Ordering Facility: [facility] Address: [address] [place] [address] [place] [address] Performed By: #### 5 7021-8 #### [facility] CLIA [id number] [address] [place] [address] [place] Basophils/100 WBC (Bld) 0.8 % Normal [facility] Comment on above: Order Comment: Speci men Type: BLOOD SPECIMEN Ordering Facility: [facility] Address: [address] [place] [address] Performed By: #### 5 7021-8 #### [facility] CLIA [id number] [address] [place] [address] [place] Differential cell count method Nom (Bld) Auto Normal [facility] Comment on above: Order Comment: Speci men Type: BLOOD SPECIMEN Ordering Facility: [facility] Address: [address] [place] [address] [place] [address] Performed By: #### 5 7021-8 #### [facility] CLIA [id number] [address] [place] [address] [place] Eosinophils (Bld) [#/Vol] 0.11 10*3/uL Normal <0.46 [facility] Comment on above: Order Comment: Speci men Type: BLOOD SPECIMEN Ordering Facility: [facility] Address: [address] [place], [place] [address] [address] Performed By: #### 5 7021-8 #### [facility] CLIA [id number] [address] [place] [address] [place] Eosinophils/100 WBC (Bld) 2.8 % Normal [facility] Comment on above: Order Comment: Speci men Type: BLOOD SPECIMEN Ordering Facility: [facility] Address: [address] [place] [address] [place] [address] Performed By: #### 5 7021-8 #### [facility] CLIA [id number] [address] [place] [address] [place] Erythrocyte distribution width (RBC) [Ratio] 12.8 % Normal 11.5-15.0 [facility] Comment on above: Order Comment: Speci men Type: BLOOD SPECIMEN Ordering Facility: [facility] Address: [address] [place] [address] [place] [address] Performed By: #### 5 7021-8 #### [facility] CLIA [id number] [address] [place] [address] [place] Hematocrit (Bld) [Volume fraction] 41.7 % Normal 36.0-46.0 [facility] Comment on above: Order Comment: Speci men Type: BLOOD SPECIMEN Ordering Facility: [facility] Address: [address] [place] [address] [place] [address] Performed By: #### 5 7021-8 #### [facility] CLIA [id number] [address] [place] [address] [place] Hemoglobin (Bld) [Mass/Vol] 13.8 g/dL Normal 11.5-15.5 [facility] Comment on above: Order Comment: Speci men Type: BLOOD SPECIMEN Ordering Facility: [facility] Address: [address] [place] [address] [place] [address] Performed By: #### 5 7021-8 #### [facility] CLIA [id number] [address] [place] [address] [place] Immature granulocytes (Bld) [#/Vol] 10*3/uL Normal <0.10 [facility] Comment on above: Order Comment: Speci men Type: BLOOD SPECIMEN Ordering Facility: [facility] Address: [address] [place] [address] [place] [address] Performed By: #### 5 7021-8 #### [facility] CLIA [id number] [address] [place] [address] [place] Immature granulocytes/100 WBC (Bld) 0.3 % Normal [facility] Comment on above: Order Comment: Speci men Type: BLOOD SPECIMEN Ordering Facility: [facility] Address: [address] [place] [address] [place] [address] Performed By: #### 5 7021-8 #### [facility] CLIA [id number] [address] [place] [address] [place] Lymphocytes (Bld) [#/Vol] 1.51 10*3/uL Normal 1.00-4.00 [facility] Comment on above: Order Comment: Speci men Type: BLOOD SPECIMEN Ordering Facility: [facility] Address: [address] [place] [address] [place] [address] Performed By: #### 5 7021-8 #### [facility] CLIA [id number] [address] [place] [address] [place] Lymphocytes/100 WBC (Bld) 38.8 % Normal [facility] Comment on above: Order Comment: Speci men Type: BLOOD SPECIMEN Ordering Facility: [facility] Address: [address] [place] [address] [place] [address] Performed By: #### 5 7021-8 #### [facility] CLIA [id number] [address] [place] [address] [place] MCH (RBC) [Entitic mass] 30.2 pg Normal 26.0-34.0 [facility] Comment on above: Order Comment: Speci men Type: BLOOD SPECIMEN Ordering Facility: [facility] Address: [address] [place] [address] Performed By: #### 5 7021-8 #### [facility] CLIA [id number] [address] [place] [address] [place] MCHC (RBC) [Mass/Vol] 33.1 g/dL Normal 30.5-36.0 [facility] Comment on above: Order Comment: Speci men Type: BLOOD SPECIMEN Ordering Facility: [facility] Address: [address] [place] [address] Performed By: #### 5 7021-8 #### [facility] CLIA [id number] [address] [place] [address] [place] MCV (RBC) [Entitic vol] 91.2 fL Normal 80.0-100.0 [facility] Comment on above: Order Comment: Speci men Type: BLOOD SPECIMEN Ordering Facility: [facility] Address: [address] [place] [address] Performed By: #### 5 7021-8 #### [facility] CLIA [id number] [address] [place] [address] [place] Monocytes (Bld) [#/Vol] 0.28 10*3/uL Normal <0.87 [facility] Comment on above: Order Comment: Speci men Type: BLOOD SPECIMEN Ordering Facility: [facility] Address: [address] [place] [address] Performed By: #### 5 7021-8 #### [facility] CLIA [id number] [address] [place] [address] [place] Monocytes/100 WBC (Bld) 7.2 % Normal [facility] Comment on above: Order Comment: Speci men Type: BLOOD SPECIMEN Ordering Facility: [facility] Address: [address] [place] [address] [place] [address] Performed By: #### 5 7021-8 #### [facility] CLIA [id number] [address] [place] [address] [place] Neutrophils (Bld) [#/Vol] 1.95 10*3/uL Normal 1.45-7.50 [facility] Comment on above: Order Comment: Speci men Type: BLOOD SPECIMEN Ordering Facility: [facility] Address: [address] [place], [place] [address] [address] Performed By: #### 5 7021-8 #### [facility] CLIA [id number] [address] [place] [address] [place] Neutrophils/100 WBC (Bld) 50.1 % Normal [facility] Comment on above: Order Comment: Speci men Type: BLOOD SPECIMEN Ordering Facility: [facility] Address: [address] [place] [address] [place] [address] Performed By: #### 5 7021-8 #### [id number] [address] [place] [address] [place] Nucleated RBC (Bld) [#/Vol] 10*3/uL Normal <0.01 [facility] Comment on above: Order Comment: Speci men Type: BLOOD SPECIMEN Ordering Facility: [facility] Address: [address] [place] [address] [address], [place] [address] Performed By: #### 5 7021-8 #### [facility] CLIA [id number] [address] [place] [address] [place] Nucleated RBC/100 WBC (Bld) [Ratio] 0.0 /100 WBC Normal [facility] Comment on above: Order Comment: Speci men Type: BLOOD SPECIMEN Ordering Facility: [facility] Address: [address] [place] [address] [place] [address] Performed By: #### 5 7021-8 #### [facility] CLIA [id number] [address] [place] [address] [place] Platelet mean volume (Bld) [Entitic vol] 10.1 fL Normal 9.0-12.7 [facility] Comment on above: Order Comment: Speci men Type: BLOOD SPECIMEN Ordering Facility: [facility] Address: [address] [place] [address] [place] [address] Performed By: #### 5 7021-8 #### [facility] CLIA [id number] [address] [place] [address] [place] Platelets (Bld) [#/Vol] 221 10*3/uL Normal 150-400 [facility] Comment on above: Order Comment: Speci men Type: BLOOD SPECIMEN Ordering Facility: [facility] Address: [address] [place], [place] [address] [address] Performed By: #### 5 7021-8 #### [facility] CLIA [id number] [address] [place] [address] [place] RBC (Bld) [#/Vol] 4.57 10*6/uL Normal 3.90-5.20 [facility] Comment on above: Order Comment: Speci men Type: BLOOD SPECIMEN Ordering Facility: [facility] Address: [address] [place], [place] [address] [address] Performed By: #### 5 7021-8 #### [facility] CLIA [id number] [address] [place] [address] [place] WBC (Bld) [#/Vol] 3.89 10*3/uL Normal 3.70-11.00 [facility] Comment on above: Order Comment: Speci men Type: BLOOD SPECIMEN Ordering Facility: [facility] Address: [address] [place] [address] [address] [place], [place] [address] Performed By: #### 5 7021-8 #### [facility] CLIA [id number] [address] [place] [address] [place] Comprehensive metabolic 2000 panelon 07-24-2023 Albumin [Mass/Vol] 4.5 g/dL Normal 3.9-4.9 [facility] Comment on above: Order Comment: Speci men Type: BLOOD SPECIMEN Ordering Facility: [facility] Address: [address] [place] [address] [address], [place] [address] Performed By: #### 2 4323-8 #### [facility] CLIA [id number] [address] [place] [address] [place] ALP [Catalytic activity/Vol] 120 U/L Normal 34-123 [facility] Comment on above: Order Comment: Speci men Type: BLOOD SPECIMEN Ordering Facility: [facility] Address: [address] [place] [address] [address], [place] [address] Performed By: #### 2 4323-8 #### [facility] CLIA [id number] [address] [place] [address] [place] ALT [Catalytic activity/Vol] 14 U/L Normal 7-38 [facility] Comment on above: Order Comment: Speci men Type: BLOOD SPECIMEN Ordering Facility: [facility] Address: [address] [place] [address] [address], [place] [address] Performed By: #### 2 4323-8 #### [facility] CLIA [id number] [address] [place] [address] [place] Anion gap [Moles/Vol] 14 mmol/L Normal 8-15 [facility] Comment on above: Order Comment: Speci men Type: BLOOD SPECIMEN Ordering Facility: [facility] Address: [address] [place] [address] [address], [place] [address] Performed By: #### 2 4323-8 #### [facility] CLIA [id number] [address] [place] [address] [place] AST [Catalytic activity/Vol] 13 U/L Normal 13-35 [facility] Comment on above: Order Comment: Speci men Type: BLOOD SPECIMEN Ordering Facility: [facility] Address: [address] [place], [place] [address] [address] Performed By: #### 2 4323-8 #### [facility] CLIA [id number] [address] [place] [address] [place] Bilirubin [Mass/Vol] 0.4 mg/dL Normal 0.2-1.3 [facility] Comment on above: Order Comment: Speci men Type: BLOOD SPECIMEN Ordering Facility: [facility] Address: [address] [place] [address] [place] [address] Performed By: #### 2 4323-8 #### [facility] CLIA [id number] [address] [place] [address] [place] Calcium [Mass/Vol] 9.8 mg/dL Normal 8.5-10.2 [facility] Comment on above: Order Comment: Speci men Type: BLOOD SPECIMEN Ordering Facility: [facility] Address: [address] [place] [address] [place] [address] Performed By: #### 2 4323-8 #### [facility] CLIA [id number] [address] [place] [address] [place] Chloride [Moles/Vol] 104 mmol/L Normal 98-107 [facility] Comment on above: Order Comment: Speci men Type: BLOOD SPECIMEN Ordering Facility: [facility] Address: [address] [place], [place] [address] [address] Performed By: #### 2 4323-8 #### [facility] CLIA [id number] [address] [place] [address] [place] CO2 [Moles/Vol] 21 mmol/L Low 22-30 [facility] Comment on above: Order Comment: Speci men Type: BLOOD SPECIMEN Ordering Facility: [facility] Address: [address] [place] [address] [place] [address] Performed By: #### 2 4323-8 #### [facility] CLIA [id number] [address] [place] [address] [place] Creatinine [Mass/Vol] 0.61 mg/dL Normal 0.58-0.96 [facility] Comment on above: Order Comment: Speci men Type: BLOOD SPECIMEN Ordering Facility: [facility] Address: [address] [place], [place] [address] [address] Performed By: #### 2 4323-8 #### [id number] [address] [place] [address] [place] Creatinine and Glomerular filtration rate.predicted panel (S/P/Bld) 93 mL/min/1.73m??? Normal >=60 [facility] Comment on above: Order Comment: Frances men Type: BLOOD SPECIMEN Ordering Facility: [facility] Address: [address] [place] [address] [place] [address] Result Comment: Nathaly mated Glomerular Filtration Rate (eGFR) is calculated using the 2020 CKD-EPI creatinine equation. This equation utilizes serum creatinine, sex, and age as parameters. The creatinine assay has traceable calibration to isotope dilution-mass spectrometry. Refer to KDIGO guidelines for clinical interpretation. In patients with unstable renal function, e.g. those with acute kidney injury, the eGFR may not accurately reflect actual GFR. Performed By: #### 2 4323-8 #### [facility] CLIA [id number] [address] [place] [address] [place] Glucose [Mass/Vol] 95 mg/dL Normal 74-99 [facility] Comment on above: Order Comment: Speci men Type: BLOOD SPECIMEN Ordering Facility: [facility] Address: [address] [place] [address] [place] [address] Result Comment: The [place] [employer] (ADA) provides guidance for cutoff values for fasting glucose and random glucose. The ADA defines fasting as no caloric intake for at least 8 hours. Fasting plasma glucose results between 100 to 125 mg/dL indicate increased risk for diabetes (prediabetes). Fasting plasma glucose results greater than or equal to 126 mg/dL meet the criteria for diagnosis of diabetes. In the absence of unequivocal hyperglycemia, results should be confirmed by repeat testing. In a patient with classic symptoms of hyperglycemia or hyperglycemic crisis, random plasma glucose results greater than or equal to 200 mg/dL meet the criteria for diagnosis of diabetes. Reference: Standards of Medical Care in Diabetes 2016, [place] [employer]. Diabetes Care. 2016.39(Suppl 1). Performed By: #### 2 4323-8 #### [facility] CLIA [id number] [address] [place] [address] [place] Potassium [Moles/Vol] 4.1 mmol/L Normal 3.7-5.1 [facility] Comment on above: Order Comment: Frances li Type: BLOOD SPECIMEN Ordering Facility: [facility] Address: [address] [place] [address] [place] [address] Performed By: #### 2 4323-8 #### [facility] [id number] [address] [place] [address] [place] Protein [Mass/Vol] 6.6 g/dL Normal 6.3-8.0 [facility] Comment on above: Order Comment: Frances li Type: BLOOD SPECIMEN Ordering Facility: [facility] Address: [address] [place] [address] [address], [place] [address] Performed By: #### 2 4323-8 #### [facility] CLIA [id number] [address] [place] [address] [place] Sodium [Moles/Vol] 139 mmol/L Normal 136-144 [facility] Comment on above: Order Comment: Frances li Type: BLOOD SPECIMEN Ordering Facility: [facility] Address: [address] [place] [address] [address], [place] [address] Performed By: #### 2 4323-8 #### [facility] CLIA [id number] [address] [place] [address] [place] Urea nitrogen [Mass/Vol] 14 mg/dL Normal 7-21 [facility] Comment on above: Order Comment: Speci men Type: BLOOD SPECIMEN Ordering Facility: [facility] Address: [address] [place] [address] Performed By: #### 2 4323-8 #### [facility] CLIA [id number] [address] [place] [address] [place] Lipid 1996 panelon 4 Cholesterol [Mass/Vol] 210 mg/dL High <200 [facility] Comment on above: Order Comment: Speci men Type: BLOOD SPECIMEN Ordering Facility: [facility] Address: [address] [place] [address] Result Comment: <200 mg/dL, Desirable 200-239 mg/dL, Borderline high >239 mg/dL, High Performed By: #### 2 4331-1 #### [facility] CLIA [id number] [address] [place] [address] [place] [facility] CLIA [id number] [address] [place] [address] [place] #### 2132-9 #### [facility] CLIA [id number] [address] [place] [address] [place] Cholesterol in HDL [Mass/Vol] 46 mg/dL Normal >39 [facility] Comment on above: Order Comment: Speci men Type: BLOOD SPECIMEN Ordering Facility: [facility] Address: [address] [place] [address] Result Comment: 40-5 9 mg/dL, Acceptable >59 mg/dL, High: Negative risk factor for coronary heart disease <40 mg/dL, Low: Positive risk factor for coronary heart disease Performed By: #### 2 4331-1 #### [facility] CLIA [id number] [address] [place] [address] [place] [facility] CLIA [id number] [address] [place] [address] [place] #### 2132-9 #### [facility] CLIA [id number] [address] [place] [address] [place] Cholesterol in LDL [Mass/Vol] 138 mg/dL High <100 [facility] Comment on above: Order Comment: Speci men Type: BLOOD SPECIMEN Ordering Facility: [facility] Address: [address] [place] [address] Result Comment: <100 mg/dL, Optimal 100-129 mg/dL, Near optimal/above optimal 130-159 mg/dL, Borderline high 160-189 mg/dL, High >189 mg/dL, Very high Secondary prevention optimal LDL Cholesterol levels are recommended to be < 70 mg/dL Performed By: #### 2 4331-1 #### [facility] CLIA [id number] [address] [place] [address] [place] [facility] CLIA [id number] [address] [place] [address] [place] #### 2132-9 #### [facility] CLIA [id number] [address] [place] [address] [place] Cholesterol in LDL/Cholesterol in HDL [Mass ratio] 3.00 {ratio} High <2.54 [facility] Comment on above: Order Comment: Speci men Type: BLOOD SPECIMEN Ordering Facility: [facility] Address: [address] [place] [address] Result Comment: Sly huffman: 1. National Cholesterol Education Program ATP III Guideline At-A-Glance Quick Desk Reference: National Heart, Lung, and Blood [place]. National Institutes of Health. 2001: NIH Publication No. 01-3305. 2. An International Atherosclerosis Society position paper: global recommendations for the management of dyslipidemia: executive summary, Atherosclerosis. 2014: 232(2):410-413. Performed By: #### 2 4331-1 #### [facility] CLIA [id number] [address] [place] [address] [place] [facility] CLIA [id number] [address] [place] [address] [place] #### 2132-9 #### [facility] CLIA [id number] [address] [place] [address] [place] Cholesterol in VLDL [Mass/Vol] 26 mg/dL Normal <30 [facility] Comment on above: Order Comment: Charmainei guillermo Type: BLOOD SPECIMEN Ordering Facility: [facility] Address: [address] [place] [address] [place] [address] Performed By: #### 2 4331-1 #### [facility] CLIA [id number] [address] [place] [address] [place] [facility] CLIA [id number] [address] [place] [address] [place] #### 2132-9 #### [facility] CLIA [id number] [address] [place] [address] [place] Cholesterol non HDL [Mass/Vol] 164 mg/dL High <130 [facility] Comment on above: Order Comment: Frances li Type: BLOOD SPECIMEN Ordering Facility: [facility] Address: [address] [place], [place] [address] [address] Result Comment: <130 mg/dL, Optimal 130-159 mg/dL, Near optimal/above optimal 160-189 mg/dL, Borderline high 190-219 mg/dL, High >219 mg/dL, Very high Secondary prevention optimal non HDL Cholesterol levels are recommended to be <100 mg/dL Performed By: #### 2 4331-1 #### [facility] CLIA [id number] [address] [place] [address] [place] [facility] CLIA [id number] [address] [place] [address] [place] #### 2132-9 #### [facility] CLIA [id number] [address] [place] [address] [place] Cholesterol.total/Ch olesterol in HDL [Mass ratio] 4.57 {ratio} Normal <5.10 [facility] Comment on above: Order Comment: Speci men Type: BLOOD SPECIMEN Ordering Facility: [facility] Address: [address] [place] [address] A, [place] [address] Performed By: #### 2 4331-1 #### [facility] CLIA [id number] [address] [place] [address] [place] [facility] CLIA [id number] [address] [place] [address] [place] #### 2132-9 #### [facility] CLIA [id number] [address] [place] [address] [place] FASTING TIME 12 hrs Normal [facility] Comment on above: Order Comment: Speci men Type: BLOOD SPECIMEN Ordering Facility: [facility] Address: [address] [place] [address] [address] [place], [place] [address] Performed By: #### 2 4331-1 #### [facility] CLIA [id number] [address] [place] [address] [place] [facility] CLIA [id number] [address] [place] [address] [place] #### 2132-9 #### [facility] CLIA [id number] [address] [place] [address] [place] Triglyceride [Mass/Vol] 130 mg/dL Normal <150 [facility] Comment on above: Order Comment: Speci men Type: BLOOD SPECIMEN Ordering Facility: [facility] Address: [address] [place] [address] A, [place] [address] Result Comment: <150 mg/dL, Normal 150-199 mg/dL, Borderline high 200-499 mg/dL, High >499 mg/dL, Very high Performed By: #### 2 4331-1 #### [facility] CLIA [id number] [address] [place] [address] [place] [facility] CLIA [id number] [address] [place] [address] [place] #### 2132-9 #### [facility] CLIA [id number] [address] [place] [address] [place] Vit B12 [facility] 06-10-2 024 Cobalamin (Vitamin B12) [Mass/Vol] 1260 pg/mL High 232-1245 [facility] Comment on above: Order Comment: Speci men Type: BLOOD SPECIMEN Ordering Facility: [facility] Address: [address] [place] [address] [address] A, [place] [address] Performed By: #### 2 4331-1 #### [facility] CLIA [id number] [address] [place] [address] [place] [facility] CLIA [id number] [address] [place] [address] [place] #### 2132-9 #### [facility] CLIA [id number] [facility] [place] [address] [place] No Panel InformationOrdered By: Nicolasa Harkins on 06-06-2023 Vitamin D 25-Hydroxy 72.7 ng/mL [facility] Comment on above: Vitamin D 25(OH) Sta tus Range Deficiency <20 ng/mL (50nmol/L) Insufficiency 20 - 30 ng/mL (50 - 75 nmol/L) Sufficiency 30 - 100 ng/mL (75 - 250 nmol/L) Toxicity >100 ng/mL (>250 nmol/L) Absolute lymphocyte countOrd ered By: Nicolasa Harkins on 07-12-2022 Lymphocytes Auto (Unsp spec) [#/Vol] 1.21 10*3/uL 0.83-4.51 [facility] Basophil percentageOrdered B y: Nicolasa Harkins on 07-12-2022 Basophils/100 WBC (Bld) 0.3 % 0-1 [facility] Bilirubin [Mass/Vol] 0.40 mg/dL 0.20-1.00 [facility] Comment on above: For patients on eltr ombopag therapy, use of Dimension [place] TBIL is not recommended. Chloride [Moles/Vol] 109 mmol/L 98-107 [facility] Cholesterol [Mass/Vol] 188 mg/dL <200 [facility] Comment on above: <200 mg/dL Desirable 200-240 mg/dL Borderline >240 mg/dL High Risk Eosinophils/100 WBC (Bld) 2.8 % 0-5 [facility] Glucose [Mass/Vol] 93 mg/dL 74-106 [facility] Neutrophils (Bld) [#/Vol] 2.0 10*3/uL 2.0-7.7 [facility] Neutrophils/100 WBC (Bld) 55.1 % 47-70 [facility] Potassium [Moles/Vol] 3.7 mmol/L 3.5-5.1 [facility] Protein [Mass/Vol] 6.4 g/dL 6.4-8.2 [facility] Sodium [Moles/Vol] 143 mmol/L 136-145 [facility] Triglyceride [Mass/Vol] 87 mg/dL <199 [facility] Comment on above: The drugs N-Acetylcy steine and Metamizole may falsely depress this assay.Serum Triglycerides Reference Interval Normal <150 mg/dL Borderline high 150 - 199 mg/dL High 200 - 499 mg/dL Very High > or = 500 mg/dL WBC (Bld) [#/Vol] 3.6 10*3/uL 4.4-11.0 [facility] Blood erythrocytes count (nu mber/volume)Ordered By: Nicolasa Merrillfernando on 07-12-2022 RBC (Bld) [#/Vol] 4.34 10*6/uL 4.2-5.4 [facility] Blood hemoglobin measurement (mass/volume)Ordered By: Nicolasa Harkins on 07-12-2022 Hemoglobin (Bld) [Mass/Vol] 13.0 g/dL 12.0-15.0 [facility] Blood lymphocytes/100 leukoc ytesOrdered By: Nicolasa Harkins on 07-12-2022 Lymphocytes/100 WBC (Bld) 33.9 % 19-41 [facility] Blood monocytes/100 leukocyt esOrdered By: Nicolasa Harkins on 07-12-2022 Monocytes/100 WBC (Bld) 7.3 % 0-10 [facility] Blood platelet mean volumeOr dered By: Nicolasa Harkins on 07-12-2022 Platelet mean volume (Bld) [Entitic vol] 9.7 fL 6.2-12.0 [facility] Determination of erythrocyte mean corpuscular volume (MCV)Ordered By: Nicolasa Harkins on 07-12-2022 MCV (RBC) [Entitic vol] 92.2 fL 81-99 [facility] Hematocrit Auto (Bld) [Volum e fraction]Ordered By: Nicolasa Harkins on 07-12-2022 Hematocrit (Bld) [Volume fraction] 40.0 % 37-47 [facility] Laboratory - Chemistry and C hemistry - challengeOrdered By: Nicolasa Harkins on 07-12-2022 ALP [Catalytic activity/Vol] 183 U/L 45-117 [facility] ALT [Catalytic activity/Vol] 31 U/L 13-56 [facility] CO2 [Moles/Vol] 27.0 mmol/L 21.0-32.0 [facility] Cobalamin (Vitamin B12) [Mass/Vol] 1255 pg/mL 211-911 [facility] Globulin (S) [Mass/Vol] 2.8 g/dL 2.2-4.2 [facility] Urea nitrogen/Creatinine [Mass ratio] 20.6 mg/mg 10-20 [facility] Laboratory - Hematology and Cell countsOrdered By: Nicolasa Harkins on 07-12-2022 Erythrocyte distribution width (RBC) [Entitic vol] 42.5 fL 35.1-43.9 [facility] Erythrocyte distribution width (RBC) [Ratio] 12.6 % 11.6-14.6 [facility] Immature granulocytes/100 WBC (Bld) 0.600 % 0.0-0.9 [facility] Comment on above: IG% - Immature Granu locytes (promyelocytes, myelocytes and metamyelocytes) > 1% indicates that a LEFT SHIFT is Present. MCH (RBC) [Entitic mass] 30.0 pg 27.0-32.0 [facility] Nucleated RBC/100 WBC (Bld) [Ratio] 0 % 0-5 [facility] MCHC Auto (RBC) [Mass/Vol]Or dered By: Nicolasa Harkins on 07-12-2022 MCHC (RBC) [Mass/Vol] 32.5 g/dL 32-36 [facility] No Panel InformationOrdered By: Nicolasa Harkins on 07-12-2022 Estimated GFR (MDRD) Amer 109 mL/min >60 [facility] Comment on above: GFR Calc Estimated GFR (MDRD) Non-Af Amer 90 mL/min >60 [facility] Comment on above: Non- GFR Calc Vitamin D 25-Hydroxy 106.3 ng/mL [facility] Comment on above: Vitamin D 25(OH) Sta tus Range Deficiency <20 ng/mL (50nmol/L) Insufficiency 20 - 30 ng/mL (50 - 75 nmol/L) Sufficiency 30 - 100 ng/mL (75 - 250 nmol/L) Toxicity >100 ng/mL (>250 nmol/L)Evidence suggests that patients undergoing fluorescein dye angiography can retain small amounts of fluorescein in the body for up to 48 to 72 hours post-treatment. In the cases of patients with renal insufficiency, retention could be much longer. Samples containing fluorescein can produce falsely elevated values when tested with the Advia Centaur Vitamin D assay. With fluorescein interference, observed Vitamin D values can be as high as >150 ng/mL (>375 nmol/L). Samples should be resubmitted post fluorescein clearance to ensure there is no interference with Vitamin D test results. Platelets bldOrdered By: Tala Harkins on 07-12-2022 Platelets (Bld) [#/Vol] 201 10*3/uL 150-450 [facility] Serum or plasma albumin cinthya urement (mass/volume)Ordered By: Nicolasa Harkins on 07-12-2022 Albumin [Mass/Vol] 3.6 g/dL 3.2-5.0 [facility] Serum or plasma albumin/glob ulin mass ratioOrdered By: Nicolasa Harkins on 07-12-2022 Albumin/Globulin [Mass ratio] 1.3 {ratio} 0.9-2.4 [facility] Serum or plasma calcium cinthya urement (mass/volume)Ordered By: Nicolasa Harkins on 07-12-2022 Calcium [Mass/Vol] 8.9 mg/dL 8.5-10.1 [facility] Serum or plasma cholesterol in HDL measurement (mass/volume)Ordered By: Nicolasa Harkins on 07-12-2022 Cholesterol in HDL [Mass/Vol] 53 mg/dL >40 [facility] Comment on above: The drugs N-Acetylcy steine and Metamizole may falsely depress this assay. Reference Range HDL <40 mg/dL Low HDL Cholesterol HDL >or= 60 mg/dL High HDL Cholesterol Serum or plasma cholesterol in VLDL measurement (mass/volume)Ordered By: Nicolasa Harkins on 07-12-2022 Cholesterol in VLDL [Mass/Vol] 17 mg/dL 5-40 [facility] Serum or plasma creatinine m easurement (mass/volume)Ordered By: Nicolasa Harkins on 07-12-2022 Creatinine [Mass/Vol] 0.68 mg/dL 0.55-1.02 [facility] Comment on above: The validity of the calculated GFR & GFRAA in patients over 70 years has not been determined. Clinical correlation is essential. Serum or plasma low density lipoprotein (LDL) cholesterol measurement (mass/volume)Ordered By: Nicolasa Harkins on 07-12-2022 Cholesterol in LDL [Mass/Vol] 118 mg/dL 0-130 [facility] Serum or plasma urea nitroge n measurement (mass/volume)Ordered By: Nicolasa Harkins on 07-12-2022 Urea nitrogen [Mass/Vol] 14 mg/dL 7-18 [facility] Thin prep Papanicolaou smear with manual screeningOrdered By: Nicolasa Harkins on 07-12-2022 Thin prep Papanicolaou smear with manual screening 21 U/L 15-37 [facility] Thin prep Papanicolaou smear with manual screening 7 5-15 [facility] CBC panel Auto (Bld)on 05-07 Erythrocyte distribution width (RBC) [Ratio] 12.7 % Normal 11.5-15.0 [facility] Comment on above: Order Comment: Speci guillermo Type: BLOOD SPECIMEN Ordering Facility: [facility] Address: [address] [place] [address] Performed By: #### 5 8410-2 #### [facility] CLIA [id number] [address] [place] [address] [place] Hematocrit (Bld) [Volume fraction] 32.5 % Low 36.0-46.0 [facility] Comment on above: Order Comment: Speci men Type: BLOOD SPECIMEN Ordering Facility: [facility] Address: [address] [place] [address] Performed By: #### 5 8410-2 #### [facility] CLIA [id number] [address] [place] [address] [place] Hemoglobin (Bld) [Mass/Vol] 11.0 g/dL Low 11.5-15.5 [facility] Comment on above: Order Comment: Speci men Type: BLOOD SPECIMEN Ordering Facility: [facility] Address: [address] [place] [address] Performed By: #### 5 8410-2 #### [facility] CLIA [id number] [address] [place] [address] [place] MCH (RBC) [Entitic mass] 30.7 pg Normal 26.0-34.0 [facility] Comment on above: Order Comment: Speci men Type: BLOOD SPECIMEN Ordering Facility: [facility] Address: [address] [place] [address] Performed By: #### 5 8410-2 #### [facility] CLIA [id number] [address] [place] MCHC (RBC) [Mass/Vol] 33.8 g/dL Normal 30.5-36.0 [facility] Comment on above: Order Comment: Speci men Type: BLOOD SPECIMEN Ordering Facility: [facility] Address: [address] [place] [address] Performed By: #### 5 8410-2 #### [facility] CLIA [id number] [address] [place] [address] [place] MCV (RBC) [Entitic vol] 90.8 fL Normal 80.0-100.0 [facility] Comment on above: Order Comment: Speci men Type: BLOOD SPECIMEN Ordering Facility: [facility] Address: [address] [place] [address] Performed By: #### 5 8410-2 #### [facility] CLIA [id number] [address] [place] [address] [place] Platelet mean volume (Bld) [Entitic vol] 9.4 fL Normal 9.0-12.7 [facility] Comment on above: Order Comment: Speci men Type: BLOOD SPECIMEN Ordering Facility: [facility] Address: [address] [place] [address] Performed By: #### 5 8410-2 #### [facility] CLIA [id number] [address] [place] [address] [place] Platelets (Bld) [#/Vol] 226 10*3/uL Normal 150-400 [facility] Comment on above: Order Comment: Speci men Type: BLOOD SPECIMEN Ordering Facility: [facility] Address: [address] [place], [place] [address] Performed By: #### 5 8410-2 #### [facility] CLIA [id number] [address] [place] [address] [place] RBC (Bld) [#/Vol] 3.58 10*6/uL Low 3.90-5.20 [facility] Comment on above: Order Comment: Speci men Type: BLOOD SPECIMEN Ordering Facility: [facility] Address: [address] [place] [address] Performed By: #### 5 8410-2 #### [facility] CLIA [id number] [address] [place] [address] [facility] [place] WBC (Bld) [#/Vol] 10.71 10*3/uL Normal 3.70-11.00 [facility] Comment on above: Order Comment: Speci men Type: BLOOD SPECIMEN Ordering Facility: [facility] Address: [address] [place] [address] Performed By: #### 5 8410-2 #### [facility] CLIA [id number] [address] [place] [address] [facility] Comprehensive metabolic 2000 panelon 05-07-2021 Albumin [Mass/Vol] 3.2 g/dL Low 3.9-4.9 [facility] Comment on above: Order Comment: Speci men Type: BLOOD SPECIMEN Ordering Facility: [facility] Address: [address] [place] [address] Performed By: #### 2 4323-8, #### [facility] CLIA [id number] [address] [place], [place] [address] [place] [address] ALP [Catalytic activity/Vol] 289 U/L High 34-123 [facility] Comment on above: Order Comment: Speci men Type: BLOOD SPECIMEN Ordering Facility: [facility] Address: [address] [place] [address] Performed By: #### 2 4323-8, 24327-9 #### [facility] CLIA [id number] [address] [place] [address] [facility] ALT With P-5'-P [Catalytic activity/Vol] 38 U/L Normal 7-38 [facility] Comment on above: Order Comment: Speci men Type: BLOOD SPECIMEN Ordering Facility: [facility] Address: [address] [place] [address] Performed By: #### 2 4323-8, #### [facility] CLIA [id number] [address] [place] [address] [facility] Anion gap [Moles/Vol] 13 mmol/L Normal 9-18 [facility] Comment on above: Order Comment: Speci men Type: BLOOD SPECIMEN Ordering Facility: [facility] Address: [address] [place], [place] [address] Performed By: #### 2 4322-8, #### [facility] CLIA [id number] [address] [place] [address] [place] AST With P-5'-P [Catalytic activity/Vol] 38 U/L High 13-35 [facility] Comment on above: Order Comment: Speci men Type: BLOOD SPECIMEN Ordering Facility: [facility] Address: [address] [place] [address] Performed By: #### 2 43238, #### [facility] CLIA [id number] [address] [place] [address] [place] Bilirubin [Mass/Vol] 1.4 mg/dL High 0.2-1.3 [facility] Comment on above: Order Comment: Speci men Type: BLOOD SPECIMEN Ordering Facility: [facility] Address: [address] [place] [address] Performed By: #### 2 4322-8, #### [facility] CLIA [id number] [address] [place] [address] [place] Calcium [Mass/Vol] 9.2 mg/dL Normal 8.5-10.2 [facility] Comment on above: Order Comment: Speci men Type: BLOOD SPECIMEN Ordering Facility: [facility] Address: [address] [place], [place] [address] Performed By: #### 2 4323-8, #### [facility] CLIA [id number] [address] [place] [address] [place] Chloride [Moles/Vol] 104 mmol/L Normal 97-105 [facility] Comment on above: Order Comment: Speci men Type: BLOOD SPECIMEN Ordering Facility: [facility] Address: [address] [place], [place] [id number] Performed By: #### 2 43238, #### [facility] CLIA [id number] [address] [place] [address] [place] CO2 [Moles/Vol] 20 mmol/L Low 22-30 [facility] Comment on above: Order Comment: Speci men Type: BLOOD SPECIMEN Ordering Facility: [facility] Address: [address] [place] [address] Performed By: #### 2 4328, #### [facility] CLIA [id number] [address] [place] [address] [place] Creatinine [Mass/Vol] 0.52 mg/dL Low 0.58-0.96 [facility] Comment on above: Order Comment: Speci men Type: BLOOD SPECIMEN Ordering Facility: [facility] Address: [address] [place] [address] Performed By: #### 2 4322-09, #### [facility] CLIA [id number] [address] [place] ESTIMATED GLOMERULAR FILTRATION RATE 99 mL/min/1.73m??? Normal >=60 [facility] Comment on above: Order Comment: Speci men Type: BLOOD SPECIMEN Ordering Facility: [facility] Address: [address] [place] [address] Result Comment: Nathaly mated Glomerular Filtration Rate (eGFR) is calculated using the 2020 CKD-EPI creatinine equation. This equation utilizes serum creatinine, sex, and age as parameters. The creatinine assay has traceable calibration to isotope dilution-mass spectrometry. Refer to KDIGO guidelines for clinical interpretation. In patients with unstable renal function, e.g. those with acute kidney injury, the eGFR may not accurately reflect actual GFR. Performed By: #### 2 432-8, #### [facility] CLIA [id number] [address] [place] [address] [place] Glucose [Mass/Vol] 104 mg/dL High 74-99 [facility] Comment on above: Order Comment: Frances li Type: BLOOD SPECIMEN Ordering Facility: [facility] Address: [address] [place] [address] Result Comment: The [place] [employer] (ADA) provides guidance for cutoff values for fasting glucose and random glucose. The ADA defines fasting as no caloric intake for at least 8 hours. Fasting plasma glucose results between 100 to 125 mg/dL indicate increased risk for diabetes (prediabetes). Fasting plasma glucose results greater than or equal to 126 mg/dL meet the criteria for diagnosis of diabetes. In the absence of unequivocal hyperglycemia, results should be confirmed by repeat testing. In a patient with classic symptoms of hyperglycemia or hyperglycemic crisis, random plasma glucose results greater than or equal to 200 mg/dL meet the criteria for diagnosis of diabetes. Reference: Standards of Medical Care in Diabetes 2016, [place] [employer]. Diabetes Care. 2016.39(Suppl 1). Performed By: #### 2 4323-8, #### [facility] CLIA [id number] [address] [place] [address] [place] Potassium [Moles/Vol] 3.2 mmol/L Low 3.7-5.1 [facility] Comment on above: Order Comment: Frances li Type: BLOOD SPECIMEN Ordering Facility: [facility] Address: [address] [place], [place] [address] Performed By: #### 2 43238, #### [facility] CLIA [id number] [address] [place] [address] [place] Protein [Mass/Vol] 6.1 g/dL Low 6.3-8.0 [facility] Comment on above: Order Comment: Frances li Type: BLOOD SPECIMEN Ordering Facility: [facility] Address: [address] [place] [address] Performed By: #### 2 43204-20, #### [facility] CLIA [id number] [address] [place] [address] [place] Sodium [Moles/Vol] 137 mmol/L Normal 136-144 [facility] Comment on above: Order Comment: Speci men Type: BLOOD SPECIMEN Ordering Facility: [facility] Address: [address] [place] [address] Performed By: #### 2 4323-8, 43527-4 #### [facility] [place] [facility] CLIA [id number] [address] [place] [address] [place] [facility] Urea nitrogen [Mass/Vol] 10 mg/dL Normal 7-21 [facility] Comment on above: Order Comment: Speci men Type: BLOOD SPECIMEN Ordering Facility: [facility] Address: [address] [place] [address] Performed By: #### 2 4323-8, 24225-8 #### [facility] [place] [facility] CLIA [id number] [address] [place] Magnesium SerPl-mCncon 05-07 Magnesium [Mass/Vol] 1.8 mg/dL Normal 1.7-2.3 [facility] Comment on above: Order Comment: Speci men Type: BLOOD SPECIMEN Ordering Facility: [facility] Address: [address] [place] [address] Performed By: #### 2 4323-8, 75017-9 #### [facility] CLIA [id number] [address] [place] [address] OF [facility] CBC panel Auto (Bld)on 05-06 Erythrocyte distribution width (RBC) [Ratio] 12.8 % Normal 11.5-15.0 [facility] Comment on above: Order Comment: Speci men Type: BLOOD SPECIMEN Ordering Facility: [facility] Address: [address] [place] [address] Performed By: #### 5 8410-2 #### [facility] [place] [facility] CLIA [id number] [address] [place] [address] [place] Hematocrit (Bld) [Volume fraction] 33.4 % Low 36.0-46.0 [facility] Comment on above: Order Comment: Speci men Type: BLOOD SPECIMEN Ordering Facility: [facility] Address: [address] [place], [place] [address] Performed By: #### 5 8410-2 #### [facility] [place] [facility] CLIA [id number] [address] [place] [address] Hemoglobin (Bld) [Mass/Vol] 11.3 g/dL Low 11.5-15.5 [facility] Comment on above: Order Comment: Speci men Type: BLOOD SPECIMEN Ordering Facility: [facility] Address: [address] [place] [address] Performed By: #### 5 8410-2 #### [facility] [place] [facility] CLIA [id number] [address] [place] [address] [place] MCH (RBC) [Entitic mass] 31.0 pg Normal 26.0-34.0 [facility] Comment on above: Order Comment: Speci men Type: BLOOD SPECIMEN Ordering Facility: [facility] Address: [address] [place] [address] Performed By: #### 5 8410-2 #### [facility] [place] [facility] CLIA [id number] [address] [place] [address] [place] MCHC (RBC) [Mass/Vol] 33.8 g/dL Normal 30.5-36.0 [facility] Comment on above: Order Comment: Speci men Type: BLOOD SPECIMEN Ordering Facility: [facility] Address: [address] [place] [address] Performed By: #### 5 8410-2 #### [facility] [place] [facility] CLIA [id number] [address] [place] [address] STATES [facility] MCV (RBC) [Entitic vol] 91.8 fL Normal 80.0-100.0 [facility] Comment on above: Order Comment: Speci men Type: BLOOD SPECIMEN Ordering Facility: [facility] Address: [address] [place] [address] Performed By: #### 5 8410-2 #### [facility] [place] [facility] CLIA [id number] [address] [place] [address] [place] Platelet mean volume (Bld) [Entitic vol] 9.2 fL Normal 9.0-12.7 [facility] Comment on above: Order Comment: Speci men Type: BLOOD SPECIMEN Ordering Facility: [facility] Address: [address] [place] [address] Performed By: #### 5 8410-2 #### [facility] [place] [facility] CLIA [id number] [address] [place] [address] [place] Platelets (Bld) [#/Vol] 195 10*3/uL Normal 150-400 [facility] Comment on above: Order Comment: Speci men Type: BLOOD SPECIMEN Ordering Facility: [facility] Address: [address] [place] [address] Performed By: #### 5 8410-2 #### [facility] [place] [facility] CLIA [id number] [address] [place] [address] [place] RBC (Bld) [#/Vol] 3.64 10*6/uL Low 3.90-5.20 [facility] Comment on above: Order Comment: Speci men Type: BLOOD SPECIMEN Ordering Facility: [facility] Address: [address] [place] [address] Performed By: #### 5 8410-2 #### [facility] [place] [facility] CLIA [id number] [address] [place], [place] [address] [place] [address] [place] WBC (Bld) [#/Vol] 12.63 10*3/uL High 3.70-11.00 [facility] Comment on above: Order Comment: Speci men Type: BLOOD SPECIMEN Ordering Facility: [facility] Address: [address] [place] [address] Performed By: #### 5 8410-2 #### [facility] [place] [facility] CLIA [id number] [address] [place] Comprehensive metabolic 2000 panelon 05-06-2021 Albumin [Mass/Vol] 3.3 g/dL Low 3.9-4.9 [facility] Comment on above: Order Comment: Speci men Type: BLOOD SPECIMEN Ordering Facility: [facility] Address: [address] [place] [address] Performed By: #### 2 4323-8 #### [facility] [place] [facility] CLIA [id number] [address] [place], [place] [address] [place] [address] [place] ALP [Catalytic activity/Vol] 231 U/L High 34-123 [facility] Comment on above: Order Comment: Speci men Type: BLOOD SPECIMEN Ordering Facility: [facility] Address: [address] [place] [address] Performed By: #### 2 4323-8 #### [facility] [place] [facility] CLIA [id number] [address] STATES [place] ALT With P-5'-P [Catalytic activity/Vol] 28 U/L Normal 7-38 [facility] Comment on above: Order Comment: Speci men Type: BLOOD SPECIMEN Ordering Facility: [facility] Address: [address] [place] [address] Performed By: #### 2 4323-8 #### [facility] [place] [facility] CLIA [id number] [address] [place] [address] [place] Anion gap [Moles/Vol] 17 mmol/L Normal 9-18 [facility] Comment on above: Order Comment: Speci men Type: BLOOD SPECIMEN Ordering Facility: [facility] Address: [address] [place] [address] Performed By: #### 2 4323-8 #### [facility] [place] [facility] CLIA [id number] [address] [place] [address] [place] AST With P-5'-P [Catalytic activity/Vol] 19 U/L Normal 13-35 [facility] Comment on above: Order Comment: Speci men Type: BLOOD SPECIMEN Ordering Facility: [facility] Address: [address] [place] [address] Performed By: #### 2 4323-8 #### [facility] [place] [facility] CLIA [id number] [address] [place] [address] [place] Bilirubin [Mass/Vol] 1.4 mg/dL High 0.2-1.3 [facility] Comment on above: Order Comment: Speci men Type: BLOOD SPECIMEN Ordering Facility: [facility] Address: [address] [place] [address] Performed By: #### 2 4323-8 #### [facility] [place] [facility] CLIA [id number] [address] [place] [address] [place] Calcium [Mass/Vol] 8.9 mg/dL Normal 8.5-10.2 [facility] Comment on above: Order Comment: Speci men Type: BLOOD SPECIMEN Ordering Facility: [facility] Address: [address] [place] [address] Performed By: #### 2 4323-8 #### [facility] [place] [facility] CLIA [id number] [address] [place] [address] [place] Chloride [Moles/Vol] 102 mmol/L Normal 97-105 [facility] Comment on above: Order Comment: Speci men Type: BLOOD SPECIMEN Ordering Facility: [facility] Address: [address] [place] [address] Performed By: #### 2 4323-8 #### [facility] [place] [facility] CLIA [id number] [address] [place] [address] [place] CO2 [Moles/Vol] 17 mmol/L Low 22-30 [facility] Comment on above: Order Comment: Speci men Type: BLOOD SPECIMEN Ordering Facility: [facility] Address: [address] [place] [address] Performed By: #### 2 4323-8 #### [facility] [place] [facility] CLIA [id number] [address] [place] [address] [place] Creatinine [Mass/Vol] 0.54 mg/dL Low 0.58-0.96 [facility] Comment on above: Order Comment: Speci men Type: BLOOD SPECIMEN Ordering Facility: [facility] Address: [address] [place] [address] Performed By: #### 2 4323-8 #### [facility] [place] [facility] CLIA [id number] [address] [place] [address] [place] ESTIMATED GLOMERULAR FILTRATION RATE 98 mL/min/1.73m??? Normal >=60 [facility] Comment on above: Order Comment: Frances li Type: BLOOD SPECIMEN Ordering Facility: [facility] Address: [address] [place] [address] Result Comment: Nathaly mated Glomerular Filtration Rate (eGFR) is calculated using the 2020 CKD-EPI creatinine equation. This equation utilizes serum creatinine, sex, and age as parameters. The creatinine assay has traceable calibration to isotope dilution-mass spectrometry. Refer to KDIGO guidelines for clinical interpretation. In patients with unstable renal function, e.g. those with acute kidney injury, the eGFR may not accurately reflect actual GFR. Performed By: #### 2 4323-8 #### [facility] CLIA [id number] [address] [place] [id number] [place] Glucose [Mass/Vol] 99 mg/dL Normal 74-99 [facility] Comment on above: Order Comment: Frances li Type: BLOOD SPECIMEN Ordering Facility: [facility] Address: [address] [place] [address] Result Comment: The [place] [employer] (ADA) provides guidance for cutoff values for fasting glucose and random glucose. The ADA defines fasting as no caloric intake for at least 8 hours. Fasting plasma glucose results between 100 to 125 mg/dL indicate increased risk for diabetes (prediabetes). Fasting plasma glucose results greater than or equal to 126 mg/dL meet the criteria for diagnosis of diabetes. In the absence of unequivocal hyperglycemia, results should be confirmed by repeat testing. In a patient with classic symptoms of hyperglycemia or hyperglycemic crisis, random plasma glucose results greater than or equal to 200 mg/dL meet the criteria for diagnosis of diabetes. Reference: Standards of Medical Care in Diabetes 2016, [place] [employer]. Diabetes Care. 2016.39(Suppl 1). Performed By: #### 2 4323-8 #### [facility] [place] [facility] CLIA [id number] [address] [place] [address] [place] Potassium [Moles/Vol] 2.9 mmol/L Low 3.7-5.1 [facility] Comment on above: Order Comment: Speci men Type: BLOOD SPECIMEN Ordering Facility: [facility] Address: [address] [place] [address] Performed By: #### 2 4323-8 #### [facility] [place] [facility] CLIA [id number] [address] [place] [address] [place] Protein [Mass/Vol] 6.1 g/dL Low 6.3-8.0 [facility] Comment on above: Order Comment: Speci men Type: BLOOD SPECIMEN Ordering Facility: [facility] Address: [address] [place] [address] Performed By: #### 2 4323-8 #### [facility] [place] [facility] CLIA [id number] [address] STATES [place] Sodium [Moles/Vol] 136 mmol/L Normal 136-144 [facility] Comment on above: Order Comment: Speci men Type: BLOOD SPECIMEN Ordering Facility: [facility] Address: [address] [place] [address] Performed By: #### 2 4323-8 #### [facility] [place] [facility] CLIA [id number] [address] STATES [facility] Urea nitrogen [Mass/Vol] 12 mg/dL Normal 7-21 [facility] Comment on above: Order Comment: Speci men Type: BLOOD SPECIMEN Ordering Facility: [facility] Address: [address] [place] [address] Performed By: #### 2 4323-8 #### [facility] [place] [facility] CLIA [id number] [address] [place] [id number] [place] CBC W Auto Differential pane l (Bld)on 05-05-2021 Basophils (Bld) [#/Vol] 10*3/uL Normal <0.11 [facility] Comment on above: Order Comment: Speci men Type: BLOOD SPECIMEN Ordering Facility: [facility] Address: [address] [place] [address] Performed By: #### 5 7021-8 #### [facility] [place] [facility] CLIA [id number] [address] [place] [address] [place] Basophils/100 WBC (Bld) 0.1 % Normal [facility] Comment on above: Order Comment: Speci men Type: BLOOD SPECIMEN Ordering Facility: [facility] Address: [address] [place] [address] Performed By: #### 5 7021-8 #### [facility] [place] [facility] CLIA [id number] [address] [place] [address] [place] Differential cell count method Nom (Bld) Auto Normal [facility] Comment on above: Order Comment: Speci men Type: BLOOD SPECIMEN Ordering Facility: [facility] Address: [address] [place] [address] Performed By: #### 5 7021-8 #### [facility] [place] [facility] CLIA [id number] [address] [place] [address] [place] Eosinophils (Bld) [#/Vol] 10*3/uL Normal <0.46 [facility] Comment on above: Order Comment: Speci men Type: BLOOD SPECIMEN Ordering Facility: [facility] Address: [address] [place] [address] Performed By: #### 5 7021-8 #### [facility] [place] [facility] CLIA [id number] [address] [place] [address] [facility] [place] Eosinophils/100 WBC (Bld) 0.1 % Normal [facility] Comment on above: Order Comment: Speci men Type: BLOOD SPECIMEN Ordering Facility: [facility] Address: [address] [place] [address] Performed By: #### 5 7021-8 #### [facility] [place] [facility] CLIA [id number] [address] [place] [address] [facility] [place] Erythrocyte distribution width (RBC) [Ratio] 12.7 % Normal 11.5-15.0 [facility] Comment on above: Order Comment: Speci men Type: BLOOD SPECIMEN Ordering Facility: [facility] Address: [address] [place] [address] Performed By: #### 5 7021-8 #### [facility] [place] [facility] CLIA [id number] [address] [place] Hematocrit (Bld) [Volume fraction] 38.0 % Normal 36.0-46.0 [facility] Comment on above: Order Comment: Speci men Type: BLOOD SPECIMEN Ordering Facility: [facility] Address: [address] [place] [address] Performed By: #### 5 7021-8 #### [facility] [place] [facility] CLIA [id number] [address] [place] [address] [place] Hemoglobin (Bld) [Mass/Vol] 12.8 g/dL Normal 11.5-15.5 [facility] Comment on above: Order Comment: Speci men Type: BLOOD SPECIMEN Ordering Facility: [facility] Address: [address] [place] [address] Performed By: #### 5 7021-8 #### [facility] [place] [facility] CLIA [id number] [address] [place] Lymphocytes (Bld) [#/Vol] 0.73 10*3/uL Low 1.00-4.00 [facility] Comment on above: Order Comment: Speci men Type: BLOOD SPECIMEN Ordering Facility: [facility] Address: [address] [place] [address] Performed By: #### 5 7021-8 #### [facility] [place] [facility] CLIA [id number] [address] [place] Lymphocytes/100 WBC (Bld) 5.5 % Normal [facility] Comment on above: Order Comment: Speci men Type: BLOOD SPECIMEN Ordering Facility: [facility] Address: [address] [place] [address] Performed By: #### 5 7021-8 #### [facility] [place] [facility] CLIA [id number] [address] MCH (RBC) [Entitic mass] 31.0 pg Normal 26.0-34.0 [facility] Comment on above: Order Comment: Speci men Type: BLOOD SPECIMEN Ordering Facility: [facility] Address: [address] [place] [address] Performed By: #### 5 7021-8 #### [facility] [place] [facility] CLIA [id number] [address] [place] [address] [place] MCHC (RBC) [Mass/Vol] 33.7 g/dL Normal 30.5-36.0 [facility] Comment on above: Order Comment: Speci men Type: BLOOD SPECIMEN Ordering Facility: [facility] Address: [address] [place] [address] Performed By: #### 5 7021-8 #### [facility] [place] [facility] CLIA [id number] [address] [place] [address] OF [facility] MCV (RBC) [Entitic vol] 92.0 fL Normal 80.0-100.0 [facility] Comment on above: Order Comment: Speci men Type: BLOOD SPECIMEN Ordering Facility: [facility] Address: [address] [place] [address] Performed By: #### 5 7021-8 #### [facility] [place] [facility] CLIA [id number] [address] [place] [address] Monocytes (Bld) [#/Vol] 0.81 10*3/uL Normal <0.87 [facility] Comment on above: Order Comment: Speci men Type: BLOOD SPECIMEN Ordering Facility: [facility] Address: [address] [place] [address] Performed By: #### 5 7021-8 #### [facility] [place] [facility] CLIA [id number] [address] [place] [address] Monocytes/100 WBC (Bld) 6.1 % Normal [facility] Comment on above: Order Comment: Speci men Type: BLOOD SPECIMEN Ordering Facility: [facility] Address: [address] [place], [place] [id number] Performed By: #### 5 7021-8 #### [facility] [place] [facility] CLIA [id number] [address] [place] [address] [place] Neutrophils (Bld) [#/Vol] 11.77 10*3/uL High 1.45-7.50 [facility] Comment on above: Order Comment: Speci men Type: BLOOD SPECIMEN Ordering Facility: [facility] Address: [address] [place] [address] Performed By: #### 5 7021-8 #### [facility] [place] [facility] CLIA [id number] [address] [place] [address] [place] Neutrophils/100 WBC (Bld) 88.2 % Normal [facility] Comment on above: Order Comment: Speci men Type: BLOOD SPECIMEN Ordering Facility: [facility] Address: [address] [place] [address] Performed By: #### 5 7021-8 #### [facility] [place] [facility] CLIA [id number] [address] [place] [address] [place] Platelet mean volume (Bld) [Entitic vol] 9.3 fL Normal 9.0-12.7 [facility] Comment on above: Order Comment: Speci men Type: BLOOD SPECIMEN Ordering Facility: [facility] Address: [address] [place] [address] Performed By: #### 5 7021-8 #### [facility] [place] [facility] CLIA [id number] [address] [place] [address] [place] Platelets (Bld) [#/Vol] 204 10*3/uL Normal 150-400 [facility] Comment on above: Order Comment: Speci men Type: BLOOD SPECIMEN Ordering Facility: [facility] Address: [address] [place] [address] Performed By: #### 5 7021-8 #### [facility] [place] [facility] CLIA [id number] [address] [place] [address] [place] RBC (Bld) [#/Vol] 4.13 10*6/uL Normal 3.90-5.20 [facility] Comment on above: Order Comment: Speci men Type: BLOOD SPECIMEN Ordering Facility: [facility] Address: [address] [place] [address] Performed By: #### 5 7021-8 #### [facility] [place] [facility] CLIA [id number] [address] [place] [address] [facility] WBC (Bld) [#/Vol] 13.33 10*3/uL High 3.70-11.00 [facility] Comment on above: Order Comment: Speci men Type: BLOOD SPECIMEN Ordering Facility: [facility] Address: [address] [place] [address] Performed By: #### 5 7021-8 #### [facility] [place] [facility] CLIA [id number] [address] [place] [address] [facility] Comprehensive metabolic 2000 panelon 05-05-2021 Albumin [Mass/Vol] 3.8 g/dL Low 3.9-4.9 [facility] Comment on above: Order Comment: Speci men Type: BLOOD SPECIMEN Ordering Facility: [facility] Address: [address] [place] [address] Performed By: #### 2 4323-8 #### [facility] [place] [facility] CLIA [id number] [address] [place] [address] [facility] ALP [Catalytic activity/Vol] 218 U/L High 34-123 [facility] Comment on above: Order Comment: Speci men Type: BLOOD SPECIMEN Ordering Facility: [facility] Address: [address] [place] [address] Performed By: #### 2 4323-8 #### [facility] [place] [facility] CLIA [id number] [address] [place] [address] [facility] ALT With P-5'-P [Catalytic activity/Vol] 32 U/L Normal 7-38 [facility] Comment on above: Order Comment: Speci men Type: BLOOD SPECIMEN Ordering Facility: [facility] Address: [address] [place] [address] Performed By: #### 2 4323-8 #### [facility] [place] [facility] CLIA [id number] [address] [place] [address] [place] Anion gap [Moles/Vol] 16 mmol/L Normal 9-18 [facility] Comment on above: Order Comment: Speci men Type: BLOOD SPECIMEN Ordering Facility: [facility] Address: [address] [place] [address] Performed By: #### 2 4323-8 #### [facility] [place] [facility] CLIA [id number] [address] [place] [address] [place] AST With P-5'-P [Catalytic activity/Vol] 16 U/L Normal 13-35 [facility] Comment on above: Order Comment: Speci men Type: BLOOD SPECIMEN Ordering Facility: [facility] Address: [address] [place] [address] Performed By: #### 2 4323-8 #### [facility] [place] [facility] CLIA [id number] [address] [place] [address] [place] Bilirubin [Mass/Vol] 1.3 mg/dL Normal 0.2-1.3 [facility] Comment on above: Order Comment: Speci men Type: BLOOD SPECIMEN Ordering Facility: [facility] Address: [address] [place] [address] Performed By: #### 2 4323-8 #### [facility] [place] [facility] CLIA [id number] [address] [place] [address] [place] Calcium [Mass/Vol] 9.7 mg/dL Normal 8.5-10.2 [facility] Comment on above: Order Comment: Speci men Type: BLOOD SPECIMEN Ordering Facility: [facility] Address: [address] [place] [address] Performed By: #### 2 4323-8 #### [facility] [place] [facility] CLIA [id number] [address] [place] [address] [place] Chloride [Moles/Vol] 98 mmol/L Normal 97-105 [facility] Comment on above: Order Comment: Speci men Type: BLOOD SPECIMEN Ordering Facility: [facility] Address: [address] [place] [address] Performed By: #### 2 4323-8 #### [facility] [place] [facility] CLIA [id number] [address] [place], [place] [id number] [place] [address] CO2 [Moles/Vol] 22 mmol/L Normal 22-30 [facility] Comment on above: Order Comment: Speci men Type: BLOOD SPECIMEN Ordering Facility: [facility] Address: [address] [place] [address] Performed By: #### 2 4323-8 #### [facility] CLIA [id number] [address] [place] [address] Creatinine [Mass/Vol] 0.68 mg/dL Normal 0.58-0.96 [facility] Comment on above: Order Comment: Speci men Type: BLOOD SPECIMEN Ordering Facility: [facility] Address: [address] [place] [address] Performed By: #### 2 4323-8 #### [facility] CLIA [id number] [address] [place] [address] ESTIMATED GLOMERULAR FILTRATION RATE 93 mL/min/1.73m??? Normal >=60 [facility] Comment on above: Order Comment: Speci men Type: BLOOD SPECIMEN Ordering Facility: [facility] Address: [address] [place] [address] Result Comment: Nathaly mated Glomerular Filtration Rate (eGFR) is calculated using the 2020 CKD-EPI creatinine equation. This equation utilizes serum creatinine, sex, and age as parameters. The creatinine assay has traceable calibration to isotope dilution-mass spectrometry. Refer to KDIGO guidelines for clinical interpretation. In patients with unstable renal function, e.g. those with acute kidney injury, the eGFR may not accurately reflect actual GFR. Performed By: #### 2 4323-8 #### [facility] CLIA [id number] [address] [place] [address] [place] Glucose [Mass/Vol] 114 mg/dL High 74-99 [facility] Comment on above: Order Comment: Frances li Type: BLOOD SPECIMEN Ordering Facility: [facility] Address: [address] [place] [address] Result Comment: The [place] Diabetes Association (ADA) provides guidance for cutoff values for fasting glucose and random glucose. The ADA defines fasting as no caloric intake for at least 8 hours. Fasting plasma glucose results between 100 to 125 mg/dL indicate increased risk for diabetes (prediabetes). Fasting plasma glucose results greater than or equal to 126 mg/dL meet the criteria for diagnosis of diabetes. In the absence of unequivocal hyperglycemia, results should be confirmed by repeat testing. In a patient with classic symptoms of hyperglycemia or hyperglycemic crisis, random plasma glucose results greater than or equal to 200 mg/dL meet the criteria for diagnosis of diabetes. Reference: Standards of Medical Care in Diabetes 2016, [place] Diabetes Association. Diabetes Care. 2016.39(Suppl 1). Performed By: #### 2 4323-8 #### [facility] CLIA [id number] [address] [place] [address] [place] Potassium [Moles/Vol] 3.8 mmol/L Normal 3.7-5.1 [facility] Comment on above: Order Comment: Frances li Type: BLOOD SPECIMEN Ordering Facility: [facility] Address: [address] [place] [address] Performed By: #### 2 4323-8 #### [facility] CLIA [id number] [address] [place] [address] [place] Protein [Mass/Vol] 6.9 g/dL Normal 6.3-8.0 [facility] Comment on above: Order Comment: Frances li Type: BLOOD SPECIMEN Ordering Facility: [facility] Address: [address] [place] [address] Performed By: #### 2 4323-8 #### [facility] CLIA [id number] [address] [place] [address] [place] Sodium [Moles/Vol] 136 mmol/L Normal 136-144 [facility] Comment on above: Order Comment: Speci guillermo Type: BLOOD SPECIMEN Ordering Facility: [facility] Address: [address] [place] [address] Performed By: #### 2 4323-8 #### [facility] CLIA [id number] [address] [place] [address] Urea nitrogen [Mass/Vol] 17 mg/dL Normal 7-21 [facility] Comment on above: Order Comment: Speci men Type: BLOOD SPECIMEN Ordering Facility: [facility] Address: [address] [place] [address] Performed By: #### 2 4323-8 #### [facility] CLIA [id number] [address] [place] [address] OF [place] SARS-CoV-2 RNA Resp Ql LAZARUS+p robeon 05-05-2021 SARS-CoV-2 (COVID-19) RNA LAZARUS+probe Ql (Resp) COVID 19 RESULT: SARS-CoV-2 (Agent of COVID-19) Not Detected by RT-PCR or equivalent method. This test has been authorized by FDA under an Emergency Use Authorization (EUA). Normal [facility] Comment on above: Performed By: #### 9 4500-6 #### [facility] CLIA [id number] [address] [place] [address] XR CHEST 2V FRONTAL/LATon XR CHEST 2V FRONTAL/LAT * * *Final Report* * * DATE OF EXAM: May 05 2021 5:44PM LDX 5291 - XR CHEST 2V FRONTAL/LAT / PROCEDURE REASON: Acute respiratory illness * * * * Physician Interpretation * * * * EXAMINATION: CHEST RADIOGRAPH (2 VIEW FRONTAL and LATERAL) CLINICAL HISTORY: Acute respiratory illness MQ: [id number]_6 EXAM DATE/TIME: 05/05/2021 5:44 PM COMPARISON: CT chest 12/10/2018 RESULT: Lines, tubes, and devices: None. Lungs and pleura: Focal consolidation right lower lobe, likely infectious or inflammatory. Left base atelectasis/scar. No pneumothorax. Cardiomediastinal silhouette: Stable cardiomediastinal silhouette. Bones and soft tissues: Thoracic dextroscoliosis. IMPRESSION: Right lower lobe infiltrate Bending Roll Hand: LEONARDO Transcribe Date/Time: May 05 2021 5:57P Dictated by : KIRAN ZAMORA MD This examination was interpreted and the report reviewed and electronically signed by: KIRAN ZAMORA MD on May 05 2021 5:58PM EST [id number] Normal [facility] Encounters Encounter Date Encounter Type Care Provider Facility Start: 07-23-2024 ambulatory Nicolasa Harkins Facility:[facility] Start: 06-25-2024 End: 06-25-2024 ambulatory Eliz Olmstead [employer]-C Work Phone: [facility] Work Phone: Start: 06-25-2024 End: 06-25-[address] Nicolasa Harkins DO [facility] Work Phone: Start: 06-25-2024 End: 06-25-2024 ambulatory Nicolasa Harkins Facility:[facility] Start: 06-19-2024 End: 06-19-2024 ambulatory Eliz Olmstead [employer] RO[employer]-C Work Phone: [facility] Work Phone: Start: 06-19-2024 End: 06-19-[address] Flower Contreras MD -Radiology, [place] Work Phone: Start: 06-19-2024 End: 06-19-2024 ambulatory Nicolasa Harkins Facility:[facility] Start: 06-04-2024 End: 06-04-2024 ambulatory NICOLASA A MALYS Facility:[facility] Start: 02-29-2024 End: 02-29-2024 Patient encounter procedure Shen Dwyer DO -[facility] Work Phone: Start: 02-29-2024 End: 02-29-2024 ambulatory Shen Dwyer [facility] Start: 01-26-2024 End: 01-26-2024 ambulatory Nicolasa Malys Facility:[facility] Start: 12-20-2023 End: 12-20-2023 ambulatory Flower Diane Facility:[facility] Start: 11-30-2023 End: 11-30-2023 ambulatory Flower Contreras Facility:[facility] Start: 11-27-2023 End: 11-27-2023 ambulatory Shen Dwyer Facility:[facility] Start: 11-07-2023 End: 11-07-2023 ambulatory Eliz Olmstead Facility:[facility] Start: 10-17-2023 End: 10-17-2023 ambulatory [facility] Facility:[facility] Start: 10-04-2023 End: 10-04-2023 ambulatory [facility] Facility:[facility] Start: 07-24-2023 End: 07-24-2023 ambulatory NICOLASA HARKINS Facility:[facility] Start: 06-06-2023 End: 06-06-[address] [facility] spital Work Phone: Start: 06-06-2023 End: 06-06-2023 Patient encounter procedure [facility]-Laboratory, Jani Oconnor [facility] Start: 07-13-2022 End: 07-13-[address] [facility] Work Phone: Start: 07-13-2022 End: 07-13-2022 Patient encounter procedure [facility]-Outpatient Bone Densitometry Work Phone: Start: 07-12-2022 End: 07-12-[address] [facility] sp[facility] Work Phone: Start: 07-12-2022 End: 07-12-2022 Patient encounter procedure [facility]-Laboratory Work Phone: Start: 06-03-2022 End: 06-03-[address] [facility] sp[facility] Work Phone: Start: 06-03-2022 End: 06-03-2022 Patient encounter procedure [facility]-Radiology, [facility] Start: 05-19-2021 Telephone encounter Gustavo johansen MD Work Phone: Hematology/Oncology Comment on above: [employer] - O ther Procedures Date Procedure Procedure Detail Performing Clinician Start: 06-25-2024 MRI of brain with contrast Eliz OGDENC Work Phone: Start: 06-19-2024 Plain X-ray abdomen Marline Olmstead [employer] RO[employer]-C Work Phone: Start: 07-13-2022 Dual energy X-ray absorptiometry Start: 07-13-2022 Screening mammography Start: 06-03-2022 Radiography of esophagus Start: 08-12-2020 Adult depression scr eening assessment Gustavo Corley MD Work Phone: Start: 12-10-2018 Mammography Gustavo dickens MD Work Phone: Start: 09-18-2012 Colonoscopy Gustavo dickens MD Work Phone: Plan of Treatment Date Care Activity Detail Author Start: 05-07-2025 Urine microalbumin profile DTAP,TDAP,TD (4 - Td or Tdap) [facility] Start: 06-25-2024 MR Brain WO and W contrast IV [facility] Start: 06-25-2024 MRI of brain with contrast Brain W/WO Contrast [facility] Start: 05-07-2024 DIABETES SCREEN DIABETES SCREEN [facility] Start: 08-12-2021 Adult depression screening assessment DEPRESSION SCREENING [facility] Start: 08-12-2021 BP CONTROLLED (<130/80) BP CONTROLLED (<130/80) [facility] Start: 05-16-2021 COVID-19 VACCINE (4 - Booster for Moderna series) COVID-19 VACCINE (4 - Booster for Moderna series) [facility] Start: 02-13-2021 ADVANCE DIRECTIVE DISCUSSION ADVANCE DIRECTIVE DISCUSSION [facility] Start: 12-11-2019 Mammography MAMMOGRAM [facility] Start: 09-10-2016 SHINGRIX VACCINE (1 of 2) SHINGRIX VACCINE (1 of 2) [facility] Start: 09-18-2013 Colonoscopy COLONOSCOPY [facility] Start: 09-18-2013 COLORECTAL CANCER SCREENING COLORECTAL CANCER SCREENING [facility] Start: 1993 COLOGUARD (FIT-DNA) COLOGUARD (FIT-DNA) [facility] Start: [address] COLONOGRAPHY [facility] Start: 1993 FECAL OCCULT BLOOD FECAL OCCULT BLOOD [facility] Start: 1993 LIPID SCREEN LIPID SCREEN [facility] Start: 1993 SIGMOIDOSCOPY SIGMOIDOSCOPY [facility] Start: 1966 ANNUAL PCP TEAM CHRONIC DISEASE VISIT ANNUAL PCP TEAM CHRONIC DISEASE VISIT [facility] Immunizations Immunization Date Immunization Notes Care Provider Fa cility 02-15-2021 influenza, injectabl e, quadrivalent, preservative free Gustavo Corley MD Work Phone: [facility] 05-08-2020 COVID-19 vaccine, fu ll dose (MODERNA) Gustavo Corley MD Work Phone: [facility] 04-10-2020 COVID-19 vaccine, fu ll dose (MODERNA) Gustavo Corley MD Work Phone: [facility] 02-03-2017 influenza, high dose seasonal, preservative-free Gustavo Corley MD Work Phone: [facility] 07-16-2016 measles, mumps and rubella virus vaccine Gustavo Corley MD Work Phone: [facility] 07-16-2016 varicella virus vaccine Victor M Corley MD Work Phone: [facility] 12-02-2015 influenza, high dose seasonal, preservative-free Gustavo Corley MD Work Phone: [facility] 07-20-2015 hepatitis A and hepatitis B vaccine Gustavo Corley MD Work Phone: [facility] 07-20-2015 pneumococcal polysaccharide vaccine, 23 valent Gustavo Corley MD Work Phone: [facility] 05-08-2015 haemophilus influenz ae type b vaccine, PRP-OMP conjugate Gustavo Corley MD Work Phone: [facility] 05-08-2015 meningococcal polysaccharide (groups A, C, Y and W-135) diphtheria toxoid conjugate vaccine (MCV4P) Gustavo Corley MD Work Phone: [facility] 05-08-2015 pneumococcal conjuga te vaccine, 13 valent Gustavo Corley MD Work Phone: [facility] 05-08-2015 tetanus toxoid, redu lacey diphtheria toxoid, and acellular pertussis vaccine, adsorbed Gustavo Corley MD Work Phone: [facility] 02-24-2015 haemophilus influenz ae type b vaccine, PRP-OMP conjugate Gustavo Corley MD Work Phone: [facility] 02-24-2015 hepatitis A and hepatitis B vaccine Gustavo Corley MD Work Phone: [facility] 02-24-2015 pneumococcal conjuga te vaccine, 13 valent Gustavo Corley MD Work Phone: [facility] 02-24-2015 tetanus toxoid, redu lacey diphtheria toxoid, and acellular pertussis vaccine, adsorbed Gustavo Corley MD Work Phone: [facility] 12-26-2014 haemophilus influenz ae type b vaccine, PRP-OMP conjugate Gustavo Corley MD Work Phone: [facility] 12-26-2014 hepatitis A and hepatitis B vaccine Gustavo Corley MD Work Phone: [facility] 12-26-2014 influenza, high dose seasonal, preservative-free Gustavo Corley MD Work Phone: [facility] 12-26-2014 pneumococcal conjuga te vaccine, 13 valent Gustavo Corley MD Work Phone: [facility] 12-26-2014 tetanus toxoid, redu lacey diphtheria toxoid, and acellular pertussis vaccine, adsorbed Gustavo Corley MD Work Phone: [facility] 12-25-2008 novel influenza-H1N1 -09, preservative-free, injectable Gustavo Corley MD Work Phone: [facility] 08-20-2004 pneumococcal polysaccharide vaccine, 23 valent Gustavo Corley MD Work Phone: [facility] Work Phone: Payers Date Payer Category Payer Self-pay [id number] 2020 Private Health Insurance [facility] AARP SUPPLEMENT [id number] 2020-Present [phone] [address] [place] [address] Indemnity [id number] 2020 Unknown [id number] 2015 Private Health Insurance [employer] SR SUPPLEM ENT INS [id number] 2014 Medicare MEDICARE MEDICAR E A AND B [id number] 2014-Present [phone] [address] [address] [place] [address] Medicare [id number] 2014 Medicare [id number] Unknown [id number] Unknown [id number] Unknown [id number] Unknown [id number] Unknown [id number] Unknown [id number] Unknown [id number] Unknown [id number] Unknown [id number] Unknown [id number] Unknown [id number] Social History Date Type Detail Facility Start: 11-23-2023 [facility] Start: 05-06-2021 Alcohol intake Current drinke r of alcohol (finding) [facility] Start: 1950 Sex Assigned At Not on file [facility] Start: 04-26-2021 End: 05-06-2021 Exposure to SARS-CoV-2 (event) Not sure [facility] Start: 04-20-2019 [facility] if ever smoked [facility] Start: 04-20-2019 Occasional [facility] Start: 04-20-2019 None [facility] Start: 04-20-2019 With Family [facility] Start: 1950 Sex Assigned At Female W [facility] Medical Equipment Procedure Code Equipment Code Equipment Origin al Text Equipment Identifier Dates Lithotripsy, ESWL Polymeric uret eral stent [id number] [facility] Start: 11-30-2023 Radiology Diagnostic study note 06-20-2024 Note Date & Type Note Facility 06-20-2024 Radiology Diagnostic study note [facility] Imaging Services [address] [place] [address] [id number] Abdomen Single View MR#: [id number] Acct: [id number] Name: PETTY LEON Rep #: [id number] : 1950 F 73 From: Yazan Rogel MD PCP: Dr. Nicolasa Harkins, DO Status: REG CLI Study:Abdomen Single View Date of Exam: 06/19/24 Exam# [id number] Ordering Dr: Flower Contreras MD PROCEDURE: ABDOMEN SINGLE VIEW 06/19/2024 REASON FOR EXAM: LEFT SIDED KIDNEY STONE TECHNIQUE: Single view abdomen. Two views to include the entire abdomen and pelvis COMPARISON: 12/20/2023 FINDINGS: The lung bases grossly appear clear. Ffyczmuk-vz-vltgfy appearing leftward thoracolumbar curvature, scoliosis again seen. Previously noted calcific densities in the area of the left renal shadow not clearly identified on the current study. 2 calcific densities are seen over the medial aspect of the left iliac crest around the L5 level which may represent bowel material with possibility of ureteral stone not excluded, clinically correlate. Previously seen left ureteral stent is no longer identified. No pelvic calcifications concerning for stone identified. RAD/Abdomen Single View IMPRESSION: Previously noted calcific densities in the area of the left renal shadow not clearly identified on the current study. 2 calcific densities are seen over the medial aspect of the left iliac crest around the L5 level which may represent bowel material with possibility of ureteral stone not excluded, clinically correlate. Previously seen left ureteral stent is no longer identified. Reading Location: [id number] CC: Dr. Flower Contreras MD; Dr. Nicolasa Harkins DO ~ Bending Roll Hand: Signed [facility] Evaluation note 02-29-2024 Note Date & Type Note Facility 02-29-2024 Evaluation note Diagnosis Onset Date Resolution Idiopathic pancreatitis acute J anuary 2024 1:37pm [facility] Work Phone: Note 05-19-2021 Telephone Encounter - Esa Esparza RN - 05/19/2021 4:44 PM EDTTelephone Encounter - Ashley Johnson - 05/19/2021 4:02 PM EDT Note Date & Type Note Facility 05-19-2021 Miscellaneous Notes Returned patient's call, the lymph node of concern is under her chin, it is not tender to touch. She does not note any other enlarged lymph nodes, I was able to tell her that her WBCs are elevated because her Neutrophil count is elevated but her Lymphocyte count is below normal. Dr. Corley notified of the above. Esa Esparza RN Petty Leon is calling Gustavo Corley MD today regarding [employer] - Other Patient has been identified by name and birthdate. Patient was hospitalized for pneumonia. She noticed when she got home, under her chin is swollen. That's where her cancer started before. She is a little worried and wondering if you could look at her bloodwork she just had done. Maybe she needs to be seen again? She would like to talk to you Requesting response back: call on cell [phone] (home) [phone] (work) [phone] (cell) Ashleycurtis Johnson May 19, 2021 documented in this encounter [facility] Clinical Note 05-06-2021 Note Date & Type Note Facility 05-06-2021 Note COVID 19 RESULT: SARS-CoV-2 (Agent of COVID-19) Not Detected by RT-PCR or equivalent method. This test has been authorized by FDA under an Emergency Use Authorization (EUA). INFLUENZA A PCR: Negative for Influenza A by RT-PCR INFLUENZA B PCR: Negative for Influenza B by RT-PCR RSV PCR: Negative for Respiratory Syncytial Virus (RSV) by PCR [facility] Comment on above: Performed By: #### 9 5941-1 #### [facility] CLIA [id number] [address] [place] [address] STATES OF [facility] History of Past illness Narrative 05-05-2021 Note Date & Type Note Facility 05-05-2021 History of Past i llness Narrative Problem Noted Date Resolved Date Nausea vomiting and diarrhea 05/05/2021 Yeast infection 2014 10/13/2014 Malnutrition of mild degree 07/02/201407/15 Esophagitis, acute 06/19/2014 10/13/2014 Overview: --resolving --con't routine mouth care Pancytopenia 06/17/2014 10/13/2014 Overview: Replace PRBCs and Platelets prn Dental abscess 05/15/2014 08/07/2017 Transaminitis 03/26/2014 10/13/2014 Overview: Elevated AST/ALT >200's, bilirubin WNL No history of excessive tylenol use No hepatotoxic medications identified May be secondary to chemotherapy (last treatment 03/21) Plan: - Will continue to monitor Neutropenic fever 03/25/2014 10/13/2014 Overview: Impression: - Last chemotherapy received 03/20 - Began to feel increased sinus congestion and pain, and cough since 03/21 - fever of 100.7 at home on 03/25 - ANC 0.21 on admission, HDS, Tmax 100 on admission - received zosyn x 1 in ED - CXR negative for consolidation in ED - UA negative for infection in ED - Source of infection likely sinusitis, denies mucositis, skin rashes, diarrhea, dysuria Plan - Continue zosyn - followup blood cultures, urine culture - monitor CBC, CMP Nausea 03/25/2014 08/07/2017 Overview: - Scopolamine patch - reglan, and zofran PRN Drug induced neutropenia(288.03) 06/28/2013 10/13/2014 Enlargement of lymph nodes 04/16/201310/13 Esophageal reflux 10/12/2005 03/25/2014 Allergic rhinitis, cause unspecified 08/07/2017 Overview: Allergic rhinitis 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 Engrafted. Protocol(s): 3422 1C Preparative regimen: BuCyVP Mobilization regimen: G + P Stem cell source: apheresis CD34 cell dose (x10e6/kg): 4.08 Date of transplant: 06/20/14 H/O seasonal allergies 8 Overview: --con't daily claritin + nasal saline prn CINV (chemotherapy-induced nausea and vomiting) 10/13/2014 Overview: --h/o motion sickness, does not tolerate ativan or compazine, gets NAGY with zofran but will tolerate if needed --con't anti-emetics, scop patch 06/14; phenergan, zofran, zyprexa zydis scheduled --dex 10mg x1 06/27 Constipation 08/07/2017 Overview: --continue senna-s --prn lactulose Diarrhea 10/13/2014 Overview: --c diff negative; imodium prn Febrile neutropenia 10/13/2014 Overview: --zosyn 06/23-07/01 --UA okay, CXR clear, UC dc'd --BC negative, final documented as of this encounter (statuses as of 05/19/2021) [facility] Evaluation note Note Date & Type Note Facility Evaluation note No assessment information availa ble [facility] Work Phone: Reason for referral (narrative) Note Date & Type Note Facility Reason for referral (narrative) No reason for referral information available [facility] Work Phone: Summary Purpose Family History No Family History Records Found Relationship Condition Age at Onset Recorded Date/T molly Unknown Family History?No pe rtinent history Unknown September 25, 2016 6:30pm Family History?No pe rtinent history Unknown September 25, 2016 6:30pm Relationship Condition Age at Onset Recorded Date/T molly mother Arthritis Unknown Hypertension Unknown Osteoporosis Unknown Autoimmune disease Unknown father Hypertension Unknown Cardiac disease Unknown Advance Directives No Advanced Directives Records FoundDocuments on File Type Date Recorded 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 No November 23, 2023 8:31am Chief Complaint and Reason for Visit Chief Complaint DYSPHAGIA 12MM Chief Complaint DYSPHAGIA 12MM SCREENING/OSTEO Chief Complaint Admit Date 3 M FU February 29, 2024 1 :37pm KUB- KIDNEY STONE June 19, 2024 2:20pm HEADACHES June 25, 2024 7:00a m Reason for Visit Admit Date Idiopathic pancreatitis February 28 1:37pm Additional Source Comments INFORMATION SOURCE (unrecogn ized section and content) DATE CREATED AUTHOR 05/07/2021 [facility] DATE CREATED AUTHOR AUTHOR'S ORGANIZ ATION 06/05/2024 [facility] DATE CREATED AUTHOR AUTHOR'S ORGANIZ ATION 07/20/2024 [facility] Source Comments (unrecognize d section and content) In the event this informatio n is protected by the Federal Confidentiality of Alcohol and Drug Abuse Patient Records regulations: The Federal rules restrict any use of the information to criminally investigate or prosecute any alcohol or drug abuse patient.[facility] Reason for Visit (unrecogniz ed section and content) Reason Comments [employer] - Other Care Teams (unrecognized sec tion and content) 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 Nicolasa Harkins DO Family Provider Active Dr. Nicolasa Harkins DO Primary Care Provider Active Team Status: Inactive Member Role Status Dates Dr. Nicolasa Harkins DO Primary Care Provider Active Dr. Jaswinder Yeung MD Attending Provider, Referring Provider Active Team Status: Inactive Member Role Status Dates Dr. Nicolasa Harkins DO Primary Care Provide r, Attending Provider, Referring Provider Active Team Status: Active Member Role Status Dates Dr. Nicolasa Harkins DO Primary Care Provide r, Attending Provider, Referring Provider Active Team Status: Inactive Member Role Status Dates Dr. Nicolasa Harkins DO Primary Care Provider, Attending P rovider Active Team Status: Active Member Role Status Dates Dr. Nicolasa Harkins DO Primary Care Provider Active Team Status: Inactive Member Role Status Dates RICO Barclay Referring Provider Active St art: February 29, 2024 End: February 29, 2024 Dr. Shen Dwyer DO Attending Provider Active Start: February 29, 2024 End: February 29, 2024 Dr. Nicolasa Harkins DO Primary Care Provider Active Start: February 29, 2024 End: February 29, 2024 Team Status: Inactive Member Role Status Dates Dr. Nicolasa Harkins DO Primary Care Provider Active Start: June 19, 2024 End: June 19, 2024 Dr. Flower Contreras MD Attending Provider Active Start: June 19, 2024 End: June 19, 2024 Dr. Flower Contreras MD Referring Provider Active Start: June 19, 2024 End: June 19, 2024 Team Status: Active Member Role Status Dates Dr. Nicolasa Harkins DO Primary Care Provider Active Start: June 25, 2024 Dr. Nicolasa Harkins DO Attending Provider Active St art: June 25, 2024 Dr. Nicolasa Harkins DO Referring Provider Active St art: June 25, 2024 Team Status: Inactive Member Role Status Dates Dr. Nicolasa Harkins DO Primary Care Provider Active Start: June 25, 2024 End: June 25, 2024 Dr. Nicolasa Harkins DO Attending Provider Active St art: June 25, 2024 End: June 25, 2024 Dr. Nicolasa Harkins DO Referring Provider Active St art: June 25, 2024 End: June 25, 2024 Goals (unrecognized section and content) Goals may be documented in a n alternate sectionGoals may be documented in an alternate sectionGoals may be documented in an alternate sectionGoals may be documented in an alternate sectionGoals may be documented in an alternate sectionGoals may be documented in an alternate sectionGoals may be documented in an alternate section FOR RECORDS PERTAINING TO PATIENTS WHO ARE OR HAVE BEEN ENROLLED IN A CHEMICAL DEPENDENCY/SUBSTANCEABUSE PROGRAM, SOME INFORMATION MAY BE OMITTED. This clinical summary was aggregated from multiple sources. Caution should be exercised in using it in the provision of clinical care. This summary normalizes information from multiple sources, and as a consequence, information in this document may materially change the coding, format and clinical context of patient data. In addition, data may be omitted in some cases. CLINICAL DECISIONS SHOULD BE BASED ON THE PRIMARY CLINICAL RECORDS. [facility]. provides no warranty or guarantee of the accuracy or completeness of information in this document.
== END | disposition home or self-care (01) ==
LOC: OPBD 07:06
PROVIDERS: PCP Family Medicine; Referring Provider Family Medicine; Visit Provider Family Medicine
DX: M81.0 Age-related osteoporosis without current pathological fracture (principal)
CPT/HCPCS: 77080

== ENCOUNTER → 2025-02-12 | Outpatient (CLI) | payer MEDICARE, OTHER, SELFPAY ==
--- NOTE | 2025-02-12 13:38 | BI_ITS ---
EXAM: SCRN MAMM (CAD)W/MANAS BILAT DATE: 02/12/2025 CLINICAL HISTORY: F, Age 74 y/o , SCREENING TECHNIQUE: Procedure Code: [id number] Modality: MG Procedure: SCRN MAMM (CAD)W/MANAS BILAT COMPARISON: Prior exam(s) were compared FINDINGS: TISSUE DENSITY: The breasts are heterogeneously dense, which may obscure small masses. Bilateral Breast Mammographic Findings: No significant masses, calcifications or other abnormalities are identified. BI/SCRN MAMM (CAD)W/MANAS BILAT IMPRESSION: No mammographic evidence of malignancy. OVERALL FINAL ASSESSMENT BI-RADS 1: NEGATIVE. RECOMMENDATION: Routine annual follow-up in 1 Year Additional Recommendation none A letter with findings and recommendations will be mailed to the patient. Reading Location: [id number]
--- OUTSIDE RECORDS SUMMARY | 2025-02-12 13:59 | XMS RPT_ITS | CCD ---
Author Organization [facility] Care Team Providers Care Tire Mold Tester Name Role Phone Malfernando DO, Nicolasa A Primary Care Provider [phone] Kale AMIN, Brynn Unavailable Barney VELÁSQUEZ, Gustavo Correa Unavailable Oma [place] () Unavailable Jocelyn AMIN, Rissa Unavailable MALYS, NICOLASA A Primary Care Unavailable MALYS, NICOLASA A Referring Unavailable MALYS, NICOLASA A Primary Care Unavailable Ishan FLOTATION TANK OPERATOR-C, Eliz Referring Provider Dr. Shen Dwyer DO Attending Provider Dr. Nicolasa Harkins DO Primary Care Provider [phone] Diane VELÁSQUEZ, Dr. Crenshaw Attending Provider Diane VELÁSQUEZ, Dr. Crenshaw Referring Provider [phone] Dr. Nicolasa Harkins DO Attending Provider Dr. Nicolasa Harkins DO Referring Provider Dr. Nicolasa Harkins DO Primary Care Provider [phone] Dr. Shen Dwyer DO Attending Provider Malys, Nicolasa Primary Care Unavailable Malys, Nicolasa Attending Unavailable Malys, Nicolasa Referring Unavailable Malys, Nicolasa Primary Care Unavailable Ishan, Eliz Attending Unavailable Ishan, Eliz Referring Unavailable Flower Contreras Referring Unavailable Malys, Nicolasa Primary Care Unavailable Flower Contreras Attending Unavailable Ishan, Eliz Primary Care Unavailable Ishan, Eliz Attending Unavailable Ishan, Eliz Referring Unavailable Flower Contreras Referring Unavailable Flower Contreras Attending Unavailable Ishan, Eliz Primary Care Unavailable WyneskiFlower Referring Unavailable Malys, Nicolasa Primary Care Unavailable Flower Contreras Attending Unavailable Malys, Nicolasa Primary Care Unavailable Friend, Shen Attending Unavailable Malys, Nicolasa Referring Unavailable Malys, Nicolasa Referring Unavailable Ishan, Eliz Primary Care Unavailable Friend, Shen Attending Unavailable Malys, Nicolasa Primary Care Unavailable Ishan, Elzi Referring Unavailable Friend, Shen Attending Unavailable Malys, Nicolasa Referring Unavailable Malys, Nicolasa Primary Care Unavailable Malys, Nicolasa Attending Unavailable Wyneski, Flower Referring Unavailable Wyneski, Flower Attending Unavailable Malys, Nicolasa Primary Care Unavailable Malys, Nicolasa Referring Unavailable Malys, Nicolasa Primary Care Unavailable Malys, Nicolasa Attending Unavailable Allergies Allergy Classification Reported Allergen(s) Allergy Type Date of Onset Reaction(s) Facility (2 sources) Cephalosporins (Antibiotic); Translations: [CEPHALOSPORINS] Drug Allergy 07-01-19 04 [facility] (11 sources) Erythromycin; Translations: [ERYTHROMYCIN] Drug Allergy 05-28-19 15 [facility] (2 sources) Latex; Translations: [LATEX] Drug Intolerance 08-11-[address] [facility] (11 sources) levoFLOXacin; Translations: [LEVOFLOXACIN] Drug Allergy 01-22-20 14 Other: See Comments [facility] Comment on above: RANJIT CONTRERAS'S OFFICE NURSE WHO ASKED PATIENT (11 sources) LORazepam; Translations: [LORAZEPAM] Drug Allergy 03-18-19 15 Other: See Comments [facility] (2 sources) Morphinan opioid; Translations: [OPIOIDS - MORPHINE ANALOGUES] Drug Intolerance 07-01-[address] [facility] (2 sources) Sulfonamides (Antibiotic); Translations: [SULFA (SULFONAMIDE ANTIBIOTICS)] Drug Allergy 07-01-19 04 [facility] (9 sources) Cefaclor Drug Allergy 04-20-19 20 [facility] (9 sources) Cephalosporins (Antibiotic) Allergy to substance 04-20-19 [facility] (9 sources) Sulfonamides (Antibiotic) Propensity to adverse reactions 04-20-19 Nausea [facility] (3 sources) PAIN MEDS Propensity to adverse reactions 04-20-19 Nausea [facility] (4 sources) Acetaminophen Drug Allergy 11-30-19 Other [facility] (4 sources) Codeine Drug Allergy 11-30-19 Other [facility] (4 sources) HYDROcodone Drug Allergy 11-30-19 Other [facility] (4 sources) Opioids - Morphine Analogues Propensity to adverse reactions 11-30-19 Nausea [facility] (1 source) Acetaminophen Drug Allergy 11-30-19 [facility] (1 source) Cefaclor Drug Allergy 11-30-19 [facility] (1 source) Cephalosporins (Antibiotic) Drug allergy (disorder) 11-30-19 [facility] (1 source) Codeine Drug Allergy 11-30-19 [facility] (1 source) Erythromycin Drug Allergy 11-30-19 [facility] (1 source) HYDROcodone Drug Allergy 11-30-19 [facility] (1 source) levoFLOXacin Drug Allergy 11-30-19 [facility] (1 source) LORazepam Drug Allergy 11-30-19 [facility] (1 source) Sulfonamides (Antibiotic) Drug allergy (disorder) 11-30-19 [facility] (1 source) Opioids - Morphine Analogues Drug allergy (disorder) 11-30-19 [facility] Medications Current Medications Medication Drug Class(es) Dates Sig (Normalized) Sig (Original) 200 actuat albuterol 0.09 mg/actuat dry powder inhaler (4 sources) beta2-Adrenergic Agonist Start: 11-23-2023 Albuterol Sulfate 90 mcg/actuation aerosol powdr breath activated Active 2 NMA INHALATION EVERY 6 HOURS NEEDED as needed for shortness of breath or wheezing November 23, 2023 12:00am ascorbic acid 1000 mg oral tablet (10 sources) Vitamin C Start: 04-20-2019 take 1 tablet by mouth once daily Ascorbic Acid (Vitamin C) 1,000 MG tablet Active 1000 mg PO DAILY April 20, 2019 1:00am vitamin ascorbic acid (V ITAMIN C ORAL) Take by mouth once daily. 0 Active Comment on above: Take by mouth once d aily. Beets preparation (4 sources) Start: 4 BEET POWDER Active 1 NMA PO DAILY November 23, 2023 12:00am cayenne extract (1 source) Start: 5 cayenne capsule Active PO August 27, 2024 12:00am Cranberry Fruit 1,000 mg capsule (4 sources) Start: 4 take 1 capsule by mouth once daily Cranberry Fruit 1,000 mg capsule Active 1000 mg PO DAILY November 23, 2023 12:00am administer with a meal estradiol 0.1 mg/ml vaginal cream (4 sources) Estrogen Start: 4 Estradiol 0.01 % (0.1 mg/gram) cream Active 1 NMA VAGINAL MOWEFR November 23, 2023 12:00am ibuprofen 600 mg oral tablet (4 sources) Nonsteroidal Anti-inflammatory Drug Start: 4 take 1 tablet by mouth every eight hours as needed for pain Ibuprofen 600 mg tablet Active 600 mg PO Q8H as needed for pain 20 0 November 30, 2023 12:00am L.Acidoph, Paracasei,B. Lactis (5 sources) Start: L.Acidoph, Paracasei,B. Lactis Active 1 EACH PO TWICE A DAY September 29, 2016 11:00pm Start: 09-30-2016 L.Acidoph, Par acasei,B. Lactis Active 1 EACH PO TWICE A DAY September 30, 2016 12:00am Lactobacillus acidophilus (4 sources) Start: 11-23-2023 Lactobacillus Acidophilus (Acidophilus) capsule Active 100 NMA PO DAILY November 23, 2023 12:00am linseed oil 1000 mg oral capsule (9 sources) Start: 09-30-2016 take 1 capsule by mouth once daily Flaxseed Oil 1,000 MG capsule Active 1000 mg PO DAILY September 30, 2016 12:00am supplem lysine 500 mg oral tablet (4 sources) Start: 11-23-2023 take 1 tablet by mouth once daily Lysine (L-Lysine) 500 mg tablet Active 500 mg PO DAILY November 23, 2023 12:00am Magnesium (4 sources) Start: 11-23-2023 take 4 tablets by mouth once daily Magnesium 100 mg tablet Active 400 mg PO DAILY November 23, 2023 12:00am metoprolol tartrate 50 mg oral tablet (5 sources) beta-Adrenergi c Kale Start: 07-09-2023 Metoprolol Tartrate (Lopressor) 50 mg tablet Active 25 mg PO TWICE A DAY July 09, 2023 12:00am bp Start: 05-07-2021 take 1 tablet by tish th every twelve hours metoprolol tartrate, short acting, (LOPRESSOR) 25 mg tablet Take 1 tablet by mouth every 12 hours. 0 05/07/2021 Active Comment on above: Take 1 tablet by tish th every 12 hours. omeprazole 40 mg delayed release oral capsule (9 sources) Proton Pump Inhibitor Start: 04-20-2019 take 1 capsule by mouth twice daily Omeprazole 40 MG capsule,delayed release(DR/EC) Active 40 mg PO TWICE A DAY April 20, 2019 1:00am GERD Start: 04-20-2019 take 40 mg by mouth once daily Omeprazole Active 40 MG PO DAILY April 20, 2019 1:00am oxybutynin chloride 5 mg oral tablet (9 sources) Cholinergic Muscarinic Antagonist Start: 09-25-2016 take 1 tablet by mouth at bedtime Oxybutynin Chloride 5 MG tablet Active 5 mg PO AT BEDTIME September 25, 2016 12:00am bladd potassium 99 mg extended release oral tablet (5 sources) Start: 11-23-2023 take 1 tablet by mouth once daily Potassium 99 mg tablet Active 99 mg PO DAILY November 23, 2023 12:00am potassium (POTAS JERIRCA ORAL) Take by mouth once daily. 0 Active Comment on above: Take by mouth once d aily. rizatriptan 10 mg disintegrating oral tablet (5 sources) Serotonin-1b and Serotonin-1d Receptor Agonist Start: take 1 tablet by mouth every two hours as needed for headache Rizatriptan 10 mg tablet,disintegrati ng Active 10 mg PO EVERY 2 HOURS NEEDED as needed for migraine headache November 23, 2023 12:00am Start: 03-08-2016 take 1 tablet by tish th every two hours as needed rizatriptan (MAXALT LOT ATTENDANT) 10 mg disintegrating tablet Take 1 tablet by mouth as needed. May repeat in 2 hours if needed 30 tablet 2 03/08/2016 Active Comment on above: Take 1 tablet by tish th as needed. May repeat in 2 hours if needed SUPER GREENS (4 sources) Start: 11-23-2023 SUPER GREENS Active 1 NMA PO DAILY November 23, 2023 12:00am ursodiol 300 mg oral capsule (4 sources) Bile Acid Start: 02-29-2024 take 1 [...] 1:00am vitamin b12 1 mg oral tablet (4 sources) Vitamin B12 Start: 11-23-2023 take 1 tablet by mouth once daily Cyanocobalamin (Vitamin B-12) (Vitamin B-12) 1,000 mcg tablet Active 1000 ug PO DAILY November 23, 2023 12:00am zinc gluconate 50 mg oral tablet (4 sources) Start: 11-23-2023 take 1 tablet by [...] Comment on above: Take 2 tablets by [facility] every 6 hours as needed for pain. cephalexin 500 mg oral capsule (8 sources) Cephalosporin Antibacterial Start: 11-30-2023 End: 02-29-2024 take 1 capsule by mouth twice daily Cephalexin 500 mg capsule Discontinued 500 mg PO TWICE A DAY 6 0 November 30, 2023 12:00am February 29, 2024 [...] on above: Take [address] [facility] twice daily before meals. fexofenadine hydrochloride 180 mg oral tablet (10 sources) Histamine-1 Receptor Antagonist Start: 020 End: [...] Take 60 mg by mouth once daily. Reg Solano B. Animaldoug 1 EACH capsule (4 sources) Start: 10-01-19 17 End: 07-09-19 24 take 1 capsule by mouth twice daily Reg Solano B .Animalis 1 EACH capsule Discontinued 1 NMA [...] BEFORE MEALS modafinil 200 mg oral tablet (10 sources) Sympathomimetic-li ke Agent Start: 05-08-19 22 take 0.5 tablet by mouth once daily at lunch PROVIGIL 200 mg tablet Take 0.5 tablets by mouth daily with lunch for 10 days. 0 05/07/2021 Active Start: 09-25-2016 take 1 tablet by [facility] once daily Modafinil 200 MG tablet Active 100 mg PO DAILY September 25, 2016 12:00am narcolepsy Comment on above: Take 0.5 tablets by mouth daily with lunch for 10 days. multivitamin tablet (1 source) take 1 tablet by mouth once daily multivitamin tablet Take 1 tablet by mouth once daily. 0 Active Comment on above: Take 1 tablet by tish once daily. ondansetron 8 mg oral tablet (19 sources) Serotonin-3 Receptor Antagonist Start: take 1 tablet by mouth every six [...] 8 HOURS NEEDED as needed for Nausea 10 April 20, 2019 1:00am July 09, 2023 12:16am Start: 10-04-2016 End: 07-09-2023 take 4-8 mg by mouth every eight hours as needed for nausea Ondansetron Hcl (Zofran) 4 MG tablet Discontinued 4 - 8 mg PO EVERY 8 HOURS NEEDED as needed for Nausea 30 0 October 04, 2016 6:47am July 09, 2023 12:16am Comment on above: Take 1 tablet by [facility] every 6 hours as needed for nausea/vomiting. phenazopyridine hydrochloride 200 mg oral tablet (4 sources) Start: 2023 End: 2024 take 1 tablet by mouth three times daily as needed for muscle spasms Phenazopyridine (Pyridium) 200 mg tablet Discontinued 200 mg PO 3 TIMES DAILY NEEDED as needed for Bladder Spasms 30 7 0 November 30, 2023 12:00am August 27, 2024 11:45am 72 hr scopolamine 0.0139 mg/hr transdermal system (1 source) Anticholinergic Start: 2021 scopolamine (TRANSDERM-SCOP) patch 1.5 mg/72 hr (1 mg over 3 days) Apply 1 Patch as directed every 72 hours. 1 Patch 0 05/09/2021 Active Comment on above: Apply 1 Patch as dir ected every 72 hours. 24 hr tolterodine tartrate 4 mg extended release oral capsule (1 source) Cholinergic Muscarinic Antagonist Start: 2014 take 1 capsule by mouth once daily tolterodine ER (DETROL LA) 4 mg 24 hr capsule Take 1 capsule by mouth once daily. 30 capsule 0 07/02/2014 Active Comment on above: Take 1 capsule by [facility] once daily. Vitamin B Complex 1 EACH capsule (4 sources) Start: 2019 End: 2023 Vitamin B Complex 1 EACH capsule Discontinued 1 NMA PO DAILY April 20, 2019 1:00am November 23, 2023 8:24am suppl Start: 04-20-2019 End: 11-23-2023 Vitamin B Complex 1 EACH cap annmarie Discontinued 1 NMA PO DAILY April 20, 2019 1:00am November 23, 2023 8:24am Zinc (1 source) Zinc 50 mg tab T tam 50 mg by mouth. 0 Active Comment on above: Take 50 mg by mouth. Problems Active Problems Problem Classification Problem Date Documented Date Episodic/Chronic Abdominal pain (9 sources) Left flank pain; Translations: [Unspecified abdominal pain] 04-21-2019 Episodic Calculus of urinary tract (14 sources) History of calculus of kidney; Translations: [Personal history of urinary calculi] Onset: 06-26-2024 04-21-2019 Episodic Disorders of lipid metabolism (2 sources) Hyperlipidemia, unspecified; Translations: [Hyperlipoproteinemia] Onset: 07-24-2023 Chronic Esophageal disorders (1 source) Gastroesophageal reflux disease; Translations: [Gastro-esophageal reflux disease without esophagitis] Onset: 06-20-2014 05-07-2021 Chronic Essential hypertension (6 sources) Hypertensive disorder; Translations: [Essential (primary) hypertension] Onset: 05-06-2021 02-08-2021 Chronic Fluid and electrolyte disorders (5 sources) Hypokalemia; Translations: [Hypokalemia] Onset: 07-23-2014 05-07-2021 Episodic Genitourinary symptoms and ill-defined conditions (1 source) Urge incontinence of urine; Translations: [Urge incontinence] Onset: 05-06-2021 05-07-2021 Chronic Headache; including migraine (5 sources) Migraine without aura; Translations: [Migraine without aura, not intractable, without status migrainosus] Onset: 04-19-2005 04-19-2005 Chronic Headache; including migraine (1 source) Chronic headache disorder; Translations: [Chronic headaches] 05-07-2021 Episodic Immunity disorders (1 source) Immunodeficiency disorder; Translations: [Immunodeficiency, unspecified] 02-08-2021 Chronic Menopausal disorders (2 sources) Atrophic vaginitis; Translations: [Postmenopausal atrophic vaginitis] Onset: 10-23-2006 10-23-2006 Chronic Non-Hodgkin`s lymphoma (14 sources) History of non-Hodgkins lymphoma; Translations: [Personal history of non-Hodgkin lymphomas] Onset: 04-30-2013 08-12-2020 Episodic Nutritional deficiencies (1 source) Vitamin D deficiency, unspecified; Translations: [Avitaminosis D] Onset: 06-04-2024 Chronic Osteoporosis (1 source) Age-related osteoporosis without current pathological fracture; Translations: [Age-related osteoporosis without current pathological fracture] Onset: 07-26-2024 Chronic Other aftercare (1 source) Encounter for [...] without cataplexy] Chronic Other nervous system disorders (5 sources) Narcolepsy; Translations: [Narcolepsy without cataplexy] 05-07-2021 Chronic Comment on above: ON MED Pancreatic disorders (not diabetes) (10 sources) Pancreatitis; Translations: [Idiopathic acute pancreatitis without necrosis or infection] 11-27-2023 Episodic Comment on above: 06/2023 Pneumonia (except that caused by tuberculosis or sexually transmitted disease) (2 sources) Infective pneumonia; Translations: [Pneumonia, unspecified organism] Onset: 05-05-2021 05-07-2021 Episodic Residual codes; unclassified (4 sources) H/O: 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/organ recipient; Translations: [Stem cells [...] Test Name Value Interpretation Reference Range Facility Gastroenterology Visit Repor ton 08-27-2024 Gastroenterology Visit Report [facility] [address] [place] [address] OFFICE VISIT Date of Service: 08/27/24 MR#: [id number] Acct: [id number] Name: PETTY LEON Rep #: [id number] : 1950 Provider: Shen Dwyer DO Age/Sex: 74/F Location: [facility] [place] Status: Signed Intake Vital Signs 11/30/23 14:11 Height 5 ft 7 in Intake Visit Reasons: 6 M FU Allergies acetaminophen (From Vicodin) Allergy (Intermediate, [...] mg tablet 100 mg PO DAILY narcolepsy 7 08/27/24 History oxybutynin chloride 5 mg tablet 5 mg PO QHS bladd 09/25/16 5 History flaxseed oil 1,000 mg capsule 1,000 mg PO DAILY supplem 09/30/16 08/27/24 History ascorbic acid (vitamin C) 1,000 mg 1,000 mg PO DAILY vitamin 08/27/24 History tablet omeprazole 40 mg capsule,delayed 40 mg PO BID GERD 04/20/19 5 History release metoprolol tartrate 50 mg tablet 25 mg PO BID bp 07/09/23 08/27/24 History (Lopressor) BEET POWDER 1 dose PO DAILY 11/23/23 08/27/24 History Lactobacillus acidophilus 100 mmu cells PO DAILY 11/23/23 History (Acidophilus capsule) SUPER GREENS 1 dose PO DAILY 11/23/23 08/27/24 History albuterol sulfate 90 mcg/actuation 2 inh inhalation Q6H PRN PRN 12/0608/27/24 History breath activated powder inhaler shortness of breath or wheezing cranberry fruit 1,000 mg capsule 1,000 mg PO DAILY 11/23/23 5 History cyanocobalamin (vitamin B-12) 1,000 mcg PO DAILY 11/23/23 History 1,000 mcg tablet (Vitamin B-12) estradiol 0.01% (0.1 mg/gram) 1 appful vaginal MOWEFR 11/23/23 0 08/27/24 History vaginal cream lysine 500 mg tablet (L-Lysine) 500 mg PO DAILY 11/23/23 08/27/24 History magnesium 100 mg tablet 400 mg PO DAILY 11/23/23 08/27/24 History potassium 99 mg tablet 99 mg PO DAILY 11/23/23 08/27/24 H istory rizatriptan 10 mg disintegrating 10 mg PO Q2H PRN PRN migraine 11/1308/27/24 History tablet headache zinc gluconate 50 mg tablet 50 mg PO DAILY 11/23/23 08/27/24 H istory ibuprofen 600 mg tablet 600 mg PO Q8H PRN pain #20 tabs 08/27/24 Rx ursodiol 300 mg capsule 300 mg PO BID 02/29/24 08/27/24 Hi story cayenne capsule PO 08/27/24 08/27/24 History Have you fallen in the past [...] HPI HPI Details: PETTY LEON, is a 74 F who presents to the office today for follow up. OV 1.16.25 pt reports that PCP started her on Ursodiol 300mg BID in early January and would like to discuss medication. Pt reports that she continues with Omeprazole 40mg BID; will occasionally still have breakthrough symptoms. Pt reports she has some difficulty swallowing, had a previous EGD with Dr Yeung and he did not find anything of concern. OV 7.15.25 pt reports that she is feeling well, omeprazole has been helpful for pt (more content not included)... Normal [facility] Bone density reportOrdered B y: Yonathan Verma on 07-24-2024 Study report Skeletal system DXA [facility] Imaging Services [address] [place] [address] Dexa Bone Density Study MR#: [id number] Acct: [id number] Name: PETTY LEON Rep #: [id number] : 1950 F 74 From: Obie Verma MD PCP: Dr. Nicolasa Harkins DO Status: [facility] CLI Study:Dexa Bone Density Study Date of Exam: 07/23/24 Exam# [id number] Ordering Dr: Stacy Harkins sa, DO PROCEDURE: DEXA BONE DENSITY STUDY 07/23/2024 REASON FOR EXAM: F, age 74 y/o . Postmenopausal. TECHNIQUE: DXA scan of sites with data reported below. [facility] COMPARISON: Prior mammogram dated July 13, 2022. FINDINGS: BMD and T-SCORES Lumbar spine: 0.770 g/cm2, T-score -3.0 Levels: L1 through L4 Change from prior: Improvement by 0.3%. Left femoral neck: 0.638 g/cm2, T-score -1.9 Femoral neck comparison data not recommended for monitoring change. Left total hip: 0.704 g/cm2, T-score -1.9 Change from prior: Improvement by 1%. Right femoral neck: 0.625 g/cm2, T-score -2.0 Femoral neck comparison data not recommended for monitoring change. Right total hip: 0.688 g/cm2, T-score -2.1 Change from prior: Loss of 3.3%. The World Health Organization has defined the following categories based on bonedensity: Normal bone density: T-score equal to or greater than -1.0 Osteopenia: T-score between -1.0 and -2.5 Osteoporosis: T-score equal to or less than -2.5 The patient does meet the pharmacological treatment recommendations for prevention of osteoporosis. BD/Dexa Bone Density Study IMPRESSION: OSTEOPOROSIS. Recommend follow-up as clinically warranted. Reading Location: [place] [address] CC: Dr. Nicolasa Harkins DO ~ Equipment Superintendent: Signed [facility] Dexa Bone Density Studyon Dexa Bone Density Study [facility] Imaging Services [address] [place] [id number] Dexa Bone Density Study MR#: [id number] Acct: [id number] Name: PETTY LEON Rep #: [id number] : 1950 F 74 From: Yonathan camara MD PCP: Dr. Nicolasa Harkins DO Status: REG CLI Study: Dexa Bone Density Study Date of Exam: 07/23/24 Exam# [id number] Ordering Dr: Nicolasa Harkins DO PROCEDURE: DEXA BONE DENSITY STUDY 07/23/2024 REASON FOR EXAM: F, age 74 y/o . Postmenopausal. TECHNIQUE: DXA scan of sites with data reported below. [facility]KS[facility] COMPARISON: Prior mammogram dated July 13, 2022. FINDINGS: BMD and T-SCORES Lumbar spine: 0.770 g/cm2, T-score -3.0 Levels: L1 through L4 Change from prior: Improvement by 0.3%. Left femoral neck: 0.638 g/cm2, T-score -1.9 Femoral neck comparison data not recommended for monitoring change. Left total hip: 0.704 g/cm2, T-score -1.9 Change from prior: Improvement by 1%. Right femoral neck: 0.625 g/cm2, T-score -2.0 Femoral neck comparison data not recommended for monitoring change. Right total hip: 0.688 g/cm2, T-score -2.1 Change from prior: Loss of 3.3%. The World Health Organization has defined the following categories based on bone density: Normal bone density: T-score equal to or greater than -1.0 Osteopenia: T-score between -1.0 and -2.5 Osteoporosis: T-score equal to or less than -2.5 The patient does meet the pharmacological treatment recommendations for prevention of osteoporosis. BD/Dexa Bone Density Study IMPRESSION: OSTEOPOROSIS. Recommend follow-up as clinically warranted. Reading Location: [place] [address] CC: Dr. Nicolasa Harkins DO Equipment Superintendent: Signed Normal [facility] Magnetic resonance imaging r eportOrdered By: Luis Rowe on 06-27-[address] [facility] Imaging Services [address] [place] [address] Brain W/WO Contrast MR#: [id number] Acct: [id number] Name: PETTY LEON Rep #: [id number] : 1950 F 73 From: Luan Rowe MD PCP: Dr. Nicolasa Harkins DO Status: REG CLI Study:Brain W/WO Contrast Date of Exam: 06/25/24 Exam# [id number] Ordering Dr: Stacy Harkins sa, DO EXAM: [...] ALEYDA CC: Dr. Nicolasa Harkins DO ~ Equipment Superintendent: Signed [facility] Brain W/WO Contraston 2024 Brain W/WO Contrast [facility] Imaging Services [address], [place] [address] Brain W/WO Contrast MR#: [id number] Acct: [id number] Name: PETTY LEON Rep #: [id number] : 1950 F 73 From: Luis Rowe MD PCP: Dr. Nicolasa Harkins DO Status: REG CLI Study: Brain W/WO Contrast Date of Exam: 06/25/24 Exam# [id number] Ordering Dr: Nicolasa Harkins DO EXAM: BRAIN [...] Negative MRI of the brain. [facility] CC: Dr. Nicolasa Harkins DO Equipment Superintendent: Signed Normal [facility] Abdomen Single Viewon 2024 Abdomen Single View [facility] Imaging Services [address] [place] [address] Abdomen Single View MR#: [id number] Acct: [id number] Name: PETTY LEON Rep #: [id number] : 1950 F 73 From: Gustavo Rogel MD PCP: Dr. Nicolasa Harkins DO Status: REG CLI Study: Abdomen Single View Date of Exam: 06/19/24 Exam# [id number] Ordering Dr: Flower Contreras MD PROCEDURE: ABDOMEN SINGLE VIEW 06/19/2024 REASON FOR EXAM: LEFT SIDED KIDNEY STONE TECHNIQUE: Single view abdomen. Two views to include the entire abdomen and pelvis COMPARISON: 12/20/2023 FINDINGS: The lung bases grossly appear clear. Ztptcxhn-[id number] appearing leftward thoracolumbar curvature, scoliosis again seen. [...] stent is no longer identified. Reading Location: [facility] CC: Dr. Flower Contreras MD; Dr. Nicolasa Harkins DO Equipment Superintendent: Signed Normal [facility] 25(OH)D3 [facility] 2024 25-hydroxyvitamin D3 [Mass/Vol] 51.7 ng/mL Normal 31.0-80.0 [facility] Comment on above: Order Comment: Speci men Type: BLOOD SPECIMEN Ordering Facility: [facility] Address: [address] [place] [address] [place] [address] Result Comment: Clas sification of 25 [place] Vitamin D status: Deficiency/Insufficiency: < or = 30 ng/ml. Sufficiency/Optimal Levels: 31-80 ng/mL Toxicity: > 100 ng/mL. Test performed by chemiluminescent immunoassay. Performed By: #### 1 989-3 #### [facility] CLIA [id number] [address] [place] [address] [place] CBC W Auto Differential pane l (Bld)on 06-04-2024 Basophils (Bld) [#/Vol] 10*3/uL Normal <0.11 [facility] Comment on above: Order Comment: Speci men Type: BLOOD SPECIMEN Ordering Facility: [facility] Address: [address] [place], [place] [address] [address] Performed By: #### 5 7021-8 #### [facility] CLIA [id number] [address] [place] [address] [place] Basophils/100 WBC (Bld) 0.6 % Normal [facility] Comment on above: Order Comment: Speci men Type: BLOOD SPECIMEN Ordering Facility: [facility] Address: [address] [place] [address] [place] [address] Performed By: #### 5 7021-8 #### [facility] CLIA [id number] [address] [place] [address] [place] Differential cell count method Nom (Bld) Auto Normal [facility] Comment on above: Order Comment: Speci men Type: BLOOD SPECIMEN Ordering Facility: [facility] Address: [address] [place] [address] [place] [address] Performed By: #### 5 7021-8 #### [facility] CLIA [id number] [address] [place] [address] [place] Eosinophils (Bld) [#/Vol] 0.11 10*3/uL Normal <0.46 [facility] Comment on above: Order Comment: Speci men Type: BLOOD SPECIMEN Ordering Facility: [facility] Address: [address] [place] [address] [place] [address] Performed By: #### 5 7021-8 #### [facility] CLIA [id number] [address] [place] [address] [place] Eosinophils/100 WBC (Bld) 3.1 % Normal [facility] Comment on above: Order Comment: Speci men Type: BLOOD SPECIMEN Ordering Facility: [facility] Address: [address] [place], [place] [address]Jose RIVERA A, [place] [address] Performed By: #### 5 7021-8 #### [facility] CLIA [id number] [address] [place] [address] [place] Erythrocyte distribution width (RBC) [Ratio] 12.7 % Normal 11.5-15.0 [facility] Comment on above: Order Comment: Speci men Type: BLOOD SPECIMEN Ordering Facility: [facility] Address: [address] [place] [address] [place] [address] Performed By: #### 5 7021-8 #### [facility] CLIA [id number] [address] [place] [address] [place] Hematocrit (Bld) [Volume fraction] 40.4 % Normal 36.0-46.0 [facility] Comment on above: Order Comment: Speci men Type: BLOOD SPECIMEN Ordering Facility: [facility] Address: [address] [place] [address] [place] [address] Performed By: #### 5 7021-8 #### [facility] CLIA [id number] [address] [place] [address] [place] Hemoglobin (Bld) [Mass/Vol] 13.8 g/dL Normal 11.5-15.5 [facility] Comment on above: Order Comment: Speci men Type: BLOOD SPECIMEN Ordering Facility: [facility] Address: [address] [place] [address] [place] [address] Performed By: #### 5 7021-8 #### [facility] CLIA [id number] [address] [place] [address] [place] Immature granulocytes (Bld) [#/Vol] 10*3/uL Normal <0.10 [facility] Comment on above: Order Comment: Speci men Type: BLOOD SPECIMEN Ordering Facility: [facility] Address: [address] [place] [address] [place] [address] Performed By: #### 5 7021-8 #### [facility] CLIA [id number] [address] [place] [address] [place] Immature granulocytes/100 WBC (Bld) 0.3 % Normal [facility] Comment on above: Order Comment: Speci men Type: BLOOD SPECIMEN Ordering Facility: [facility] Address: [address] [place] [address] Performed By: #### 5 7021-8 #### [facility] CLIA [id number] [address] [place] [address] [place] Lymphocytes (Bld) [#/Vol] 1.43 10*3/uL Normal 1.00-4.00 [facility] Comment on above: Order Comment: Speci men Type: BLOOD SPECIMEN Ordering Facility: [facility] Address: [address] [place] [address] Performed By: #### 5 7021-8 #### [facility] CLIA [id number] [address] [place] [address] [place] Lymphocytes/100 WBC (Bld) 40.6 % Normal [facility] Comment on above: Order Comment: Speci men Type: BLOOD SPECIMEN Ordering Facility: [facility] Address: [address] [place] [address] [place] [address] Performed By: #### 5 7021-8 #### [facility] CLIA [id number] [address] [place] [address] [place] MCH (RBC) [Entitic mass] 30.7 pg Normal 26.0-34.0 [facility] Comment on above: Order Comment: Speci men Type: BLOOD SPECIMEN Ordering Facility: [facility] Address: [address] [place] [address] [place] [address] Performed By: #### 5 7021-8 #### [facility] CLIA [id number] [address] [place] [address] [place] MCHC (RBC) [Mass/Vol] 34.2 g/dL Normal 30.5-36.0 [facility] Comment on above: Order Comment: Speci men Type: BLOOD SPECIMEN Ordering Facility: [facility] Address: [address] [place] [address] [place] [address] Performed By: #### 5 7021-8 #### [facility] CLIA [id number] [address] [place] [address] [place] MCV (RBC) [Entitic vol] 89.8 fL Normal 80.0-100.0 [facility] Comment on above: Order Comment: Speci men Type: BLOOD SPECIMEN Ordering Facility: [facility] Address: [address] [place] [address] [place] [address] Performed By: #### 5 7021-8 #### [facility] CLIA [id number] [address] [place] [address] [place] Monocytes (Bld) [#/Vol] 0.30 10*3/uL Normal <0.87 [facility] Comment on above: Order Comment: Speci men Type: BLOOD SPECIMEN Ordering Facility: [facility] Address: [address] [place], [place] [address] [address] Performed By: #### 5 7021-8 #### [facility] CLIA [id number] [address] [place] [address] [place] Monocytes/100 WBC (Bld) 8.5 % Normal [facility] Comment on above: Order Comment: Speci men Type: BLOOD SPECIMEN Ordering Facility: [facility] Address: [address] [place], [place] [address] [address] Performed By: #### 5 7021-8 #### [facility] CLIA [id number] [address] [place] [address] [place] Neutrophils (Bld) [#/Vol] 1.65 10*3/uL Normal 1.45-7.50 [facility] Comment on above: Order Comment: Speci men Type: BLOOD SPECIMEN Ordering Facility: [facility] Address: [address] [place] [address] RITCHIEJose RIVERA A, [place] [address] Performed By: #### 5 7021-8 #### [facility] CLIA [id number] [address] [place] [address] [place] Neutrophils/100 WBC (Bld) 46.9 % Normal [facility] Comment on above: Order Comment: Speci men Type: BLOOD SPECIMEN Ordering Facility: [facility] Address: [address] [place] [address] RITCHIEJose RIVERA A, [place] [address] Performed By: #### 5 7021-8 #### [facility] CLIA [id number] [address] [place] [address] [place] Nucleated RBC (Bld) [#/Vol] 10*3/uL Normal <0.01 [facility] Comment on above: Order Comment: Speci men Type: BLOOD SPECIMEN Ordering Facility: [facility] Address: [address] [place] [address] RITCHIEJose RIVERA A, [place] [address] Performed By: #### 5 7021-8 #### [facility] CLIA [id number] [address] [place] [address] [place] Nucleated RBC/100 WBC (Bld) [Ratio] 0.0 /100 WBC Normal [facility] Comment on above: Order Comment: Speci men Type: BLOOD SPECIMEN Ordering Facility: [facility] Address: [address] [place] [address] RITCHIEJose RIVERA A, [place] [address] Performed By: #### 5 7021-8 #### [facility] CLIA [id number] [address] [place] [address] [place] Platelet mean volume (Bld) [Entitic vol] 9.6 fL Normal 9.0-12.7 [facility] Comment on above: Order Comment: Speci men Type: BLOOD SPECIMEN Ordering Facility: [facility] Address: [address] [place] [address] [address] NICOLE A, [place] [address] Performed By: #### 5 7021-8 #### [facility] CLIA [id number] [address] [place] [address] [place] Platelets (Bld) [#/Vol] 177 10*3/uL Normal 150-400 [facility] Comment on above: Order Comment: Speci men Type: BLOOD SPECIMEN Ordering Facility: [facility] Address: [address] [place] [address] [employer] [address] Performed By: #### 5 7021-8 #### [facility] CLIA [id number] [address] [place] [address] [place] RBC (Bld) [#/Vol] 4.50 10*6/uL Normal 3.90-5.20 [facility] Comment on above: Order Comment: Speci men Type: BLOOD SPECIMEN Ordering Facility: [facility] Address: [address] [place], [place] [address] [address] Performed By: #### 5 7021-8 #### [facility] CLIA [id number] [address] [place] [address] [place] WBC (Bld) [#/Vol] 3.52 10*3/uL Low 3.70-11.00 [facility] Comment on above: Order Comment: Speci men Type: BLOOD SPECIMEN Ordering Facility: [facility] Address: [address] [place] [address] [place] [address] Performed By: #### 5 7021-8 #### [facility] CLIA [id number] [address] [place] [address] [place] Comprehensive metabolic 2000 panelon 06-04-2024 Albumin [Mass/Vol] 4.6 g/dL Normal 3.9-4.9 [facility] Comment on above: Order Comment: Speci men Type: BLOOD SPECIMEN Ordering Facility: [facility] Address: [address] [place] [address] [facility] [address] Performed By: #### 2 4323-8 #### [facility] CLIA [id number] [address] [place] [address] [place] ALP [Catalytic activity/Vol] 136 U/L High 34-123 [facility] Comment on above: Order Comment: Speci men Type: BLOOD SPECIMEN Ordering Facility: [facility] Address: [address] [place] [address] [place] [address] Performed By: #### 2 4323-8 #### [facility] CLIA [id number] [address] [place] [id number] [place] ALT [Catalytic activity/Vol] 19 U/L Normal 7-38 [facility] Comment on above: Order Comment: Speci men Type: BLOOD SPECIMEN Ordering Facility: [facility] Address: [address] [place] [address] [address]ITCHIEJose RIVERA A, [place] [address] Performed By: #### 2 4323-8 #### [facility] CLIA [id number] [address] [place] [address] [place] Anion gap [Moles/Vol] 14 mmol/L Normal 8-15 [facility] Comment on above: Order Comment: Speci men Type: BLOOD SPECIMEN Ordering Facility: [facility] Address: [address] [place] [address] CYNDI RIVERA A, [place] [address] Performed By: #### 2 4323-8 #### [facility] CLIA [id number] [address] [place] [address] [place] AST [Catalytic activity/Vol] 18 U/L Normal 13-35 [facility] Comment on above: Order Comment: Speci men Type: BLOOD SPECIMEN Ordering Facility: [facility] Address: [address] [place] [address] [address]Jose RIVERA A, [place] [address] Performed By: #### 2 4323-8 #### [facility] CLIA [id number] [address] [place] [id number] [place] Bilirubin [Mass/Vol] 0.3 mg/dL Normal 0.2-1.3 [facility] Comment on above: Order Comment: Speci men Type: BLOOD SPECIMEN Ordering Facility: [facility] Address: [address] [place] [address] [place] [address] Performed By: #### 2 4323-8 #### [facility] CLIA [id number] [address] [place] [address] [place] Calcium [Mass/Vol] 9.4 mg/dL Normal 8.5-10.2 [facility] Comment on above: Order Comment: Speci men Type: BLOOD SPECIMEN Ordering Facility: [facility] Address: [address] [place] [address] [place] [address] Performed By: #### 2 4323-8 #### [facility] CLIA [id number] [address] [place] [address] [place] Chloride [Moles/Vol] 104 mmol/L Normal 98-107 [facility] Comment on above: Order Comment: Speci men Type: BLOOD SPECIMEN Ordering Facility: [facility] Address: [address] [place] [address] [place] [address] Performed By: #### 2 4323-8 #### [facility] CLIA [id number] [address] [place] [address] [place] CO2 [Moles/Vol] 23 mmol/L Normal 22-30 [facility] Comment on above: Order Comment: Speci men Type: BLOOD SPECIMEN Ordering Facility: [facility] Address: [address] [place] [address] [place] [address] Performed By: #### 2 4323-8 #### [facility] CLIA [id number] [address] [place] [address] [place] Creatinine [Mass/Vol] 0.63 mg/dL Normal 0.58-0.96 [facility] Comment on above: Order Comment: Speci men Type: BLOOD SPECIMEN Ordering Facility: [facility] Address: [address] [place], [place] [address] [address] Performed By: #### 2 4323-8 #### [facility] IA [id number] [address] [place] [address] [place] Creatinine and Glomerular filtration rate.predicted panel (S/P/Bld) 93 mL/min/1.73m??? Normal >=60 [facility] Comment on above: Order Comment: Frances li Type: BLOOD SPECIMEN Ordering Facility: [facility] Address: [address] [place], [place] [address] [address] Result Comment: Nathaly mated Glomerular Filtration Rate [...] GFR. Performed By: #### 2 4323-8 #### [facility] CLIA [id number] [facility] [place] [id number] [place] Glucose [Mass/Vol] 93 mg/dL Normal 74-99 [facility] Comment on above: Order Comment: Frances li Type: BLOOD SPECIMEN Ordering Facility: [facility] Address: [address] [place] [address] [place] [id number] Result Comment: The [place] Diabetes [employer] (ADA) provides guidance for cutoff [...] Standards of Medical Care in Diabetes 2016, [place] [employer]. Diabetes Care. 2016.39(Suppl 1). Performed By: #### 2 4323-8 #### [facility] CLIA [id number] [address] [address] [place] Potassium [Moles/Vol] 4.0 mmol/L Normal 3.7-5.1 [facility] Comment on above: Order Comment: Speci men Type: BLOOD SPECIMEN Ordering Facility: [facility] Address: [address] [place] [address] [place] [address] Performed By: #### 2 4323-8 #### [facility] CLIA [id number] [address] [address] [place] Protein [Mass/Vol] 6.7 g/dL Normal 6.3-8.0 [facility] Comment on above: Order Comment: Speci men Type: BLOOD SPECIMEN Ordering Facility: [facility] Address: [address] [place] [address] [place] [address] Performed By: #### 2 4323-8 #### [facility] CLIA [id number] [address] [address] [place] Sodium [Moles/Vol] 141 mmol/L Normal 136-144 [facility] Comment on above: Order Comment: Speci men Type: BLOOD SPECIMEN Ordering Facility: [facility] Address: [address] [place] [address] [place] [address] Performed By: #### 2 4323-8 #### [facility] CLIA [id number] [address] [address] [place] Urea nitrogen [Mass/Vol] 13 mg/dL Normal 7-21 [facility] Comment on above: Order Comment: Speci men Type: BLOOD SPECIMEN Ordering Facility: [facility] Address: [address] [place] [address] [facility] [place] [address] Performed By: #### 2 4323-8 #### [facility] CLIA [id number] [address] [address] [place] Lipid 1996 panelon 5 Cholesterol [Mass/Vol] 235 mg/dL High <200 [facility] Comment on above: Order Comment: Frances guillermo Type: BLOOD SPECIMEN Ordering Facility: [facility] Address: [address] [place] [address] [place] [address] Result Comment: <200 mg/dL, Desirable 200-239 mg/dL, Borderline high >239 mg/dL, High Performed By: #### 2 4331-1 #### [facility] CLIA [id number] [facility] [address] CLIA [id number] [address] [place] [address] Cholesterol in HDL [Mass/Vol] 59 mg/dL Normal >39 [facility] Comment on above: Order Comment: Frances guillermo Type: BLOOD SPECIMEN Ordering Facility: [facility] Address: [address] [place] [address] [place] [address] Result Comment: 40-5 9 mg/dL, Acceptable >59 mg/dL, High: Negative risk factor for coronary heart disease <40 mg/dL, Low: Positive risk factor for coronary heart disease Performed By: #### 2 4331-1 #### [facility] CLIA [id number] [address] [place], [place] [address]IA [id number] [address] [place] [address] [place] Cholesterol in LDL [Mass/Vol] 153 mg/dL High <100 [facility] Comment on above: Order Comment: Charmainecamden li Type: BLOOD SPECIMEN Ordering Facility: [facility] Address: [address] [place] [address] [place] [address] Result Comment: <100 mg/dL, Optimal 100-129 mg/dL, Near optimal/above optimal 130-159 mg/dL, Borderline high 160-189 mg/dL, High >189 mg/dL, Very high Secondary prevention optimal LDL Cholesterol levels are recommended to be <70 mg/dL LDL cholesterol is calculated using the López-NIH equation. Performed By: #### 2 4331-1 #### [facility] CLIA [id number] [address] [place] [address] [place] [facility] CLIA [id number] [address] [place] [address] [place] Cholesterol in LDL/Cholesterol in HDL [Mass ratio] 2.59 {ratio} High <2.54 [facility] Comment on above: Order Comment: Speci men Type: BLOOD SPECIMEN Ordering Facility: [facility] Address: [address] [place] [address] Result Comment: Sly huffman: 1. National Cholesterol Education Program ATP III Guideline At-A-Glance Quick Desk Reference: National Heart, Lung, and Blood [place]. National Institutes of Health. 2001: NIH Publication No. 01-3305. 2. An International Atherosclerosis Society position paper: global recommendations for the management of dyslipidemia: executive summary, Atherosclerosis. 2014: 232(2):410-413. Performed By: #### 2 4331-1 #### [facility] CLIA [id number] [address] [place] [address] [place] [facility] [id number] [address] [place] [address] [place] Cholesterol in VLDL [Mass/Vol] 24 mg/dL Normal <30 [facility] Comment on above: Order Comment: Charmainei men Type: BLOOD SPECIMEN Ordering Facility: [facility] Address: [address] [place] [address] [place] [address] Performed By: #### 2 4331-1 #### [facility] CLIA [id number] [address] [place] [address] [place] [facility] [id number] [address] [place] [address] [place] Cholesterol non HDL [Mass/Vol] 176 mg/dL High <130 [facility] Comment on above: Order Comment: Speci men Type: BLOOD SPECIMEN Ordering Facility: [facility] Address: [address] [place] [address] RITCHIEJose NICOLE A, [place] [address] Result Comment: <130 mg/dL, Optimal 130-159 mg/dL, Near optimal/above optimal 160-189 mg/dL, Borderline high 190-219 mg/dL, High >219 mg/dL, Very high Secondary prevention optimal non HDL Cholesterol levels are recommended to be <100 mg/dL Performed By: #### 2 4331-1 #### [facility] CLIA [id number] [address] [place] [address] [id number] [place] [address] [place] Cholesterol.total/Ch olesterol in HDL [Mass ratio] 3.98 {ratio} Normal <5.10 [facility] Comment on above: Order Comment: Charmainei men Type: BLOOD SPECIMEN Ordering Facility: [facility] Address: [address] [place] [address] [address] NICOLE A, [place] [address] Performed By: #### 2 4331-1 #### [facility] CLIA [id number] [address] [place] [address] [place] [facility] CLIA [id number] [address] [place] [address] [place] FASTING TIME 10 hrs Normal [facility] Comment on above: Order Comment: Speci men Type: BLOOD SPECIMEN Ordering Facility: [facility] Address: [address] [place] [address] [address] NICOLE A, [place] [address] Performed By: #### 2 4331-1 #### [facility] CLIA [id number] [address] [place] [address] [place] [facility] CLIA [id number] [address] [place] [address] [place] Triglyceride [Mass/Vol] 130 mg/dL Normal <150 [facility] Comment on above: Order Comment: Speci men Type: BLOOD SPECIMEN Ordering Facility: [facility] Address: [address] [place] [address] NICOLE Gas[place] [id number] Result Comment: <150 mg/dL, Normal 150-199 mg/dL, Borderline high 200-499 mg/dL, High >499 mg/dL, Very high Performed By: #### 2 4331-1 #### [facility] CLIA [id number] [address] [place] [address] [address] [facility] CLIA [id number] [address] [place] [id number] [place] [address] Gastroenterology Visit Repor ton 02-29-2024 Gastroenterology Visit Report [facility] Gastroenterology [address] [place] [address] OFFICE VISIT Date of Service: 02/29/24 MR#: [id number] Acct: [id number] Name: PETTY LEON Rep #: [id number] : 1950 Provider: Shen Dwyer DO Age/Sex: 73/F Location: [facility] Status: Signed Intake Vital Signs 07/09/23 16:48 [...] the office today for follow up. OV 02.29.24 pt reports that PCP started her on Ursodiol 300mg BID in early January and would like to discuss medication. Pt reports that she continues with Omeprazole 40mg BID; will occasionally still have breakthrough symptoms. Pt reports she has some difficulty swallowing, had a previous EGD with Dr Yeung and he did not find anything of co (more content not included)... Normal [facility] SCRN MAMM (CAD)W/MANAS BILATo n 01-26-2024 SCRN MAMM (CAD)W/[facility]NAS [facility] [address] [place] [address] SCRN MAMM (CAD)W/MANAS BILAT MR#: [id number] Acct: [id number] Name: PETTY LEON Rep #: [id number] : 1950 F 73 From: Yonathan camara MD PCP: Dr. Nicolasa Harkins DO Status: [facility] Study: SCRN MAMM (CAD)W/MANAS BILAT Date of Exam: 01/13 05/06 Exam# [id number] Ordering Dr: Nicolasa Harkins DO :[id number] MAMMOGRAPHY - BILATERAL SCREENING REASON FOR EXAM: [...] delay biopsy of a clinically suspicious abnormality. [id number] Electronically Signed: Yonathan Verma MD at 9:51 EST , CC: Dr. Nicolasa Harkins DO Equipment Superintendent: Signed Normal [facility] Abdomen Single Viewon 2023 Abdomen Single View [facility] Imaging Services [address] [place], [place] [address] Abdomen Single View MR#: [id number] Acct: [id number] Name: PETTY LEON Rep #: [id number] : 1950 F 73 From: Power Bowles MD PCP: Dr. Nicolasa Harkins DO Status: REG CLI Study: Abdomen Single View Date of Exam: 12/20/23 Exam# [id number] Ordering Dr: Flower Contreras MD :[id number] STUDY: X-RAY - ABDOMEN/PELVIS REASON FOR EXAM: [...] Flower Contreras MD; Dr. Nicolasa Harkins DO Equipment Superintendent: Signed Normal [facility] Discharge Instructionon 11-[address] [facility] Medical Records Department [address] [place] [address] Instructions for Home/Discharge Instructions 11/30/23 1216 MR#: [id number] Acct: [id number] Name: PETTY LEON Rep #: [id number] : 1950 73 From: Flower Contreras MD PCP: Dr. Nicolasa Harkins DO Status:REG [facility] Discharge Instructions Diet Discharge Diet: No restrictions [...] Primary Care Provider: Nicolasa Harkins Print Language: Lebanese Discharge Orders/Prescriptions Prescriptions: New cephalexin 500 mg [...] or wheezing) Referrals / Follow Up: Eliz Olmstead NP-C [Non-Staff] - Disposition Disposition (needs filled in before D/C Order can be placed): Home, Self Care 11/30/23 1221 Flower Contreras MD CC: Dr. Nicolasa Harkins DO Signed [facility] MR/POSTOP.[facility] 11-30-2023 MR/POSTOP.[facility] Medical Records Department [address] [place] [address] Anesthesia Postop Eval I 11/30/23 1238 MR#: [id number] Acct: [id number] Name: PETTY LEON Rep #: [id number] : 1950 73 From: Danyell Glynn CRNA PCP: Dr. Nicolasa Harkins DO Status:REG ARC Y Race: C Location: [place] [address] Anesthesia: Postop Eval I Current Vital Signs [...] completed: Yes 11/30/23 1239 Date Danyell Glynn CLOTH PRINTER Cosigner Signature: Date CC: Signed Normal [facility] MR/[id number] 11-30-2023 MR/POSTOPAN2 [facility] Medical Records Department [address] [facility] [place] [address] Anesthesia Postop Eval II 11/30/23 1334 MR#: [id number] Acct: [id number] Name: PETTY LEON Rep #: [id number] : 1950 73 From: Ulices Liu MD PCP: Dr. Nicolasa Harkins, DO Status:REG SDC Y Race: C Location: [place] [address] 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/23 12:39 CLOTH PRINTER.CALVINOBY Spontaneous unlabored Yes 11/30/23 12:39 CLOTH PRINTER.CALVINOBJose respirations Mental status Asleep 11/30/23 12:39 CLOTH PRINTER.CALVINOBY nausea No 11/30/23 12:39 CLOTH PRINTER.CALVINOBY Vomiting No 11/30/23 12:39 CLOTH PRINTER.SKOBY Anesthesia Postop Eval I: Fluid Summary Crystalloid volume administer 900 11/30/23 12:39 CLOTH PRINTER.SKOBY (ml) Colloids volume administered ( ml) Blood Product volume administered (ml) Total IV fluid infused 900 11/30/23 12:39 CLOTH PRINTER.SKOBY Anesthesia Postop Eval I: Summary Notes Anesthesia Complication No 11/30/23 12:39 CLOTH PRINTER.SKOBY Anesthesia Complication Comment: Post-operative progress note Anesthesia: Postop Eval II Evaluation Mental status: Awake Pain Level: 0 nausea: No Vomiting: No 11/30/231333 Date Ulices Liu MD Cosigner Signature: Date CC: Signed Normal [facility] Operative Reporton 4 Operative Report [facility] Medical Records Department [address] [place] [address] Operative Report 11/30/23 1221 MR#: [id number] Acct: [id number] Name: PETTY LEON Rep #: [id number] : 1950 73 From: Flower Contreras MD PCP: Dr. Nicolasa Harkins, Status:[facility] Location: [place] [address] Report of Operation Date of Procedure: 11/30/23 [...] intubated with a 0.035 Glidewire. A 4.5 Icelandic by 26 cm JJ stent was placed [...] MD; Dr. Nicolasa Harkins DO Signed Normal [facility] Gastroenterology Visit Repor ton 11-27-2023 Gastroenterology Visit Report [facility]enterology [address] [place] [address] OFFICE VISIT Date of Service: 11/27/23 MR#: [id number] Acct: [id number] Name: PETTY LEON Rep #: [id number] : 1950 Provider: Shen Dwyer DO Age/Sex: 73/F Location: [facility] Status: Signed Intake Vital Signs 07/09/23 16:48 [...] to the office today for follow up. [facility] 5.26.24-5..24- Acute Pancreatitis. Patient states she has not [...] and are soft. I saw her at [facility] with complaints of generalized abdominal pain and nausea and vomiting. This occurred several hours before she came to the emergency room. Labs obtained in the emergency room showed an elevated wh (more content not included)... Normal [facility] Basic Metabolic Profile (BMP )on 11-23-2023 BUN/CRE 12.4 RATIO Normal 12-02 [facility] Comment on above: Performed By: #### L 500.2500, L100.0500 #### [facility] [address], [address] CA,Total 9.9 mg/dL Normal 8.5-10.1 [facility] Comment on above: Performed By: #### L 500.2500, L100.0500 #### [facility] [address] [place], [address] Chloride [Moles/Vol] 105 mmol/L Normal 98-107 [facility] Comment on above: Performed By: #### L 500.2500, L100.0500 #### [facility] [address] [place], [address] CO2 [Moles/Vol] 26.0 mmol/L Normal 21.0-32.0 [facility] Comment on above: Performed By: #### L 500.2500, L100.0500 #### [facility] [address] [place], [address] Creatinine [Mass/Vol] 0.72 mg/dL Normal 0.55-1.02 [facility] Comment on above: Result Comment: The validity of the calculated GFR GFRAA in patients over 70 years has not been determined. Clinical correlation is essential. Performed By: #### L 500.2500, L100.0500 #### [facility] [address] [place], [address] EST GFR - AA 101 mL/min Normal >60 [facility] Comment on above: Result Comment: Afri can Syrian GFR Calc Performed By: #### L 500.2500, L100.0500 #### [facility] [address] [place], [address] GAP 7 Normal 5-15 [facility] Comment on above: Performed By: #### L 500.2500, L100.0500 #### [facility] [address] [place], [address] GFR/1.73 sq M.predicted among non-blacks MDRD (S/P/Bld) [Vol rate/Area] 83 mL/min/{1.73_m2} Normal >60 [facility] Comment on above: Result Comment: Non- GFR Calc Performed By: #### L 500.2500, L100.0500 #### [facility] [address] [place], [address] Glucose [Mass/Vol] 120 mg/dL High 74-106 [facility] Comment on above: Result Comment: Fast ing Glucose result from 100 to 125 mg/dL suggests IMPAIRED HOMEOSTASIS per A.D.A. criteria. Performed By: #### L 500.2500, L100.0500 #### [facility] [address] [place], [address] Potassium [Moles/Vol] 3.5 mmol/L Normal 3.5-5.1 [facility] Comment on above: Performed By: #### L 500.2500, L100.0500 #### [facility] [address] [place], [address] Sodium [Moles/Vol] 138 mmol/L Normal 136-145 [facility] Comment on above: Performed By: #### L 500.2500, L100.0500 #### [facility] [address] [place], [address] Urea nitrogen [Mass/Vol] 9 mg/dL Normal 7-18 [facility] Comment on above: Performed By: #### L 500.2500, L100.0500 #### [facility] [address] [place], [address] CBC-Complete Blood Cnt No Di ffon 11-23-2023 Erythrocyte distribution width (RBC) [Ratio] 12.8 % Normal 11.6-14.6 [facility] Comment on above: Performed By: #### L 500.2500, L100.0500 #### [facility] [address] [place], [address] Hematocrit (Bld) [Volume fraction] 43.5 % Normal 37-47 [facility] Comment on above: Performed By: #### L 500.2500, L100.0500 #### [facility] [address] [place], [address] Hemoglobin (Bld) [Mass/Vol] 14.2 g/dL Normal 12.0-15.0 [facility] Comment on above: Performed By: #### L 500.2500, L100.0500 #### [facility] [address] [place], [address] MCH (RBC) [Entitic mass] 30.0 pg Normal 27.0-32.0 [facility] Comment on above: Performed By: #### L 500.2500, L100.0500 #### [facility] [address] [place], [address] MCHC (RBC) [Mass/Vol] 32.6 g/dL Normal 32-36 [facility] Comment on above: Performed By: #### L 500.2500, L100.0500 #### [facility] [address] [place], [address] MCV (RBC) [Entitic vol] 92.0 fL Normal 81-99 [facility] Comment on above: Performed By: #### L 500.2500, L100.0500 #### [facility] [address] [place], [address] Platelet mean volume (Bld) [Entitic vol] 10.4 fL Normal 6.2-12.0 [facility] Comment on above: Performed By: #### L 500.2500, L100.0500 #### [facility] [address] [place], [address] Platelets (Bld) [#/Vol] 195 10*3/uL Normal 150-450 [facility] Comment on above: Performed By: #### L 500.2500, L100.0500 #### [facility] [address] [place], [address] RBC (Bld) [#/Vol] 4.73 10*6/uL Normal 4.2-5.4 [facility] Comment on above: Performed By: #### L 500.2500, L100.0500 #### [facility] [address] [place], [address] RDW SD 43.7 fl Normal 35.1-43.9 [facility] Comment on above: Performed By: #### L 500.2500, L100.0500 #### [facility] [address] [place], [address] WBC (Bld) [#/Vol] 5.2 10*3/uL Normal 4.4-11.0 [facility] Comment on above: Performed By: #### L 500.2500, L100.0500 #### [facility] [address], [address] Abdomen Single Viewon 2023 Abdomen Single View [facility] Imaging Services [address] [place] [address] Abdomen Single View MR#: [id number] Acct: [id number] Name: PETTY LEON Rep #: [id number] : 1950 F 73 From: Nitin Chung MD PCP: RICO Barclay Status: REG CLI Study: Abdomen Single View Date of Exam: 11/07/23 Exam# [id number] Ordering Dr: Flower Contreras MD :[id number] STUDY: X-RAY - ABDOMEN/PELVIS REASON FOR EXAM: [...] Signed: Nitin Chung MD at 15:00 EDT , CC: RICO Olmstead; Dr. Flower Contreras MD Equipment Superintendent: Signed Normal [facility] Urine Cultureon 10-20-2023 URC #2 Below infection l evel. Enterococcus faecalis [place] Count 80,000-100,000 Mixed Gram Pos Gram Neg Org [place] Count 1000-10,000 MIXC Mixed contaminants. Submit a new specimen if indicated. Enterococcus faecalis: REACTION Ampicillin Islt DEA <=2 S Ciprofloxacin Islt DEA <=0.5 S Gentamicin Synergy Susc Islt SYN-S S levoFLOXacin Islt DEA 1 S Linezolid Islt DEA 2 S Nitrofurantoin Islt DEA <=16 S Streptomycin High Pot Susc Islt SYN-S S Tetracycline Islt DEA >=16 R Vancomycin Islt DEA 1 S [facility] Comment on above: Performed By: #### M 100.2200 ####[facility] [address] [place], [place], [address] Urine Cultureon 10-05-2023 URC #1, 2 Below infectio n level. Presumptive E. coli [place] Count 1000-10,000 Mixed Gram Positive Organisms [place] Count 1000-10,000 MIXC Mixed contaminants. Submit a new specimen if indicated. [facility] Comment on above: Performed By: #### M 100.2200 ####[facility] [address] [place], [address] 25(OH)D3 [facility] 2023 25-hydroxyvitamin D3 [Mass/Vol] 79.3 ng/mL Normal 31.0-80.0 [facility] Comment on above: Order Comment: Speci men Type: BLOOD SPECIMEN Ordering Facility: [facility] Address: [address] [place] [address] [place] [address] Performed By: #### 1 989-3 #### [facility] CLIA [id number] [address] [place] [address] [place] CBC W Auto Differential pane l (Bld)on 07-24-2023 Basophils (Bld) [#/Vol] 0.03 10*3/uL Normal <0.11 [facility] Comment on above: Order Comment: Speci men Type: BLOOD SPECIMEN Ordering Facility: [facility] Address: [address] [place] [address] [place] [address] Performed By: #### 5 7021-8 #### [facility] CLIA [id number] [address] [place] [address] [place] Basophils/100 WBC (Bld) 0.8 % Normal [facility] Comment on above: Order Comment: Speci men Type: BLOOD SPECIMEN Ordering Facility: [facility] Address: [address] [place] [address] [place] [address] Performed By: #### 5 7021-8 #### [facility] CLIA [id number] [address] [place] [address] [place] Differential cell count method Nom (Bld) Auto Normal [facility] Comment on above: Order Comment: Speci men Type: BLOOD SPECIMEN Ordering Facility: [facility] Address: [address] [place] [address] [place] [address] Performed By: #### 5 7021-8 #### [facility] CLIA [id number] [address] [place] [address] [place] Eosinophils (Bld) [#/Vol] 0.11 10*3/uL Normal <0.46 [facility] Comment on above: Order Comment: Speci men Type: BLOOD SPECIMEN Ordering Facility: [facility] Address: [address] [place] [address] [place] [address] Performed By: #### 5 7021-8 #### [facility] CLIA [id number] [address] [place] [address] [place] Eosinophils/100 WBC (Bld) 2.8 % Normal [facility] Comment on above: Order Comment: Speci men Type: BLOOD SPECIMEN Ordering Facility: [facility] Address: [address] [place] [address] [place] [address] Performed By: #### 5 7021-8 #### [facility] CLIA [id number] [address] [place] [address] [place] Erythrocyte distribution width (RBC) [Ratio] 12.8 % Normal 11.5-15.0 [facility] Comment on above: Order Comment: Speci men Type: BLOOD SPECIMEN Ordering Facility: [facility] Address: [address] [place] [address] [place] [address] Performed By: #### 5 7021-8 #### [facility] CLIA [id number] [address] [place] [address] [place] Hematocrit (Bld) [Volume fraction] 41.7 % Normal 36.0-46.0 [facility] Comment on above: Order Comment: Speci men Type: BLOOD SPECIMEN Ordering Facility: [facility] Address: [address] [place] [address] [place] [address] Performed By: #### 5 7021-8 #### [facility] CLIA [id number] [address] [place] [address] [place] Hemoglobin (Bld) [Mass/Vol] 13.8 g/dL Normal 11.5-15.5 [facility] Comment on above: Order Comment: Speci men Type: BLOOD SPECIMEN Ordering Facility: [facility] Address: [address] [place] [address] [place] [address] Performed By: #### 5 7021-8 #### [facility] CLIA [id number] [address] [place] [address] [place] Immature granulocytes (Bld) [#/Vol] 10*3/uL Normal <0.10 [facility] Comment on above: Order Comment: Speci men Type: BLOOD SPECIMEN Ordering Facility: [facility] Address: [address] [place] [address] [place] [address] Performed By: #### 5 7021-8 #### [facility] CLIA [id number] [address] [place] [address] [place] Immature granulocytes/100 WBC (Bld) 0.3 % Normal [facility] Comment on above: Order Comment: Speci men Type: BLOOD SPECIMEN Ordering Facility: [facility] Address: [address] [place] [address] [place] [address] Performed By: #### 5 7021-8 #### [facility] CLIA [id number] [address] [place] [address] [place] Lymphocytes (Bld) [#/Vol] 1.51 10*3/uL Normal 1.00-4.00 [facility] Comment on above: Order Comment: Speci men Type: BLOOD SPECIMEN Ordering Facility: [facility] Address: [address] [place] [address] [place] [address] Performed By: #### 5 7021-8 #### [facility] CLIA [id number] [address] [place] [address] [place] Lymphocytes/100 WBC (Bld) 38.8 % Normal [facility] Comment on above: Order Comment: Speci men Type: BLOOD SPECIMEN Ordering Facility: [facility] Address: [address] [place] [address] [place] [address] Performed By: #### 5 7021-8 #### [facility] CLIA [id number] [address] [place] [address] [place] MCH (RBC) [Entitic mass] 30.2 pg Normal 26.0-34.0 [facility] Comment on above: Order Comment: Speci men Type: BLOOD SPECIMEN Ordering Facility: [facility] Address: [address] [place] [address] [place] [address] Performed By: #### 5 7021-8 #### [facility] CLIA [id number] [address] [place] [address] [place] MCHC (RBC) [Mass/Vol] 33.1 g/dL Normal 30.5-36.0 [facility] Comment on above: Order Comment: Speci men Type: BLOOD SPECIMEN Ordering Facility: [facility] Address: [address] [place] [address] [place] [address] Performed By: #### 5 7021-8 #### [facility] [id number] [address] [place] [address] [place] MCV (RBC) [Entitic vol] 91.2 fL Normal 80.0-100.0 [facility] Comment on above: Order Comment: Speci men Type: BLOOD SPECIMEN Ordering Facility: [facility] Address: [address] [place] [address] [place] [address] Performed By: #### 5 7021-8 #### [facility] CLIA [id number] [address] [place] [address] [place] Monocytes (Bld) [#/Vol] 0.28 10*3/uL Normal <0.87 [facility] Comment on above: Order Comment: Speci men Type: BLOOD SPECIMEN Ordering Facility: [facility] Address: [address] [place] [address] [place] [address] Performed By: #### 5 7021-8 #### [facility] CLIA [id number] [address] [place] [address] [place] Monocytes/100 WBC (Bld) 7.2 % Normal [facility] Comment on above: Order Comment: Speci men Type: BLOOD SPECIMEN Ordering Facility: [facility] Address: [address] [place] [address] Performed By: #### 5 7021-8 #### [facility] CLIA [id number] [address] [place] [address] [place] Neutrophils (Bld) [#/Vol] 1.95 10*3/uL Normal 1.45-7.50 [facility] Comment on above: Order Comment: Speci men Type: BLOOD SPECIMEN Ordering Facility: [facility] Address: [address] [place] [address] Performed By: #### 5 7021-8 #### [facility] CLIA [id number] [address] [place] [address] [place] Neutrophils/100 WBC (Bld) 50.1 % Normal [facility] Comment on above: Order Comment: Speci men Type: BLOOD SPECIMEN Ordering Facility: [facility] Address: [address] [place] [address] Performed By: #### 5 7021-8 #### [facility] CLIA [id number] [address] [place] [address] [place] Nucleated RBC (Bld) [#/Vol] 10*3/uL Normal <0.01 [facility] Comment on above: Order Comment: Speci men Type: BLOOD SPECIMEN Ordering Facility: [facility] Address: [address] [place] [address] [place] [address] Performed By: #### 5 7021-8 #### [facility] CLIA [id number] [address] [place] [address] [place] Nucleated RBC/100 WBC (Bld) [Ratio] 0.0 /100 WBC Normal [facility] Comment on above: Order Comment: Speci men Type: BLOOD SPECIMEN Ordering Facility: [facility] Address: [address] [place] [address] [place] [address] Performed By: #### 5 7021-8 #### [facility] CLIA [id number] [address] [place] [address] [place] Platelet mean volume (Bld) [Entitic vol] 10.1 fL Normal 9.0-12.7 [facility] Comment on above: Order Comment: Speci men Type: BLOOD SPECIMEN Ordering Facility: [facility] Address: [address] [place] [address] [place] [address] Performed By: #### 5 7021-8 #### [facility] CLIA [id number] [address] [place] [address] [place] Platelets (Bld) [#/Vol] 221 10*3/uL Normal 150-400 [facility] Comment on above: Order Comment: Speci men Type: BLOOD SPECIMEN Ordering Facility: [facility] Address: [address] [place] [address] [place] [address] Performed By: #### 5 7021-8 #### [facility] CLIA [id number] [address] [place] [address] [place] RBC (Bld) [#/Vol] 4.57 10*6/uL Normal 3.90-5.20 [facility] Comment on above: Order Comment: Speci men Type: BLOOD SPECIMEN Ordering Facility: [facility] Address: [address] [place] [address] [place] [address] Performed By: #### 5 7021-8 #### [facility] CLIA [id number] [address] [place] [address] [place] WBC (Bld) [#/Vol] 3.89 10*3/uL Normal 3.70-11.00 [facility] Comment on above: Order Comment: Speci men Type: BLOOD SPECIMEN Ordering Facility: [facility] Address: [address] [place] [address] [address] [place], [place] [address] Performed By: #### 5 7021-8 #### [facility] CLIA [id number] [address] [place] [address] [place] Comprehensive metabolic 2000 panelon 07-24-2023 Albumin [Mass/Vol] 4.5 g/dL Normal 3.9-4.9 [facility] Comment on above: Order Comment: Speci men Type: BLOOD SPECIMEN [facility] [facility] Address: [address] [place] [address] CYNDI RIVERA A, [place] [address] Performed By: #### 2 4323-8 #### [facility] CLIA [id number] [address] [place] [address] [place] ALP [Catalytic activity/Vol] 120 U/L Normal 34-123 [facility] Comment on above: Order Comment: Speci men Type: BLOOD SPECIMEN Ordering Facility: [facility] Address: [address] [place] [address] CYNDI RIVERA A, [place] [address] Performed By: #### 2 4323-8 #### [facility] [id number] [address] [place] [address] [place] ALT [Catalytic activity/Vol] 14 U/L Normal 7-38 [facility] Comment on above: Order Comment: Speci men Type: BLOOD SPECIMEN Ordering Facility: [facility] Address: [address] [place] [address] MORAY NICOLE A, [place] [address] Performed By: #### 2 4323-8 #### [facility] CLIA [id number] [address] [place] [address] [place] Anion gap [Moles/Vol] 14 mmol/L Normal 8-15 [facility] Comment on above: Order Comment: Speci men Type: BLOOD SPECIMEN Ordering Facility: [facility] Address: [address] [place] [address] MORAY [place]ICOLE A, [place] [address] Performed By: #### 2 4323-8 #### [facility] CLIA [id number] [address] [place] [address] [place] AST [Catalytic activity/Vol] 13 U/L Normal 13-35 [facility] Comment on above: Order Comment: Speci men Type: BLOOD SPECIMEN Ordering Facility: [facility] Address: [address] [place], [place] [address]Jose RIVERA A, [place] [address] Performed By: #### 2 4323-8 #### [facility] CLIA [id number] [address] [place] [address] [place] Bilirubin [Mass/Vol] 0.4 mg/dL Normal 0.2-1.3 [facility] Comment on above: Order Comment: Speci men Type: BLOOD SPECIMEN Ordering Facility: [facility] Address: [address] [place], [place] [address]Jose RIVERA A, [place] [address] Performed By: #### 2 4323-8 #### [facility] CLIA [id number] [address] [place] [address] [place] Calcium [Mass/Vol] 9.8 mg/dL Normal 8.5-10.2 [facility] Comment on above: Order Comment: Speci men Type: BLOOD SPECIMEN Ordering Facility: [facility] Address: [address] [place] [address] RITCHIEJose RIVERA A, [place] [address] Performed By: #### 2 4323-8 #### [facility] CLIA [id number] [address] [place] [address] [place] Chloride [Moles/Vol] 104 mmol/L Normal 98-107 [facility] Comment on above: Order Comment: Speci men Type: BLOOD SPECIMEN Ordering Facility: [facility] Address: [address] [place] [address] RITCHIEWY NICOLE A, [place] [address] Performed By: #### 2 4323-8 #### [facility] CLIA [id number] [address] [place] [address] [place] CO2 [Moles/Vol] 21 mmol/L Low 22-30 [facility] Comment on above: Order Comment: Frances li Type: BLOOD SPECIMEN Ordering Facility: [facility] Address: [address] [place] [address] Performed By: #### 2 4323-8 #### [facility] CLIA [id number] [address] [place] [address] [place] Creatinine [Mass/Vol] 0.61 mg/dL Normal 0.58-0.96 [facility] Comment on above: Order Comment: Frances li Type: BLOOD SPECIMEN Ordering Facility: [facility] Address: [address] [place] [address] Performed By: #### 2 4323-8 #### [facility] [id number] [address] [place] [address] [place] Creatinine and Glomerular filtration rate.predicted panel (S/P/Bld) 93 mL/min/1.73m??? Normal >=60 [facility] Comment on above: Order Comment: Frances li Type: BLOOD SPECIMEN Ordering Facility: [facility] Address: [address] [place] [address] Result Comment: Nathaly mated Glomerular Filtration Rate [...] GFR. Performed By: #### 2 4323-8 #### [facility] [id number] [address] [place] [address] [place] Glucose [Mass/Vol] 95 mg/dL Normal 74-99 [facility] Comment on above: Order Comment: Frances li Type: BLOOD SPECIMEN Ordering Facility: [facility] Address: [address] [place] [address] [place] [address] Result Comment: The [place] Diabetes Association (ADA) provides guidance for cutoff [...] Standards of Medical Care in Diabetes 2016, [place] [employer]. Diabetes Care. 2016.39(Suppl 1). Performed By: #### 2 4323-8 #### [facility] [id number] [address] [place] [address] [place] Potassium [Moles/Vol] 4.1 mmol/L Normal 3.7-5.1 [facility] Comment on above: Order Comment: Speci men Type: BLOOD SPECIMEN Ordering Facility: [facility] Address: [address] [place], [place] [address] [address] Performed By: #### 2 4323-8 #### [facility] [id number] [address] [place] [address] [place] Protein [Mass/Vol] 6.6 g/dL Normal 6.3-8.0 [facility] Comment on above: Order Comment: Speci men Type: BLOOD SPECIMEN Ordering Facility: [facility] Address: [address] [place], [place] [address] [address] Performed By: #### 2 4323-8 #### [facility] CLIA [id number] [address] [place] [address] [place] Sodium [Moles/Vol] 139 mmol/L Normal 136-144 [facility] Comment on above: Order Comment: Speci men Type: BLOOD SPECIMEN Ordering Facility: [facility] Address: [address] [place] [address] [place] [address] Performed By: #### 2 4323-8 #### [facility] CLIA [id number] [address] [place] [address] [place] Urea nitrogen [Mass/Vol] 14 mg/dL Normal 7-21 [facility] Comment on above: Order Comment: Speci men Type: BLOOD SPECIMEN Ordering Facility: [facility] Address: [address] [place] [address] [place] [address] Performed By: #### 2 4323-8 #### [facility] CLIA [id number] [address] [place] [address] [place] Lipid 1996 panelon 4 Cholesterol [Mass/Vol] 210 mg/dL High <200 [facility] Comment on above: Order Comment: Speci men Type: BLOOD SPECIMEN Ordering Facility: [facility] Address: [address] [place] [address] [place] [address] Result Comment: <200 mg/dL, Desirable 200-239 mg/dL, Borderline high >239 mg/dL, High Performed By: #### 2 4331-1 #### [facility] CLIA [id number] [address] [place] [address] [place] [facility] [id number] [address] [place] [address] [place] #### 2132-9 #### [facility] CLIA [id number] [address] [place] [address] [place] Cholesterol in HDL [Mass/Vol] 46 mg/dL Normal >39 [facility] Comment on above: Order Comment: Speci men Type: BLOOD SPECIMEN Ordering Facility: [facility] Address: [address] [place] [address] [place] [address] Result Comment: 40-5 9 mg/dL, Acceptable >59 mg/dL, High: Negative risk factor for coronary heart disease <40 mg/dL, Low: Positive risk factor for coronary heart disease Performed By: #### 2 4331-1 #### [facility] CLIA [id number] [address] [place] [address] [place] [facility] CLIA [id number] [address] [place] [address] [place] #### 2132-9 #### [facility] CLIA [id number] [address] [place] [address] [place] Cholesterol in LDL [Mass/Vol] 138 mg/dL High <100 [facility] Comment on above: Order Comment: Speci men Type: BLOOD SPECIMEN Ordering Facility: [facility] Address: [address] [place] [address] [place] [address] Result Comment: <100 mg/dL, Optimal 100-129 mg/dL, Near optimal/above optimal 130-159 mg/dL, Borderline high 160-189 mg/dL, High >189 mg/dL, Very high Secondary prevention optimal LDL Cholesterol levels are recommended to be < 70 mg/dL Performed By: #### 2 4331-1 #### [facility] CLIA [id number] [facility] [place] [address] [place] [facility] CLIA [id number] [address] [place] [address] [place] #### 2132-9 #### [facility] CLIA [id number] [facility] [place] [address] [place] Cholesterol in LDL/Cholesterol in HDL [Mass ratio] 3.00 {ratio} High <2.54 [facility] Comment on above: Order Comment: Speci men Type: BLOOD SPECIMEN Ordering Facility: [facility] Address: [address] [place] [address] [place] [address] Result Comment: Refe rence: 1. National Cholesterol Education Program ATP III Guideline At-A-Glance Quick Desk Reference: National Heart, Lung, and Blood [place]. National Institutes of Health. 2001: NIH Publication No. 01-3305. 2. An International Atherosclerosis Society position paper: global recommendations for the management of dyslipidemia: executive summary, Atherosclerosis. 2014: 232(2):410-413. Performed By: #### 2 4331-1 #### [facility] CLIA [id number] [address] [place] [address] [place] [facility] CLIA [id number] [address] [place] [address] [place] #### 2132-9 #### [facility] CLIA [id number] [address] [place] [address] [place] Cholesterol in VLDL [Mass/Vol] 26 mg/dL Normal <30 [facility] Comment on above: Order Comment: Speci men Type: BLOOD SPECIMEN Ordering Facility: [facility] Address: [address] [place] [address] [place] [address] Performed By: #### 2 4331-1 #### [facility] CLIA [id number] [address] [place] [address] [place] [facility] [id number] [address] [place] [address] [place] #### 2132-9 #### [facility] CLIA [id number] [address] [place] [address] [place] Cholesterol non HDL [Mass/Vol] 164 mg/dL High <130 [facility] Comment on above: Order Comment: Speci men Type: BLOOD SPECIMEN Ordering Facility: [facility] Address: [address] [place] [address] [place] [address] Result Comment: <130 mg/dL, Optimal 130-159 mg/dL, Near optimal/above optimal 160-189 mg/dL, Borderline high 190-219 mg/dL, High >219 mg/dL, Very high Secondary prevention optimal non HDL Cholesterol levels are recommended to be <100 mg/dL Performed By: #### 2 4331-1 #### [facility] CLIA [id number] [address] [place] [address] [place] [facility] CLIA [id number] [address] [place] [address] [place] #### 2132-9 #### [facility] CLIA [id number] [address] [place] [address] [place] Cholesterol.total/Ch olesterol in HDL [Mass ratio] 4.57 {ratio} Normal <5.10 [facility] Comment on above: Order Comment: Speci men Type: BLOOD SPECIMEN Ordering Facility: [facility] Address: [address] [place] [address] [place] [address] Performed By: #### 2 4331-1 #### [facility] CLIA [id number] [address] [place] [address] [place] [facility] CLIA [id number] [address] [place] [address] [place] #### 2132-9 #### [facility] CLIA [id number] [address] [place] [address] [place] FASTING TIME 12 hrs Normal [facility] Comment on above: Order Comment: Speci men Type: BLOOD SPECIMEN Ordering Facility: [facility] Address: [address] [place] [address] A, [place] [address] Performed By: #### 2 4331-1 #### [facility] CLIA [id number] [address] [place] [address] [place] [facility] CLIA [id number] [address] [place] [address] [place] #### 2132-9 #### [facility] CLIA [id number] [address] [place] [address] [place] Triglyceride [Mass/Vol] 130 mg/dL Normal <150 [facility] Comment on above: Order Comment: Speci men Type: BLOOD SPECIMEN Ordering Facility: [facility] Address: [address] [place] [address] Result Comment: <150 mg/dL, Normal 150-199 mg/dL, Borderline high 200-499 mg/dL, High >499 mg/dL, Very high Performed By: #### 2 4331-1 #### [facility] CLIA [id number] [address] [place] [address] [place] [facility] CLIA [id number] [address] [place] [address] [place] #### 2132-9 #### [facility] CLIA [id number] [facility] [place] [address] [place] Vit B12 [facility] 10-2 024 Cobalamin (Vitamin B12) [Mass/Vol] 1260 pg/mL High 232-1245 [facility] Comment on above: Order Comment: Speci men Type: BLOOD SPECIMEN Ordering Facility: [facility] Address: [address] [place] [address] Performed By: #### 2 4331-1 #### [facility] CLIA [id number] [address] [place] [address] [place] [facility] CLIA [id number] [address] [place] [address] [place] #### 2132-9 #### [facility] CLIA [id number] [address] [place] [address] [place] No Panel InformationOrdered By: Nicolasa Harkins on 06-06-2023 Vitamin D 25-Hydroxy 72.7 ng/mL [facility] Comment on above: Vitamin D 25(OH) Sta tus Range Deficiency <20 ng/mL (50nmol/L) Insufficiency 20 - 30 ng/mL (50 - 75 nmol/L) Sufficiency 30 - 100 ng/mL (75 - 250 nmol/L) Toxicity >100 ng/mL (>250 nmol/L) Absolute lymphocyte countOrd ered By: Nicolasa Harkins on 07-12-2022 Lymphocytes Auto (Unsp spec) [#/Vol] 1.21 10*3/uL 0.83-4.51 [facility] Basophil percentageOrdered B y: Nicolasa Harkins on 07-12-2022 Basophils/100 WBC (Bld) 0.3 % 0-1 [facility] Bilirubin [Mass/Vol] 0.40 mg/dL 0.20-1.00 [facility] Comment on above: For patients on eltr ombopag therapy, use of Dimension [place] TBIL is not recommended. Chloride [Moles/Vol] 109 mmol/L 98-107 [facility] Cholesterol [Mass/Vol] 188 mg/dL <200 [facility] Comment on above: <200 mg/dL Desirable 200-240 mg/dL Borderline >240 mg/dL High Risk Eosinophils/100 WBC (Bld) 2.8 % 0-5 [facility] Glucose [Mass/Vol] 93 mg/dL 74-106 [facility] Neutrophils (Bld) [#/Vol] 2.0 10*3/uL 2.0-7.7 [facility] Neutrophils/100 WBC (Bld) 55.1 % 47-70 [facility] Potassium [Moles/Vol] 3.7 mmol/L 3.5-5.1 [facility] Protein [Mass/Vol] 6.4 g/dL 6.4-8.2 [facility] Sodium [Moles/Vol] 143 mmol/L 136-145 [facility] Triglyceride [Mass/Vol] 87 mg/dL <199 [facility] Comment on above: The drugs N-Acetylcy steine and Metamizole may falsely depress this assay.Serum Triglycerides Reference Interval Normal <150 mg/dL Borderline high 150 - 199 mg/dL High 200 - 499 mg/dL Very High > or = 500 mg/dL WBC (Bld) [#/Vol] 3.6 10*3/uL 4.4-11.0 [facility] Blood erythrocytes count (nu mber/volume)Ordered By: Nicolasa Harkins on 07-12-2022 RBC (Bld) [#/Vol] 4.34 10*6/uL 4.2-5.4 [facility] Blood hemoglobin measurement (mass/volume)Ordered By: Nicolasa Harkins on 07-12-2022 Hemoglobin (Bld) [Mass/Vol] 13.0 g/dL 12.0-15.0 [facility] Blood lymphocytes/100 leukoc ytesOrdered By: Nicolasa Harkins on 07-12-2022 Lymphocytes/100 WBC (Bld) 33.9 % 19-41 [facility] Blood monocytes/100 leukocyt esOrdered By: Nicolasa Harkins on 07-12-2022 Monocytes/100 WBC (Bld) 7.3 % 0-10 [facility] Blood platelet mean volumeOr dered By: Nicolasa Harkins on 07-12-2022 Platelet mean volume (Bld) [Entitic vol] 9.7 fL 6.2-12.0 [facility] Determination of erythrocyte mean corpuscular volume (MCV)Ordered By: Nicolasa Harkins on 07-12-2022 MCV (RBC) [Entitic vol] 92.2 fL 81-99 [facility] Hematocrit Auto (Bld) [Volum e fraction]Ordered By: Nicolasa Harkins on 07-12-2022 Hematocrit (Bld) [Volume fraction] 40.0 % 37-47 [facility] - Chemistry and C hemistry - challengeOrdered By: Nicolasa Harkins on 07-12-2022 ALP [Catalytic activity/Vol] 183 U/L 45-117 [facility] ALT [Catalytic activity/Vol] 31 U/L 13-56 [facility] CO2 [Moles/Vol] 27.0 mmol/L 21.0-32.0 [facility] Cobalamin (Vitamin B12) [Mass/Vol] 1255 pg/mL 211-911 [facility] Globulin (S) [Mass/Vol] 2.8 g/dL 2.2-4.2 [facility] Urea nitrogen/Creatinine [Mass ratio] 20.6 mg/mg 10-20 [facility] - Hematology and Cell countsOrdered By: Nicolasa Harkins on 07-12-2022 Erythrocyte distribution width (RBC) [Entitic vol] 42.5 fL 35.1-43.9 [facility] Erythrocyte distribution width (RBC) [Ratio] 12.6 % 11.6-14.6 [facility] Immature granulocytes/100 WBC (Bld) 0.600 % 0.0-0.9 [facility] Comment on above: IG% - Immature Granu locytes (promyelocytes, myelocytes and metamyelocytes) > 1% indicates that a LEFT SHIFT is Present. MCH (RBC) [Entitic mass] 30.0 pg 27.0-32.0 [facility] Nucleated RBC/100 WBC (Bld) [Ratio] 0 % 0-5 [facility] MCHC Auto (RBC) [Mass/Vol]Or dered By: Nicolasa Harkins on 07-12-2022 MCHC (RBC) [Mass/Vol] 32.5 g/dL 32-36 [facility] No Panel InformationOrdered By: Nicolasa Harkins on 07-12-2022 Estimated GFR (MDRD) Amer 109 mL/min >60 [facility] Comment on above: GFR Calc Estimated GFR (MDRD) Non-Af Amer 90 mL/min >60 [facility] Comment on above: Non- GFR Calc Vitamin D 25-Hydroxy 106.3 ng/mL [facility] Comment on above: Vitamin D 25(OH) Sta [...] 07-12-2022 Platelets (Bld) [#/Vol] 201 10*3/uL 150-450 [facility] Serum or plasma albumin cinthya urement (mass/volume)Ordered By: Nicolasa Harkins on 07-12-2022 Albumin [Mass/Vol] 3.6 g/dL 3.2-5.0 [facility] Serum or plasma albumin/glob ulin mass ratioOrdered By: Nicolasa Harkins on 07-12-2022 Albumin/Globulin [Mass ratio] 1.3 {ratio} 0.9-2.4 [facility] Serum or plasma calcium cinthya urement (mass/volume)Ordered By: Nicolasa Harkins on 07-12-2022 Calcium [Mass/Vol] 8.9 mg/dL 8.5-10.1 [facility] Serum or plasma cholesterol in HDL measurement (mass/volume)Ordered By: Nicolasa Harkins on 07-12-2022 Cholesterol in HDL [Mass/Vol] 53 mg/dL >40 [facility] Comment on above: The drugs N-Acetylcy steine and Metamizole may falsely depress this assay. Reference Range HDL <40 mg/dL Low HDL Cholesterol HDL >or= 60 mg/dL High HDL Cholesterol Serum or plasma cholesterol in VLDL measurement (mass/volume)Ordered By: Nicolasa Harkins on 07-12-2022 Cholesterol in VLDL [Mass/Vol] 17 mg/dL 5-40 [facility] Serum or plasma creatinine m easurement (mass/volume)Ordered By: Nicolasa Harkins on 07-12-2022 Creatinine [Mass/Vol] 0.68 mg/dL 0.55-1.02 [facility] Comment on above: The validity of the calculated GFR & GFRAA in patients over 70 years has not been determined. Clinical correlation is essential. Serum or plasma low density lipoprotein (LDL) cholesterol measurement (mass/volume)Ordered By: Nicolasa Harkins on 07-12-2022 Cholesterol in LDL [Mass/Vol] 118 mg/dL 0-130 [facility] Serum or plasma urea nitroge n measurement (mass/volume)Ordered By: Nicolasa Harkins on 07-12-2022 Urea nitrogen [Mass/Vol] 14 mg/dL 7-18 [facility] Thin prep Papanicolaou smear with manual screeningOrdered By: Nicolasa Harkins on 07-12-2022 Thin prep Papanicolaou smear with manual screening 21 U/L 1537 [facility] Thin prep Papanicolaou smear with manual screening 7 - [facility] CBC panel Auto (Bld)on 05-07 Erythrocyte distribution width (RBC) [Ratio] 12.7 % Normal 11.5-15.0 [facility] Comment on above: Order Comment: Speci men Type: BLOOD SPECIMEN Ordering Facility: [facility] Address: [address] [place] [address] Performed By: #### 5 8410-2 #### [facility] CLIA [id number] [address] Hematocrit (Bld) [Volume fraction] 32.5 % Low 36.0-46.0 [facility] Comment on above: Order Comment: Speci men Type: BLOOD SPECIMEN Ordering Facility: [facility] Address: [address] [place] [address] Performed By: #### 5 8410-2 #### [facility] CLIA [id number] [address] [place] [address] STATES [place] [facility] Hemoglobin (Bld) [Mass/Vol] 11.0 g/dL Low 11.5-15.5 [facility] Comment on above: Order Comment: Speci men Type: BLOOD SPECIMEN Ordering Facility: [facility] Address: [address] [place] [address] Performed By: #### 5 8410-2 #### [facility] CLIA [id number] [address] [place] MCH (RBC) [Entitic mass] 30.7 pg Normal 26.0-34.0 [facility] Comment on above: Order Comment: Speci men Type: BLOOD SPECIMEN Ordering Facility: [facility] Address: [address] [place] [address] Performed By: #### 5 8410-2 #### [facility] CLIA [id number] [address] MCHC (RBC) [Mass/Vol] 33.8 g/dL Normal 30.5-36.0 [facility] Comment on above: Order Comment: Speci men Type: BLOOD SPECIMEN Ordering Facility: [facility] Address: [address] [place] [address] Performed By: #### 5 8410-2 #### [facility] CLIA [id number] [address] OF [place] MCV (RBC) [Entitic vol] 90.8 fL Normal 80.0-100.0 [facility] Comment on above: Order Comment: Speci men Type: BLOOD SPECIMEN Ordering Facility: [facility] Address: [address] [place] [address] Performed By: #### 5 8410-2 #### [facility] CLIA [id number] [address] [facility] Platelet mean volume (Bld) [Entitic vol] 9.4 fL Normal 9.0-12.7 [facility] Comment on above: Order Comment: Speci men Type: BLOOD SPECIMEN Ordering Facility: [facility] Address: [address] [place] [address] Performed By: #### 5 8410-2 #### [facility] CLIA [id number] [address] OF [place] Platelets (Bld) [#/Vol] 226 10*3/uL Normal 150-400 [facility] Comment on above: Order Comment: Speci men Type: BLOOD SPECIMEN Ordering Facility: [facility] Address: [address] [place] [address] Performed By: #### 5 8410-2 #### [facility] CLIA [id number] [address] [place] RBC (Bld) [#/Vol] 3.58 10*6/uL Low 3.90-5.20 [facility] Comment on above: Order Comment: Speci men Type: BLOOD SPECIMEN Ordering Facility: [facility] Address: [address] [place] [address] Performed By: #### 5 8410-2 #### [facility] CLIA [id number] [address] [place] [address] [facility] WBC (Bld) [#/Vol] 10.71 10*3/uL Normal 3.70-11.00 [facility] Comment on above: Order Comment: Speci men Type: BLOOD SPECIMEN Ordering Facility: [facility] Address: [address] [place] [address] Performed By: #### 5 8410-2 #### [facility] CLIA [id number] [address] [place] [address] [facility] Comprehensive metabolic 2000 panelon 05-07-2021 Albumin [Mass/Vol] 3.2 g/dL Low 3.9-4.9 [facility] Comment on above: Order Comment: Speci men Type: BLOOD SPECIMEN Ordering Facility: [facility] Address: [address] [place] [address] Performed By: #### 2 4323-8, #### [facility] CLIA [id number] [address] OF [facility] ALP [Catalytic activity/Vol] 289 U/L High 34-123 [facility] Comment on above: Order Comment: Speci men Type: BLOOD SPECIMEN Ordering Facility: [facility] Address: [address] [place] [address] Performed By: #### 2 4323-8, #### [facility] CLIA [id number] [address] [place] [address] [facility] ALT With P-5'-P [Catalytic activity/Vol] 38 U/L Normal 7-38 [facility] Comment on above: Order Comment: Speci men Type: BLOOD SPECIMEN Ordering Facility: [facility] Address: [address] [place] [address] Performed By: #### 2 4323-8, #### [facility] CLIA [id number] 225 [place] [address] [place] Anion gap [Moles/Vol] 13 mmol/L Normal 9-18 [facility] Comment on above: Order Comment: Speci men Type: BLOOD SPECIMEN Ordering Facility: [facility] Address: [address] [place] [address] Performed By: #### 2 4328, #### [facility] CLIA [id number] 225 [place] [address] [place] AST With P-5'-P [Catalytic activity/Vol] 38 U/L High 13-35 [facility] Comment on above: Order Comment: Speci men Type: BLOOD SPECIMEN Ordering Facility: [facility] Address: [address] [place] [address] Performed By: #### 2 4328, #### [facility] CLIA [id number] [address] [place] [address] [place] Bilirubin [Mass/Vol] 1.4 mg/dL High 0.2-1.3 [facility] Comment on above: Order Comment: Speci men Type: BLOOD SPECIMEN Ordering Facility: [facility] Address: [address] [place] [address] Performed By: #### 2 4328, #### [facility] CLIA [id number] [address] [place] [address] [place] Calcium [Mass/Vol] 9.2 mg/dL Normal 8.5-10.2 [facility] Comment on above: Order Comment: Speci men Type: BLOOD SPECIMEN Ordering Facility: [facility] Address: [address] [place] [address] Performed By: #### 2 4328, #### [facility] CLIA [id number] [address] [place] [address] [place] Chloride [Moles/Vol] 104 mmol/L Normal 97-105 [facility] Comment on above: Order Comment: Speci men Type: BLOOD SPECIMEN Ordering Facility: [facility] Address: [address] [place] [address] Performed By: #### 2 4328, #### [employer] [facility] CLIA [id number] [address] [place] [address] [place] CO2 [Moles/Vol] 20 mmol/L Low 22-30 [facility] Comment on above: Order Comment: Speci men Type: BLOOD SPECIMEN Ordering Facility: [facility] Address: [address] [place] [address] Performed By: #### 2 4322-09, #### [facility] CLIA [id number] [address] [place] [address] [facility] Creatinine [Mass/Vol] 0.52 mg/dL Low 0.58-0.96 [facility] Comment on above: Order Comment: Speci men Type: BLOOD SPECIMEN Ordering Facility: [facility] Address: [address] [place] [address] Performed By: #### 2 43238, #### [employer] [facility] CLIA [id number] [address] ESTIMATED GLOMERULAR FILTRATION RATE 99 mL/min/1.73m??? Normal >=60 [facility] Comment on above: Order Comment: Speci men Type: BLOOD SPECIMEN Ordering Facility: [facility] Address: [address] [place] [address] Result Comment: Nathaly mated Glomerular Filtration Rate [...] reflect actual GFR. Performed By: #### 2 4323-8, #### [facility] CLIA [id number] [address] [place] [address] [place] Glucose [Mass/Vol] 104 mg/dL High 74-99 [facility] Comment on above: Order Comment: Frances li Type: BLOOD SPECIMEN Ordering Facility: [facility] Address: [address] [place] [address] Result Comment: The [place] Diabetes [employer] (ADA) provides guidance for cutoff [...] Standards of Medical Care in Diabetes 2016, [place] [employer]. Diabetes Care. 2016.39(Suppl 1). Performed By: #### 2 4328, #### [employer] [facility] CLIA [id number] [address] [place] [address] [place] Potassium [Moles/Vol] 3.2 mmol/L Low 3.7-5.1 [facility] Comment on above: Order Comment: Frances li Type: BLOOD SPECIMEN Ordering Facility: [facility] Address: [address] [place], [place] [address] Performed By: #### 2 #### [facility] CLIA [id number] [address] [place] [address] [place] Protein [Mass/Vol] 6.1 g/dL Low 6.3-8.0 [facility] Comment on above: Order Comment: Frances li Type: BLOOD SPECIMEN Ordering Facility: [facility] Address: [address] [place] [address] Performed By: #### 2 43204-20, #### [facility] CLIA [id number] [address] [place] Sodium [Moles/Vol] 137 mmol/L Normal 136-144 [facility] Comment on above: Order Comment: Speci men Type: BLOOD SPECIMEN Ordering Facility: [facility] Address: [address] [place] [address] Performed By: #### 2 4323-8, 50618-4 #### [facility] CLIA [id number] [address] [place] [address] [place] [facility] Urea nitrogen [Mass/Vol] 10 mg/dL Normal 7-21 [facility] Comment on above: Order Comment: Speci men Type: BLOOD SPECIMEN Ordering Facility: [facility] Address: [address] [place] [address] Performed By: #### 2 4323-8, #### [facility] CLIA [id number] [address] [place] [id number] [facility] Magnesium SerPl-mCncon 05-07 Magnesium [Mass/Vol] 1.8 mg/dL Normal 1.7-2.3 [facility] Comment on above: Order Comment: Speci men Type: BLOOD SPECIMEN Ordering Facility: [facility] Address: [address] [place] [address] Performed By: #### 2 4323-8, #### [facility] CLIA [id number] [address] OF [facility] CBC panel Auto (Bld)on 05-06 Erythrocyte distribution width (RBC) [Ratio] 12.8 % Normal 11.5-15.0 [facility] Comment on above: Order Comment: Speci men Type: BLOOD SPECIMEN Ordering Facility: [facility] Address: [address] [place] [address] Performed By: #### 5 8410-2 #### [facility] CLIA [id number] [address] [place] [address] [facility] [place] Hematocrit (Bld) [Volume fraction] 33.4 % Low 36.0-46.0 [facility] Comment on above: Order Comment: Speci men Type: BLOOD SPECIMEN Ordering Facility: [facility] Address: [address] [place] [address] Performed By: #### 5 8410-2 #### [facility] CLIA [id number] [address] [place] [id number] [place] [address] OF [facility] Hemoglobin (Bld) [Mass/Vol] 11.3 g/dL Low 11.5-15.5 [facility] Comment on above: Order Comment: Speci men Type: BLOOD SPECIMEN Ordering Facility: [facility] Address: [address] [place] [address] Performed By: #### 5 8410-2 #### [facility] CLIA [id number] [address] [place] [address] [place] MCH (RBC) [Entitic mass] 31.0 pg Normal 26.0-34.0 [facility] Comment on above: Order Comment: Speci men Type: BLOOD SPECIMEN Ordering Facility: [facility] Address: [address] [place] [address] Performed By: #### 5 8410-2 #### [facility] CLIA [id number] [address] [place] [address] [place] MCHC (RBC) [Mass/Vol] 33.8 g/dL Normal 30.5-36.0 [facility] Comment on above: Order Comment: Speci men Type: BLOOD SPECIMEN Ordering Facility: [facility] Address: [address] [place] [address] Performed By: #### 5 8410-2 #### [facility] CLIA [id number] [address] [place] MCV (RBC) [Entitic vol] 91.8 fL Normal 80.0-100.0 [facility] Comment on above: Order Comment: Speci men Type: BLOOD SPECIMEN Ordering Facility: [facility] Address: [address] [place] [address] Performed By: #### 5 8410-2 #### [facility] CLIA [id number] [address] [place] [address] [place] Platelet mean volume (Bld) [Entitic vol] 9.2 fL Normal 9.0-12.7 [facility] Comment on above: Order Comment: Speci men Type: BLOOD SPECIMEN Ordering Facility: [facility] Address: [address] [place] [address] Performed By: #### 5 8410-2 #### [facility] CLIA [id number] [address] [place] [address] [place] Platelets (Bld) [#/Vol] 195 10*3/uL Normal 150-400 [facility] Comment on above: Order Comment: Speci men Type: BLOOD SPECIMEN Ordering Facility: [facility] Address: [address] [place] [address] Performed By: #### 5 8410-2 #### [facility] CLIA [id number] 225 [place] [address] [place] RBC (Bld) [#/Vol] 3.64 10*6/uL Low 3.90-5.20 [facility] Comment on above: Order Comment: Speci men Type: BLOOD SPECIMEN Ordering Facility: [facility] Address: [address] [place] [address] Performed By: #### 5 8410-2 #### [facility] CLIA [id number] [address] [place] [address] [place] WBC (Bld) [#/Vol] 12.63 10*3/uL High 3.70-11.00 [facility] Comment on above: Order Comment: Speci men Type: BLOOD SPECIMEN Ordering Facility: [facility] Address: [address] [place] [address] Performed By: #### 5 8410-2 #### [facility] CLIA [id number] [address] [place] [address] [facility] [place] Comprehensive metabolic 2000 panelon 05-06-2021 Albumin [Mass/Vol] 3.3 g/dL Low 3.9-4.9 [facility] Comment on above: Order Comment: Speci men Type: BLOOD SPECIMEN Ordering Facility: [facility] Address: [address] [place] [address] Performed By: #### 2 4323-8 #### [facility] CLIA [id number] [address] [place], [place] [address] [place] [address] [place] ALP [Catalytic activity/Vol] 231 U/L High 34-123 [facility] Comment on above: Order Comment: Speci men Type: BLOOD SPECIMEN Ordering Facility: [facility] Address: [address] [place] [address] Performed By: #### 2 4323-8 #### [facility] CLIA [id number] [address] [place], [place] [address] [place] [address] [place] ALT With P-5'-P [Catalytic activity/Vol] 28 U/L Normal 7-38 [facility] Comment on above: Order Comment: Speci men Type: BLOOD SPECIMEN Ordering Facility: [facility] Address: [address] [place] [address] Performed By: #### 2 4323-8 #### [facility] CLIA [id number] [address] [place] Anion gap [Moles/Vol] 17 mmol/L Normal 9-18 [facility] Comment on above: Order Comment: Speci men Type: BLOOD SPECIMEN Ordering Facility: [facility] Address: [address] [place] [address] Performed By: #### 2 4323-8 #### [facility] CLIA [id number] [address] [place], [place] [address] [place] [address] [place] AST With P-5'-P [Catalytic activity/Vol] 19 U/L Normal 13-35 [facility] Comment on above: Order Comment: Speci men Type: BLOOD SPECIMEN Ordering Facility: [facility] Address: [address] [place] [address] Performed By: #### 2 4323-8 #### [facility] CLIA [id number] 225 [place] [address] [place] Bilirubin [Mass/Vol] 1.4 mg/dL High 0.2-1.3 [facility] Comment on above: Order Comment: Speci men Type: BLOOD SPECIMEN Ordering Facility: [facility] Address: [address] [place] [address] Performed By: #### 2 4323-8 #### [facility] CLIA [id number] [address] [place] [address] [place] Calcium [Mass/Vol] 8.9 mg/dL Normal 8.5-10.2 [facility] Comment on above: Order Comment: Speci men Type: BLOOD SPECIMEN Ordering Facility: [facility] Address: [address] [place] [address] Performed By: #### 2 4323-8 #### [facility] CLIA [id number] 225 [place] [address] [place] Chloride [Moles/Vol] 102 mmol/L Normal 97-105 [facility] Comment on above: Order Comment: Speci men Type: BLOOD SPECIMEN Ordering Facility: [facility] Address: [address] [place] [address] Performed By: #### 2 4323-8 #### [facility] CLIA [id number] [address] [place] [address] [place] CO2 [Moles/Vol] 17 mmol/L Low 22-30 [facility] Comment on above: Order Comment: Speci men Type: BLOOD SPECIMEN Ordering Facility: [facility] Address: [address] [place] [address] Performed By: #### 2 4323-8 #### [facility] CLIA [id number] [address] [place] [address] [place] Creatinine [Mass/Vol] 0.54 mg/dL Low 0.58-0.96 [facility] Comment on above: Order Comment: Speci men Type: BLOOD SPECIMEN Ordering Facility: [facility] Address: [address] [place] [address] Performed By: #### 2 4323-8 #### [facility] CLIA [id number] [address] [place], [place] [address] [facility] [place] ESTIMATED GLOMERULAR FILTRATION RATE 98 mL/min/1.73m??? Normal >=60 [facility] Comment on above: Order Comment: Frances li Type: BLOOD SPECIMEN Ordering Facility: [facility] Address: [address] [place] [address] Result Comment: Nathaly mated Glomerular Filtration Rate [...] GFR. Performed By: #### 2 4323-8 #### [facility] CLIA [id number] [address] [place] [address] [place] Glucose [Mass/Vol] 99 mg/dL Normal 74-99 [facility] Comment on above: Order Comment: Frances li Type: BLOOD SPECIMEN Ordering Facility: [facility] Address: [address] [place] [address] Result Comment: The [place] Diabetes [employer] (ADA) provides guidance for cutoff [...] Standards of Medical Care in Diabetes 2016, [place] [employer]. Diabetes Care. 2016.39(Suppl 1). Performed By: #### 2 4323-8 #### [facility] CLIA [id number] 225 [place] [address] [place] Potassium [Moles/Vol] 2.9 mmol/L Low 3.7-5.1 [facility] Comment on above: Order Comment: Speci men Type: BLOOD SPECIMEN Ordering Facility: [facility] Address: [address] [place] [address] Performed By: #### 2 4323-8 #### [facility] CLIA [id number] [address] [place] [address] [place] Protein [Mass/Vol] 6.1 g/dL Low 6.3-8.0 [facility] Comment on above: Order Comment: Speci men Type: BLOOD SPECIMEN Ordering Facility: [facility] Address: [address] [place] [address] Performed By: #### 2 4323-8 #### [facility] CLIA [id number] [address] Sodium [Moles/Vol] 136 mmol/L Normal 136-144 [facility] Comment on above: Order Comment: Speci men Type: BLOOD SPECIMEN Ordering Facility: [facility] Address: [address] [place] [address] Performed By: #### 2 4323-8 #### [facility] CLIA [id number] [address] [place] Urea nitrogen [Mass/Vol] 12 mg/dL Normal 7-21 [facility] Comment on above: Order Comment: Speci men Type: BLOOD SPECIMEN Ordering Facility: [facility] Address: [address] [place] [address] Performed By: #### 2 4323-8 #### [facility] CLIA [id number] [address] [place] CBC W Auto Differential pane l (Bld)on 05-05-2021 Basophils (Bld) [#/Vol] 10*3/uL Normal <0.11 [facility] Comment on above: Order Comment: Speci men Type: BLOOD SPECIMEN Ordering Facility: [facility] Address: [address] [place] [address] Performed By: #### 5 7021-8 #### [facility] CLIA [id number] [address] [place] [address] [place] Basophils/100 WBC (Bld) 0.1 % Normal [facility] Comment on above: Order Comment: Speci men Type: BLOOD SPECIMEN Ordering Facility: [facility] Address: [address] [place] [address] Performed By: #### 5 7021-8 #### [facility] CLIA [id number] [address] [place] [address] [place] Differential cell count method Nom (Bld) Auto Normal [facility] Comment on above: Order Comment: Speci men Type: BLOOD SPECIMEN Ordering Facility: [facility] Address: [address] [place] [address] Performed By: #### 5 7021-8 #### [facility] CLIA [id number] [address] [place] [address] [place] Eosinophils (Bld) [#/Vol] 10*3/uL Normal <0.46 [facility] Comment on above: Order Comment: Speci men Type: BLOOD SPECIMEN Ordering Facility: [facility] Address: [address] [place] [address] Performed By: #### 5 7021-8 #### [facility] CLIA [id number] [address] [place] [address] [place] Eosinophils/100 WBC (Bld) 0.1 % Normal [facility] Comment on above: Order Comment: Speci men Type: BLOOD SPECIMEN Ordering Facility: [facility] Address: [address] [place] [address] Performed By: #### 5 7021-8 #### [facility] CLIA [id number] [address] [place] [address] [place] Erythrocyte distribution width (RBC) [Ratio] 12.7 % Normal 11.5-15.0 [facility] Comment on above: Order Comment: Speci men Type: BLOOD SPECIMEN Ordering Facility: [facility] Address: [address] [place] [address] Performed By: #### 5 7021-8 #### [facility] CLIA [id number] [address] [place] [address] [place] Hematocrit (Bld) [Volume fraction] 38.0 % Normal 36.0-46.0 [facility] Comment on above: Order Comment: Speci men Type: BLOOD SPECIMEN Ordering Facility: [facility] Address: [address] [place] [address] Performed By: #### 5 7021-8 #### [facility] CLIA [id number] [address] [place] [address] [place] Hemoglobin (Bld) [Mass/Vol] 12.8 g/dL Normal 11.5-15.5 [facility] Comment on above: Order Comment: Speci men Type: BLOOD SPECIMEN Ordering Facility: [facility] Address: [address] [place] [address] Performed By: #### 5 7021-8 #### [facility] CLIA [id number] [address] [place] [address] [place] Lymphocytes (Bld) [#/Vol] 0.73 10*3/uL Low 1.00-4.00 [facility] Comment on above: Order Comment: Speci men Type: BLOOD SPECIMEN Ordering Facility: [facility] Address: [address] [place] [address] Performed By: #### 5 7021-8 #### [facility] CLIA [id number] [address] [place] [id number] [place] Lymphocytes/100 WBC (Bld) 5.5 % Normal [facility] Comment on above: Order Comment: Speci men Type: BLOOD SPECIMEN Ordering Facility: [facility] Address: [address] [place] [address] Performed By: #### 5 7021-8 #### [facility] CLIA [id number] [address] MCH (RBC) [Entitic mass] 31.0 pg Normal 26.0-34.0 [facility] Comment on above: Order Comment: Speci men Type: BLOOD SPECIMEN Ordering Facility: [facility] Address: [address] [place] [address] Performed By: #### 5 7021-8 #### [facility] CLIA [id number] [address] [place] MCHC (RBC) [Mass/Vol] 33.7 g/dL Normal 30.5-36.0 [facility] Comment on above: Order Comment: Speci men Type: BLOOD SPECIMEN Ordering Facility: [facility] Address: [address] [place] [address] Performed By: #### 5 7021-8 #### [facility] CLIA [id number] [address] [place] [address] MCV (RBC) [Entitic vol] 92.0 fL Normal 80.0-100.0 [facility] Comment on above: Order Comment: Speci men Type: BLOOD SPECIMEN Ordering Facility: [facility] Address: [address] [place] [address] Performed By: #### 5 7021-8 #### [facility] CLIA [id number] [address] [place] [address] Monocytes (Bld) [#/Vol] 0.81 10*3/uL Normal <0.87 [facility] Comment on above: Order Comment: Speci men Type: BLOOD SPECIMEN Ordering Facility: [facility] Address: [address] [place] [address] Performed By: #### 5 7021-8 #### [facility] CLIA [id number] [address] Monocytes/100 WBC (Bld) 6.1 % Normal [facility] Comment on above: Order Comment: Speci men Type: BLOOD SPECIMEN Ordering Facility: [facility] Address: [address] [place], [place] [address] Performed By: #### 5 7021-8 #### [facility] CLIA [id number] [address] [place] [address] [place] Neutrophils (Bld) [#/Vol] 11.77 10*3/uL High 1.45-7.50 [facility] Comment on above: Order Comment: Speci men Type: BLOOD SPECIMEN Ordering Facility: [facility] Address: [address] [place], [place] [address] Performed By: #### 5 7021-8 #### [facility] CLIA [id number] [address] [place] [address] [place] Neutrophils/100 WBC (Bld) 88.2 % Normal [facility] Comment on above: Order Comment: Speci men Type: BLOOD SPECIMEN Ordering Facility: [facility] Address: [address] [place], [place] [address] Performed By: #### 5 7021-8 #### [facility] CLIA [id number] [address] [place] [address] [place] Platelet mean volume (Bld) [Entitic vol] 9.3 fL Normal 9.0-12.7 [facility] Comment on above: Order Comment: Speci men Type: BLOOD SPECIMEN Ordering Facility: [facility] Address: [address] [place], [place] [address] Performed By: #### 5 7021-8 #### [facility] CLIA [id number] [address] [place] [address] [place] Platelets (Bld) [#/Vol] 204 10*3/uL Normal 150-400 [facility] Comment on above: Order Comment: Speci men Type: BLOOD SPECIMEN Ordering Facility: [facility] Address: [address] [place], [place] [address] Performed By: #### 5 7021-8 #### [facility] CLIA [id number] [address] [place], [place] [id number] [place] [address] OF [facility] RBC (Bld) [#/Vol] 4.13 10*6/uL Normal 3.90-5.20 [facility] Comment on above: Order Comment: Speci men Type: BLOOD SPECIMEN Ordering Facility: [facility] Address: [address] [place] [address] Performed By: #### 5 7021-8 #### [facility] CLIA [id number] [address] WBC (Bld) [#/Vol] 13.33 10*3/uL High 3.70-11.00 [facility] Comment on above: Order Comment: Speci men Type: BLOOD SPECIMEN Ordering Facility: [facility] Address: [address] [place] [address] Performed By: #### 5 7021-8 #### [facility] CLIA [id number] [address] [place] [address] Comprehensive metabolic 2000 panelon 05-05-2021 Albumin [Mass/Vol] 3.8 g/dL Low 3.9-4.9 [facility] Comment on above: Order Comment: Speci men Type: BLOOD SPECIMEN Ordering Facility: [facility] Address: [address] [place] [address] Performed By: #### 2 4323-8 #### [facility] CLIA [id number] [address] ALP [Catalytic activity/Vol] 218 U/L High 34-123 [facility] Comment on above: Order Comment: Speci men Type: BLOOD SPECIMEN Ordering Facility: [facility] Address: [address] [place] [address] Performed By: #### 2 4323-8 #### [facility] [facility] CLIA [id number] [address] ALT With P-5'-P [Catalytic activity/Vol] 32 U/L Normal 7-38 [facility] Comment on above: Order Comment: Speci men Type: BLOOD SPECIMEN Ordering Facility: [facility] Address: [address] [place] [address] Performed By: #### 2 4323-8 #### [facility] CLIA [id number] [address] [place] [address] [place] Anion gap [Moles/Vol] 16 mmol/L Normal 9-18 [facility] Comment on above: Order Comment: Speci men Type: BLOOD SPECIMEN Ordering Facility: [facility] Address: [address] [place] [address] Performed By: #### 2 4323-8 #### [facility] CLIA [id number] [address] [place] [address] [place] AST With P-5'-P [Catalytic activity/Vol] 16 U/L Normal 13-35 [facility] Comment on above: Order Comment: Speci men Type: BLOOD SPECIMEN Ordering Facility: [facility] Address: [address] [place] [address] Performed By: #### 2 4323-8 #### [facility] CLIA [id number] [address] [place] [address] [place] Bilirubin [Mass/Vol] 1.3 mg/dL Normal 0.2-1.3 [facility] Comment on above: Order Comment: Speci men Type: BLOOD SPECIMEN Ordering Facility: [facility] Address: [address] [place] [address] Performed By: #### 2 4323-8 #### [facility] CLIA [id number] [address] [place] [address] [place] Calcium [Mass/Vol] 9.7 mg/dL Normal 8.5-10.2 [facility] Comment on above: Order Comment: Speci men Type: BLOOD SPECIMEN Ordering Facility: [facility] Address: [address] [place] [address] Performed By: #### 2 4323-8 #### [facility] CLIA [id number] 225 [place] [address] [place] Chloride [Moles/Vol] 98 mmol/L Normal 97-105 [facility] Comment on above: Order Comment: Speci men Type: BLOOD SPECIMEN Ordering Facility: [facility] Address: [address] [place] [address] Performed By: #### 2 4323-8 #### [facility] CLIA [id number] [address] [place] [address] [place] CO2 [Moles/Vol] 22 mmol/L Normal 22-30 [facility] Comment on above: Order Comment: Speci men Type: BLOOD SPECIMEN Ordering Facility: [facility] Address: [address] [place] [address] Performed By: #### 2 4323-8 #### [facility] CLIA [id number] [address] OF [place] Creatinine [Mass/Vol] 0.68 mg/dL Normal 0.58-0.96 [facility] Comment on above: Order Comment: Speci men Type: BLOOD SPECIMEN Ordering Facility: [facility] Address: [address] [place] [address] Performed By: #### 2 4323-8 #### [facility] CLIA [id number] [address] [place] [id number] [facility] ESTIMATED GLOMERULAR FILTRATION RATE 93 mL/min/1.73m??? Normal >=60 [facility] Comment on above: Order Comment: Speci men Type: BLOOD SPECIMEN Ordering Facility: [facility] Address: [address] [place] [address] Result Comment: Nathaly mated Glomerular Filtration Rate [...] GFR. Performed By: #### 2 4323-8 #### [facility] CLIA [id number] [address] [place] [address] [place] Glucose [Mass/Vol] 114 mg/dL High 74-99 [facility] Comment on above: Order Comment: Frances li Type: BLOOD SPECIMEN Ordering Facility: [facility] Address: [address] [place] [address] Result Comment: The [place] Diabetes Association (ADA) provides guidance for cutoff [...] Standards of Medical Care in Diabetes 2016, [place] [employer]. Diabetes Care. 2016.39(Suppl 1). Performed By: #### 2 4323-8 #### [facility] CLIA [id number] [address] [place] [address] [place] Potassium [Moles/Vol] 3.8 mmol/L Normal 3.7-5.1 [facility] Comment on above: Order Comment: Frances li Type: BLOOD SPECIMEN Ordering Facility: [facility] Address: [address] [place] [address] Performed By: #### 2 4323-8 #### [facility] CLIA [id number] [address] [place] [address] [place] Protein [Mass/Vol] 6.9 g/dL Normal 6.3-8.0 [facility] Comment on above: Order Comment: Frances li Type: BLOOD SPECIMEN Ordering Facility: [facility] Address: [address] [place] [address] Performed By: #### 2 4323-8 #### [facility] CLIA [id number] [address] Sodium [Moles/Vol] 136 mmol/L Normal 136-144 [facility] Comment on above: Order Comment: Speci men Type: BLOOD SPECIMEN Ordering Facility: [facility] Address: [address] [place] [address] Performed By: #### 2 4323-8 #### [facility] CLIA [id number] [address] [place] [address] Urea nitrogen [Mass/Vol] 17 mg/dL Normal 7-21 [facility] Comment on above: Order Comment: Speci men Type: BLOOD SPECIMEN Ordering Facility: [facility] Address: [address] [place] [address] Performed By: #### 2 4323-8 #### [facility] CLIA [id number] [address] [place] [address] SARS-CoV-2 RNA Resp Ql LAZARUS+p robeon 05-05-2021 SARS-CoV-2 (COVID-19) RNA LAZARUS+probe Ql (Resp) COVID 19 RESULT: SARS-CoV-2 (Agent of COVID-19) Not Detected by RT-PCR or equivalent method. This test has been authorized by FDA under an Emergency Use Authorization (EUA). Normal [facility] Comment on above: Performed By: #### 9 4500-6 #### [facility] CLIA [id number] [address] [place] [address] OF [place] XR CHEST 2V FRONTAL/LATon XR CHEST 2V [...] Thoracic dextroscoliosis. IMPRESSION: Right lower lobe infiltrate Equipment Superintendent: LEONARDO Transcribe Date/Time: May 05 2021 5:57P Dictated by : KIRAN ZAMORA MD This examination was interpreted and the report reviewed and electronically signed by: KIRAN ZAMORA MD on May 05 2021 5:58PM EST [id number] Normal [facility] Encounters Encounter Date Encounter Type Care Provider Facility Start: 08-27-2024 End: 08-27-2024 Patient encounter procedure Shen Dwyer DO -[facility] Work Phone: Start: 08-27-2024 End: 08-27-[address] Nicolasa Harkins DO Work Phone: [facility] Start: 07-23-2024 End: 07-23-[address] Nicolasa Harkins DO Work Phone: [facility] Work Phone: Start: 07-23-2024 End: 07-23-[address] Nicolasa Harkins DO -Outpatient Bone Densitometry Work Phone: Start: 07-23-2024 End: 07-23-2024 ambulatory Nicolasa Harkins Facility:[facility] Start: 06-25-2024 End: 06-25-2024 ambulatory Eliz Olmstead FLOTATION TANK OPERATOR-C Work Phone: [facility] Work Phone: Start: 06-25-2024 End: 06-25-[address] Nicolasa Harkins DO -[facility] Work Phone: Start: 06-25-2024 End: 06-25-2024 ambulatory Nicolasa Harkins Facility:[facility] Start: 06-19-2024 End: 06-19-2024 ambulatory Eliz Olmstead FLOTATION TANK OPERATOR-C Work Phone: [facility] Work Phone: Start: 06-19-2024 End: 06-19-[address] Flower Contreras MD -Radiology, [place] Work Phone: Start: 06-19-2024 End: 06-19-2024 ambulatory Flower Contreras Facility:[facility] Start: 06-04-2024 End: 06-04-2024 ambulatory NICOLASA A MALYS Facility:[facility] Start: 02-29-2024 End: 02-29-2024 Patient encounter procedure Shenmaninder Dwyer DO [facility] Work Phone: Start: 02-29-2024 End: 02-29-2024 ambulatory Nicolasa Malys Facility:[facility] Start: 01-26-2024 End: 01-26-2024 ambulatory Nicolasa Malys Facility:[facility] Start: 12-20-2023 End: 12-20-2023 ambulatory Flower Contreras [facility] Start: 11-30-2023 End: 11-30-2023 ambulatory Flower Contreras [facility] Start: 11-27-2023 End: 11-27-2023 ambulatory Nicolasa Malys Facility:[facility] Start: 11-07-2023 End: 11-07-2023 ambulatory Flower Contreras [facility] Start: 10-17-2023 End: 10-17-2023 ambulatory Eliz Olmstead [facility] Start: 10-04-2023 End: 10-04-2023 ambulatory Nicolasa Malys [facility] Start: 07-24-2023 End: 07-24-2023 ambulatory NICOLASA A MALYS Facility:[facility] Start: 06-06-2023 End: 06-06-2023 ambulatory [facility] Work Phone: Start: 06-06-2023 End: 06-06-2023 Patient encounter procedure [facility] Start: 07-13-2022 End: 07-13-2022 ambulatory [facility] Work Phone: Start: 07-13-2022 End: 07-13-2022 Patient encounter procedure [facility]-Outpatient Bone Densitometry Work Phone: Start: 07-12-2022 End: 07-12-2022 ambulatory [facility] Work Phone: Start: 07-12-2022 End: 07-12-2022 Patient encounter procedure [facility]-Laboratory Work Phone: Start: 06-03-2022 End: 06-03-2022 ambulatory [facility] Work Phone: Start: 06-03-2022 End: 06-03-2022 Patient encounter procedure [facility]-Radiology, [facility] Start: 05-19-2021 Telephone encounter Gustavo johansen MD Work Phone: Hematology/Oncology Comment on above: Hypo Splasher - O ther Procedures Date Procedure Procedure Detail Performing Clinician Start: 07-23-2024 Dual energy X-ray absorptiometry Dr. Nicolasa Harkins DO Work Phone: Start: 06-25-2024 MRI of brain with contrast Eliz Olmstead FLOTATION TANK OPERATOR-C Work Phone: Start: 06-19-2024 Plain X-ray abdomen Marline Olmstead FLOTATION TANK OPERATOR-C Work Phone: Start: 07-13-2022 Dual energy X-ray [...] profile DTAP,TDAP,TD (4 - Td or Tdap) [facility] Start: 06-25-2024 MR Brain WO and W contrast IV [facility] Start: 06-25-2024 MRI of brain with contrast Brain W/WO Contrast [facility] Start: 05-07-2024 DIABETES SCREEN DIABETES SCREEN [facility] Start: 08-12-2021 Adult depression screening assessment DEPRESSION SCREENING [facility] Start: 08-12-2021 BP CONTROLLED (<130/80) BP CONTROLLED (<130/80) [facility] Start: 05-16-2021 COVID-19 VACCINE (4 - Booster for Moderna series) COVID-19 VACCINE (4 - Booster for Moderna series) [facility] Start: 02-13-2021 ADVANCE DIRECTIVE DISCUSSION ADVANCE DIRECTIVE DISCUSSION [facility] Start: 12-11-2019 Mammography MAMMOGRAM [facility] Start: 09-10-2016 SHINGRIX VACCINE (1 of 2) SHINGRIX VACCINE (1 of 2) [facility] Start: 09-18-2013 Colonoscopy COLONOSCOPY [facility] Start: 09-18-2013 COLORECTAL CANCER SCREENING COLORECTAL CANCER SCREENING [facility] Start: 1993 COLOGUARD (FIT-DNA) COLOGUARD (FIT-DNA) [facility] Start: [address] COLONOGRAPHY [facility] Start: 1993 FECAL OCCULT BLOOD FECAL OCCULT BLOOD [facility] Start: 1993 LIPID SCREEN LIPID SCREEN [facility] Start: 1993 SIGMOIDOSCOPY SIGMOIDOSCOPY [facility] Start: 1966 ANNUAL PCP TEAM CHRONIC DISEASE VISIT ANNUAL PCP [facility] Immunizations Immunization Date Immunization Notes Care Provider Fa cility 02-15-2021 influenza, injectabl e, quadrivalent, preservative free Gustavo Corley MD Work Phone: [facility] 05-08-2020 COVID-19 vaccine, fu ll dose (MODERNA) Gustavo Corley MD Work Phone: [facility] 04-10-2020 COVID-19 vaccine, fu ll dose (MODERNA) Gustavo Corley MD Work Phone: [facility] 02-03-2017 influenza, high dose seasonal, preservative-free Gustavo Corley MD Work Phone: [facility] 07-16-2016 measles, mumps and rubella virus vaccine Gustavo Corley MD Work Phone: [facility] 07-16-2016 varicella virus vaccine Victor M Corley MD Work Phone: [facility] 12-02-2015 influenza, high dose seasonal, preservative-free Gustavo Corley MD Work Phone: [facility] 07-20-2015 hepatitis A and hepatitis B vaccine Gustavo Corley MD Work Phone: [facility] 07-20-2015 pneumococcal polysaccharide vaccine, 23 valent Gustavo Corley MD Work Phone: [facility] 05-08-2015 haemophilus influenz ae type b vaccine, PRP-OMP conjugate Gustavo Corley MD Work Phone: [facility] 05-08-2015 meningococcal polysaccharide (groups A, C, Y and W-135) diphtheria toxoid conjugate vaccine (MCV4P) Gustavo Corley MD Work Phone: [facility] 05-08-2015 pneumococcal conjuga te vaccine, 13 valent Gustavo Corley MD Work Phone: [facility] 05-08-2015 tetanus toxoid, redu lacey diphtheria toxoid, and acellular pertussis vaccine, adsorbed Gustavo Corley MD Work Phone: [facility] 02-24-2015 haemophilus influenz ae type b vaccine, PRP-OMP conjugate Gustavo Corley MD Work Phone: [facility] 02-24-2015 hepatitis A and hepatitis B vaccine Gustavo Corley MD Work Phone: [facility] 02-24-2015 pneumococcal conjuga te vaccine, 13 valent Gustavo Corley MD Work Phone: [facility] 02-24-2015 tetanus toxoid, redu lacey diphtheria toxoid, and acellular pertussis vaccine, adsorbed Gustavo Corley MD Work Phone: [facility] 12-26-2014 haemophilus influenz ae type b vaccine, PRP-OMP conjugate Gustavo Corley MD Work Phone: [facility] 12-26-2014 hepatitis A and hepatitis B vaccine Gustavo Corley MD Work Phone: [facility] 12-26-2014 influenza, high dose seasonal, preservative-free Gustavo Corley MD Work Phone: [facility] 12-26-2014 pneumococcal conjuga te vaccine, 13 valent Gustavo Corley MD Work Phone: [facility] 12-26-2014 tetanus toxoid, redu lacey diphtheria toxoid, and acellular pertussis vaccine, adsorbed Gustavo Corley MD Work Phone: [facility] 12-25-2008 novel influenza-H1N1 -09, preservative-free, injectable Gustavo Corley MD Work Phone: [facility] 08-20-2004 pneumococcal polysaccharide vaccine, 23 valent Gustavo Corley MD Work Phone: [facility] Work Phone: Payers Date Payer Category Payer Self-pay [id number] 2020 Private Health Insurance [facility] AARP SUPPLEMENT [id number] 2020-Present [phone] [address] [place] [address] Indemnity [id number] 2020 [facility] [id number] 2015 Private Health Insurance [facility] [id number] 2014 Medicare MEDICARE MEDICAR E A AND B [id number] 2014-Present [phone] [address] [address] [place] [address] Medicare [id number] 2014 Medicare [id number] Unknown [id number] Unknown [id number] Unknown [id number] Unknown [id number] Unknown [id number] Unknown [id number] Unknown [id number] Unknown [id number] .462 Unknown [id number] Unknown [id number] .462 Unknown [id number] .462 Unknown [id number] .462 Social History Date Type Detail Facility [facility]: [facility] Start: 05-06-2021 Alcohol intake Current drinke r of alcohol (finding) [facility] Start: 1950 Sex Assigned At Not on file [facility] Start: 04-26-2021 End: 05-06-2021 Exposure to SARS-CoV-2 (event) Not sure [facility] Start: 04-20-2019 Tobacco smoking stat [facility] Unknown if ever smoked [facility] Start: 04-20-2019 Occasional [facility] Start: 04-20-2019 None [facility] Start: 04-20-2019 With Family [facility] Start: 1950 Sex Assigned At Female W [facility] Medical Equipment Procedure Code Equipment Code Equipment Origin al Text Equipment Identifier Dates Lithotripsy, ESWL Polymeric uret eral stent [id number] FDA Start: 11-30-2023 Radiology Diagnostic study note 06-20-2024 Note Date & Type Note Facility 06-20-2024 Radiology Diagnostic study note [facility] Imaging Services [address] [place] [address] Abdomen Single View MR#: [id number] Acct: [id number] Name: PETTY LEON Rep #: [id number] : 1950 F 73 From: Yazan Rogel MD PCP: Dr. Nicolasa Harkins, Status: REG CLI Study:Abdomen Single View Date of Exam: 06/19/24 Exam# [id number] Ordering Dr: Folwer Contreras MD PROCEDURE: ABDOMEN SINGLE VIEW 06/19/2024 REASON FOR EXAM: LEFT SIDED KIDNEY STONE TECHNIQUE: Single view abdomen. Two views to include the entire abdomen and pelvis COMPARISON: 12/20/2023 FINDINGS: The lung bases grossly appear clear. [id number] appearing leftward thoracolumbar curvature, scoliosis again seen. [...] stent is no longer identified. Reading Location: [id number] CC: Dr. Flower Contreras MD; Dr. Nicolasa Harkins DO ~ Equipment Superintendent: Signed [facility] Evaluation note 02-29-2024 Note Date & Type Note Facility 02-29-2024 Evaluation note Diagnosis Onset Date Resolution Idiopathic pancreatitis acute J anuary 2024 1:37pm [facility] Work Phone: Note 05-19-2021 Telephone Encounter - Esa Esparza RN - 05/19/2021 4:44 PM EDTTelephone Encounter - Ashley Evans Adm - 05/19/2021 4:02 PM EDT Note Date [...] is calling Gustavo Corley MD today regarding Hypo Splasher - Other Patient has been identified by [...] you Requesting response back: call on cell [phone] (home) [phone] (work) [phone] (cell) Ashley Evans Adm May 19, 2021 documented in this encounter [facility] Clinical Note 05-06-2021 Note Date & Type [...] for Respiratory Syncytial Virus (RSV) by PCR [facility] Comment on above: Performed By: #### 9 5941-1 #### [facility] CLIA [id number] [address] [place] [address] [place] History of Past illness Narrative 05-05-2021 Note [...] of this encounter (statuses as of 05/19/2021) 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 No November 23, 2023 8:31am Chief Complaint and Reason for Visit Chief Complaint DYSPHAGIA 12MM Chief Complaint DYSPHAGIA 12MM SCREENING/OSTEO Chief Complaint Admit Date 3 M FU February 29, 2024 1 :37pm KUB- KIDNEY STONE June 19, 2024 2:20pm HEADACHES June 25, 2024 7:00a m Reason for Visit Admit Date Idiopathic pancreatitis February 28 1:37pm Chief Complaint Admit Date KUB- KIDNEY STONE June 19, 2024 2:20pm HEADACHES June 25, 2024 7:00a m SCREENING July 23, 2024 6:56 am Chief Complaint Admit Date KUB- KIDNEY STONE June 19, 2024 2:20pm HEADACHES June 25, 2024 7:00a m SCREENING July 23, 2024 6:56 am 6 M FU August 27, 2024 11:3 8am Additional Source Comments INFORMATION SOURCE (unrecogn ized section and content) DATE CREATED AUTHOR 05/07/2021 [facility] DATE CREATED AUTHOR AUTHOR'S ORGANIZ ATION 06/05/2024 [facility] DATE CREATED AUTHOR AUTHOR'S ORGANIZ ATION [facility]20[facility] Source Comments (unrecognize d section and content) In the event this informatio n is protected by the Federal Confidentiality of Alcohol and Drug Abuse Patient Records regulations: The Federal rules restrict any use of the information to criminally investigate or prosecute any alcohol or drug abuse patient.[facility] Reason for Visit (unrecogniz ed section and content) Reason Comments Hypo Splasher - Other Care Teams (unrecognized sec tion and content) Tire Mold Tester Relationship Specialty Start Date End Date Nicolasa Harkins DO PCP - General Family Practice 07/17/15 [place] [address] [place], [place] [id number] Registered Nurse Blood and Marrow Transplant 04/28/14 Gustavo Corley MD [address] [place], [place] [id number] Physician Blood and Marrow Transplant 04/28/14 Oma Birmingham () [address] [place], [place] [id number] Client Care Representative Blood and Marrow Transplant 05/09/14 Rissa Banks, BRENNAN [address] [place], [place] [id number] Registered Nurse 03/16/18 Team Status: Active Member [...] Harkins DO Primary Care Provider, Attending P giovanni Active Team Status: Active Member Role Status [...] June 25, 2024 End: June 25, 2024 Team Status: Inactive Member Role Status Dates Dr. Nicolasa Harkins DO Primary Care Provider Active Start: July 23, 2024 End: July 23, 2024 Dr. Nicolasa Harkins DO Attending Provider Active St art: July 23, 2024 End: July 23, 2024 Dr. Nicolasa Harkins DO Referring Provider Active St art: July 23, 2024 End: July 23, 2024 Team Status: Active Member Role/Relationship Status Dates Dr. Nicolasa Harkins DO Primary Care Provider Active Team Status: Inactive Member Role/Relationship Status Dates Dr. Nicolasa Harkins DO Primary Care Provider Active Start: June 19, 2024 End: June 19, 2024 Dr. Flower Contreras MD Attending Provider Active Start: June 19, 2024 End: June 19, 2024 Dr. Flower Contreras MD Referring Provider Active Start: June 19, 2024 End: June 19, 2024 Team Status: Inactive Member Role/Relationship Status Dates Dr. Nicolasa Harkins DO Primary Care Provider Active Start: June 25, 2024 End: June 25, 2024 Dr. Nicolasa Harkins DO Attending Provider Active St art: June 25, 2024 End: June 25, 2024 Dr. Nicolasa Harkins DO Referring Provider Active St art: June 25, 2024 End: June 25, 2024 Team Status: Inactive Member Role/Relationship Status Dates Dr. Nicolasa Harkins DO Primary Care Provider Active Start: July 23, 2024 End: July 23, 2024 Dr. Nicolasa Harkins DO Attending Provider Active St art: July 23, 2024 End: July 23, 2024 Dr. Nicolasa Harkins DO Referring Provider Active St art: July 23, 2024 End: July 23, 2024 Team Status: Inactive Member Role/Relationship Status Dates Dr. Nicolasa Harkins DO Primary Care Provider Active Start: August 27, 2024 End: August 27, 2024 Dr. Nicolasa Harkins DO Referring Provider Active St art: August 27, 2024 End: August 27, 2024 Dr. Shen Dwyer DO Attending Provider Active Start: August 27, 2024 End: August 27, 2024 Goals (unrecognized section and content) Goals [...] BE BASED ON THE PRIMARY CLINICAL RECORDS. [facility] [employer] [facility]. provides no warranty or guarantee of the accuracy or completeness of information in this document.
== END | disposition home or self-care (01) ==
LOC: OPBI 13:38
PROVIDERS: PCP Family Medicine; Referring Provider Family Medicine; Visit Provider Family Medicine
DX: Z12.31 Encounter for screening mammogram for malignant neoplasm of breast (principal)
CPT/HCPCS: 77063; 77067